=== PATIENT | male | born 1960 | race Caucasian/White ===

== ENCOUNTER 2018-03-04 17:37 | Emergency (ER) | payer OTHER, SELFPAY ==
[2018-03-04 17:38] VITALS: BP 128/79; PULSE 69; RESP 18; TEMP 36.6; O2SAT 98; BMI 34.7
--- NOTE | 2018-03-04 18:35 | RAD_ITS ---
STUDY: X-RAY - LEFT HAND REASON FOR EXAM: Male, 57 years old. Trauma TECHNIQUE: 3 view(s) of the hand. COMPARISON: None. FINDINGS: There is volar dislocation of the middle phalanx of the middle finger relative to the proximal phalanx. There is no fracture identified. The remainder of the visualized osseous structures are within normal limits. There are no significant degenerative changes. There are no radiodense foreign bodies. RAD/Hand Min 3 Views IMPRESSION: Volar dislocation of the middle phalanx of the middle finger relative to the proximal phalanx. No fracture identified. Electronically Signed: Storm Fernández, at 19:11 EDT Tel , Service support ,
--- NOTE | 2018-03-04 19:48 | ED.VISSUMM ---
- ER Visit Summary Date of Service: 03/04/18 Chief Complaint: Left long digit injury History of Present Illness: The patient is a 57 M presenting for evaluation secondary to an injury to his left long digit. Patient reports that he was holding onto a dog collar and there was a twisting injury of his left long digit. Patient reports that he does not have any other injuries and is right-hand dominant. Physical Examination: Examination of the patient's left hand shows dislocation of the patient's left long digit at the proximal interphalangeal joint with limited range of motion and maintain sensation of the finger. Normal capillary refill. Test Results: Radiographs of the long digits show evidence of no fracture but show dislocation at the proximal interphalangeal joint. Emergency Department Course and Treatment: Patient presented for evaluation secondary to finger injury. X-rays confirmed a dislocation. Patient was anesthetized using digital block. Then traction was used, and the patient was successfully reduced back to a normal anatomic position. He has normal flexion and extension and does not appear to have mallet finger boutonniere deformity. He was placed in a aluminum foam splint and will follow up with orthopedics. Disposition: Discharge Impression: 1. Left long digit PIP dislocation 2. Closed reduction This note was generated with [employer] dictation software. It may contain incorrect words, spelling, and punctuation that were not noted in review of the chart prior to signing ED Disposition - Plan for ED Patient: Disposition: Home or Assisted Living Chief Complaint: Upper Extremity Injury Diagnosis: Finger dislocation Instructions: ED Dislocation Finger Redu Referrals: Xiomara Garland DO [STAFF PHYSICIAN] - 1 Week
[2018-03-04 19:51] VITALS: RESP 16
== END 2018-03-04 19:53 | disposition home or self-care (01) ==
PROVIDERS: Emergency Provider Emergency Medicine; Family Provider Family Medicine; PCP Family Medicine
DX: S63.283A Dislocation of proximal interphalangeal joint of left middle finger, initial encounter (principal); X50.1XXA Overexertion from prolonged static or awkward postures, initial encounter; Y93.9 Activity, unspecified; Y92.9 Unspecified place or not applicable; Y99.9 Unspecified external cause status; I48.91 Unspecified atrial fibrillation; J44.9 Chronic obstructive pulmonary disease, unspecified; Z79.899 Other long term (current) drug therapy
CPT/HCPCS: 26770; 73130; 99282

== ENCOUNTER 2018-03-05 14:30 | Emergency (ER) | payer OTHER, SELFPAY ==
[2018-03-05 14:32] VITALS: BP 137/85; PULSE 62; RESP 18; TEMP 36.4; O2SAT 98; BMI 34.4
--- NOTE | 2018-03-05 14:35 | RAD_ITS ---
STUDY: X-RAY - LEFT HAND REASON FOR EXAM: Male, 57 years old. Dislocated finger. TECHNIQUE: 3 view(s) of the hand. COMPARISON: Comparison is made with prior examination dated March 04, 2018. FINDINGS: Normal radiocarpal articulation. Normal distal radioulnar joint. Normal visualized carpal bones. Normal carpal articulations Normal carpometacarpal articulation of the thumb. Normal second through fifth carpometacarpal joints. Normal metacarpi. Normal metacarpophalangeal joint of the thumb. Normal interphalangeal joint of the thumb. Normal proximal and distal phalanges of the thumb. Normal metacarpophalangeal joints of the second through fifth fingers. There is volar dislocation of the proximal interphalangeal joint of the third digit. Normal phalanges of the second through fifth fingers. Soft tissue swelling. RAD/Hand Min 3 Views IMPRESSION: Bohler dislocation of the proximal interphalangeal joint of the third digit with overlying soft tissue swelling. Electronically Signed: Bill Tavera MD at 15:14 EDT Tel [phone], Service support ,
--- NOTE | 2018-03-05 15:09 | ED.VISSUMM ---
- ER Visit Summary Date of Service: 03/05/18 Chief Complaint: Dislocated finger History of Present Illness: The patient is a 57 M presenting with dislocated left middle finger. Patient was seen in the ED yesterday for same complaint. He states he was twisting a dog collar and his left middle finger dislocated. He was seen in the ED and this was reduced at that time. Today he took the splint off to wash his hands. As he was washing his hands his left middle finger dislocated again. This occurred several hours ago. No other injuries. He is right-handed. Physical Examination: Vitals are stable. Patient is afebrile. Alert no acute distress. HEENT exam is unremarkable. Lungs are clear and equal bilaterally. Heart is regular rate and rhythm. Extremities are left middle finger flexed at PIP. Normal cap refill Skin is warm and dry. No focal neurologic deficit. Remainder of exam is unremarkable. Emergency Department Course and Treatment: Digital block was performed. Xray left hand shows volar dislocation of PIP of left 3rd digit. Closed reduction was performed. Postreduction x-ray was obtained and shows continued dislocation. Closed reduction was performed again ?2. On the third attempt it remained reduced and he was splinted. Post reduction x-ray shows reduction. Discussed with Dr. Sanford [facility] hand who advises AP splint. This was placed. He will follow-up with Dr. Sanford. He is given prescription for [place]. He is advised to return to ED for any worsening complaints. Disposition: Discharge home Impression: Left middle finger PIP dislocation, closed reduction This note was generated with [employer] dictation software. It may contain incorrect words, spelling, and punctuation that were not noted in review of the chart prior to signing ED Disposition - Plan for ED Patient: Disposition: Home or Assisted Living Chief Complaint: Upper Extremity Injury Instructions: ED Dislocation Finger Redu Prescriptions: Hydrocodone Bitart/Apap 5-325 [[place] 5MG-325MG] 1 tablet PO Q6H PRN PRN 3 Days #10 tablet PRN Reason: Pain Referrals: Piyush Sanford MD [NON-STAFF] - Carlos Enrique Ward DO [Primary Care Provider] -
--- NOTE | 2018-03-05 15:13 | ED.DCSUM_ITS ---
- ER Visit Summary Date of Service: 03/05/18 Chief Complaint: Dislocated finger History of Present Illness: The patient is a 57 M presenting with dislocated left middle finger. Patient was seen in the ED yesterday for same complaint. He states he was twisting a dog collar and his left middle finger dislocated. He was seen in the ED and this was reduced at that time. Today he took the splint off to wash his hands. As he was washing his hands his left middle finger dislocated again. This occurred several hours ago. No other injuries. He is right-handed. Physical Examination: Vitals are stable. Patient is afebrile. Alert no acute distress. HEENT exam is unremarkable. Lungs are clear and equal bilaterally. Heart is regular rate and rhythm. Extremities are left middle finger flexed at PIP. Normal cap refill Skin is warm and dry. No focal neurologic deficit. Remainder of exam is unremarkable. Emergency Department Course and Treatment: Digital block was performed. Xray left hand shows volar dislocation of PIP of left 3rd digit. Closed reduction was performed. Postreduction x-ray was obtained and shows continued dislocation. Closed reduction was performed again ?2. On the third attempt it remained reduced and he was splinted. Post reduction x-ray shows reduction. Discussed with Dr. Sanford [facility] hand who advises AP splint. This was placed. He will follow-up with Dr. Sanford. He is given prescription for [place]. He is advised to return to ED for any worsening complaints. Disposition: Discharge home Impression: Left middle finger PIP dislocation, closed reduction This note was generated with [employer] dictation software. It may contain incorrect words, spelling, and punctuation that were not noted in review of the chart prior to signing ED Disposition - Plan for ED Patient: Disposition: Home or Assisted Living Chief Complaint: Upper Extremity Injury Instructions: ED Dislocation Finger Redu Prescriptions: Hydrocodone Bitart/Apap 5-325 [[place] 5MG-325MG] 1 tablet PO Q6H PRN PRN 3 Days # 10 tablet PRN Reason: Pain Referrals: Piyush Sanford MD [NON-STAFF] - Carlos Enrique Ward DO [Primary Care Provider] -
--- NOTE | 2018-03-05 16:25 | RAD_ITS ---
STUDY: X-RAY - LEFT HAND REASON FOR EXAM: Male, 57 years old. Post reduction of third digit TECHNIQUE: 3 view(s) of the hand. COMPARISON: 03/05/2018 at 2:53 PM FINDINGS: Again noted is volar dislocation of the middle phalanx of the third digit relative to the proximal phalanx. When compared with the prior exam, there is minimally improved alignment and residual dislocation remains. There is no acute fracture. There are no radiodense foreign bodies. RAD/Hand Min 3 Views IMPRESSION: Redemonstration of volar dislocation of the middle phalanx of the third digit relative to the proximal phalanx. When compared with the prior exam, there is minimally improved alignment however residual dislocation remains. Electronically Signed: Storm Fernández, at 17:41 EDT Tel , Service support ,
--- NOTE | 2018-03-05 17:00 | RAD_ITS ---
STUDY: X-RAY - LEFT HAND REASON FOR EXAM: Male, 57 years old. 3rd digit post reduction. TECHNIQUE: 3 view(s) of the hand. COMPARISON: Imaging of the hand of 03/04/2018 and 03/05/2018.. FINDINGS: Persistent anterior dislocation of the 3rd digit middle phalanx relative to the proximal phalanx at the proximal interphalangeal joint. No visible fracture. RAD/Hand Min 3 Views IMPRESSION: The dislocation is not reduced. Electronically Signed: Brandon Arias, at 18:01 EDT Tel , Service support ,
--- NOTE | 2018-03-05 18:15 | RAD_ITS ---
STUDY: X-RAY - LEFT HAND REASON FOR EXAM: Male, 57 years old. Post reduction TECHNIQUE: 2 view(s) of the hand. COMPARISON: 03/05/2018 FINDINGS: The patient is status post reduction of the previously seen dislocation of the third proximal interphalangeal joint. Alignment is satisfactory. There is no fracture identified. There are no significant degenerative changes. There are no radiodense foreign bodies. RAD/Hand 2 Views IMPRESSION: Status post reduction of the previously seen dislocation of the third proximal interphalangeal joint with satisfactory alignment. Electronically Signed: Storm Fernández, at 19:05 EDT Tel , Service support ,
--- NOTE | 2018-03-05 19:14 | ED.DEP ---
ED Disposition - Plan for ED Patient: Chief Complaint: Upper Extremity Injury Instructions: ED Dislocation Finger Redu Prescriptions: Hydrocodone Bitart/Apap 5-325 [[place] 5MG-325MG] 1 tablet PO Q6H PRN PRN 3 Days #10 tablet PRN Reason: Pain Referrals: Carlos Enrique Ward DO [Primary Care Provider] - Piyush Sanford MD [NON-STAFF] -
--- NOTE | 2018-03-05 19:16 | DCINST.ED_ITS ---
ED Disposition - Plan for ED Patient: Chief Complaint: Upper Extremity Injury Instructions: ED Dislocation Finger Redu Prescriptions: Hydrocodone Bitart/Apap 5-325 [[place] 5MG-325MG] 1 tablet PO Q6H PRN PRN 3 Days # 10 tablet PRN Reason: Pain Referrals: Carlos Enrique Ward DO [Primary Care Provider] - Piyush Sanford MD [NON-STAFF] -
[2018-03-05 19:25] VITALS: PULSE 68; RESP 14; O2SAT 98
== END 2018-03-05 19:26 | disposition home or self-care (01) ==
LOC: ED 15:12
PROVIDERS: Emergency Provider Emergency Medicine; Family Provider Family Medicine; PCP Family Medicine
DX: S63.283A Dislocation of proximal interphalangeal joint of left middle finger, initial encounter (principal); X58.XXXA Exposure to other specified factors, initial encounter; Y93.E8 Activity, other personal hygiene; Y92.9 Unspecified place or not applicable; Y99.9 Unspecified external cause status; I10 Essential (primary) hypertension; Z79.899 Other long term (current) drug therapy; Z72.0 Tobacco use
CPT/HCPCS: 26770; 73120; 73130; 99282

== ENCOUNTER → 2019-07-01 07:49 | Outpatient (CLI) | payer OTHER, SELFPAY ==
[2019-01-27 08:22] VITALS: BMI 34.7
--- NOTE | 2019-07-02 10:13 | PFT ---
INTRODUCTION: The patient is a 58-year-old male that presents for pulmonary function studies secondary to a diagnosis of COPD. Respiratory therapy reports good patient effort. Bronchodilators were used during testing. INTERPRETATION: Forced expiration spirometry demonstrates the presence of a moderately severe large airways obstructive ventilatory defect. There was no significant response to aerosolized bronchodilators, based upon strict ATS criteria. Spirograms are of fair quality and do not plateau indicating slow emptying of the lungs. Body plethysmography was performed and reveals lung volumes to be within normal limits. Diffusing capacity by single breath CO is reduced at 63% of predicted. IMPRESSION: Irreversible moderately severe large airways obstructive ventilatory defect with preserved lung volumes and symmetric reduction in diffusing capacity.
== END ==
PROVIDERS: Family Provider Family Medicine; PCP Family Medicine; Referring Provider Internal Medicine Critical Care Medicine; Visit Provider Internal Medicine Critical Care Medicine
DX: J44.9 Chronic obstructive pulmonary disease, unspecified (principal)
CPT/HCPCS: 94060; 94726; 94729

== ENCOUNTER → 2019-07-14 08:47 | Outpatient (CLI) | payer OTHER, SELFPAY ==
[2019-01-27 08:22] VITALS: BMI 34.7
[2019-07-14 11:31] VITALS: PULSE 60; PULSE 65; PULSE 70; PULSE 74; PULSE 75; PULSE 78; PULSE 80; O2SAT 95; O2SAT 96; O2SAT 97; O2SAT 98
--- NOTE | 2019-07-15 14:27 | WT_ITS ---
PSN 6 Minute Walk Test - 6 Minute Walk Test 6 Minute Walk Test: 6 Minute Walk Test PSN:6-Minute Walk Test Start: 07/14/19 10:15 Freq: Status: Active Protocol: [id number] Document 07/14/19 11:31 [facility] (Rec: 07/14/19 11:51 [facility] [id number]) 6 Minute Walk Test Date Performed 07/14/19 Time Performed 09:00 Height 5 ft 10.5 in Weight: 240 lb Weight in Pounds 240.[address]: Mil Rivera Assistive device used: None Pre-test Oxygen Delivery Method Room Air Pulse Ox (%) 97 Pulse Rate (60-100 beats/min) 65 Dyspnea Casie Scale (0-10) 0 1st minute Oxygen Delivery Method Room Air Pulse Ox (%) 96 Pulse Rate (60-100 beats/min) 70 Dyspnea Casie Scale (0-10) 0 Number of Rests Taken 0 2nd minute Oxygen Delivery Method Room Air Pulse Ox (%) 96 Pulse Rate (60-100 beats/min) 80 Dyspnea Casie Scale (0-10) 0 Number of Rests Taken 0 3rd minute Oxygen Delivery Method Room Air Pulse Ox (%) 96 Pulse Rate (60-100 beats/min) 75 Dyspnea Casie Scale (0-10) 0 Number of Rests Taken 0 4th minute Oxygen Delivery Method Room Air Pulse Ox (%) 95 Pulse Rate (60-100 beats/min) 78 Dyspnea Casie Scale (0-10) 0 Number of Rests Taken 0 5th minute Oxygen Delivery Method Room Air Pulse Ox (%) 96 Pulse Rate (60-100 beats/min) 80 Dyspnea Casie Scale (0-10) 0 Number of Rests Taken 0 6th minute Oxygen Delivery Method Room Air Pulse Ox (%) 95 Pulse Rate (60-100 beats/min) 74 Dyspnea Casie Scale (0-10) 0 Number of Rests Taken 0 Post-test Oxygen Delivery Method Room Air Pulse Ox (%) 98 Pulse Rate (60-100 beats/min) 60 Dyspnea Casie Scale (0-10) 0 Full Laps Walked 22 Partial Lap, Number of Tiles Walked 42 Total Distance Walked (ft) 1340 - Interpretation Interpretation: The patient ambulated 1340 feet over the course of 6 minutes beginning on room air without assistive devices or breaks. Pretesting oxygen saturation was noted to be 97% on room air. With ambulation, the elisha oxygen saturation was 95%. There was no significant exertional oxygen desaturation. - Recommendations Recommendations: There is no indication for the use of supplemental oxygen at this time.
== END ==
PROVIDERS: Family Provider Family Medicine; PCP Family Medicine; Referring Provider Internal Medicine Critical Care Medicine; Visit Provider Internal Medicine Critical Care Medicine
DX: J44.9 Chronic obstructive pulmonary disease, unspecified (principal)
CPT/HCPCS: 94618

== ENCOUNTER → 2019-07-20 08:15 | Outpatient (CLI) | payer OTHER, SELFPAY ==
[2019-07-20 07:51] VITALS: BMI 34.7
[2019-07-20 08:42] LABS: Absolute Lymphocyte Count 2.52 X10^3/uL (0.83-4.51); Absolute Neutrophil Count 6.7 X10^3/uL (2.0-7.7); Basophil# 0.06 X10^3/uL; Basophil% 0.6 % (0-1); Eosinophil# 0.13 X10^3/uL; Eosinophils% 1.3 % (0-5); Hematocrit 45.4 % (40-54); Hemoglobin 14.7 g/dL (13.0-16.5); Lymphocyte # 2.52 X10^3/ul (4.0); Lymphocyte % 24.3 % (19-41); Mean Corp Hgb Conc 32.4 g/dL (32-36); Mean Corpuscular Hgb 32.2 pg (27.0-32.0); Mean Corpuscular Volume 99.3 fL (80-94); Mean Platelet Vol. 10.8 fl (6.2-12.0); Monocyte% 8.7 % (0-10); NRBC Flagged by Analyzer 0 % (0-5); Neutrophil # 6.69 X10^3/uL (2.7-7.7); Neutrophil % 64.4 % (47-70); Platelet Count 259 K/mm3 (150-450); RBC Distribution Width CV 13.3 % (11.6-14.6); RBC Distribution Width SD 48.4 fl (35.1-43.9); Red Blood Count 4.57 M/mm3 (4.6-6.2); White Blood Count 10.4 K/mm3 (4.4-11.0)
[2019-07-23 03:06] LABS: Alternaria alternata 1.38 kU/L (Class II); Bermuda Grass 0.16 kU/L (Class 0/I); Bluegrass, Kentucky 0.15 kU/L (Class 0/I); Cat Hair/Dander, Standard 0.77 kU/L (Class II); D pteronyssinus 3.43 kU/L (Class III); Dog Epithelia 3.72 kU/L (Class III); Elm, American White 0.11 kU/L (Class 0/I); Oak, White 0.12 kU/L (Class 0/I); Plantain, English 0.16 kU/L (Class 0/I)
[2019-07-23 16:02] LABS: Mouse Urine <0.10 kU/L (Class 0)
[2019-07-23 20:07] LABS: Aspirgillus flavus Negative (Neg:<1:1); Aspirgillus fumigatus Negative (Neg:<1:1); Aspirgillus niger Negative (Neg:<1:1)
[2019-07-23 20:52] LABS: Immunoglobulin E 255 IU/mL (6-495)
== END ==
PROVIDERS: PCP Family Medicine; Referring Provider Nurse Practitioner Acute Care; Visit Provider Nurse Practitioner Acute Care
DX: R06.00 Dyspnea, unspecified (principal)
CPT/HCPCS: 36415; 82785; 85025; 86003; 86606

== ENCOUNTER → 2020-12-01 20:31 | Outpatient (CLI) | payer OTHER, SELFPAY ==
[2020-11-02 06:43] VITALS: BMI 35.3
== END ==
PROVIDERS: PCP Family Medicine; Referring Provider Internal Medicine Critical Care Medicine; Visit Provider Internal Medicine Critical Care Medicine
DX: G47.33 Obstructive sleep apnea (adult) (pediatric) (principal)
CPT/HCPCS: 95811

== ENCOUNTER 2022-03-18 10:47 | Inpatient (IN) | payer OTHER, SELFPAY ==
[2022-03-18] VITALS (28 sets, daily range): BP systolic 97–150; BP diastolic 65–106; PULSE 68–158; RESP 16–26; TEMP 36.1–37.2; O2SAT 94–100; BMI 36.6; BMI 36.0
--- NOTE | 2022-03-18 11:00 | RAD_ITS ---
STUDY: X-RAY CHEST REASON FOR EXAM: Male, 61 years old. Chest pain TECHNIQUE: Single AP portable view of the chest. COMPARISON: October 04, 2014 FINDINGS: The lungs are clear and hyperexpanded. There is no demonstrated pleural abnormality. Normal size heart. Normal mediastinum and ariel. Normal visualized pulmonary arteries. Normal visualized aortic arch and descending thoracic aorta. Normal visualized thoracic spine. Normal visualized ribs, clavicles, and shoulders. There is no demonstrated abnormality of the visualized soft tissue structures of the upper abdomen. RAD/Chest 1 View (Portable) IMPRESSION: No acute cardiopulmonary disease. Electronically Signed: Dax Funes MD at 11:41 EDT ,
--- NOTE | 2022-03-18 11:05 | EDS_ITS ---
HPI History of Present Illness Chief Complaint: Palpitations Informant: spouse/S.O. Onset/Context/Timing Onset: Yesterday Activity at onset: sudden Timing: Intermittent Quality: Positive for Aching Location: Left Chest Current Severity: Mild Maximum Severity: Mild Worsened By: Nothing Relieved By: Nothing Associated Symptoms: Positive for Palpitations; Negative for Nausea, Vomiting, Diaphoresis, Dyspnea, Cough, Fever, Lightheadedness or Acid Reflux Narrative Narrative: 61-year-old male history of A. fib in which 10 years ago had a cardiac ablation done at [facility]. Also has a history of CHF, cardiomyopathy COPD. He is supposed be on metoprolol 50 mg twice a day. He recently cut that back to once a day. He ran out of his medications was unable to get it filled quickly because he had notified his [employer] locom[employer] office and started having celebrated heart rate again yesterday with intermittent left-sided chest pain. He believes he is back in A. fib. Prior Similar Symptoms: Yes Recent Illness/Hospitalization: No CVD Risk Factors: Positive for Smoking; Negative for Diabetes PE Risk Factors: Negative for Recent Travel/Surgery, Recent Immobilization, Prior DVT or PE, Cancer or OCP + Smoking + >/=35 TAD Risk Factors: Negative for Marfan's Syndrome [facility] Medical History (Updated 03/18/22 @ 11:[address] Sammy Cm MD) Alcoholism Asthma Atrial flutter Chronic systolic (congestive) heart failure Depression Hyperlipidemia Nicotine dependence Non-ischemic cardiomyopathy Obesity CEM (obstructive sleep apnea) Paroxysmal atrial fibrillation Stage 2 moderate COPD by GOLD classification Vitamin D deficiency Home Medications cholecalciferol (vitamin D3) 125 mcg (5,000 unit) capsule 5,000 unit PO QDAY 07/25/17 [History Last Taken 03/05/18] spacer #1 ea 08/06/19 [Rx Last Taken Unknown] metoprolol tartrate 50 mg tablet 50 mg PO BID #180 tabs 09/14/20 [Rx Last Taken Unknown] albuterol sulfate 90 mcg/actuation aerosol inhaler (Ventolin HFA) 2 puff inhalation Q4H PRN shortness of breath or wheezing #18 grams 05/03/21 [Rx Last Taken Unknown] tiotropium 2.5 mcg-olodaterol 2.5 mcg/actuation mist for inhalation 2 inh inhalation DAILY #1 device 11/30/21 [Rx Last Taken Unknown] cetirizine 10 mg capsule 10 mg PO HS #30 caps 01/22/22 [Rx Last Taken Unknown] ipratropium 20 mcg-albuterol 100 mcg/actuation mist for inhalation (Combivent Respimat) 1 puff inhalation Q6H PRN shortness of breath or wheezing #4 grams 01/22/22 [Rx Last Taken Unknown] Allergy/AdvReac Type Severity Reaction Status Date / Time No Known Allergies Allergy Verified 03/18/22 10:49 Family History Unknown No problems noted. Other Adopted Surgical History History of cardiac radiofrequency ablation (10/01/14) History of cardioversion History of tonsillectomy History of umbilical hernia repair Social History Smoking Status: Current every day smoker tobacco type: cigarettes ROS ROS ED ROS Narrative Accelerated heart beat. Palpitations. Chest pain. Review of Systems ROS Unobtainable: Denies due to encephalopathy Constitutional Constitutional ED: Denies chills or fever(s) Eyes Eyes: Reports none ENT ENT ED: Denies ear pain Cardiovascular Cardiovascular: Reports as per HPI, chest pain, palpitations and racing h eartbeat Respiratory/Chest Respiratory/Chest: Denies cough or dyspnea Gastrointestinal Gastrointestinal: Denies abdominal pain Genitourinary Genitourinary ED: Denies dysuria or hematuria Musculoskeletal Musculoskeletal: Denies arthralgias Integumentary Denies abscess Neurologic Neurologic: Denies headache(s) Psychiatric Psychiatric: Denies anxiety Endocrine Endocrinology: Denies cold intolerance Hematologic/Lymphatic Hematologic/Lymphatic: Denies easy bleeding Allergic/Immunologic Allergic/Immunologic ED: Denies mouth swelling or tongue swelling EXAM Physical Exam Narrative Exam Narrative: 5 H EENT exam unremarkable. Lungs are clear. Heart A. fib RVR rate about 160. Chest wall nontender. Abdomen soft nontender. Moving all 4 extremities. Calves are nontender without edema or cords. Neurologically is awake and alert. 11-year-old male vital signs show a blood pressure 150/83. Afebrile. Pulse ox 98% on room air no signs hypoxia. He is obviously in A. fib RVR on the monitor. at bedside. Const Vital Signs: 03/18/22 10:50 03/18/22 11:02 03/18/22 11:02 Temperature 96.9 F L Temperature Source Temporal Pulse Rate 158 H 139 H Respiratory Rate 18 18 Respiratory Effort Blood Pressure 150/83 H Blood Pressure Mean 105 Pulse Ox 98 99 Oxygen Delivery Method Room Air Room Air Room Air 03/18/22 11:02 Temperature Temperature Source Pulse Rate Respiratory Rate Respiratory Effort Normal Blood Pressure Blood Pressure Mean Pulse Ox Oxygen Delivery Method Positive well nourished, well developed and obese; Negative for cachectic, contractures or unkempt General Appearance ED: well developed; Negative for unkempt, cachectic, contractures, NAD or pallor Nutritional Appearance: obese; Negative for cachectic HEENT Reports moist mucous membranes normocephalic and atraumatic; Negative for trauma or tenderness Eyes PERRL and EOMs intact bilaterally General Eye ED: Negative for pale conjunctiva or scleral icterus Neck no lymphadenopathy, supple and no JVD General: Negative for tenderness Chest Wall inspection of chest normal and palpation of chest normal Chest: Negative for tenderness Resp normal respiratory effort and clear to auscultation bilaterally Effort and Inspection: Negative for respiratory distress Auscultation: Negative for rales, rhonchi or wheezes Cardio no murmurs; Negative for regular rate or regular rhythm Rate: tachycardic GI normal to inspection, nondistended, normoactive bowel sounds, soft to palpation, non-tender, non-distended and no masses Back/Spine no CVA tenderness and no thoracic nor lumbar tenderness General Back: Negative for CVA tenderness Cervical Spine: Negative for cervical spine tenderness Extremity normal to inspection General Extremety ED: Negative for edema General Extremity: Negative for edema Neuro oriented x3 and CN's II-XII intact bilaterally Sensorium / Orientation: awake, alert, oriented to person, oriented to place and oriented to time; Negative for confused, lethargic or stuporous Motor Exam: strength 5/5 throughout Psych mental status grossly normal Appearance: Negative for unkempt Attitude: No agitated Mood & Affect: Negative for depressed, anxious or tearful Skin no rashes or lesions noted and no wounds General Skin Exam: Negative for jaundice or pallor Rashes: No rashes noted Trauma: Negative for abrasion MDM MDM MDM Narrative Medical decision making narrative: 61-year-old gentleman history of A. fib 10 years ago. And recurrent A. fib RVR at this time. Will be treated with IV Cardizem. He may need to go on a drip. Will undergo cardiac work-up. Most likely will need to be admitted. Repeat exam at 11:45 AM patient doing well. He remains A. fib RVR he will be started on a Cardizem drip. He will be admitted to the hospital by the hospitalist and get cardiology consultation and an decide further therapeutic interventions. I discussed all this with patient and his they are comfortable with the plan. Lab Data Attestation: I reviewed the patient's lab results. Lab results narrative: CBC shows a white count of 10.2. H&H of 15 and 46. Chemistry is unremarkable to have 11. Normal BUN and creatinine. Troponin 8. TSH 1.81. Labs: Laboratory Results - last 24 hr 03/18/22 03/18/22 11:15 11:15 WBC 10.2 RBC 4.66 Hgb 15.9 Hct 46.4 MCV 99.6 H MCH 34.1 H MCHC 34.3 RDW Std Deviation 48.3 H RDW Coeff of Cierra 13.2 Plt Count 284 MPV 10.7 Immature Gran % (Auto) 0.400 Neut % (Auto) 66.3 Lymph % (Auto) 22.9 [place] % (Auto) 8.4 Eos % (Auto) 1.4 Baso % (Auto) 0.6 Absolute Neuts (auto) 6.8 Absolute Lymphs (auto) 2.33 Nucleated RBC % 0 Sodium 140 Potassium 4.0 Chloride 107 Carbon Dioxide 22.0 Anion Gap 11 BUN 7 Creatinine 0.96 Estim Creat Clear Calc 85.55 Est GFR (MDRD) Af Amer 103 Est GFR (MDRD) Non-Af 85 BUN/Creatinine Ratio 7.3 L Glucose 102 Calcium 9.5 Troponin I High Sens 8 TSH 1.81 Radiography Chest X-Ray - ED: 1 View, Read by ED Physician, Read by Radiologist, Heart, Lungs, Mediastinum, Bony Structures, No Acute Disease and Chronic Changes Diagnostic Testing: Clinical Impression(s) from Imaging Studies Chest X-Ray 03/18/22 11:00 IMPRESSION: No acute cardiopulmonary disease. Electronically Signed: Dax Funes MD at 11:41 EDT , Chest x-ray, portable, single view shows no acute abnormality. Normal cardiac silhouette. Mediastinum. Chronic changes. Interpreted both by myself and radiologist. Rhythm Strip Rhythm Strip: A-fib Rate: 161 EKG Initial EKG: Attestation: I personally reviewed and interpreted this EKG as follows: Interpretation: No Acute Injury Pattern and Atrial Fibrillation Comments: Atrial fibrillation rate of 161. No signs of IL or ischemia. Critical Care Time Critical Care Time: Yes Critical care time (excluding procedures): 30-74 minutes, Including time spent:, Discussing w/Patient &/or Family/Grated Cheese Maker, Discussing w/Consultants, Arranging Admission or Transfer, Performing Direct Patient Care at Bedside and - (32 min) Discharge Plan Dx/Rx/DC Orders Clinical Impression: Atrial fibrillation with rapid ventricular response, Stage 2 moderate COPD by GOLD classification, Non-ischemic cardiomyopathy, Chest pain Disposition Disposition: Acute Care Hospital [facility], [place]
[2022-03-18] MEDS: dilTIAZem 25 MG/5 ML Vial IV BOLUS (11:22)
[2022-03-18 11:27] LABS: Absolute Lymphocyte Count 2.33 X10^3/uL (0.83-4.51); Absolute Neutrophil Count 6.8 X10^3/uL (2.0-7.7); Basophil# 0.06 X10^3/uL; Basophil% 0.6 % (0-1); Eosinophil# 0.14 X10^3/uL; Eosinophils% 1.4 % (0-5); Hematocrit 46.4 % (40-54); Hemoglobin 15.9 g/dL (13.0-16.5); Lymphocyte # 2.33 X10^3/ul (0.83-4.51); Lymphocyte % 22.9 % (19-41); Mean Corp Hgb Conc 34.3 g/dL (32-36); Mean Corpuscular Hgb 34.1 pg (27.0-32.0); Mean Corpuscular Volume 99.6 fL (80-94); Mean Platelet Vol. 10.7 fl (6.2-12.0); Monocyte# 0.86 X10^3/uL; Monocyte% 8.4 % (0-10); NRBC Flagged by Analyzer 0 % (0-5); Neutrophil # 6.75 X10^3/uL (2.7-7.7); Neutrophil % 66.3 % (47-70); Platelet Count 284 K/mm3 (150-450); RBC Distribution Width CV 13.2 % (11.6-14.6); RBC Distribution Width SD 48.3 fl (35.1-43.9); Red Blood Count 4.66 M/mm3 (4.6-6.2); White Blood Count 10.2 K/mm3 (4.4-11.0)
[2022-03-18 11:44] LABS: Anion Gap 11 (5-15); BUN 7 mg/dL (7-18); BUN/Creat Ratio 7.3 RATIO (10-20); Calcium,Total 9.5 mg/dL (8.5-10.1); Chloride 107 mmol/L (98-107); Creatinine, Serum 0.96 mg/dL (0.70-1.30); EST Glomerular Filtration Rate 85 mL/min (>60); Est Glom Filt Rate - Afr Amer 103 mL/min (>60); Estimated Creatinine Clearance 85.55 ml/min; Glucose 102 mg/dL (74-106); Sodium Level 140 mmol/L (136-145); Thyroid Stim Hormone (TSH) 1.81 uIU/mL (0.358-3.74); Troponin-I HS (w/2H Reflex) 8 pg/mL (3.0-78.0)
--- NOTE | 2022-03-18 11:58 | NURSING ---
HOSPITALIST FOR DR DIAZ
--- NOTE | 2022-03-18 12:01 | HP.PCM.HOS_ITS ---
[facility] - General General Date of Admission: 03/18/22 Date of Service: 03/18/22 Chief Complaint: Palpitations, noted a day before admission HPI Narrative LIZZETTE TIDWELL, is a 61 M who presents with the above. Patient has history of paroxysmal atrial fibrillation status post ablation, not on anticoagulation because of low [id number] score, obstructive sleep apnea, on CPAP, hyperlipidemia, nonischemic cardiomyopathy, COPD, not on oxygen, who comes in with complaints of palpitations noted yesterday. Patient is on metoprolol 50 mg p.o. twice daily. He had been trying to wean himself off metoprolol gradually. He was currently on 25 mg p.o. twice daily. Patient however ran out of medications few days prior to admission. He had associated chest discomfort that has since resolved he denied any dizziness or orthopnea or PND In the ED, patient blood pressure was 150/83, heart rate was 158, respiratory rate was 18, temperature 96.9 F, oxygen sat was 98% on room air. His WBC count was 10.2, hemoglobin 15.9, platelet count 284, sodium 140, potassium 4.0, chloride 107, BUN 7, bicarb 22, creatinine 0.96, magnesium 2.3. Chest x-ray jamie wed no cardiopulmonary abnormality. Patient's EKG showed A. fib with RVR PFSH Medical History Alcoholism Asthma Atrial flutter Depression Nicotine dependence Non-ischemic cardiomyopathy Obesity CEM (obstructive sleep apnea) Paroxysmal atrial fibrillation Stage 2 moderate COPD by GOLD classification Vitamin D deficiency Home Medications cholecalciferol (vitamin D3) 125 mcg (5,000 unit) capsule 5,000 unit PO QDAY supplement 07/25/17 [History Last Taken 03/05/18] albuterol sulfate 90 mcg/actuation aerosol inhaler (Ventolin HFA) 2 puff in halation Q4H PRN shortness of breath or wheezing #18 grams 05/03/21 [Rx Last Taken Unknown] ipratropium 20 mcg-albuterol 100 mcg/actuation mist for inhalation (Combivent Respimat) 1 puff inhalation Q6H PRN shortness of breath or wheezing #4 grams 01/22/22 [Rx Last Taken Unknown] metoprolol tartrate 50 mg tablet 50 mg PO BID heart rate/bp 03/18/22 [History Last Taken Unknown] tiotropium 2.5 mcg-olodaterol 2.5 mcg/actuation mist for inhalation 2 inh inhalation DAILY shortness of breath 03/18/22 [History Last Taken Unknown] Allergy/AdvReac Type Severity Reaction Status Date / Time No Known Allergies Allergy Verified 03/18/22 10:49 Family History Unknown No problems noted. Other Adopted Surgical History History of cardiac radiofrequency ablation (10/01/14) History of cardioversion History of tonsillectomy History of umbilical hernia repair Social History Smoking Status: Heavy Smoker (>10/day) ROS ROS Narrative Constitutional:Denies: Anorexia, Chills, Fever, Night Sweats, Weight Change Eyes: Denies: Blurred vision, Cataracts, Conjunctivae Inflammation, Pain, Redness, Vision Change HEENT: Denies: Difficulty Hearing, Difficulty Swallowing, Head Aches, Hearing Changes, Sinus Congestion, Sinus Drainage Cardiovascular: See HPI Respiratory: Denies: Cough, Shortness of breath at rest, Sputum production Gastrointestinal: Denies: Abdominal Pain, Nausea, Vomiting Genitourinary: Denies: Dysuria Musculoskeletal: Denies: Joint Pain, Joint stiffness, Joint swelling, Joint Tenderness Skin: Denies: Rash, Wounds Neurological: Denies: Numbness, Tingling, Focal weakness Vital Signs Vital Signs Vital Signs: 03/18/22 10:50 03/18/22 11:02 03/18/22 11:02 Temperature 96.9 F L Temperature Source Temporal Pulse Rate 158 H 139 H Respiratory Rate 18 18 Respiratory Effort Blood Pressure 150/83 H Blood Pressure Mean 105 Pulse Ox 98 99 Oxygen Delivery Method Room Air Room Air Room Air 03/18/22 11:02 Temperature Temperature Source Pulse Rate Respiratory Rate Respiratory Effort Normal Blood Pressure Blood Pressure Mean Pulse Ox Oxygen Delivery Method Weight Weight: 115.938 kg Body Mass Index (BMI) 36.6 Physical Exam Narrative Physical exam: General: Alert, Oriented x3, Cooperative, obese HEENT: Atraumatic Oral: Moist Mucosa Neck: Supple Lungs: Clear to auscultation Cardiovascular: HS I+II, regular, no murmurs Abdomen: Bowel Sounds Present, Soft, Non Tender Extremities: No edema Skin: No rashes, No breakdown Neurological: Grossly intact Psych/Mental Status: Appropriate Results Lab / Micro Data Result Diagrams: 03/18/22 11:15 03/18/22 11:15 Labs: Laboratory Results - last 24 hr 03/18/22 11:15: WBC 10.2, RBC 4.66, Hgb 15.9, Hct 46.4, MCV 99.6 H, MCH 34.1 H, MCHC 34.3, RDW Std Deviation 48.3 H, RDW Coeff of Cierra 13.2, Plt Count 284, MPV 10.7, Immature Gran % (Auto) 0.400, Neut % (Auto) 66.3, Lymph % (Auto) 22.9, [place] % (Auto) 8.4, Eos % (Auto) 1.4, Baso % (Auto) 0.6, Absolute Neuts (auto) 6.8, Absolute Lymphs (auto) 2.33, Nucleated RBC % 0 03/18/22 11:15: Sodium 140, Potassium 4.0, Chloride 107, Carbon Dioxide 22.0, Anion Gap 11, BUN 7, Creatinine 0.96, Estim Creat Clear Calc 85.55, Est GFR (MDRD) Af Amer 103, Est GFR (MDRD) Non-Af 85, BUN/Creatinine Ratio 7.3 L, Glucose 102, Calcium 9.5, Troponin I High Sens 8, TSH 1.81 Rhythm Strip Rhythm Strip: A-fib Rate: 161 Radiology Impression Chest X-Ray 03/18/22 11:00 IMPRESSION: No acute cardiopulmonary disease. Electronically Signed: Dax Funes MD at 11:41 EDT , Assessment & Plan Assessment/Plan (1) Atrial fibrillation with rapid ventricular response: PLAN: Plan 1. A. fib with RVR in a patient with history of paroxysmal atrial fibrillation status post ablation 10 years ago Patient had run out of his medications. [id number] score of 0 Magnesium is 2.3, TSH is 1.21 Started on Cardizem drip, will continue same Will add metoprolol 50 mg twice daily, add aspirin 81 mg p.o. daily 2D echo, cardiology consult 2. COPD/asthma, not in acute exacerbation, continue ipratropium as needed 3. CEM on CPAP 4. DVT prophylaxis?Lovenox subcu Charges/Coding Visit Charges Inpatient E&M: 27654 Subs Hosp L2
[2022-03-18] MEDS: Metoprolol Tartrate 50 MG Tablet PO ×2 (13:12→21:04)
[2022-03-18 13:19] LABS: Reflex Troponin-HS? (from REC) Y
--- NOTE | 2022-03-18 13:34 | ECHOCS_ITS ---
Reason For Study: ATRIAL FIB/FLUTTER Procedure This was a 2D Doppler, Color Flow transthoracic echocardiogram. The study was technically difficult. Contrast injection was performed. Exam performed portable in patient room. Left Ventricle Normal LV size. Left ventricular systolic function is normal. The estimated ejection fraction is 65 %. No regional wall motion abnormalities noted. Right Ventricle Normal RV size. Normal systolic function. Atria Normal left atrium. Normal right atrium. Mitral Valve Mitral valve not well visualized. Tricuspid Valve The tricuspid valve is not well visualized. Aortic Valve The aortic valve is not well visualized. Pulmonic Valve The pulmonic valve is not well visualized. Great Vessels Normal aortic root. Pericardium/Pleural No pericardial effusion. Medication Diluted definity 4ml given slow IV push to enhance endocardial definition. MMode/2D Measurements & Calculations RVDd: 4.4 cm Doppler Measurements & Calculations MV E max anette: 75.7 cm/sec MV V2 max: 86.8 cm/sec Ao V2 max: 100.3 cm/sec MV max P.0 mmHg Ao max P.2 mmHg MV V2 mean: 41.5 cm/sec Ao V2 mean: 66.2 cm/sec MV mean P.92 mmHg Ao mean P.2 mmHg MV V2 VTI: 16.7 cm Ao V2 VTI: 16.4 cm LV V1 max: 73.7 cm/sec LV V1 max P.4 mmHg LV V1 mean P.1 mmHg LV V1 mean: 43.7 cm/sec LV V1 VTI: 10.8 cm ECHO/Echo Complete W/ Contrast Interpretation Summary Normal LV size. Left ventricular systolic function is normal. The estimated ejection fraction is 65 %. Contrast injection was performed. Ordering Physician: Angle Cabrera Referring Physician: Carlos Enrique Ward Performed By: Shelia Koroma RCS
[2022-03-18 14:07] LABS: Magnesium 2.3 mg/dL (1.6-2.6); Thyroid Stim Hormone (TSH) 1.21 uIU/mL (0.358-3.74); Troponin-I HS 9 pg/mL (3.0-78.0)
[2022-03-18] MEDS: Aspirin 81 MG TAB.CHEW PO (17:08)
[2022-03-18] MEDS: Enoxaparin 40 MG/0.4 ML Syringe SC (22:45)
[2022-03-19] VITALS (35 sets, daily range): BP systolic 106–133; BP diastolic 76–103; PULSE 71–122; RESP 16–29; TEMP 36.7–37.1; O2SAT 94–99
[2022-03-19 06:37] LABS: Absolute Lymphocyte Count 2.27 X10^3/uL (0.83-4.51); Absolute Neutrophil Count 6.4 X10^3/uL (2.0-7.7); Basophil# 0.05 X10^3/uL; Basophil% 0.5 % (0-1); Eosinophil# 0.15 X10^3/uL; Eosinophils% 1.5 % (0-5); Hematocrit 45.5 % (40-54); Hemoglobin 15.3 g/dL (13.0-16.5); Lymphocyte # 2.27 X10^3/ul (0.83-4.51); Lymphocyte % 23.3 % (19-41); Mean Corp Hgb Conc 33.6 g/dL (32-36); Mean Corpuscular Hgb 34.1 pg (27.0-32.0); Mean Corpuscular Volume 101.3 fL (80-94); Mean Platelet Vol. 10.8 fl (6.2-12.0); Monocyte% 8.2 % (0-10); NRBC Flagged by Analyzer 0 % (0-5); Neutrophil # 6.43 X10^3/uL (2.7-7.7); Neutrophil % 65.9 % (47-70); Platelet Count 266 K/mm3 (150-450); RBC Distribution Width CV 13.1 % (11.6-14.6); RBC Distribution Width SD 49.7 fl (35.1-43.9); Red Blood Count 4.49 M/mm3 (4.6-6.2); White Blood Count 9.8 K/mm3 (4.4-11.0)
[2022-03-19 07:13] LABS: ALB/GLOB Ratio 0.8 RATIO (0.9-2.4); AST(SGOT) 23 U/L (15-37); Alanine Aminotransfer ALT/SGPT 47 U/L (16-61); Albumin, Serum 3.2 g/dL (3.2-5.0); Alkaline Phosphatase 98 U/L (45-117); Anion Gap 8 (5-15); BUN 12 mg/dL (7-18); BUN/Creat Ratio 13.5 RATIO (10-20); Calcium,Total 9.3 mg/dL (8.5-10.1); Chloride 109 mmol/L (98-107); Creatinine, Serum 0.89 mg/dL (0.70-1.30); EST Glomerular Filtration Rate 93 mL/min (>60); Est Glom Filt Rate - Afr Amer 112 mL/min (>60); Estimated Creatinine Clearance 92.28 ml/min; Globulin 3.8 g/dL (2.2-4.2); Glucose 109 mg/dL (74-106); Potassium 4.3 mmol/L (3.5-5.1); Sodium Level 138 mmol/L (136-145)
[2022-03-19] MEDS: Aspirin 81 MG TAB.CHEW PO (09:17)
[2022-03-19] MEDS: Enoxaparin 40 MG/0.4 ML Syringe SC (09:18)
[2022-03-19] MEDS: Metoprolol Tartrate 50 MG Tablet PO (09:18)
--- NOTE | 2022-03-19 10:56 | CASEMGMT ---
GILA EVANS assessment: Face to Face with patient for initial transition planning/care coordination assessment. GILA EVANS introduced self and role at [facility], pt voices understanding and consents to assessment. Pt is sitting up in bed in no distress on room air. Pt is A/Ox4 and answers all questions appropriately.? Care providers, pharmacy,?and demographics verified. ? Presentation: Pt states ran out of metoprolol and missed saturday/saturday doses-had an ablation 10 years ago and states has felt he is in/out afib-pt then admits to this GILA EVANS that he quit taking meds twice daily because he didn't think he needed it Admitting dx: Afib RVR PCP: Sylvia Specialists: Nelda, cardio; ivana Rivera Preferred Pharmacy: [facility] Insurance: [facility] Prescription Benefit:?[facility] Living Will/HPOA: Pt states has LW/HPOA and is aware that they are not on file at [facility]. Pt states his , Sonia Harrison, is HPOA. LNOK: Sonia Harrison, /HPOA Living Arrangements: Pt lives with in 2 story home and states no concerns at home. Pt is independent with ADL's. Transportation: Pt drives self and states no transportation concerns. DME/HHC: Pt has a bipap thru [facility] and states no need for any further DME. Pt states no hx of HHC or SNF. Pt states no concerns with going home at time of discharge. 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 Pt states smokes 1/2 pack cigarettes daily and occasionally drinks ETOH. Pt states no further concerns/needs. CM to follow for any further discharge planning/needs. Advised pt to ask for CM if any further questions/concerns/needs arise, voices understanding. Pt Goal: Home Plan[place] GILA EVANS
--- NOTE | 2022-03-19 11:00 | EKG12_ITS ---
Test Reason : AM EKG Blood Pressure : / mmHG Vent. Rate : 093 BPM Atrial Rate : 000 BPM P-R Int : 000 ms QRS Dur : 080 ms QT Int : 354 ms P-R-T Axes : 000 045 050 degrees QTc Int : 440 ms Atrial fibrillation Abnormal ECG When compared with ECG of 18-MAR-2022 11:02, MANUAL COMPARISON REQUIRED, DATA IS UNCONFIRMED Confirmed by QUINTIN TALBERT, JUJU ([id number]), editor greeting card EDSON MELVIN ([id number]) on 03/20/2022 12:41:31 PM Referred By: Confirmed By:JUJU RIBEIRO MD
--- NOTE | 2022-03-19 13:30 | PN.HOSP_ITS ---
Subjective Subjective Patient seen and examined this morning. His significant other was by his bedside. He had no active complaints and review of systems otherwise negative. He remains on a Cardizem drip and remains in A. fib with heart rate being in the 110s to 120s. He has otherwise remained hemodynamically stable. Objective Data Objective Data Vital Signs: Vital Signs Temp Pulse Resp BP Pulse Ox O2 Del Method 98.1 F 93 26 H 113/92 H 96 Room Air 03/19/22 11:00 03/19/22 13:00 03/19/22 13:00 03/19/22 13:00 03/19/22 13:00 03/19/22 13:00 Oxygen Delivery Method Room Air Weight: 250 lb 7.122 oz Body Mass Index (BMI) 36.0 Intake & Output: Intake and Output for Last 24 Hours 03/17/22 03/18/22 03/19/22 23:59 23:59 23:59 Intake Total 920.00 / 940.00 545.0 / 545.0 Output Total 450 / 450 Balance 470.00 / 490.00 545.0 / 545.0 Lab / Micro Data Result Diagrams: 03/19/22 06:08 03/19/22 06:08 Labs: Laboratory Results - last 24 hr 03/18/22 13:35: Magnesium 2.3, Troponin I High Sens 9, TSH 1.21 03/19/22 06:08: WBC 9.8, RBC 4.49 L, Hgb 15.3, Hct 45.5, MCV 101.3 H, MCH 34.1 H , MCHC 33.6, RDW Std Deviation 49.7 H, RDW Coeff of Cierra 13.1, Plt Count 266, MPV 10.8, Immature Gran % (Auto) 0.600, Neut % (Auto) 65.9, Lymph % (Auto) 23.3, [place] % (Auto) 8.2, Eos % (Auto) 1.5, Baso % (Auto) 0.5, Absolute Neuts (auto) 6.4, Absolute Lymphs (auto) 2.27, Nucleated RBC % 0 03/19/22 06:08: Sodium 138, Potassium 4.3, Chloride 109 H, Carbon Dioxide 21.0, Anion Gap 8, BUN 12, Creatinine 0.89, Estim Creat Clear Calc 92.28, Est GFR (MDRD) Af Amer 112, Est GFR (MDRD) Non-Af 93, BUN/Creatinine Ratio 13.5, Glucose 109 H, Calcium 9.3, Total Bilirubin 0.50, AST 23, ALT 47, Alkaline Phosphatase 98, Total Protein 7.0, Albumin 3.2, Globulin 3.8, Albumin/Globulin Ratio 0.8 L Radiography Diagnostic Testing: Radiology Impression Echocardiogram 03/18/22 13:34 Interpretation Summary Normal LV size. Left ventricular systolic function is normal. The estimated ejection fraction is 65 %. Contrast injection was performed. Ordering Physician: Angle Cabrera Referring Physician: Carlos Enrique Ward Performed By: Shelia Koroma RCS Rhythm Strip Rhythm Strip: A-fib Rate: 161 Physical Exam Const alert, oriented x3 and no apparent distress HEENT head/scalp atraumatic, moist oral mucous membranes and oropharynx normal Head and Scalp: normocephalic Mouth: oral and palatal mucosa normal Eyes PERRL, EOMs intact bilaterally and conjunctivae normal Neck no lymphadenopathy, supple and no JVD Resp normal respiratory effort, no retractions, no use of accessory muscles and clear to auscultation bilaterally Cardio S1 normal heart sound, S2 normal heart sound and no murmurs Cardio Narrative: afib, tachycardic GI normal to inspection, nondistended, normoactive bowel sounds, soft to palpation, non-tender and non-distended Extremity normal to inspection, full ROM and no clubbing, cyanosis or edema Neuro oriented x3, CN's II-XII intact bilaterally, moves all extremities and no focal motor deficits Sensorium / Orientation: awake and alert Motor Exam: strength 5/5 throughout Psych affect normal Assessment & Plan Assessment/Plan (1) Atrial fibrillation with rapid ventricular response: PLAN: Plan #AFib with RVR * still not rate or rhythm controlled * on cardizem drip * cardiology consulted * not on anticoagulants; CHADVASC score is 0. * admits to not being complinat with his meds, and says he takes his metoprolol once daily instead of twice daily and had also run out. Obese. * 2D echo showed EF of 65%, with no regional wall motion abnormalities and normal LVSF. * #COPD and asthma: Not in exacerbation. On breathing treatments bronchodilators. #Nicotine dependence: Counseled to quit. DVT prophylaxis: Lovenox Charges/Coding Visit Charges Inpatient E&M: 51901 Subs Hosp L2
--- NOTE | 2022-03-19 17:49 | CON.PCM.CA_ITS ---
Assessment & Plan Assessment/Plan (1) Atrial fibrillation with rapid ventricular response: PLAN: He does have evidence of atrial fibrillation with rapid ventricular response rates and a [id number] score of 0. I would recommend at this time however that we put him back on his beta-rachel and increase it to to control his heart rate. I would also on the short-term put him on anticoagulation with a view to possible DC cardioversion as an outpatient after 3 to 4 weeks. After that we can consider discontinuing it. (2) Non-ischemic cardiomyopathy: PLAN: He did have evidence of nonischemic cardiomyopathy but this has normalized with his ejection fraction at 55%. I would not recommend us making any major changes at this time. Thank you for allowing me to participate in the care of your patient. Please don't hesitate to call if any issues arise. HPI Consult Data Date of Consult: 03/19/22 HPI Narrative HPI Narrative: LIZZETTE TIDWELL, is a 61 M who presents emergency room with palpitations. He is a gentleman with a history of known paroxysmal atrial fibrillation status post ablation at [facility] remotely. He had been on rate controlling medications but without anticoagulation due to a low [id number] score. He however did not think that he needed the evening dose of his beta-rachel and so weaned himself off of that and then eventually run out of medications. He started noticing his heart rate going up but denied any chest pain or paroxysmal nocturnal dyspnea or pedal edema he presented to the emergency room he was noted to be in atrial fibrillation with a rapid ventricular response rate and he was admitted started on a diltiazem drip as well as his beta-rachel. He appears to be doing somewhat better today. He denies any neck arm or jaw discomfort suggest angina. An echocardiogram performed today demonstrated overall preserved left ventricular systolic function. [facility] Medical History Alcoholism Asthma Atrial flutter Depression Nicotine dependence Non-ischemic cardiomyopathy Obesity CEM (obstructive sleep apnea) Paroxysmal atrial fibrillation Stage 2 moderate COPD by GOLD classification Vitamin D deficiency Home Medications cholecalciferol (vitamin D3) 125 mcg (5,000 unit) capsule 5,000 unit PO QDAY supplement 07/25/17 [History Last Taken 03/05/18] albuterol sulfate 90 mcg/actuation aerosol inhaler (Ventolin HFA) 2 puff inhalation Q4H PRN shortness of breath or wheezing #18 grams 05/03/21 [Rx Last Taken Unknown] ipratropium 20 mcg-albuterol 100 mcg/actuation mist for inhalation (Combivent Respimat) 1 puff inhalation Q6H PRN shortness of breath or wheezing #4 grams 01/22/22 [Rx Last Taken Unknown] tiotropium 2.5 mcg-olodaterol 2.5 mcg/actuation mist for inhalation 2 inh inhalation DAILY shortness of breath 03/18/22 [History Last Taken Unknown] metoprolol tartrate 50 mg tablet 50 mg PO BID heart rate/bp #60 tabs 03/19/22 [Rx Last Taken 03/15/22 09:00] Allergy/AdvReac Type Severity Reaction Status Date / Time No Known Allergies Allergy Verified 03/18/22 10:49 Family History Unknown No problems noted. Other Adopted Surgical History History of cardiac radiofrequency ablation (10/01/14) History of cardioversion History of tonsillectomy History of umbilical hernia repair Social History Smoking Status: Heavy Smoker (>10/day) ROS Constitutional Constitutional: Denies fever(s) or weight loss Eyes Eyes: Reports systems reviewed and no addt'l complaints, except as documented ENT HEENT: Reports systems reviewed and no addt'l complaints, except as documented Cardiovascular Cardiovascular: Reports palpitations; Denies chest pain at rest, chest pain with activity, dyspnea at rest, dyspnea on exertion, edema or paroxysmal nocturnal dyspnea Respiratory/Chest Respiratory/Chest: Denies dyspnea on exertion, productive cough, shortness of breath at rest or shortness of breath with exertion Gastrointestinal Gastrointestinal: Denies change in bowel habits, nausea, vomiting or weight changes Genitourinary Genitourinary: Denies difficulty urinating Musculoskeletal Musculoskeletal: Denies joint stiffness or muscle weakness Integumentary Integumentary: Denies lesions Neurologic Neurologic: Denies dizziness or syncope Psychiatric Psychiatric: Denies anxiety Endocrine Endocrinology: Denies excessive sweating or fatigue Hematologic/Lymphatic Hematologic/Lymphatic: Denies anemia Allergic/Immunologic Allergic/Immunologic: Denies seasonal rhinorrhea Physical Exam Const alert, oriented x3 and no apparent distress General Appearance: cooperative HEENT hearing grossly normal bilaterally Head and Scalp: atraumatic Eyes EOMs intact bilaterally Neck General: normal visual inspection Chest inspection of chest normal and palpation of chest normal Resp normal respiratory effort Auscultation: clear to auscultation bilaterally Cardio S1 normal heart sound and S2 normal heart sound Jugular Venous Distention: JVD Rhythm: abnormal rhythm GI normal to inspection, nondistended, normoactive bowel sounds Extremity normal capillary refill and no pedal edema Peripheral Pulses: Yes pulses 2+ throughout and femoral pulses present Skin no rashes or lesions noted Neuro oriented x3 and CN's II-XII intact bilaterally Psych Appearance: grossly normal and appropriate Risk Stratification Risk Stratification Applicable: No Objective Data Vital Signs: Vital Signs Temp Pulse Resp BP Pulse Ox O2 Del Method 98.1 F 98 26 H 125/86 H 97 Room Air 03/19/22 15:15 03/19/22 17:00 03/19/22 17:00 03/19/22 17:00 03/19/22 17:00 03/19/22 17:00 Oxygen Delivery Method Room Air Weight: 250 lb 7.122 oz Body Mass Index (BMI) 36.0 Intake & Output: Intake and Output for Last 24 Hours 03/17/22 03/18/22 03/19/22 23:59 23:59 23:59 Intake Total 920.00 / 940.00 927.92 / 927.92 Output Total 450 / 450 Balance 470.00 / 490.00 927.92 / 927.92 Lab / Micro Data Result Diagrams: 03/19/22 06:08 03/19/22 06:08 Labs: Laboratory Results - last 24 hr 03/19/22 06:08: WBC 9.8, RBC 4.49 L, Hgb 15.3, Hct 45.5, MCV 101.3 H, MCH 34.1 H , MCHC 33.6, RDW Std Deviation 49.7 H, RDW Coeff of Cierra 13.1, Plt Count 266, MPV 10.8, Immature Gran % (Auto) 0.600, Neut % (Auto) 65.9, Lymph % (Auto) 23.3, [place] % (Auto) 8.2, Eos % (Auto) 1.5, Baso % (Auto) 0.5, Absolute Neuts (auto) 6.4, Absolute Lymphs (auto) 2.27, Nucleated RBC % 0 03/19/22 06:08: Sodium 138, Potassium 4.3, Chloride 109 H, Carbon Dioxide 21.0, Anion Gap 8, BUN 12, Creatinine 0.89, Estim Creat Clear Calc 92.28, Est GFR (MDRD) Af Amer 112, Est GFR (MDRD) Non-Af 93, BUN/Creatinine Ratio 13.5, Glucose 109 H, Calcium 9.3, Total Bilirubin 0.50, AST 23, ALT 47, Alkaline Phosphatase 98, Total Protein 7.0, Albumin 3.2, Globulin 3.8, Albumin/Globulin Ratio 0.8 L Rhythm Strip Rhythm Strip: A-fib Rate: 161 Cardiology Labs/Tests 03/19/22 06:08: WBC 9.8, RBC 4.49 L, Hgb 15.3, Hct 45.5, MCV 101.3 H, MCH 34.1 H , MCHC 33.6, Plt Count 266, MPV 10.8, Immature Gran % (Auto) 0.600, Neut % (Au to) 65.9, Lymph % (Auto) 23.3, [place] % (Auto) 8.2, Eos % (Auto) 1.5, Baso % (Auto) 0.5, Absolute Neuts (auto) 6.4, Nucleated RBC % 0 03/19/22 06:08: Sodium 138, Potassium 4.3, Chloride 109 H, Carbon Dioxide 21.0, Anion Gap 8, BUN 12, Creatinine 0.89, Est GFR (MDRD) Af Amer 112, Est GFR (MDRD) Non-Af 93, BUN/Creatinine Ratio 13.5, Glucose 109 H, Calcium 9.3, Total Bilirubin 0.50 Rhythm: EKG: ECHO: Stress Test: Cardiac Cath: PCI: CT Surgery: Holter monitor: EPS: PPM: CXR: Chest CT Scan: Radiography Diagnostic Testing: Radiology Impression Echocardiogram 03/18/22 13:34 Interpretation Summary Normal LV size. Left ventricular systolic function is normal. The estimated ejection fraction is 65 %. Contrast injection was performed. Ordering Physician: Angle Cabrera Referring Physician: Carlos Enrique Ward Performed By: Shelia Koroma RCS
[2022-03-19] MEDS: Metoprolol Tartrate 100 MG Tablet PO (18:15)
[2022-03-19] MEDS: APIXABAN 5 MG TABLET PO (22:50)
[2022-03-20] VITALS (8 sets, daily range): BP systolic 105–127; BP diastolic 67–98; PULSE 85–148; RESP 16–18; TEMP 36.7–36.8; O2SAT 96–99
[2022-03-20 06:24] LABS: Absolute Lymphocyte Count 2.49 X10^3/uL (0.83-4.51); Absolute Neutrophil Count 7.8 X10^3/uL (2.0-7.7); Basophil# 0.07 X10^3/uL; Basophil% 0.6 % (0-1); Eosinophil# 0.18 X10^3/uL; Eosinophils% 1.5 % (0-5); Hemoglobin 15.7 g/dL (13.0-16.5); Lymphocyte # 2.49 X10^3/ul (0.83-4.51); Lymphocyte % 21.4 % (19-41); Mean Corp Hgb Conc 33.4 g/dL (32-36); Mean Corpuscular Volume 98.7 fL (80-94); Mean Platelet Vol. 10.9 fl (6.2-12.0); Monocyte# 1.02 X10^3/uL; Monocyte% 8.8 % (0-10); NRBC Flagged by Analyzer 0 % (0-5); Neutrophil % 67.2 % (47-70); Platelet Count 273 K/mm3 (150-450); RBC Distribution Width SD 47.5 fl (35.1-43.9); Red Blood Count 4.76 M/mm3 (4.6-6.2); White Blood Count 11.6 K/mm3 (4.4-11.0)
[2022-03-20 06:43] LABS: Anion Gap 7 (5-15); BUN 15 mg/dL (7-18); BUN/Creat Ratio 15.8 RATIO (10-20); Calcium,Total 8.9 mg/dL (8.5-10.1); Chloride 110 mmol/L (98-107); Creatinine, Serum 0.95 mg/dL (0.70-1.30); EST Glomerular Filtration Rate 86 mL/min (>60); Est Glom Filt Rate - Afr Amer 104 mL/min (>60); Estimated Creatinine Clearance 77.33 ml/min; Glucose 113 mg/dL (74-106); Potassium 4.3 mmol/L (3.5-5.1); Sodium Level 137 mmol/L (136-145)
[2022-03-20] MEDS: FLU VACC QS2022-23(6MOS UP)/PF 60 MCG/0.5 ML SYRINGE IM (08:33)
[2022-03-20] MEDS: dilTIAZem CD 120 MG Capsule PO (08:34)
[2022-03-20] MEDS: APIXABAN 5 MG TABLET PO (08:34)
[2022-03-20] MEDS: Metoprolol Tartrate 100 MG Tablet PO (08:34)
--- NOTE | 2022-03-20 08:38 | NURSING ---
AM medications given early due to heart rate of 150
--- NOTE | 2022-03-20 08:44 | PN.CARD_ITS ---
Subjective Subjective Patient seen and evaluated. Appears to be doing well asymptomatic. Ventricular response rate still not very well controlled. Objective Data Vital Signs: Vital Signs Temp Pulse Resp BP Pulse Ox O2 Del Method 98.3 F 148 H 16 111/75 96 Room Air 03/20/22 08:31 03/20/22 08:34 03/20/22 08:31 03/20/22 08:31 03/20/22 08:31 03/20/22 08:31 Oxygen Delivery Method Room Air Weight: 143 lb 15.39 oz Body Mass Index (BMI) 36.0 Intake & Output: Intake and Output for Last 24 Hours 03/18/22 03/19/22 03/20/22 23:59 23:59 23:59 Intake Total 920.00 / 940.00 927.92 / 927.92 Output Total 450 / 450 Balance 470.00 / 490.00 927.92 / 927.92 Lab / Micro Data Result Diagrams: 03/20/22 06:04 03/20/22 06:04 Labs: Laboratory Results - last 24 hr 03/20/22 06:04: WBC 11.6 H, RBC 4.76, Hgb 15.7, Hct 47.0, MCV 98.7 H, MCH 33.0 H , MCHC 33.4, RDW Std Deviation 47.5 H, RDW Coeff of Cierar 13.0, Plt Count 273, MPV 10.9, Immature Gran % (Auto) 0.500, Neut % (Auto) 67.2, Lymph % (Auto) 21.4, [place] % (Auto) 8.8, Eos % (Auto) 1.5, Baso % (Auto) 0.6, Absolute Neuts (auto) 7.8 H, Absolute Lymphs (auto) 2.49, Nucleated RBC % 0 03/20/22 06:04: Sodium 137, Potassium 4.3, Chloride 110 H, Carbon Dioxide 20.0 L , Anion Gap 7, BUN 15, Creatinine 0.95, Estim Creat Clear Calc 77.33, Est GFR (MDRD) Af Amer 104, Est GFR (MDRD) Non-Af 86, BUN/Creatinine Ratio 15.8, Glucose 113 H, Calcium 8.9 Rhythm Strip Rhythm Strip: A-fib Rate: 161 Cardiology Labs/Tests 03/20/22 06:04: WBC 11.6 H, RBC 4.76, Hgb 15.7, Hct 47.0, MCV 98.7 H, MCH 33.0 H , MCHC 33.4, Plt Count 273, MPV 10.9, Immature Gran % (Auto) 0.500, Neut % (Auto) 67.2, Lymph % (Auto) 21.4, [place] % (Auto) 8.8, Eos % (Auto) 1.5, Baso % (Auto) 0.6, Absolute Neuts (auto) 7.8 H, Nucleated RBC % 0 03/20/22 06:04: Sodium 137, Potassium 4.3, Chloride 110 H, Carbon Dioxide 20.0 L , Anion Gap 7, BUN 15, Creatinine 0.95, Est GFR (MDRD) Af Amer 104, Est GFR (MDRD) Non-Af 86, BUN/Creatinine Ratio 15.8, Glucose 113 H, Calcium 8.9 Rhythm: EKG: ECHO: Stress Test: Cardiac Cath: PCI: CT Surgery: Holter monitor: EPS: PPM: CXR: Chest CT Scan: Radiography Diagnostic Testing: Radiology Impression Echocardiogram 03/18/22 13:34 Interpretation Summary Normal LV size. Left ventricular systolic function is normal. The estimated ejection fraction is 65 %. Contrast injection was performed. Ordering Physician: Angle Cabrera Referring Physician: Carlos Enrique Ward Performed By: Shelia Koroma RCS Physical Exam Const alert, oriented x3 and no apparent distress General Appearance: cooperative HEENT hearing grossly normal bilaterally Head and Scalp: atraumatic Eyes EOMs intact bilaterally Neck General: normal visual inspection Chest inspection of chest normal and palpation of chest normal Resp normal respiratory effort Auscultation: clear to auscultation bilaterally Cardio S1 normal heart sound and S2 normal heart sound Jugular Venous Distention: JVD Rhythm: abnormal rhythm GI normal to inspection, nondistended, normoactive bowel sounds Extremity normal capillary refill and no pedal edema Peripheral Pulses: Yes pulses 2+ throughout and femoral pulses present Skin no rashes or lesions noted Neuro oriented x3 and CN's II-XII intact bilaterally Psych Appearance: grossly normal and appropriate Assessment & Plan Assessment/Plan (1) Atrial fibrillation with rapid ventricular response: PLAN: He does have evidence of atrial fibrillation with rapid ventricular response rates and a [id number] score of 0. I would recommend at this time however that we put him back on his beta-rachel and increase it to to control his heart rate. I would also add a calcium channel rachel short-term. I would also on the short-term put him on anticoagulation with a view to possible DC cardioversion as an outpatient after 3 to 4 weeks. After that we can consider discontinuing it. We can consider for him as an outpatient after he has gotten his doses of medic ation today and see what his heart rate is around noon today. (2) Non-ischemic cardiomyopathy: PLAN: He did have evidence of nonischemic cardiomyopathy but this has normalized with his ejection fraction at 55%. I would not recommend us making any major changes at this time. Thank you for allowing me to participate in the care of your patient. Please don't hesitate to call if any issues arise.
--- NOTE | 2022-03-20 14:23 | DS.PCM_ITS ---
Providers Date of Admission: 03/18/22 Date of Discharge: 03/20/22 Primary Care Physician: Dr. Carlos Enrique Ward, DO Consultations 03/18/22 13:33 Consult: Cardiology Routine Consulting Provider: Su Xiong Reason for Consult: A. fib with RVR EMERGENT Consult: No MD Notified: Yes Date Notified: 03/18/22 Time Notified: 13:36 Method of Notification: Text Reason For Visit: A. FIB WITH RVR Diagnosis Discharge Diagnosis (1) Atrial fibrillation with rapid ventricular response: Status: Acute Code(s): I48.91 - Unspecified atrial fibrillation (2) Non-ischemic cardiomyopathy: Status: Chronic Code(s): I42.8 - Other cardiomyopathies Plan #AFib with RVR * still not rate or rhythm controlled * on cardizem drip * cardiology consulted * not on anticoagulants; CHADVASC score is 0. * admits to not being complinat with his meds, and says he takes his metoprolol once daily instead of twice daily and had also run out. Obese. * 2D echo showed EF of 65%, with no regional wall motion abnormalities and normal LVSF. * #COPD and asthma: Not in exacerbation. On breathing treatments bronchodilators. #Nicotine dependence: Counseled to quit. DVT prophylaxis: Lovenox Medications at Discharge Home Medications cholecalciferol (vitamin D3) 125 mcg (5,000 unit) capsule 5,000 unit PO QDAY supplement 07/25/17 albuterol sulfate 90 mcg/actuation aerosol inhaler (Ventolin HFA) 2 puff inhalation Q4H PRN shortness of breath or wheezing #18 grams 05/03/21 ipratropium 20 mcg-albuterol 100 mcg/actuation mist for inhalation (Combivent Respimat) 1 puff inhalation Q6H PRN shortness of breath or wheezing #4 grams 01/22/22 tiotropium 2.5 mcg-olodaterol 2.5 mcg/actuation mist for inhalation 2 inh inhalation DAILY shortness of breath 03/18/22 apixaban 5 mg tablet (Eliquis) 5 mg PO BID #60 tabs 03/20/22 diltiazem HCl 120 mg capsule,extended release 24 hr 120 mg PO Q12 #60 caps 03/20/22 metoprolol tartrate 100 mg tablet 100 mg PO BID #60 tabs 03/20/22 Hospital Course Operations None Procedures 2-D Echocardiogram Summary of Care Provided Minutes Spent on Discharge: 45 Hospital Course: Patient is a 61-year-old male with a past medical history of paroxysmal A. fib s/p ablation and not on anticoagulation, obstructive sleep apnea on CPAP, hyperlipidemia and nonischemic cardiomyopathy as well as COPD was admitted through the ED with a complaint of palpitations which started the day before admission. Patient was supposed to be on metoprolol for his A. fib but said he had not been taking it as he showed he had been trying to wean himself off of it. 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 He had also run out of medications a few days prior to admission. He had had associated chest discomfort with the palpitations. On admission his heart rate was 158 but vitals were otherwise stable. Potassium was 4. Chest x-ray showed no acute cardiopulmonary pathology. EKG showed A. fib with RVR. He was admitted and managed for A. fib with RVR. He was started on Cardizem drip. Cardiology was consulted. He was transitioned from Cardizem drip to p.o. metoprolol. His heart rate improved but he was not rate or rhythm control so Cardizem was added on. Heart rate subsequently improved to the 110s. Cardiology started him on Eliquis as plan was for DC cardioversion in a few weeks time and Eliquis could be stopped after that on account of his ChHADVASC score being 0. He remained stable and was discharged home on 03/20/2022. He is to follow-up with his primary care doctor within 1 to 2 weeks as well as with cardiology within 1 to 2 weeks. Patient seen and examined prior to discharge. He had no active complaints and had an uneventful night. He felt much better and review of systems otherwise negative. Labs and vitals reviewed. Medication reviewed and reconciled. Physical Exam Const alert, oriented x3 and no apparent distress General Appearance: cooperative, comfortable and well kempt Orientation / Consciousness: awake HEENT normocephalic, head/scalp atraumatic, hearing grossly normal bilaterally, moist oral mucous membranes and oropharynx normal Mouth: oral and palatal mucosa normal Eyes PERRL, EOMs intact bilaterally and conjunctivae normal Neck no lymphadenopathy, supple and no JVD Resp normal respiratory effort, no retractions, no use of accessory muscles and clear to auscultation bilaterally Cardio S1 normal heart sound, S2 normal heart sound and no murmurs Cardio Narrative: afib, mildly tachycardic GI normal to inspection, nondistended, normoactive bowel sounds, soft to palpation, non-tender and non-distended Extremity normal to inspection, full ROM and no clubbing, cyanosis or edema Skin no rashes or lesions noted Neuro oriented x3, CN's II-XII intact bilaterally, moves all extremities and no focal motor deficits Sensorium / Orientation: awake and alert Motor Exam: strength 5/5 throughout Psych affect normal Weight / BMI Weight Weight: 143 lb 15.39 oz Body Mass Index (BMI) 36.0 ABG / Lab / Microbiology Data Result Diagrams: 03/20/22 06:04 03/20/22 06:04 Laboratory: Laboratory Results - last 24 hr 03/20/22 06:04: WBC 11.6 H, RBC 4.76, Hgb 15.7, Hct 47.0, MCV 98.7 H, MCH 33.0 H , MCHC 33.4, RDW Std Deviation 47.5 H, RDW Coeff of Cierra 13.0, Plt Count 273, MPV 10.9, Immature Gran % (Auto) 0.500, Neut % (Auto) 67.2, Lymph % (Auto) 21.4, [place] % (Auto) 8.8, Eos % (Auto) 1.5, Baso % (Auto) 0.6, Absolute Neuts (auto) 7.8 H, Absolute Lymphs (auto) 2.49, Nucleated RBC % 0 03/20/22 06:04: Sodium 137, Potassium 4.3, Chloride 110 H, Carbon Dioxide 20.0 L , Anion Gap 7, BUN 15, Creatinine 0.95, Estim Creat Clear Calc 77.33, Est GFR (MDRD) Af Amer 104, Est GFR (MDRD) Non-Af 86, BUN/Creatinine Ratio 15.8, Glucose 113 H, Calcium 8.9 D/C Instructions Discharge Diet: Low fat / Low cholesterol Weight Bearing Status: Weight bearing as tolerated Call your doctor if you observe: Fever of 101 or Higher, Shortness of breath, Dizziness, Swelling in the ankles, Chest pain and Increased palpitations (irregular heartbeat) Meaningful Use Info Meaningful Use Diagnoses (Choose all that apply): None applicable Discharge Plan Admission Admit Date/Time: 03/18/22 11:58 Primary Reason for Your Visit: afib with RVR Attending Provider: Desirae Salmon Primary Care Provider: Carlos Enrique Ward Consulting Providers: Su Xiong ; Angle Cabrera Instructions Patient Instructions: AFib Discharge Orders/Prescriptions Prescriptions: New metoprolol tartrate 100 mg Tablet 100 mg PO BID Qty: 60 1RF diltiazem HCl 120 mg Capsule,Extended Release 24hr 120 mg PO Q12 Qty: 60 1RF Eliquis 5 mg Tablet 5 mg PO BID Qty: 60 1RF Continued cholecalciferol (vitamin D3) 5,000 unit capsule 5,000 unit PO QDAY albuterol sulfate [Ventolin HFA] 90 mcg/actuation HFA aerosol inhaler 2 puff INHALATION Q4H PRN (Reason: shortness of breath or wheezing) Qty: 18 6RF Combivent Respimat 20-100 mcg/actuation mist 1 puff inhalation Q6H PRN (Reason: shortness of breath or wheezing) Qty: 4 3RF tiotropium-olodaterol 2.5-2.5 mcg/actuation mist 2 inh INHALATION DAILY Discontinued metoprolol tartrate 50 mg tablet 50 mg PO BID Qty: 60 0RF Label Comments: Pt ran out several days ago. Pt had been taking 50mg daily instead of BID as ordered. Referrals / Follow Up: Collin Lutz MD [Med Staff - Active Staff] - Within 2 Weeks Carlos Enrique Ward DO [Primary Care Provider] - Within 2 Weeks Disposition Disposition (needs filled in before D/C Order can be placed): Home, Self Care Charges/Coding Visit Charges Inpatient E&M: 34177 Disch Hosp
--- NOTE | 2022-03-20 14:47 | CASEMGMT ---
Pt to be sent home on Eliquis at discharge and med e-scribed to [facility] pharmacy. Call to [place] in [facility] pharmacy and she states pt's co-pay is $20. Eliquis 30 day free trial card to be applied. Pt updated and provided Eliquis $10 co-pay card as well. Pt voices no further questions/concerns/needs for discharge. Dutch URIOSTEGUI CM
== END 2022-03-20 15:38 | disposition home or self-care (01) | DRG 309 ==
LOC: ED 11:55 → PCU 12:21
PROVIDERS: Admitting Provider Internal Medicine; Emergency Provider Emergency Medicine; PCP Family Medicine; Visit Provider Student in an Organized Health Care Education/Training Program
DX: I48.0 Paroxysmal atrial fibrillation (principal); I50.22 Chronic systolic (congestive) heart failure; I42.8 Other cardiomyopathies; J44.9 Chronic obstructive pulmonary disease, unspecified; E78.5 Hyperlipidemia, unspecified; G47.33 Obstructive sleep apnea (adult) (pediatric); F17.210 Nicotine dependence, cigarettes, uncomplicated; E66.9 Obesity, unspecified; Z68.36 Body mass index [BMI] 36.0-36.9, adult; Z91.14 Patient's other noncompliance with medication regimen; Z91.199 Patient's noncompliance with other medical treatment and regimen due to unspecified reason; Z71.6 Tobacco abuse counseling; Z79.899 Other long term (current) drug therapy; Z23 Encounter for immunization
CPT/HCPCS: 36415; 71045; 80048; 80053; 83735; 84443; 84484; 85025; 93005; 93306; 97802; 99285; 99406; J7030; Q9957; 90686; A4216; C8929

== ENCOUNTER → 2022-04-18 | Outpatient (CLI) | payer OTHER, SELFPAY ==
[2022-04-18 16:22] LABS: Anion Gap 5 (5-15); BUN 12 mg/dL (7-18); Calcium,Total 9.6 mg/dL (8.5-10.1); Chloride 105 mmol/L (98-107); Creatinine, Serum 1.09 mg/dL (0.70-1.30); EST Glomerular Filtration Rate 74 mL/min (>60); Est Glom Filt Rate - Afr Amer 89 mL/min (>60); Glucose 108 mg/dL (74-106); Potassium 4.1 mmol/L (3.5-5.1); Sodium Level 135 mmol/L (136-145)
== END | disposition home or self-care (01) ==
PROVIDERS: PCP Family Medicine; Visit Provider Physician Assistant Medical
DX: I48.0 Paroxysmal atrial fibrillation (principal)
CPT/HCPCS: 36415; 80048

== ENCOUNTER 2022-04-27 10:02 | Day surgery (SDC) | payer OTHER, SELFPAY ==
[2022-04-26 14:18] VITALS: BMI 36.6
--- NOTE | 2022-04-27 12:23 | PCM.OP.BLANK ---
Problems Associated Problem List Diagnoses (1) Paroxysmal atrial fibrillation: Operative Report Date of Procedure: 04/27/22 DC cardioversion. 61-year-old man with a history of paroxysmal atrial fibrillation symptomatic. The patient has been on anticoagulation for the required period of a minimum of 3 weeks. The patient was brought to the cardiac catheterization lab in the postabsorptive nonsedated state. Informed consent was obtained. The patient was seen by Dr. Rivera of the critical care division. Anterior-posterior pads were applied. 100 mg of intravenous propofol was then administered and then 200 J of DC cardioversion energy were applied with prompt reversal to sinus rhythm. Conclusion: Successful DC cardioversion from atrial fibrillation to sinus rhythm. Discontinue diltiazem. Continue beta-rachel and anticoagulation.
--- NOTE | 2022-04-27 12:49 | PRO.PCM_ITS ---
Procedure Report Date of Procedure: 04/27/22 CONSCIOUS SEDATION REPORT BRIEF HISTORY OF PRESENT ILLNESS: The patient is a 61-year-old male who presented to [facility] for an elective outpatient cardioversion due to underlying atrial fibrillation. The patient reports no PO intake since midnight, but is currently therapeutic on anticoagulation. The patient does have a history of obstructive sleep apnea and is compliant with therapy. Patient also well-known to me from the outpatient office. The patient has a history of smoking and COPD. The patient denies any recent constitutional symptoms such as fevers, chills, nausea or vomiting. The patient denies previous applicable anesthetic complications. Patient's last ejection fraction was 65%. PHYSICAL EXAMINATION: VITAL SIGNS: Reviewed and were acceptable. GENERAL: The patient is a male, in no apparent distress, speaking in full sentences. HEENT: Normocephalic, atraumatic. Mucous membranes are moist and pink. Good mouth opening noted. Trachea is midline. Good neck mobility. MP II CHEST: S1, S2 irregularly irregular. No murmurs, rubs or gallops were noted. LUNGS: Clear to auscultation bilaterally without appreciable wheezes, rales or rhonchi. ABDOMEN: Soft, nontender, nondistended. Positive bowel sounds. EXTREMITIES: There is no clubbing, cyanosis or edema. ASA Class: II DESCRIPTION OF PROCEDURE: After confirmation of informed consent, the patient's anesthesia plan was reviewed in detail. Propofol was chosen. Risks and benefits were reviewed and the patient agreed to proceed. At 11:46 AM, the patient was given 40 mg of propofol. The patient required a total of 100 mg of propofol throughout the procedure to achieve appropriate sedation. The patient achieved an appropriate level of sedation and received 1 attempt synchronized cardioversion, at [address] Lutz at the bedside. This was successful in achieving normal sinus rhythm. The patient was monitored until 12 PM, at which time the patient reached their baseline mental status and function. The patient tolerated the procedure well. COMPLICATIONS: None ESTIMATED BLOOD LOSS: None RECOMMENDATIONS: Okay to recover in usual fashion. Procedures Pulmonary 9xxxx: [id number] Con Sedation
== END 2022-04-27 12:50 | disposition home or self-care (01) ==
LOC: CLSP 10:03
PROVIDERS: PCP Family Medicine; Visit Provider Internal Medicine Cardiovascular Disease
DX: I48.0 Paroxysmal atrial fibrillation (principal); J44.9 Chronic obstructive pulmonary disease, unspecified; G47.33 Obstructive sleep apnea (adult) (pediatric); Z79.01 Long term (current) use of anticoagulants; Z79.899 Other long term (current) drug therapy; Z87.891 Personal history of nicotine dependence
CPT/HCPCS: 92960; 93005; J7040

== ENCOUNTER → 2022-05-02 | Outpatient (CLI) | payer OTHER, SELFPAY ==
[2022-05-02 13:00] LABS: AST(SGOT) 30 U/L (15-37); Alanine Aminotransfer ALT/SGPT 46 U/L (16-61); Albumin, Serum 3.8 g/dL (3.2-5.0); Alkaline Phosphatase 104 U/L (45-117); Bilirubin, Direct 0.09 mg/dL (0.00-0.30); Cholesterol 189 mg/dL (200); Globulin 4.2 g/dL (2.2-4.2); High Density Lipoprotein 38 mg/dL; Triglycerides 139 mg/dL; Very Low Density Lipoprotein 28 mg/dL (5-40)
== END | disposition home or self-care (01) ==
LOC: BFHLAB 09:13
PROVIDERS: PCP Family Medicine; Visit Provider Family Medicine
DX: Z00.00 Encounter for general adult medical examination without abnormal findings (principal); Z12.5 Encounter for screening for malignant neoplasm of prostate
CPT/HCPCS: 36415; 80061; 80076; 84153; G0103

== ENCOUNTER → 2022-08-21 | Outpatient (CLI) | payer SELFPAY | END | disposition home or self-care (01) | LOC: SL 06:13 | PROVIDERS: PCP Family Medicine; Visit Provider Internal Medicine Critical Care Medicine | DX: Z00.00 Encounter for general adult medical examination without abnormal findings (principal) ==

== ENCOUNTER → 2023-02-06 | Outpatient (CLI) | payer OTHER, SELFPAY ==
--- NOTE | 2023-02-06 15:10 | RAD_ITS ---
STUDY: X-RAY CHEST REASON FOR EXAM: Male, 62 years old. Cardioversion. TECHNIQUE: Frontal and lateral views of the chest. COMPARISON: Chest dated March 2022. FINDINGS: Stable cardiomegaly, aortic tortuosity, hyperinflation with mild diffuse interstitial prominence and patchy linear opacities at both bases most compatible with scarring. No active or acute cardiopulmonary disease. No abnormality of the visualized soft tissue structures of the upper abdomen. RAD/Chest PA and Lateral IMPRESSION: Stable chest with no acute or active cardiopulmonary disease. Electronically Signed: Sly Calderon MD at 15:27 EDT ,
[2023-02-06 15:59] LABS: Absolute Lymphocyte Count 2.38 X10^3/uL (0.83-4.51); Absolute Neutrophil Count 9.7 X10^3/uL (2.0-7.7); Basophil# 0.08 X10^3/uL; Basophil% 0.6 % (0-1); Eosinophil# 0.19 X10^3/uL; Eosinophils% 1.4 % (0-5); Hematocrit 46.8 % (40-54); Hemoglobin 15.1 g/dL (13.0-16.5); Lymphocyte # 2.38 X10^3/ul (0.83-4.51); Lymphocyte % 17.7 % (19-41); Mean Corp Hgb Conc 32.3 g/dL (32-36); Mean Corpuscular Hgb 33.7 pg (27.0-32.0); Mean Corpuscular Volume 104.5 fL (80-94); Mean Platelet Vol. 10.6 fl (6.2-12.0); Monocyte# 1.03 X10^3/uL; Monocyte% 7.7 % (0-10); NRBC Flagged by Analyzer 0 % (0-5); Neutrophil # 9.68 X10^3/uL (2.7-7.7); Neutrophil % 72.1 % (47-70); Platelet Count 306 K/mm3 (150-450); RBC Distribution Width SD 54.2 fl (35.1-43.9); Red Blood Count 4.48 M/mm3 (4.6-6.2); White Blood Count 13.4 K/mm3 (4.4-11.0)
[2023-02-06 16:15] LABS: Anion Gap 5 (5-15); BUN 14 mg/dL (7-18); BUN/Creat Ratio 12.7 RATIO (10-20); Calcium,Total 9.3 mg/dL (8.5-10.1); Chloride 106 mmol/L (98-107); EST Glomerular Filtration Rate 73 mL/min (>60); Est Glom Filt Rate - Afr Amer 88 mL/min (>60); Glucose 102 mg/dL (74-106); Potassium 4.8 mmol/L (3.5-5.1); Sodium Level 138 mmol/L (136-145)
[2023-02-06 16:25] LABS: BNP,B-Type NATRIURETIC PEPTIDE 500.2 pg/mL (0-100)
== END | disposition home or self-care (01) ==
LOC: RAD 15:09
PROVIDERS: PCP Family Medicine; Referring Provider Nurse Practitioner Gerontology; Visit Provider Nurse Practitioner Gerontology
DX: R06.09 Other forms of dyspnea (principal); I48.0 Paroxysmal atrial fibrillation
CPT/HCPCS: 36415; 71046; 80048; 83880; 85025

== ENCOUNTER → 2023-02-13 | Outpatient (CLI) | payer OTHER, SELFPAY ==
[2023-02-13 08:23] LABS: Anion Gap 5 (5-15); BUN 16 mg/dL (7-18); BUN/Creat Ratio 15.2 RATIO (10-20); Calcium,Total 9.3 mg/dL (8.5-10.1); Chloride 103 mmol/L (98-107); Creatinine, Serum 1.05 mg/dL (0.70-1.30); EST Glomerular Filtration Rate 77 mL/min (>60); Est Glom Filt Rate - Afr Amer 93 mL/min (>60); Glucose 119 mg/dL (74-106); Potassium 4.4 mmol/L (3.5-5.1); Sodium Level 135 mmol/L (136-145)
[2023-02-13 08:49] LABS: BNP,B-Type NATRIURETIC PEPTIDE 216.6 pg/mL (0-100)
== END | disposition home or self-care (01) ==
LOC: LAB 07:29
PROVIDERS: PCP Family Medicine; Referring Provider Nurse Practitioner Gerontology; Visit Provider Nurse Practitioner Gerontology
DX: R06.09 Other forms of dyspnea (principal); I50.22 Chronic systolic (congestive) heart failure; I48.0 Paroxysmal atrial fibrillation
CPT/HCPCS: 36415; 80048; 83880

== ENCOUNTER 2023-08-16 10:28 | Day surgery (SDC) | payer OTHER, SELFPAY ==
--- NOTE | 2023-07-31 14:32 | RAD_ITS ---
STUDY: X-RAY CHEST REASON FOR EXAM: Male, 62 years old. Pre-procedure: DCCV TECHNIQUE: PA and lateral views of the chest. COMPARISON: Comparison is made with prior study dated February 06, 2023. FINDINGS: There is hyperinflation of the lungs consistent with chronic obstructive lung disease (COPD). There is no demonstrated pleural abnormality. Normal size heart. Normal mediastinum and ariel. Normal visualized pulmonary arteries. Normal visualized aortic arch and descending thoracic aorta. There is demineralization of the osseous structures. Increased kyphosis. Normal visualized ribs, clavicles, and shoulders. There is no demonstrated abnormality of the visualized soft tissue structures of the upper abdomen. RAD/Chest PA and Lateral IMPRESSION: Hyperinflation. The lungs are clear. Electronically Signed: Bill Tavera MD at 15:59 EST ,
[2023-07-31 15:11] LABS: Anion Gap 7 (5-15); BUN 15 mg/dL (7-18); BUN/Creat Ratio 11.2 RATIO (10-20); Chloride 105 mmol/L (98-107); Creatinine, Serum 1.34 mg/dL (0.70-1.30); EST Glomerular Filtration Rate 58 mL/min (>60); Est Glom Filt Rate - Afr Amer 70 mL/min (>60); Glucose 115 mg/dL (74-106); Potassium 4.2 mmol/L (3.5-5.1); Sodium Level 139 mmol/L (136-145)
--- NOTE | 2023-08-09 07:39 | HP.PCM_ITS ---
History and Physical Date of Admission: 08/16/23 Jass Teresa is a 62-year-old gentleman who presents here today for a DCCV.. Patient was admitted on March 18, 2022 for atrial fibrillation. He had not been taking his metoprolol and had weaned himself off of this. EKG demonstrated atrial fibrillation with RVR with a heart rate of 158. He was started on IV Cardizem. He was transitioned to p.o. metoprolol. However his heart rate was not improved so he was started on p.o. Cardizem. Echocardiogram did demonstrate an ejection fraction of 65% with no regional wall motion abnormalities. He has a past medical history of ablation in September [address] De Jesus at [facility]. He has undergone cardioversion in June, July, and September 2014 as well as April 2022. He does have CEM. He denies chest, arm, jaw, or neck discomfort. He acknowledges palpitations that he describes as a flutter sensation and it really occurs. This is with extreme activity and when fatigued. This improves with rest. His palpitations are associated with shortness of breath. He denies bilateral lower extremity edema. He denies claudication. He denies shortness of breath with activity, shortness of breath at rest, orthopnea, or PND. He denies chronic cough. He denies significant, sudden weight gain. He denies lightheadedness, dizziness, near-syncope, or syncope. He denies blood in urine, blood in stool, or epistaxis. He denies fever with chills. He denies myalgia. He denies fatigue. His exercise level has remained stable. Allergies No Known Allergies Allergy (Verified 03/28/23 08:45) Medications:see EMR Ejection fraction %: 65 to 70 [facility] Medical History Alcoholism Asthma Atrial fibrillation with rapid ventricular response Atrial flutter Depression Nicotine dependence Non-ischemic cardiomyopathy Obesity CEM (obstructive sleep apnea) Paroxysmal atrial fibrillation Stage 2 moderate COPD by GOLD classification Vitamin D deficiency Surgical History History of cardiac radiofrequency ablation (10/01/14) History of cardioversion (04/27/22) History of tonsillectomy History of umbilical hernia repair Family History Unknown No problems noted. Other Adopted Social History Smoking Status: Light Smoker (<10/day) alcohol intake: current alcohol intake frequency: 0-2 drinks per day substance use type: does not use caffeine: Yes Type: coffee Number of servings: 1 ROS Const Const: Negative for fatigue, weakness, headache(s), frequent falls, difficulty sleeping or excessive sweating Eyes Eyes: Negative for loss of peripheral vision, transient loss of vision, blurry vision, double vision or tunnel vision ENT ENT: Negative for headache(s), dizziness, Nosebleed/epistaxis or balance problems Cardio Chest Pain: No Palpitations: Yes (Rarely feels it) feels like its: other (fluttering) Edema: None Muscle aches with walking: None Resp Respiratory: Positive for SOB with activity; Negative for SOB at rest, SOB orthopnea\SOB lying down, Cough or paroxysmal nocturnal dyspnea GI GI: Negative nausea, vomiting, heartburn or black,tarry stools : Negative for hematuria Musc Musc: Negative for muscle aches/ myalgia, muscle weakness, joint pain or balance problems Skin Skin: Negative non-healing lesions, rash or unusual bruising Neuro Neuro: Negative for dizziness, lightheadedness, near syncope, syncope, frequent falls, headache(s), weakness, blurry vision, double vision or lack of coordination David Hematologic/Lymphatic: Negative for easy bleeding or easy bruising Endo Endo: Negative for fatigue, excessive sweating or increased thirst/drinking Psych Psych: Negative for anxiety or depression Allergy Allergy/Immunology: Negative for hives and Negative for rash Cardiology Exam Const Appearance: cooperative, healthy appearing, comfortable and no acute distress Nutritional Appearance: well nourished and obese Orientation: alert, awake and oriented x3 Head Head: normal to inspection Ears: hearing grossly normal bilaterally Nose: external nose normal Face and Sinus: face symmetric Mouth: moist mucous membranes Eyes General: appearance normal, both eyes and all related structures Eyelids: eyelids normal EOM: EOM intact bilaterally Neck Neck: normal visual inspection and no JVD Carotids: normal carotid upstroke Chest Chest inspection: normal inspection of the chest, symmetric chest movement and normal respiratory effort; Negative cough Auscultation: Bilateral: Clear to Auscultation Cardio Rate: regular rate Rhythm: irregular rhythm Heart sounds: S1 normal and S2 normal; Negative rub, gallop or murmur GI GI: normal to inspection and obese Neuro General: patient alert, patient awake, patient oriented x3 and CN's II-XI intact bilaterally Skin Skin: no rashes or lesions noted Extremities Pulses: Normal: Right Posterior Tibial Pulse, Left Posterior Tibial Pulse, Right Radial Pulse and Left Radial Pulse Lower Extremity Edema: None: Bilateral Psych Psychological: normal affect Supplemental Info Supplemental Information Echocardiogram 03/2022 Normal LV size. Left ventricular systolic function is normal. The estimated ejection fraction is 65 %. Contrast injection was performed. Assessment and Plan (1) Paroxysmal atrial fibrillation: Status: Chronic Comment: RFA PVI-10/01/2014; DCCV on 06/2014, 07/2014, 09/2014, 04/27/22; Plan: He has a history of an ablation and multiple cardioversions. His most recent cardioversion was April 2022. His most recent echocardiogram from 03/18/2022 demonstrated ejection fraction of 65%, and normal atrial size. Twelve-lead ECG from 03/28/2023 shows continual atrial fibrillation. His last stress test from May 2014 was negative for ischemia and showed previous infarct could not be excluded. This will need to be taken to account regarding possibility of antiarrhythmic therapy. He has an appointment in June with EP. His case will be reviewed further in regards to awaiting EP evaluation or consideration for antiarrhythmic therapy +/- cardioversion.
[2023-08-15 08:20] VITALS: BMI 38.0
--- NOTE | 2023-08-16 12:23 | PCM.OP.PRO ---
Procedure Report Date of Procedure: 08/16/23 DC cardioversion. 62-year-old man with a history of atrial fibrillation flutter who has been on anticoagulation uninterrupted for at least 3 weeks. The patient was brought to cardiac catheterization lab in the postabsorptive nonsedated state. Informed consent was obtained. The patient was seen by Dr. Rivera of the critical care division. Anterior-posterior pads were applied. The patient was administered 100 mg of intravenous propofol. 200 J of synchronized biphasic energy were applied which did not result in uatsdin of sinus rhythm and the patient was then administered 300 J of synchronized biphasic DC cardioversion energy with prompt reversal to sinus rhythm. Patient tolerated the procedure well. Conclusion: Successful DC cardioversion from atrial flutter to sinus rhythm. Continue as per office protocol. Continue current medications. Follow-up as per EP physician.
--- NOTE | 2023-08-16 12:53 | ECHOCS_ITS ---
Reason For Study: Afib Procedure This was a 2D Doppler, Color Flow transthoracic echocardiogram. Contrast injection was performed. Exam performed portable in patient room. Left Ventricle Normal LV size. Left ventricular systolic function is lower limits of normal. There is mild global hypokinesis of the left ventricle. Right Ventricle Normal RV size. Normal systolic function. Atria Normal left atrium. Normal right atrium. Mitral Valve There is mild mitral annular calcification. Mild (1+) eccentric mitral valve insufficiency. Tricuspid Valve Normal tricuspid valve. Pulmonic Valve The pulmonic valve is not well visualized. Great Vessels Normal aortic root. The pulmonary artery is normal size. Pericardium/Pleural No pericardial effusion. Medication Diluted definity 4ml given slow IV push to enhance endocardial definition. MMode/2D Measurements & Calculations LVIDd: 4.4 cm IVSd: 1.1 cm Ao root diam: 3.3 cm LVIDs: 3.0 cm LVPWd: 1.2 cm RVDd: 3.5 cm FS: 32.6 % LAV(MOD-bp): 45.7 ml LVAd ap4: 34.0 cm2 SV(MOD-sp4): 53.5 ml LAV(MOD-bp) Indexed: 19.4 ml/m2 LVLd ap4: 8.7 cm LAV(MOD-sp2): 35.3 ml EDV(MOD-sp4): 108.2 ml LAV(MOD-sp4): 48.0 ml EDV(sp4-el): 112.4 ml LVAs ap4: 22.0 cm2 LVLs ap4: 7.4 cm ESV(MOD-sp4): 54.7 ml ESV(sp4-el): 55.6 ml EF(MOD-sp4): 49.4 % EF(sp4-el): 50.6 % SV(sp4-el): 56.9 ml LA A4 area: 18.1 cm2 LA dimension(2D): 4.4 cm RA A4 area: 14.1 cm2 TAPSE: 1.8 cm Time Measurements MV dec time: 0.25 sec Doppler Measurements & Calculations MV E max glynn: 78.3 cm/sec Lat Peak E' Glynn: 8.9 cm/sec Med Peak E' Glynn: 8.2 cm/sec MV A max glynn: 31.8 cm/sec E/E' lat: 8.8 E/E' med: 9.5 MV E/A: 2.5 Ao V2 max: 94.6 cm/sec LV V1 max: 81.7 cm/sec MV dec slope: 307.5 cm/sec2 Ao max P.6 mmHg LV V1 max P.7 mmHg Ao V2 mean: 63.5 cm/sec Ao mean P.9 mmHg Ao V2 VTI: 21.2 cm PA V2 max: 80.6 cm/sec ECHO/Echo Complete W/ Contrast Interpretation Summary Normal LV size. Left ventricular systolic function is lower limits of normal. There is mild global hypokinesis of the left ventricle. Mild (1+) eccentric mitral valve insufficiency. Contrast injection was performed. Ordering Physician: Collin Lutz Referring Physician: Carlos Enrique Ward Performed By: Yanni Christian, RDCS, RVT
--- NOTE | 2023-08-16 13:20 | PCM.OP.PRO ---
Procedure Report Date of Procedure: 08/16/23 CONSCIOUS SEDATION REPORT BRIEF HISTORY OF PRESENT ILLNESS: The patient is a 62-year-old male, well-known to me from the outpatient office, who presented to [facility] for an elective outpatient cardioversion due to underlying atrial fibrillation. The patient reports no PO intake since midnight, but is currently therapeutic on anticoagulation. The patient does have a history of obstructive sleep apnea and is compliant with therapy. The patient reports a history of COPD. The patient denies any recent constitutional symptoms such as fevers, chills, nausea or vomiting. The patient denies previous applicable anesthetic complications. Patient's last known ejection fraction was 65%. Patient does have a history of an ablation in the past. PHYSICAL EXAMINATION: VITAL SIGNS: Reviewed and were acceptable. GENERAL: The patient is a male, in no apparent distress, speaking in full sentences. HEENT: Normocephalic, atraumatic. Mucous membranes are moist and pink. Good mouth opening noted. Trachea is midline. Good neck mobility. MP II CHEST: S1, S2 irregularly irregular. No murmurs, rubs or gallops were noted. LUNGS: Clear to auscultation bilaterally without appreciable wheezes, rales or rhonchi. ABDOMEN: Soft, nontender, nondistended. Positive bowel sounds. EXTREMITIES: There is no clubbing, cyanosis or edema. ASA Class: II DESCRIPTION OF PROCEDURE: After confirmation of informed consent, the patient's anesthesia plan was reviewed in detail. Propofol was chosen. Risks and benefits were reviewed and the patient agreed to proceed. At 12:05 PM, the patient was given 40 mg of propofol. The patient required a total of 100 mg of propofol throughout the procedure to achieve appropriate sedation. The patient achieved an appropriate level of sedation and received 2 attempt s synchronized cardioversion, at 200 J and [address] Lutz at the bedside. This was successful in achieving normal sinus rhythm. The patient was monitored until 12:20 PM, at which time the patient reached their baseline mental status and function. The patient tolerated the procedure well. COMPLICATIONS: None ESTIMATED BLOOD LOSS: None RECOMMENDATIONS: Okay to recover in usual fashion. Procedures Pulmonary 9xxxx: [id number] Con Sedation
== END 2023-08-16 14:00 | disposition home or self-care (01) ==
PROVIDERS: Nurse Practitioner Family; PCP Family Medicine; Referring Provider Internal Medicine Cardiovascular Disease; Visit Provider Internal Medicine Cardiovascular Disease
DX: I48.0 Paroxysmal atrial fibrillation (principal); J44.9 Chronic obstructive pulmonary disease, unspecified; F17.200 Nicotine dependence, unspecified, uncomplicated; Z79.01 Long term (current) use of anticoagulants
CPT/HCPCS: 36415; 71046; 80048; 92960; 93005; 93306; J7040; Q9957; A4216; C8929

== ENCOUNTER → 2024-01-07 | Outpatient (CLI) | payer OTHER, SELFPAY ==
--- NOTE | 2024-01-07 16:19 | STRESSREP ---
Stress Test Report Pharmacologic myocardial perfusion stress test. 63-year-old with a history of atrial fibrillation Resting EKG demonstrates sinus bradycardia with a rate of 47 bpm. Resting blood pressure is 118/75 mmHg. 0.4 mg of regadenoson was infused per usual protocol followed by rapid intravenous saline flush injection. Continuous EKG monitoring was performed. The maximum heart rate was 67 bpm which was 42% of max impacted heart rate the maximum workload was 1 metabolic equivalent. At rest there were no ST or T wave changes noted to suggest ischemia and at peak infusion nonspecific ST changes were noted which did not meet the criteria for ischemia. No clinical angina is noted. The final blood pressure was 124/73 mmHg. Myocardial perfusion protocol. 14.8 mCi of technetium 99m sestamibi was injected at rest. 0.4 mg of regadenoson was infused per usual protocol. At peak infusion 45 mCi of technetium 99m sestamibi was injected stress images were obtained stress and rest images were reconstructed and compared in the short axis vertical long and horizontal long axis. Gated images were also obtained. Perfusion SPECT analysis: Review of the stress images demonstrate normal uptake of tracer noted in all areas of the myocardium. There is a portion of the inferior wall towards the apex which has reduced perfusion the resting images similar demonstrated normal uptake of tracer noted in all areas of the myocardium. The above is suggestive of a small amount of inferior apical ischemia Gated SPECT analysis: The gated ejection fraction is 61%. Conclusion: Abnormal pharmacologic myocardial perfusion stress test. Preserved ejection fraction. Inferior apical ischemia present
== END | disposition home or self-care (01) ==
LOC: CVS 06:25
PROVIDERS: PCP Family Medicine; Referring Provider Physician Assistant Medical; Visit Provider Physician Assistant Medical
DX: R06.09 Other forms of dyspnea (principal); I48.0 Paroxysmal atrial fibrillation
CPT/HCPCS: 78452; 93017; A9500; A4216; J2785

== ENCOUNTER 2024-01-17 06:52 | Day surgery (SDC) | payer OTHER, SELFPAY ==
--- NOTE | 2024-01-07 17:58 | PCM.HP.BLA ---
History and Physical Date of Admission: 01/17/24 Jass Teresa is a 63-year-old gentleman who presents here today for diagnostic heart cath for an abnormal stress test. Patient was admitted on March 18, 2022 for atrial fibrillation. He had not been taking his metoprolol and had weaned himself off of this. EKG demonstrated atrial fibrillation with RVR with a heart rate of 158. He was started on IV Cardizem. He was transitioned to p.o. metoprolol. However his heart rate was not improved so he was started on p.o. Cardizem. Echocardiogram did demonstrate an ejection fraction of 65% with no regional wall motion abnormalities. He has a past medical history of ablation in September [address] De Jesus at [facility]. He has undergone cardioversion in June, July, and September 2014 as well as April 2022. He does have CEM. He has been cardioverted and is due to see the professor of german for an ablation in October 2023. He proceeded with atrial flutter ablation with cardioversion on 11/12/[address] [facility] [address] Carroll. He did undergo a stress test on 01/07/2024. This demonstrated abnormal pharmacologic myocardial stress test, preserved ejection fraction, inferior apical ischemia present. He denies chest, arm, jaw, or neck discomfort. He denies palpitations. He denies bilateral lower extremity edema. He denies claudication. He states shortness of breath with activity that he attributes to COPD. He denies shortness of breath at rest, orthopnea, or PND. He denies chronic cough. He denies significant, sudden weight gain. He denies lightheadedness, dizziness, near-syncope, or syncope. He denies blood in urine, blood in stool, or epistaxis. He denies fever with chills. He denies myalgia. He denies fatigue. His exercise level has remained stable. Allergies No Known Allergies Allergy (Verified 11/28/23 13:41) [facility] Medical History (Updated 11/28/23 @ 14:52 by Piyush Christian MARKETING PERFORMANCE ANALYST, MARKETING PERFORMANCE ANALYST-C) Non-ischemic cardiomyopathy Atrial fibrillation with rapid ventricular response Asthma CEM (obstructive sleep apnea) Stage 2 moderate COPD by GOLD classification Obesity Depression Vitamin D deficiency Alcoholism Nicotine dependence Paroxysmal atrial fibrillation Atrial flutter Surgical History (Updated 11/28/23 @ 14:15 by Piyush Christian MARKETING PERFORMANCE ANALYST, MARKETING PERFORMANCE ANALYST-C) History of cardioversion (04/27/22) History of umbilical hernia repair History of tonsillectomy History of cardiac radiofrequency ablation (11/12/23) Family History Unknown No problems noted. Other Adopted Social History Smoking Status: Former smoker quit date: 06/17/18 pack-years: 30 alcohol intake: current alcohol intake frequency: 0-2 drinks per day substance use type: does not use caffeine: Yes Type: coffee Number of servings: 1 ROS Const Const: Negative for fatigue, weakness, headache(s), frequent falls, difficulty sleeping or excessive sweating Eyes Eyes: Negative for loss of peripheral vision, transient loss of vision, blurry vision, double vision or tunnel vision ENT ENT: Negative for headache(s), dizziness, Nosebleed/epistaxis or balance problems Cardio Chest Pain: No Palpitations: No Edema: None Muscle aches with walking: None Resp Respiratory: Positive for SOB with activity (Only related to COPD); Negative for SOB at rest, SOB orthopnea\SOB lying down, Cough or paroxysmal nocturnal dyspnea GI GI: Negative nausea, vomiting, heartburn or black,tarry stools : Negative for hematuria Musc Musc: Negative for muscle aches/ myalgia, muscle weakness, joint pain or balance problems Skin Skin: Negative non-healing lesions, rash or unusual bruising Neuro Neuro: Negative for dizziness, lightheadedness, near syncope, syncope, frequent falls, headache(s), weakness, blurry vision, double vision or lack of coordination David Hematologic/Lymphatic: Negative for easy bleeding or easy bruising Endo Endo: Negative for fatigue, excessive sweating or increased thirst/drinking Psych Psych: Negative for anxiety or depression Allergy Allergy/Immunology: Negative for hives and Negative for rash Cardiology Exam Const Appearance: cooperative, healthy appearing, comfortable and no acute distress Nutritional Appearance: well nourished and obese Orientation: alert, awake and oriented x3 Head Head: normal to inspection Ears: hearing grossly normal bilaterally Nose: external nose normal Face and Sinus: face symmetric Mouth: moist mucous membranes Eyes General: appearance normal, both eyes and all related structures Eyelids: eyelids normal EOM: EOM intact bilaterally Neck Neck: normal visual inspection and no JVD Carotids: normal carotid upstroke Chest Chest inspection: normal inspection of the chest, symmetric chest movement and normal respiratory effort; Negative cough Auscultation: Bilateral: Clear to Auscultation Cardio Rate: regular rate Rhythm: irregular rhythm Heart sounds: S1 normal and S2 normal; Negative rub, gallop or murmur GI GI: normal to inspection and obese Neuro General: patient alert, patient awake, patient oriented x3 and CN's II-XI intact bilaterally Skin Skin: no rashes or lesions noted Extremities Pulses: Normal: Right Posterior Tibial Pulse, Left Posterior Tibial Pulse, Right Radial Pulse and Left Radial Pulse Lower Extremity Edema: None: Bilateral Psych Psychological: normal affect Supplemental Information Echocardiogram 08/16/2023: Interpretation Summary Normal LV size. Left ventricular systolic function is lower limits of normal. There is mild global hypokinesis of the left ventricle. Mild (1+) eccentric mitral valve insufficiency. Contrast injection was performed. Echocardiogram 03/2022 Normal LV size. Left ventricular systolic function is normal. The estimated ejection fraction is 65 %. Contrast injection was performed. Assessment & Plan Assessment/Plan (1) Abnormal stress test: (2) CASTRO (dyspnea on exertion): (3) Paroxysmal atrial fibrillation: PLAN: Plan With patient's abnormal stress test we will pursue a diagnostic heart catheterization. Follow-up will be based upon findings.
[2024-01-09 08:06] LABS: Absolute Lymphocyte Count 1.93 X10^3/uL (0.83-4.51); Absolute Neutrophil Count 5.5 X10^3/uL (2.0-7.7); Basophil# 0.11 X10^3/uL; Basophil% 1.3 % (0-1); Eosinophil# 0.19 X10^3/uL; Eosinophils% 2.2 % (0-5); Hemoglobin 14.8 g/dL (13.0-16.5); Lymphocyte # 1.93 X10^3/ul (0.83-4.51); Lymphocyte % 22.4 % (19-41); Mean Corp Hgb Conc 32.9 g/dL (32-36); Mean Corpuscular Hgb 33.3 pg (27.0-32.0); Mean Corpuscular Volume 101.4 fL (80-94); Mean Platelet Vol. 10.4 fl (6.2-12.0); Monocyte# 0.79 X10^3/uL; Monocyte% 9.2 % (0-10); NRBC Flagged by Analyzer 0 % (0-5); Neutrophil # 5.49 X10^3/uL (2.7-7.7); Neutrophil % 63.9 % (47-70); Platelet Count 282 K/mm3 (150-450); RBC Distribution Width CV 13.3 % (11.6-14.6); RBC Distribution Width SD 49.8 fl (35.1-43.9); Red Blood Count 4.44 M/mm3 (4.6-6.2); White Blood Count 8.6 K/mm3 (4.4-11.0)
[2024-01-09 08:15] LABS: International Normalized Ratio 1.2; Prothrombin Time (Protime)PT. 14.8 SECONDS (11.7-14.9)
[2024-01-09 08:16] LABS: Partial Thromboplast Time 26.9 Seconds (24.1-36.2)
[2024-01-09 08:40] LABS: Anion Gap 3 (5-15); BUN 12 mg/dL (7-18); BUN/Creat Ratio 11.3 RATIO (10-20); Calcium,Total 9.2 mg/dL (8.5-10.1); Chloride 106 mmol/L (98-107); Creatinine, Serum 1.06 mg/dL (0.70-1.30); EST Glomerular Filtration Rate 76 mL/min (>60); Est Glom Filt Rate - Afr Amer 91 mL/min (>60); Glucose 113 mg/dL (74-106); Potassium 4.2 mmol/L (3.5-5.1); Sodium Level 135 mmol/L (136-145)
[2024-01-16 08:04] VITALS: BMI 38.0
[2024-01-17] VITALS (9 sets, daily range): BP systolic 128–161; BP diastolic 80–91; PULSE 44–59; RESP 18; TEMP 36.4; O2SAT 96–100; BMI 38.0
--- NOTE | 2024-01-17 08:46 | CL.D_ITS ---
Patient Name: LIZZETTE TIDWELL Study Date: 01/17/2024 Performing: Collin Lutz MD Ht: 70 inches 177.8 cm : 1960 Wt: 265 lbs 120.2 kg Age: 63 Gender: male BSA: 2.35 PROCEDURE(S) PERFORMED [id number])LHC/COR/LV CLINICAL PROFILE AND INDICATIONS Indications: Suspected CAD Heart Failure: None Stress/Imaging Date: 01/07/24 CAD Presentations: Other: sob CONCLUSIONS Coronary disease with moderately severe disease noted in the main left circumflex artery. Left anterior descending artery with mild diffuse disease, right coronary artery with mild diffuse disease, preserved ejection fraction. RECOMMENDATIONS Referred for immediate PCI DESCRIPTION OF PROCEDURE The patient arrived to the procedure lab. The risks and benefits of the procedure as well as a full description of our services here and current unavailability of surgical backup were fully explained to the patient and/or their significant other prior to the catheterization. The Timeout was completed, verifying the correct patient and procedure. The patient's procedural site was prepped and draped in the usual fashion. Local anesthetic was given subcutaneously to right radial region with Lidocaine 2%. Using a modified Seldinger technique, arterial access was obtained via the right radial artery, a 6Fr sheath was inserted. Left Coronary Artery selective angiography was performed in multiple views using a 5 Fr. 4.0 Eden catheter. Right Coronary Artery selective angiography was then performed in multiple views using a 5 Fr. JR 5 catheter. CORONARY ANGIOGRAPHY DOMINANCE: Right Dominant LEFT HEART ASSESSMENT Left Ventricular Ejection Fraction: by LV Gram 55 % Inferior Lateral Hypokinesis - Moderate Normal Left Ventricular systolic function LEFT MAIN: Angiographically normal LEFT ANTERIOR DESCENDING ARTERY: Mild luminal irregularities less than 30% DIAGONAL 1: Mid - Moderate luminal irregularities up to 50% CIRCUMFLEX ARTERY: MID CIRC: 80 % Stenosis OM 1: Proximal - Mild luminal irregularities RIGHT CORONARY ARTERY: Mild luminal irregularities less than 30% COMPLICATIONS PROCEDURE MEDICATIONS Versed 1 mg IV Fentanyl 50 mcg IV Versed 1 mg IV Aspirin (325mg) 1 Tabs PO 01/17/2024 07:24:42 Brilinta 180 mg PO @ 01/17/2024 08:38:58 Heparin given IA 01/17/2024 08:14:06 SUMMARY OF HEMODYNAMIC DATA Time AIR REST ECG 07:26:35 AO 130/75 (97) SA 08:23:53 LV 125/2, 18 08:34:29 LV 129/6, 12 08:34:45 LV 0/9, 0 08:35:19 LV 115/6, 13 08:35:28 LVp 118/4, 16 08:35:37 AOp 100/0 (31) 08:35:44 Signed By Collin Lutz MD On 01/17/2024 08:48:58 Signed By Collin Lutz MD On 01/17/2024 08:45:55 Collin Lutz MD
[2024-01-17 10:05] LABS: ACT Activated Clotting Time 293 sec (74-137)
--- NOTE | 2024-01-17 10:48 | PCIREPORT_ITS ---
PCI Cardiac Cath Report PCI Report: PCI report 1. Successful PCI of mid to distal left circumflex artery diffuse disease more than 80% stenosis With predilatation using 2 x 15 mm balloon, followed by placement of drug- eluting stent 2.5 x 22 mm With postdilatation using 3 x 50 mm NC balloon, distal part of the left circumfl ex 2.5 x 15 mm dilated Achievement of excellent result with TIFFANIE-3 flow in the left circumflex and reduction of stenosis to 0% 2. TR band applied to right radial artery arteriotomy site. Consent; Risk and benefit of the procedure explained detail to the patient elected to proceed informed consent obtained. Preprocedure diagnosis 63-year-old patient has symptoms of dyspnea on exertion Is multiple medical comorbidities with hypertension, hyperlipidemia, obstructive sleep apnea has been on CPAP. Underwent cardiac catheterization by his primary credit advisor Dr. Lutz The angiographic films reviewed LV systolic function preserved Ejection fraction 55%, inferolateral hypokinesia which is moderate RCA dominant Left main normal angiographically Had minimal luminal irregularities involving the left anterior descending artery had a diffuse disease involving the pheresed diagonal branch The culprit lesion was the circumflex artery. RCA had mild luminal irregularities, 30% stenosis. Large dominant RCA. Interventional equipment used; 1. JL 4 guide catheter 2. 0.14, 180 cm run-through extra floppy guidewire. 3. 2 x 15 mm balloon 4. 2.5 x 22 mm drug-eluting stent Tho frontier. Overlapped with 2.25 x 15 mm Tho frontier drug-eluting stent 5. Postdilatation using 3 x 15 mm NC balloon. Medication used in the Liquor Bridge Operator Helper 1. Heparin with ACT level acceptable 291 2. Patient was given Brilinta 180 mg in the Liquor Bridge Operator Helper. 3. Intracoronary nitroglycerin x 2 Procedure in detail; Will proceed with the guide catheter under fluoroscopic guidance using right radial artery approach cannulated the left main without difficulty. Followed by guidewire run-through across the lesion it was very tight lesion in the mid to distal left circumflex Then we used a guide liner. And were able to cross the lesion and predilated the lesion followed by placement of drug-eluting stent Patient remained stable in the [employer] Helper with no complication. Noted patient's heart rate is a slow he has been on metoprolol as well he had obstructive sleep apnea his heart rate range in the [employer] Helper was around 45 bpm Recommended to hold on his beta-rachel. Conclusion recommendation 1. Successful PCI of the culprit lesion. Patient will be monitored over the night in the progressive care unit 3. To continue on dual antiplatelet therapy including Brilinta and low-dose aspirin for 1 year 4. Patient has a paroxysmal atrial fibrillation to resume his anticoagulation/DOAC Eliquis 5. Patient to be scheduled for cardiac rehab program stage I. Here at [facility]. Patient to follow-up with his primary credit advisor Dr. Lutz for continuation of cardiac care. No complication in the [employer]. Radha Bauer MD,FAC,[facility]
--- NOTE | 2024-01-17 10:56 | CRPHASE1_ITS ---
Patient Communication Patient Information PHII Cardiac Rehab Discussed with Patient:: Yes Guide to Cardiac Rehab Given to Patient:: Yes Cardiac Rehab Facility Choice List Given to Patient:: Yes Communication to Cardiac Rehab Choice Program [facility] CR PHII:: Communication Given to CR Pulp Bleacher:: Radha Bauer Phase II Cardiac Rehab:: Yes Sessions:: 36 sessions - 3 days/wk, 12 weeks Cardiac Rehabilitation Info Program Information Cardiac Rehabilitation Program Information: Cardiac Rehab The cardiac rehab team at [facility] consists of highly skilled exercise physiologists, nurses, respiratory therapists and physicians working together with you. Our purpose is to help you have a full recovery and achieve the goals you set for yourself. Over the years many of our patients have returned to activities they assumed they would never do again! We can help restore your confidence and motivation to make lifestyle changes that can have a significant impact on your health and quality of life! We can help answer questions and concerns you may have about exercise, lifestyle, medications, diet, stress and anxiety which are common following a hospitalization. WE monitor ECG and vital signs during exercise and discuss your progress with you and report to your physician(s). Cardiac Rehab is proven to help reduce readmissions, improve functional capacity and lower recurrence of problems with your heart. Our Cardiac Rehab program is Certified by the [place] [employer] Pulmonary [employer] (AACVPR) and Accredited by the [employer] through our [facility]. You can contact us at . We invite you to call us with your questions or to get started in our program. If you have other questions or concerns be sure to ask your physician/provider during your follow-up visit. WE look forward to seeing you!
--- NOTE | 2024-01-17 10:57 | CRPH1.INSTRU ---
General Education Discussed with Patient CAD and cardiac anatomy and function:: Patient communicates acknowledgment Explanation of diagnoses and procedures:: Patient communicates acknowledgment Sign/Symptoms of IA:: Patient communicates acknowledgment Antiplatelet therapy: Patient communicates acknowledgment Proper use of NTG-SL: Patient communicates acknowledgment Emergency procedures and activation of EMS: Patient communicates acknowledgment Compliance of all prescribed medications: Patient communicates acknowledgment Smoking Risk Factors Patient Nicotine/Smoking Risk Factors Are:: Non-smoker Recommendations Recommendations Include:: Previous smoker; encourage continued cessation Response Code Nicotine/Smoking Response Code:: Patient communicates acknowledgment Dyslipidemia Risk Factors Patient Dyslipidemia Risk Factors Are:: Total Cholesterol, Triglycerides, HDL and LDL Recommendations Recommendations Include:: Lipid profile not available, Reviewed NCEP/ATP guidelines and Therapeutic Lifestyle Change dietary guidelines Response Code Dyslipidemia Response Code:: Patient communicates acknowledgment Overweight/Obesity Risk Factors Patient Overweight/Obesity Risk Factors Are:: Obesity - > or = 30 Recommendations Recommendations Include:: Weight loss of 5-10%, Reduced calorie diet and Exercise 5-7 times/week Response Code Overweight/Obesity:: Patient communicates acknowledgment Hypertension Risk Factors Patient Hypertension Risk Factors Are:: No documented hx of HTN Diabetes Risk Factors Patient Diabetes Risk Factors Are:: No documented hx of diabetes Metabolic Syndrome Risk Factors Patient Metabolic Syndrome Risk Factors Are [3 of 5]:: Fasting blood sugar > 100 mg/dL, Waist circumference > 35 [female] or 40 [male], High triglyceride >150, Hypertension and Low HDL <40 [male] or < 50 [female] Recommendations Recommendations Include:: Reinforce compliance to risk factor modifications and Encouraged follow-up with Primary Care Physician Response Code Metabolic Syndrome Response Code:: Patient communicates acknowledgment Sedentary Risk Factors Patient Sedentary Risk Factors Are:: Lack of regular exercise Recommendations Recommendations Include:: Aerobic exercise 5-7 times/week for 20-30 minutes continuously, Benefits of regular exercise, Discussed home walking program and Monitored Outpatient Cardiac Rehab Response Code Sedentary Response Code:: Patient communicates acknowledgment Stress Recommendations Recommendations Include:: Identification of stressors, and assessment of coping skills and Stress management techniques Response Code Stress Response Code:: Patient communicates acknowledgment
--- NOTE | 2024-01-17 11:00 | EKG12_ITS ---
Test Reason : PCI Blood Pressure : / mmHG Vent. Rate : 045 BPM Atrial Rate : 045 BPM P-R Int : 170 ms QRS Dur : 074 ms QT Int : 462 ms P-R-T Axes : 079 037 041 degrees QTc Int : 399 ms Sinus bradycardia Otherwise normal ECG When compared with ECG of 16-AUG-2023 11:55, Premature atrial complexes are no longer Present Confirmed by COLLIN LUTZ MD ([id number]), image editor LACHELLE JAQUEZ ([id number]) on 01/20/2024 9:40:57 AM Referred By: Collin Lutz Confirmed By:COLLIN LUTZ MD
[2024-01-17] MEDS: 0.9% Normal Saline (1000mL) 1,000 ML 75 ML IV (11:24)
[2024-01-17] MEDS: TICAGRELOR 90 MG TABLET PO (21:39)
[2024-01-18 04:00] VITALS: PULSE 62
[2024-01-18 06:52] LABS: Hematocrit 40.1 % (40-54); Hemoglobin 13.3 g/dL (13.0-16.5); Mean Corp Hgb Conc 33.2 g/dL (32-36); Mean Corpuscular Hgb 33.6 pg (27.0-32.0); Mean Corpuscular Volume 101.3 fL (80-94); Mean Platelet Vol. 10.8 fl (6.2-12.0); Platelet Count 233 K/mm3 (150-450); RBC Distribution Width CV 13.1 % (11.6-14.6); Red Blood Count 3.96 M/mm3 (4.6-6.2)
[2024-01-18 07:11] LABS: ALB/GLOB Ratio 0.9 RATIO (0.9-2.4); AST(SGOT) 32 U/L (15-37); Alanine Aminotransfer ALT/SGPT 46 U/L (16-61); Alkaline Phosphatase 92 U/L (45-117); Anion Gap 5 (5-15); BUN 12 mg/dL (7-18); BUN/Creat Ratio 13.2 RATIO (10-20); Calcium,Total 8.7 mg/dL (8.5-10.1); Chloride 110 mmol/L (98-107); Creatinine, Serum 0.91 mg/dL (0.70-1.30); EST Glomerular Filtration Rate 90 mL/min (>60); Est Glom Filt Rate - Afr Amer 109 mL/min (>60); Estimated Creatinine Clearance 110.78 ml/min; Globulin 3.4 g/dL (2.2-4.2); Glucose 119 mg/dL (74-106); Potassium 4.3 mmol/L (3.5-5.1); Protein, Total 6.4 g/dL (6.4-8.2); Sodium Level 139 mmol/L (136-145)
[2024-01-18 07:46] VITALS: BP 133/80; PULSE 54; RESP 15; TEMP 36.6; O2SAT 97
[2024-01-18] MEDS: TICAGRELOR 90 MG TABLET PO (07:48)
[2024-01-18] MEDS: Aspirin E.C. 81 MG Tablet PO (07:48)
--- NOTE | 2024-01-18 10:00 | EKG12_ITS ---
Test Reason : AM EKG Blood Pressure : / mmHG Vent. Rate : 056 BPM Atrial Rate : 056 BPM P-R Int : 142 ms QRS Dur : 074 ms QT Int : 448 ms P-R-T Axes : 084 053 000 degrees QTc Int : 432 ms Sinus bradycardia Otherwise normal ECG Confirmed by Gab Marcelo ([id number]), editor house organ LACHELLE JAQUEZ ([id number]) on 01/22/2024 9:15:48 AM Referred By: Collin Lutz Confirmed By:Gab Marcelo
--- NOTE | 2024-01-18 13:22 | CON.PCM.HO_ITS ---
Assessment & Plan Assessment/Plan (1) Abnormal stress test: PLAN: Plan Patient is a 63-year-old gentleman who was admitted following an abnormal stress test 1. Coronary artery disease ? Patient had an abnormal stress test underwent diagnostic left heart cath which did show an 80% mid circumflex lesion patient underwent PCI with stents. Subsequently discharged on guideline directed medical therapy except for metoprolol given his low heart rate 2. Paroxysmal A-fib ? Patient rate is controlled on systemic anticoagulation with apixaban 3. Tobacco dependence - Counseled on cessation, offered nicotine patch for tobacco cravings 4. Class II obesity with BMI of 38 ? Complicating care; weight loss advised Time spent in the patient's overall evaluation,decision-making process, review of diagnostic data, adjustment of management, discussion with other providers, nursing nursing and ancillary staff involved in patient's care documentation, 55 minutes HPI Consult Data Date of Consult: 01/18/24 HPI Narrative Reason for Consultation: Postprocedure medical therapy HPI Narrative: LIZZETTE TIDWELL, is a 63 M who who was admitted by cardiology with abnormal stress test following dyspnea on exertion symptoms. Patient was admitted for diagnostic heart cath. Patient procedure was performed on 01/17/2024 found to have a mid circumflex 80% lesion for which patient underwent PCI with stent. The hospitalist service subsequently consulted to assist with patient medical comorbidities including discharge process [facility] Medical History (Updated 01/17/24 @ 14:22 by Cristina Machado) Atherosclerotic heart disease of [place] coronary artery without angina pectoris Non-ischemic cardiomyopathy Atrial fibrillation with rapid ventricular response Asthma CEM (obstructive sleep apnea) Stage 2 moderate COPD by GOLD classification Obesity Depression Vitamin D deficiency Alcoholism Nicotine dependence Paroxysmal atrial fibrillation Atrial flutter Home Medications ?Medication ?Instructions ?Recorded ?Last Taken ?Type cholecalciferol (vitamin D3) 125 5,000 unit PO QDAY supplement 07/25/17 08/16/23 History mcg (5,000 unit) capsule apixaban 5 mg tablet (Eliquis) 5 mg PO BID #180 tabs 03/05/23 01/14/24 Rx furosemide 40 mg tablet (Lasix) 40 mg PO DAILY #30 tabs 03/13/23 Unknown Rx fluticasone fur. 100 mcg-umeclid 1 inh inhalation QDAY #3 device 07/25/23 08/16/23 Rx 62.5 mcg-vilant 25 mcg inhalat.powder (Trelegy Ellipta) albuterol sulfate 90 mcg/actuation 2 puff inhalation Q4H PRN 12/24/23 Unknown Rx aerosol inhaler (Ventolin HFA) shortness of breath or wheezing #18 grams aspirin 81 mg tablet,delayed 81 mg PO DAILY@0800 #60 tabs 01/18/24 Unknown Rx release atorvastatin 80 mg tablet (Lipitor) 80 mg PO QHS #60 tabs 01/18/24 Unknown Rx ticagrelor 90 mg tablet (Brilinta) 90 mg PO BID 60 days #120 tabs 01/18/24 Unknown Rx Allergy/AdvReac Type Severity Reaction Status Date / Time No Known Allergies Allergy Verified 12/24/23 07:42 Family History Unknown No problems noted. Other Adopted Surgical History (Updated 01/17/24 @ 14:22 by Cristina Machado) Stented coronary artery (01/17/24) History of cardioversion (04/27/22) History of umbilical hernia repair History of tonsillectomy History of cardiac radiofrequency ablation (11/12/23) Social History Smoking Status: Former smoker quit date: 06/17/18 pack-years: 30 alcohol intake: current alcohol intake frequency: 0-2 drinks per day substance use type: does not use caffeine: Yes Type: coffee Number of servings: 1 ROS ROS Narrative GENERAL: denies fever, chills, night sweats, HEENT: denies headache, sinus congestion, RESPIRATORY: denies cough, sputum production, CARDIAC: denies chest pain, palpitations, orthopnea, PND GASTROINTESTINAL: denies abdominal pain, nausea, vomiting, melena, GENITOURINARY: denies dysuria, urgency, frequency, heamaturia EXTREMITY: denies swelling MUSCULOSKELETAL: denies current joint pain or tenderness NEUROLOGIC: denies focal numbness, weakness, tingling HEMATOLOGIC: denies easy bruising and/or hemorrhage INTEGUMENT: denies rashes PSYCHIATRIC: denies suicidal or homicidal ideation Physical Exam Narrative GENERAL: cooperative HEENT: Atraumatic; normocephalic EYES; Anicteric, Normal Conjunctiva NECK; supple, normal thyroid, RESPIRATORY: Diminished to auscultation CARDIOVASCULAR: Regular S1 S2, GI: soft, normoactive bowel sounds, : No Renal angle tenderness; EXTREMITIES: No edema, no clubbing, MUSCULOSKELETAL: no muscle wasting NEURO: Awake; no lateralizing signs. SKIN: No Rash PSYCH; Flat affect Lab / Micro Data 01/18/24 06:10 01/18/24 06:10 Labs: Laboratory Results - last 24 hr 01/18/24 06:10: WBC 10.0, RBC 3.96 L, Hgb 13.3, Hct 40.1, MCV 101.3 H, MCH 33.6 H, MCHC 33.2, RDW Std Deviation 49.0 H, RDW Coeff of Cierra 13.1, Plt Count 233, MPV 10.8, Sodium 139, Potassium 4.3, Chloride 110 H, Carbon Dioxide 24.0, Anion Gap 5, BUN 12, Creatinine 0.91, Estim Creat Clear Calc 110.78, Est GFR (MDRD) Af Amer 109, Est GFR (MDRD) Non-Af 90, BUN/Creatinine Ratio 13.2, Glucose 119 H, Calcium 8.7, Total Bilirubin 0.50, AST 32, ALT 46, Alkaline Phosphatase 92, Total Protein 6.4, Albumin 3.0 L, Globulin 3.4, Albumin/Globulin Ratio 0.9 Charges/Coding Visit Charges Office Visits / Consults: [id number] IP Consult L4
[2024-01-18 13:37] VITALS: BP 136/80; PULSE 54; RESP 14; TEMP 36.6; O2SAT 97
--- NOTE | 2024-01-18 14:00 | PCM.PN.CARD ---
Subjective Subjective No events noted from last night Sitting out in a chair comfortable no symptoms of chest pain. Objective Data Vital Signs: Vital Signs Temp Pulse Resp BP Pulse Ox O2 Del Method 98 F 54 L 14 136/80 H 97 Room Air 01/18/24 13:37 01/18/24 13:37 01/18/24 13:37 01/18/24 13:37 01/18/24 13:37 01/18/24 13:37 Oxygen Delivery Method Room Air Weight: 264 lb 15.93 oz Body Mass Index (BMI) 38.0 Intake & Output: Intake and Output for Last 24 Hours 01/16/24 01/17/24 01/18/24 23:59 23:59 23:59 Intake Total 700 / 700 1000 / 1000 Balance 700 / 700 1000 / 1000 Lab / Micro Data 01/18/24 06:10 01/18/24 06:10 Labs: Laboratory Results - last 24 hr 01/18/24 06:10: WBC 10.0, RBC 3.96 L, Hgb 13.3, Hct 40.1, MCV 101.3 H, MCH 33.6 H, MCHC 33.2, RDW Std Deviation 49.0 H, RDW Coeff of Cierra 13.1, Plt Count 233, MPV 10.8, Sodium 139, Potassium 4.3, Chloride 110 H, Carbon Dioxide 24.0, Anion Gap 5, BUN 12, Creatinine 0.91, Estim Creat Clear Calc 110.78, Est GFR (MDRD) Af Amer 109, Est GFR (MDRD) Non-Af 90, BUN/Creatinine Ratio 13.2, Glucose 119 H, Calcium 8.7, Total Bilirubin 0.50, AST 32, ALT 46, Alkaline Phosphatase 92, Total Protein 6.4, Albumin 3.0 L, Globulin 3.4, Albumin/Globulin Ratio 0.9 Rhythm Strip Rhythm Strip: Sinus Rhythm Cardiology Labs/Tests 01/18/24 06:10: WBC 10.0, RBC 3.96 L, Hgb 13.3, Hct 40.1, MCV 101.3 H, MCH 33.6 H, MCHC 33.2, Plt Count 233, MPV 10.8, Sodium 139, Potassium 4.3, Chloride 110 H, Carbon Dioxide 24.0, Anion Gap 5, BUN 12, Creatinine 0.91, Est GFR (MDRD) Af Amer 109, Est GFR (MDRD) Non-Af 90, BUN/Creatinine Ratio 13.2, Glucose 119 H, Calcium 8.7, Total Bilirubin 0.50 Rhythm: EKG: ECHO: Stress Test: Cardiac Cath: PCI: CT Surgery: Holter monitor: EPS: PPM: CXR: Chest CT Scan: Physical Exam Cardio Cardio Narrative: monitor car operator reviewed Revealed normal sinus with sinus bradycardia heart rate in the range of around 44 bpm Stable hemodynamically Cardiovascular exam S1-S2 regular Chest exam clear to auscultation bilateral. Assessment & Plan Assessment/Plan (1) Smoking greater than 20 pack years: (2) Stage 2 moderate COPD by GOLD classification: (3) Paroxysmal atrial fibrillation: (4) Chronic systolic (congestive) heart failure: (5) Hyperlipidemia: QUALIFIERS: Hyperlipidemia type: unspecified Qualified Code(s): E78.5 - Hyperlipidemia, unspecified (6) Asthma: QUALIFIERS: Asthma severity: severe Asthma persistence: persistent Asthma complication type: unspecified Qualified Code(s): J45.50 - Severe persistent asthma, uncomplicated (7) CEM (obstructive sleep apnea): PLAN: Plan 63-year-old patient with CAD Has abnormal nuclear stress test with inferolateral reversible ischemia Underwent cardiac catheterization by his primary director consumer Dr. Finley Which showed significant atherosclerosis involving the mid to distal left circumflex artery Underwent successful PCI using drug-eluting stent Today he was stable he does not have any symptoms of chest pain and right radial pulses palpable. Patient has other medical problem with paroxysmal atrial fibrillation Cardiac care plan recommendations; I reviewed and discussed his current medication with the nursing staff as well with the medical team 1. To continue on dual antiplatelet therapy with Brilinta 90 mg twice daily Addition to low-dose aspirin To resume the anticoagulation with Eliquis 5 mg twice daily 3. To discontinue beta-rachel metoprolol due to underlying sinus bradycardia with heart rate around 44. Patient to follow-up [facility] cardiology group with his primary director consumer Dr. Lutz As well patient is scheduled for phase 1 cardiac rehab program. Radha Bauer MD,[facility]
== END 2024-01-18 15:41 | disposition home or self-care (01) ==
LOC: CLSP 06:54 → PCU 10:41
PROVIDERS: Internal Medicine Interventional Cardiology; Physician Assistant Medical; PCP Family Medicine; Referring Provider Internal Medicine Cardiovascular Disease; Visit Provider Internal Medicine Cardiovascular Disease
DX: I25.10 Atherosclerotic heart disease of native coronary artery without angina pectoris (principal); I11.0 Hypertensive heart disease with heart failure; I50.22 Chronic systolic (congestive) heart failure; J44.9 Chronic obstructive pulmonary disease, unspecified; I48.0 Paroxysmal atrial fibrillation; I42.8 Other cardiomyopathies; E66.9 Obesity, unspecified; R94.39 Abnormal result of other cardiovascular function study; E78.5 Hyperlipidemia, unspecified; G47.33 Obstructive sleep apnea (adult) (pediatric); Z68.38 Body mass index [BMI] 38.0-38.9, adult; Z79.01 Long term (current) use of anticoagulants; Z79.51 Long term (current) use of inhaled steroids; Z79.82 Long term (current) use of aspirin; Z79.899 Other long term (current) drug therapy; Z87.891 Personal history of nicotine dependence
CPT/HCPCS: 36415; 80048; 80053; 85025; 85027; 85347; 85610; 85730; 92928; 93005; 93458; 99152; 99153; J7030; J7040; Q9967; C1725; C1769; C1874; C1887; C1894; C9600

== ENCOUNTER → 2024-10-02 | Outpatient (CLI) | payer OTHER, SELFPAY ==
[2024-10-02 10:09] LABS: Absolute Lymphocyte Count 2.29 X10^3/uL (0.83-4.51); Absolute Neutrophil Count 6.7 X10^3/uL (2.0-7.7); Basophil# 0.09 X10^3/uL; Basophil% 0.9 % (0-1); Eosinophil# 0.15 X10^3/uL; Eosinophils% 1.5 % (0-5); Hematocrit 46.5 % (40-54); Hemoglobin 15.7 g/dL (13.0-16.5); Lymphocyte # 2.29 X10^3/ul (0.83-4.51); Lymphocyte % 22.7 % (19-41); Mean Corp Hgb Conc 33.8 g/dL (32-36); Mean Corpuscular Volume 100.6 fL (80-94); Mean Platelet Vol. 10.4 fl (6.2-12.0); Monocyte# 0.74 X10^3/uL; Monocyte% 7.3 % (0-10); NRBC Flagged by Analyzer 0 % (0-5); Neutrophil # 6.73 X10^3/uL (2.7-7.7); Neutrophil % 66.7 % (47-70); Platelet Count 308 K/mm3 (150-450); RBC Distribution Width CV 13.9 % (11.6-14.6); RBC Distribution Width SD 51.7 fl (35.1-43.9); Red Blood Count 4.62 M/mm3 (4.6-6.2); White Blood Count 10.1 K/mm3 (4.4-11.0)
[2024-10-02 10:53] LABS: ALB/GLOB Ratio 1.3 RATIO (0.9-2.4); AST(SGOT) 50 U/L (<=37); Alanine Aminotransfer ALT/SGPT 54 U/L (<=46); Albumin, Serum 4.2 g/dL (3.4-4.8); Alkaline Phosphatase 114 U/L (40-129); Anion Gap 11 (5-15); BUN 9 mg/dL (4-19); BUN/Creat Ratio 9.4 RATIO (10-20); Bilirubin, Direct 0.15 mg/dL (0.00-0.30); Calcium,Total 9.4 mg/dL (7.6-11.0); Carbon Dioxide 22.4 mmol/L (21.0-32.0); Chloride 104 mmol/L (98-108); Cholesterol 199 mg/dL (<=200); EST Glomerular Filtration Rate 86 (>60); Globulin 3.3 g/dL (2.2-4.2); Glucose 98 mg/dL (70-99); High Density Lipoprotein 38 mg/dL; Low Density Lipoprotein Calc. 139 mg/dL; Potassium 4.3 mmol/L (3.3-5.1); Protein, Total 7.5 g/dL (5.9-8.4); Sodium Level 137 mmol/L (133-145); Total Bilirubin 0.35 mg/dL (0.00-1.30); Triglycerides 110 mg/dL; Very Low Density Lipoprotein 22 mg/dL (5-40); cholesterol:hdl ratio screen 5.18
== END | disposition home or self-care (01) ==
LOC: LAB 08:36
PROVIDERS: PCP Family Medicine; Referring Provider Nurse Practitioner Gerontology; Visit Provider Nurse Practitioner Gerontology
DX: E78.5 Hyperlipidemia, unspecified (principal); R53.83 Other fatigue
CPT/HCPCS: 80053; 80061; 82248; 84443; 85025

== ENCOUNTER → 2024-10-26 | Outpatient (CLI) | payer OTHER, SELFPAY ==
--- NOTE | 2024-10-26 07:41 | CT_ITS ---
PROCEDURE: LOW DOSE CT LUNG SCREENING 10/26/2024 REASON FOR EXAM: SMOKING HISTORY Current smoker. COPD. TECHNIQUE: Low Dose CT Lung screening without contrast. Coronal and Sagittal reconstruction series were provided. One or more dose reduction techniques were used (e.g., Automated exposure control, adjustment of the mA and/or kV according to patient size, use of iterative reconstruction technique). REFERENCE LINK: GOOD Lung-RADS RADIATION DOSE SUMMARY: CTDlvol: 4.02 mGy DLP: 153.51 mGycm COMPARISON: Comparison is dated July 31, 2023. FINDINGS: PULMONARY NODULES: (Only nodules >3mm are reported) Nodules described below are on series 1 unless otherwise specified. Pulmonary Nodules: No suspicious nodule seen. Hardware:None Lymph Nodes:Small benign-appearing mediastinal lymph nodes. Heart and Vasculature:Coronary artery calcifications are noted. Coronary Artery Calcifications: Present Lungs and Airways: Mild emphysematous changes are present. Pleura:Unremarkable Upper Abdomen:Unremarkable Bones:Degenerative changes of the thoracic spine. CT/Low Dose CT Lung Screening IMPRESSION: No suspicious pulmonary nodule seen. Coronary artery calcification (CAC) is is present Lung-RADS Category: 2 BENIGN (BASED ON IMAGING FEATURES OR INDOLENT BEHAVIOR). RECOMMEND 12-MONTH SCREENING LDCT. Other Significant Findings: None. Reading Location: [place]
== END | disposition home or self-care (01) ==
LOC: CT 07:40
PROVIDERS: PCP Family Medicine; Referring Provider Nurse Practitioner Acute Care; Visit Provider Nurse Practitioner Acute Care
DX: Z12.2 Encounter for screening for malignant neoplasm of respiratory organs (principal); F17.210 Nicotine dependence, cigarettes, uncomplicated
CPT/HCPCS: 71271

== ENCOUNTER → 2025-02-16 | Outpatient (CLI) | payer OTHER, SELFPAY ==
--- OUTSIDE RECORDS SUMMARY | 2025-02-16 06:42 | XMS RPT_ITS | CCD ---
Author Organization [facility] CliniSysd Care Team Providers Care Livestock Handler Name Role Phone Dinesh Serene Mccormick Unavailable Sandra Fernandez Unavailable Unavailable Sunita RN, Cristina Valencia Unavailable Unavailable Serene Montiel Unavailable Dr. Thien Singh Primary Care Provider [phone] Dr. Thien Singh Referring Provider Dr. Mil Ji Attending Provider Dr. Sammy Cm Emergency Provider Dr. Angle Cabrera Admit Provider Rick, Dr. Barbour Attending Provider Dr. Angle wright Other Provider Dr. Su Xiong Other Provider Dr. Collin Lutz Attending Provider Dr. Desirae Salmon Attending Provider Dr. Desirae Salmon Other Provider Dr. Thien Singh Primary Care Provider [phone] Thien Singh Referring Provider Dr. Mil Ji Attending Provider Dr. Sammy Cm Emergency Provider Dr. Angle Cabrerait Provider Dr. Angle Cabrera Attending Provider Dr. Angle Cabrera Other Provider Dr. Su Xiong Other Provider Dr. Collin Lutz Attending Provider Dr. Desirae Salmon Attending Provider Dr. Desirae Salmon Other Provider Andra SINGH, PA Nilda Mcgrath Attending Provider Dr. Collin Lutz Other Provider Dr. Collin Lutz Referring Provider [phone] Priscilla Hunt Attending Provider Unavailable Dr. Thien Singh Primary Care Provider Dr. Thien Singh Referring Provider Priscilla Hunt Attending Provider Unavailable Shad VENETIAN BLIND TAPE CUTTER, 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 Macy Attending Provider Dr. Mil Ji Attending Provider Dr. Thien Singh Primary Care Provider [phone] Dr. Thien Singh Referring Provider Dr. Mil Ji Attending Provider Jeremiah VENETIAN BLIND TAPE CUTTER, 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 Tanya Attending Provider Dr. Thien Singh Primary Care Provider Dr. Thien Singh Referring Provider [phone] Mil Ji Attending Provider Dr. Collin Lutz Referring Provider [phone] Collin Lutz Other Provider Anahi VENETIAN BLIND TAPE CUTTER, 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 Elizabeth Pisano Other Provider Andra SINGH, FRANCISCO Mcgrath Attending Provider Dr. Collin Lutz Attending Provider [phone] Thien Singh DO Primary Care Provider Collin Lutz MD Unavailable Mil Ji MD Unavailable THIEN SINGH Primary Care Unavailable THIEN SINGH Referring Unavailable ELIZABETH CARROLL Attending Unavailable ELIZABETH CARROLL Attending Unavailable GLEN, ELIZABETH D Referring Unavailable GLEN, ELIZABETH D Admitting Unavailable SAMANTHA, THIEN A Primary Care Unavailable SAMANTHA, THIEN A Primary Care Unavailable GLEN, ELIZABETH D Attending Unavailable TANYA HOFFMANN Referring Unavailable SAMANTHA, THIEN A Primary Care Unavailable GLEN, ELIZABETH D Attending Unavailable TANYA HOFFMANN Referring Unavailable SAMANTHA, THIEN A Primary Care Unavailable GLEN, ELIZABETH D Referring Unavailable SAMANTHA, THIEN A Primary Care Unavailable GLEN, ELIZABETH D Attending Unavailable Dr. Thien Singh DO Primary Care Provider Dr. Thien Singh DO Referring Provider [phone] Jeremiah 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, Tanya Attending Provider [phone] Jeremiah 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, Tanya Referring Provider [phone] Shad 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, Macy Attending Provider Shad 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, Macy Referring Provider Nelda TALBERT, Dr. Polanco Attending Provider [phone] Collin Lutz Attending Unavailable Samantha, Thien Referring Unavailable Samantha, Thien Primary Care Unavailable Samantha, Thien Primary Care Unavailable Jeremiah VENETIAN BLIND TAPE CUTTER, Tanya Attending Unavailable Samantha, Thien Referring Unavailable Samantha, Thien Primary Care Unavailable Jereimah VENETIAN BLIND TAPE CUTTER, Tanya Referring Unavailable Jeremiah VENETIAN BLIND TAPE CUTTER, Tanya Attending Unavailable Samantha, Thien Primary Care Unavailable Shad VENETIAN BLIND TAPE CUTTER, Macy Attending Unavailable Shad VENETIAN BLIND TAPE CUTTER, Macy Referring Unavailable Collin Lutz Attending Unavailable Collin Lutz Referring Unavailable Samantha, Thien Primary Care Unavailable Samantha, Thien Primary Care Unavailable Samantha, Thien Referring Unavailable Jeremiah VENETIAN BLIND TAPE CUTTER, Tanya Attending Unavailable Samantha, Thien Referring Unavailable Samantha, Thien Primary Care Unavailable Shad VENETIAN BLIND TAPE CUTTER, Macy Attending Unavailable Allergies Allergy Classification Reported Allergen(s) Allergy Type Date of Onset Reaction(s) Facility (3 sources) NKDA drug allergy 07-14-2015 [employer] Work Phone: (8 sources) NKD drug allergy 07-08-2014 [employer] Work Phone: Medications Current Medications Medication Drug Class(es) Dates Sig (Normalized) Sig (Original) apixaban 5 mg oral tablet (20 sources) Factor Xa Inhibitor Start: 11-12-2023 End: 05-28-2024 5 mg, Oral, EVERY 12 HOURS, First dose on Sat11/12/23 at 1900, Until Discontinued, Due to the rapid onset of action of apixaban, no overlap is needed with other anticoagulants (e.g. enoxaparin, heparin)., Indications: Atrial Fibrillation, Post-op/Post-Proc Start: 03-20-2022 End: 04-20-2024 take 1 tablet by mouth twice daily Apixaban (Eliquis) 5 mg tablet Discontinued 5 mg PO TWICE A DAY March 05, 2023 10:42am April 20, 2024 11:49am take 1 tablet by karina th every twelve hours Eliquis 5 MG tablet Take 1 tablet by mouth every 12 hours. Active cholecalciferol 0.125 mg oral capsule (20 sources) Vitamin D Start: 07-25-2017 take 1 capsule by mouth once daily Cholecalciferol (Vitamin D3) 5,000 unit capsule Active 5000 U PO daily July 25, 2017 1:00am supplement Start: 04-19-2015 take 1 tablet by karina th once daily VITAMIN D3 5000 UNIT CAPS One tablet by mouth daily for vitamin d deficiency CHOLECALCIFEROL [id number] Thien Singh Start: 05-24-2014 End: 01-13-2015 VITAMIN D3 40955 UNIT CAPS O ne tablet weekly for vitamin d deficiency CHOLECALCIFEROL [id number] Collin Lutz MD take 1 tablet by karina th once daily cholecalciferol 25 MCG (1000 UNIT) tablet Take 1 tablet by mouth daily. Active Ybcphvprwow-Ringuemin-Mrgzub er (14 sources) Anticholinergic, Corticosteroid, beta2-Adrenergic Agonist Start: 07-28-2024 Mjxammikitm-Vjzdbrxdf-Xtybel er (Trelegy Ellipta) 100-62.5-25 mcg blister with device Active 1 NMA INHALATION daily 3 July 28, 2024 9:59am Chronic obstructive pulmonary disease, unspecified administer at approximately the same time(s) each day Start: 07-28-2024 Fluticasone-Um eclidin-Vilanter (Trelegy Ellipta) 100-62.5-25 mcg blister with device Active 1 NMA INHALATION daily July 28, 2024 9:59am administer at approximately the same time(s) each day Start: 07-28-2024 End: 07-28-2024 Daphtfkzvcj-Upgifzpol-Chtrvj er (Trelegy Ellipta) 100-62.5-25 mcg blister with device Discontinued 1 NMA INHALATION daily 3 July 28, 2024 9:51am July 28, 2024 9:59am Chronic obstructive pulmonary disease, unspecified administer at approximately the same time(s) each day Start: 07-28-2024 End: 07-28-2024 Nkhjaupbpuv-Oinwmwcmg-Kvwmyn er (Trelegy Ellipta) 100-62.5-25 mcg blister with device Discontinued 1 NMA INHALATION daily July 28, 2024 9:51am July 28, 2024 9:59am administer at approximately the same time(s) each day Start: 07-25-2023 End: 07-28-2024 Qbgocobjxfl-Ugcyavamu-Owhiot er (Trelegy Ellipta) 100-62.5-25 mcg blister with device Discontinued 1 NMA INHALATION daily 3 July 25, 2023 7:59am July 28, 2024 9:51am Chronic obstructive pulmonary disease, unspecified administer at approximately the same time(s) each day Start: 07-25-2023 End: 07-28-2024 Ducvwygyqwd-Yegfrdque-Feojvd er (Trelegy Ellipta) 100-62.5-25 mcg blister with device Discontinued 1 NMA INHALATION daily July 25, 2023 7:59am July 28, 2024 9:51am administer at approximately the same time(s) each day Start: 07-25-2023 Fluticasone-Um eclidin-Vilanter (Trelegy Ellipta) 100-62.5-25 mcg blister with device Active 1 INH INHALATION daily July 25, 2023 6:59am administer at approximately the same time(s) each day Start: 02-19-2023 End: 07-25-2023 Azotrktvamd-Dmzmhlvce-Kvktfq er (Trelegy Ellipta) 100-62.5-25 mcg blister with device Discontinued 1 NMA INHALATION daily 3 February 19, 2023 12:00am July 25, 2023 8:00am Chronic obstructive pulmonary disease, unspecified administer at approximately the same time(s) each day Start: 02-19-2023 End: 07-25-2023 Nwjtfmmjyid-Rocdelsjc-Ltastu er (Trelegy Ellipta) 100-62.5-25 mcg blister with device Discontinued 1 NMA INHALATION daily February 19, 2023 12:00am July 25, 2023 8:00am administer at approximately the same time(s) each day Start: 02-19-2023 End: 07-25-2023 Hkcbnwogzjf-Mcdhcsycl-Jidlky er (Trelegy Ellipta) 100-62.5-25 mcg blister with device Discontinued 1 INH INHALATION daily February 18, 2023 11:00pm July 25, 2023 7:00am administer at approximately the same time(s) each day Vqvvhbvndfi-Fknyymlkh-Svofim (TRELEGY ELLIPTA IN) (2 sources) Fluticasone-Umec lidin-Vilant (TRELEGY ELLIPTA IN) Inhale 1 Inhalation daily. Active metoprolol tartrate 25 mg or al tablet (20 sources) beta-Adren ergic Rachel Sta rt: take 1 tablet by mouth twice daily Metoprolol Tartrate 25 mg tablet Active 25 mg PO TWICE A DAY January 12, 2025 8:00am Start: 10-02-2024 End: 01-12-2025 Metoprolol Tartrate 25 mg ta blet Discontinued 12.5 mg PO TWICE A DAY 180 October 02, 2024 9:51am January 12, 2025 8:00am Start: 01-20-2024 End: 10-02-2024 take 1 tablet by mouth twice daily Metoprolol Tartrate 25 mg tablet Discontinued 25 mg PO TWICE A DAY 180 October 02, 2024 8:23am October 02, 2024 9:51am Start: 09-16-2023 End: 01-18-2024 Metoprolol Tartrate 100 mg t ablet Discontinued 50 mg PO TWICE A DAY 90 September 16, 2023 4:27pm January 18, 2024 1:19pm Start: 02-06-2023 End: 09-16-2023 take 1 tablet by mouth twice daily Metoprolol Tartrate 100 mg tablet Discontinued 100 mg PO TWICE A DAY 90 September 02, 2023 9:27am September 16, 2023 4:27pm Start: 05-25-2022 End: 02-06-2023 Metoprolol Tartrate 100 mg t ablet Discontinued 50 mg PO TWICE A DAY 90 September 18, 2022 8:57am February 06, 2023 2:30pm Start: 05-25-2022 End: 02-06-2023 take 50 mg by mouth twice daily Metoprolol Tartrate Di scontinued 50 MG PO TWICE A DAY 90 September 18, 2022 7:57am February 06, 2023 1:30pm Start: 05-26-2014 End: 05-25-2022 take 1 tablet by mouth twice daily Metoprolol Tartrate 100 mg Tablet Discontinued 100 mg PO TWICE A DAY 60 March 20, 2022 12:00am April 18, 2022 2:50pm Start: 05-26-2014 End: 03-20-2022 take 1 tablet by mouth twice daily Metoprolol Tartrate 50 mg tablet Discontinued 50 mg PO TWICE A DAY 60 March 19, 2022 9:24am March 20, 2022 2:40pm heart rate/bp Start: 05-26-2014 take 1 tablet by karina th three times daily METOPROLOL TARTRATE 100 MG TABS One tablet by mouth three times daily METOPROLOL TARTRATE [id number] Collin Lutz MD take 0.5 tablet by m outh twice daily metoprolol 100 MG tab regular release Take 0.5 tablets by mouth 2 times daily. Active ticagrelor 90 mg oral tablet (6 sources) Start: 01-18-2024 End: 03-17-2024 take 1 tablet by mouth twice daily Ticagrelor (Brilinta) 90 mg tablet Active 90 mg PO TWICE A DAY 60 March 17, 2024 3:59pm Completed/Discontinued Medications Medication Drug Class(es) Dates Sig (Normalized) Sig (Original) acetaminophen 325 mg oral tablet (1 source) Start: 11-12-2023 End: 11-12-2023 take 1 tablet by mouth every six hours as needed 650 mg, Oral, EVERY 6 HOURS NEEDED, Starting on Sat11/12/23 at 1035, Until Sat11/12/23 at 1728, Mild Pain, Maximum dose of acetaminophen is 4000 mg from all sources in 24 hours., Post-op/Post-Proc acetaminophen 325 mg / HYDROcodone bitartrate 5 mg oral tablet (10 sources) Opioid Agonist Start: 03-05-2018 End: 09-24-2018 Hydrocodone-Acetami nophen 1 TABLET tablet Discontinued 1 {tbl} PO EVERY 6 HOURS NEEDED as needed for Pain 10 March 05, 2018 12:00am September 24, 2018 11:12am Dislocation of finger Unspecified dislocation of unspecified finger, initial encounter Start: 03-05-2018 End: 09-24-2018 take 1 tablet by mouth every six hours as needed Hydrocodone-Acetaminophen Discontinued 1 TABLET PO EVERY 6 HOURS NEEDED 10 March 04, 2018 11:00pm September 24, 2018 10:12am acetaminophen 325 mg / oxyCODONE hydrochloride 5 mg oral tablet (10 sources) Opioid Agonist Start: 04-14-2016 End: 07-26-2017 Oxycodone-Acetaminophen 1 TABLET tablet Discontinued 1 - 2 {tbl} PO EVERY 4 HOURS NEEDED as needed for Pain April 14, 2016 12:00am July 26, 2017 2:43pm Start: 04-14-2016 End: 07-26-2017 take 1 tablet by mouth every four hours as needed Oxycodone-Acetaminophen Discontinued 1 - 2 TABLET PO EVERY 4 HOURS NEEDED April 13, 2016 11:00pm July 26, 2017 1:43pm [id number] 200 actuat albuterol 0.09 mg/actuat metered dose inhaler (20 sources) beta2-Adrenergic Agonist Start: 07-20-2019 End: 12-24-2023 Albuterol Sulfate (Ventolin Hfa) 90 mcg/actuation HFA aerosol inhaler Discontinued 2 NMA INHALATION Q4H as needed for shortness of breath or wheezing 02 12July 25, 2023 7:59am December 24, 2023 8:00am Start: 07-20-2019 End: 07-25-2023 take 1 puff(s) by inhalation every four hours Albuterol Sulfate (Ventolin Hfa) 90 mcg/actuation HFA aerosol inhaler Active 2 PUFF INHALATION Q4H July 25, 2023 6:59am 120 actuat albuterol 0.1 mg/actuat / ipratropium bromide 0.02 mg/actuat inhalation spray (20 sources) Anticholinergic, beta2-Adrenergic Agonist Start: 06-01-2022 End: 02-06-2023 take 20-100 ug by inhalation every four hours Ipratropium-Albuterol (Combivent Respimat) 20-100 mcg/actuation mist Discontinued 1 NMA INHALATION Q4H 4 December 21, 2022 9:01am February 06, 2023 2:47pm Start: 06-01-2022 End: 02-06-2023 take 20-100 ug by inhalation every four hours Ipratropium-Albuterol (Combivent Respimat) 20-100 mcg/actuation mist Discontinued 1 PUFF INHALATION Q4H December 21, 2022 8:01am February 06, 2023 1:47pm Start: 01-22-2022 End: 07-25-2022 take 20-100 ug by inhalation every six hours as needed Ipratropium-Albuterol (Combivent Respimat) 20-100 mcg/actuation mist Discontinued 1 NMA INHALATION EVERY 6 HOURS as needed for shortness of breath or wheezing 4 January 22, 2022 12:00am July 25, 2022 7:45am Start: 01-22-2022 End: 07-25-2022 take 20-100 ug by inhalation every six hours Ipratropium-Albuterol (Combivent Respimat) 20-100 mcg/actuation mist Discontinued 1 PUFF INHALATION EVERY 6 HOURS January 21, 2022 11:00pm July 25, 2022 6:45am aluminum hydroxide 40 mg/ml / magnesium hydroxide 40 mg/ml / simethicone 4 mg/ml oral suspension (1 source) Start: 11-12-2023 End: 11-12-2023 take 30 mL by mouth every six hours as needed 30 mL, Oral, EVERY 6 HOURS NEEDED, Starting on Sat11/12/23 at 1035, Until Sat11/12/23 at 1728, Indigestion, Per 5 mL is equivalent to: (Alum-Mag Hydroxide 200-225 mg and Simethicone 20 mg) and (Alum-Mag Hydroxide 200-200 mg and Simethicone 20 mg), Post-op/Post-Proc amiodarone hydrochloride 200 mg oral tablet (20 sources) Antiarrhythmic Start: 08-16-2023 End: 11-28-2023 take 1 tablet by mouth once daily Amiodarone 200 mg tablet Discontinued 200 mg PO DAILY 90 September 05, 2023 12:25pm November 28, 2023 1:42pm Start: 07-12-2023 End: 07-12-2023 take 1 tablet by mouth once daily Amiodarone 200 mg tablet Discontinued 200 mg PO DAILY 90 July 12, 2023 1:00am July 12, 2023 1:57pm Start: 07-11-2023 End: 11-12-2023 take 1 tablet by mouth twice daily, then take 1 tablet by mouth once daily Amiodarone 200 mg tablet Discontinued 200 mg PO TWICE A DAY 180 July 12, 2023 1:56pm August 16, 2023 11:45am 200 mg p.o. twice daily x 1 month followed by 200 mg p.o. daily, Start: 10-14-2014 End: 01-19-2015 take 1 tablet by mouth once daily AMIODARONE HCL 200 MG TABS One tablet by mouth daily AMIODARONE HCL [id number] Silvana Guillory LPN Start: 10-14-2014 AMIODARONE HCL 200 MG TABS One tablet by mouth twice daily X 1 week then once a day starting next Saturday10/22/14 AMIODARONE HCL [id number] Casey Lamas MD Start: 07-12-2014 End: 10-05-2014 take 1 tablet by mouth once daily Amiodarone 200 MG tablet Discontinued 200 mg PO DAILY 30 0 October 05, 2014 10:31am October 05, 2014 11:21am aspirin 81 mg delayed release oral tablet (14 sources) Nonsteroidal Anti-inflammatory Drug Start: 03-31-2024 End: 10-02-2024 take 1 tablet by mouth every other day Aspirin 81 mg tablet,delayed release (DR/EC) Discontinued 81 mg PO .QOD 60 0 March 31, 2024 2:31pm October 02, 2024 7:45am Start: 01-18-2024 End: 03-31-2024 take 1 tablet by mouth once daily Aspirin 81 mg Tablet,Delayed Release (Dr/Ec) Discontinued 81 mg PO DAILY@0800 60 0 January 18, 2024 12:00am March 31, 2024 2:32pm Start: 10-14-2014 End: 01-20-2015 take 1 tablet by mouth once daily ASPIRIN 81 MG TABS One tablet by mouth daily ASPIRIN [id number] Collin Lutz MD Start: 10-14-2014 End: 01-20-2015 take 1 tablet by mouth once daily ASPIRIN 81 MG TABS One tablet by mouth daily ASPIRIN [id number] Cristina Dorsey RN atorvastatin 80 mg oral tablet (3 sources) HMG-CoA Reductase Inhibitor Start: 01-18-2024 End: 11-24-2024 take 1 tablet by mouth at bedtime Atorvastatin (Lipitor) 80 mg tablet Discontinued 80 mg PO AT BEDTIME 60 0 January 18, 2024 12:00am November 24, 2024 7:46am azithromycin 250 mg oral tablet (3 sources) Macrolide Antimicrobial Start: 12-24-2023 End: 01-18-2024 take 2-5 tablets by mouth once daily Azithromycin 250 mg tablet Discontinued 0 PO .COMPLEX 6 0 December 24, 2023 12:00am January 18, 2024 1:19pm Smoking greater than 20 pack years Nicotine dependence, cigarettes, uncomplicated take 500 mg today (day 1), then 250 mg for 4 days (days 2-5) PO cetirizine hydrochloride 10 mg oral capsule (10 sources) Histamine-1 Receptor Antagonist Start: 08-06-2019 End: 01-22-2022 take 1 capsule by mouth at bedtime Cetirizine 10 mg capsule Discontinued 10 mg PO BEDTIME 30 3 August 06, 2019 1:00am January 22, 2022 9:18am cimetidine (6 sources) Histamine-2 Receptor Antagonist Start: 07-19-2015 End: 01-17-2016 EQ NICOTINE 7 MG/24HR PT24 Apply one patch daily NICOTINE [id number] Araceli Little LPN Start: 07-19-2015 EQ NICOTINE 7 MG/24HR PT24 Apply one patch daily NICOTINE [id number] Mil Ji ciprofloxacin 500 mg oral tablet (10 sources) Quinolone Antimicrobial Start: 04-14-2016 End: 07-26-2017 take 1 tablet by mouth twice daily Ciprofloxacin Hcl 500 MG tablet Discontinued 500 mg PO TWICE A DAY April 14, 2016 12:00am July 26, 2017 2:44pm 24 hr dilTIAZem hydrochloride 120 mg extended release oral capsule (20 sources) Calcium Channel Rachel Start: 07-11-2023 End: 11-12-2023 take 1 capsule by mouth once daily Diltiazem 120 MG Cap SR 24HR capsule XL Take 1 capsule by mouth daily. 90 capsule 1 07/11/2023 11/12/2023 Discontinued (Stop Taking at Discharge) Start: 02-06-2023 End: 11-28-2023 take 1 capsule by mouth twice daily Diltiazem Hcl 120 mg capsule,extended release 12 hr Discontinued 120 mg PO TWICE A DAY 180 March 05, 2023 10:42am November 28, 2023 1:42pm Start: 03-20-2022 End: 05-07-2022 take 1 capsule by mouth every twelve hours Diltiazem Hcl 120 mg capsule,extended release 24hr Discontinued 120 mg PO EVERY 12 HOURS 60 April 18, 2022 2:50pm May 07, 2022 11:54am Start: 05-24-2014 End: 05-26-2014 CARDIZEM 60 MG TABS One tabl et every 6 hours for atrial fibrillation DILTIAZEM HCL [id number] Collin Lutz MD Start: 05-21-2014 End: 05-24-2014 CARDIZEM 30 MG TABS 1 tablet every 6 hours for atrial fibrillation DILTIAZEM HCL [id number] Thien Singh DO docusate sodium 100 mg oral capsule (10 sources) Start: 04-14-2016 End: 07-26-2017 take 1 capsule by mouth once daily Docusate Sodium 100 MG capsule Discontinued 100 mg PO DAILY April 14, 2016 12:00am July 26, 2017 2:44pm ergocalciferol 99436 unt oral tablet (8 sources) Provitamin D2 Compound Start: 10-14-2014 End: 04-19-2015 take 1 tablet by mouth once daily VITAMIN D (ERGOCALCIFEROL) 72682 UNIT CAPS One tablet by mouth daily ERGOCALCIFEROL [id number] Collin Lutz MD Start: 10-14-2014 End: 04-19-2015 take 1 tablet by mouth once daily VITAMIN D (ERGOCALCIFEROL) 36920 UNIT CAPS One tablet by mouth daily ERGOCALCIFEROL [id number] Collin Lutz MD 120 actuat fluticasone propionate 0.22 mg/actuat metered dose inhaler (10 sources) Corticosteroid Start: 08-06-2019 End: 11-04-2019 Fluticasone Propionate (Flovent Hfa) 220 mcg/actuation HFA aerosol inhaler Discontinued 2 NMA INHALATION TWICE A DAY 05 18August 06, 2019 1:00am November 04, 2019 6:42am Start: 08-06-2019 End: 11-04-2019 take 1 puff(s) by inhalation twice daily Fluticasone Propionate (Flovent Hfa) 220 mcg/actuation HFA aerosol inhaler Discontinued 2 PUFF INHALATION TWICE A DAY August 06, 2019 12:00am November 04, 2019 5:42am furosemide 40 mg oral tablet (16 sources) Loop Diuretic Start: 02-07-2023 End: 10-02-2024 take 1 tablet by mouth once daily Furosemide (Lasix) 40 mg tablet Discontinued 40 mg PO DAILY 16 05March 13, 2023 2:59pm October 02, 2024 7:46am 1 ml HYDROmorphone hydrochloride 1 mg/ml cartridge (2 sources) Opioid Agonist Start: 11-12-2023 End: 11-12-2023 take 0.2 mg intravenously every two hours as needed 0.2 mg, Intravenous, EVERY 2 HOURS NEEDED, Starting on Sat11/12/23 at 1035, Until Sat11/12/23 at 1728, Severe Pain, If unable to tolerate PO, Post-op/Post-Proc Start: 11-12-2023 End: 11-12-2023 0.2 mg, Intravenous, EVERY 1 0 MINUTES NEEDED, 10 doses, Starting on Sat11/12/23 at 0735, Until Sat11/12/23 at 1728, Moderate Pain, Severe Pain, May give a total of 2mg in PACU., Recovery iohexol (OMNIPAQUE) 350 MG/ML injection 1-171 mL (1 source) Start: 11-08-2023 End: 11-08-2023 1-171 mL, Intravenous, ONCE, 1 dose, On Sat11/08/23 at 1115, Extravasation Risk, CT Procedure levoFLOXacin 500 mg oral tablet (16 sources) Quinolone Antimicrobial Start: 01-14-2015 End: 07-14-2015 take 1 tablet by mouth once daily LEVAQUIN 500 MG TABS One tablet by mouth daily x 7 days LEVOFLOXACIN [id number] Sushma Maharaj magnesium oxide 400 mg oral tablet (1 source) Start: 11-12-2023 End: 11-12-2023 800 mg, Oral, ADMINISTER DIRECTED, Starting on Sat11/12/23 at 1035, Until Sat11/12/23 at 1728, See admin instructions, For Magnesium 1.6 - 2.0, give 800 mg of Magnesium oxide, Post-op/Post-Proc 50 ml magnesium sulfate 80 mg/ml injection (1 source) Start: 11-12-2023 End: 11-12-2023 4 g, Intravenous, Administer over 4 Hours, ADMINISTER DIRECTED, Starting on Sat11/12/23 at 1035, Until Sat11/12/23 at 1728, Other, Magnesium Replacement Therapy, If Magnesium less than 1.6, give 4 g Magnesium Sulfate IVPB over 4 hours (may give over 1 hour if arrhythmias present)., Post-op/Post-Proc melatonin 3 mg oral tablet (1 source) Start: 11-12-2023 End: 11-12-2023 take 3 mg by mouth once daily at bedtime as needed 3 mg, Oral, DAILY AT BEDTIME NEEDED, Starting on Sat11/12/23 at 1035, Until Sat11/12/23 at 1728, Insomnia, Post-op/Post-Proc metroNIDAZOLE 500 mg oral tablet (10 sources) Nitroimidazole Antimicrobial Start: 04-14-2016 End: 07-26-2017 take 1 tablet by mouth every six hours Metronidazole 500 MG tablet Discontinued 500 mg PO EVERY 6 HOURS 40 April 14, 2016 12:00am July 26, 2017 2:43pm montelukast 10 mg oral tablet (10 sources) Leukotriene Receptor Antagonist Start: 08-06-2019 End: 05-05-2020 take 1 tablet by mouth once daily in the evening Montelukast 10 mg tablet Discontinued 10 mg PO EVERY EVENING 30 3 August 06, 2019 1:00am May 05, 2020 8:04am Nicotine (2 sources) Cholinergic Nicotinic Agonist Start: 07-19-2015 apply 1 dose transdermal route once daily EQ NICOTINE 7 MG/24HR PT24 Apply one patch daily NICOTINE [id number] Mil Ji Start: 07-19-2015 End: 01-17-2016 apply 1 dose transdermal route once daily EQ NICOTINE 7 MG/24HR PT24 Apply one patch daily NICOTINE [id number] Araceli Little LPN Tiotropium-Olodaterol (20 sources) Anticholinergic, beta2-Adrenergic Agonist Start: 07-25-2022 End: 02-06-2023 Tiotropium-Olodaterol 2.5-2.5 mcg/actuation mist Discontinued 2 NMA INHALATION DAILY 4 July 25, 2022 8:10am February 06, 2023 2:48pm shortness of breath Start: 07-25-2022 End: 02-06-2023 Tiotropium-Olodaterol 2.5-2. 5 mcg/actuation mist Discontinued 2 NMA INHALATION DAILY July 25, 2022 8:10am February 06, 2023 2:48pm Start: 07-25-2022 End: 02-06-2023 Tiotropium-Olodaterol Discon tinued 2 INH INHALATION DAILY July 25, 2022 7:10am February 06, 2023 1:48pm Start: 07-25-2022 End: 02-06-2023 Tiotropium-Olodaterol Discon tinued 2 INH INHALATION DAILY July 25, 2022 8:10am February 06, 2023 2:48pm Start: 07-25-2022 Tiotropium-Olo daterol Active 2 INH INHALATION DAILY July 25, 2022 8:10am Start: 04-18-2022 End: 07-25-2022 Tiotropium-Olodaterol 2.5-2. 5 mcg/actuation mist Discontinued 2 NMA INHALATION DAILY 4 April 18, 2022 2:34pm July 25, 2022 8:10am shortness of breath Start: 04-18-2022 End: 07-25-2022 Tiotropium-Olodaterol 2.5-2. 5 mcg/actuation mist Discontinued 2 NMA INHALATION DAILY April 18, 2022 2:34pm July 25, 2022 8:10am Start: 04-18-2022 End: 07-25-2022 Tiotropium-Olodaterol Discon tinued 2 INH INHALATION DAILY April 18, 2022 1:34pm July 25, 2022 7:10am Start: 04-18-2022 End: 07-25-2022 Tiotropium-Olodaterol Discon tinued 2 INH INHALATION DAILY April 18, 2022 2:34pm July 25, 2022 8:10am Start: 04-18-2022 Tiotropium-Olo daterol Active 2 INH INHALATION DAILY April 18, 2022 1:34pm Start: 03-18-2022 End: 04-18-2022 Tiotropium-Olodaterol 2.5-2. 5 mcg/actuation mist Discontinued 2 NMA INHALATION DAILY March 18, 2022 12:49pm April 18, 2022 2:35pm shortness of breath Start: 03-18-2022 End: 04-18-2022 Tiotropium-Olodaterol 2.5-2. 5 mcg/actuation mist Discontinued 2 NMA INHALATION DAILY March 18, 2022 12:49pm April 18, 2022 2:35pm Start: 03-18-2022 End: 04-18-2022 Tiotropium-Olodaterol Discon tinued 2 INH INHALATION DAILY March 18, 2022 12:49pm April 18, 2022 2:35pm Start: 03-18-2022 End: 04-18-2022 Tiotropium-Olodaterol Discon tinued 2 INH INHALATION DAILY March 18, 2022 11:49am April 18, 2022 1:35pm Start: 03-18-2022 Tiotropium-Olo daterol Active 2 INH INHALATION DAILY March 18, 2022 12:49pm Start: 05-16-2021 End: 03-18-2022 Tiotropium-Olodaterol 2.5-2. 5 mcg/actuation mist Discontinued 2 NMA INHALATION DAILY 06 27May 16, 2021 8:25am March 18, 2022 12:49pm Chronic obstructive pulmonary disease, unspecified Start: 05-16-2021 End: 03-18-2022 Tiotropium-Olodaterol 2.5-2. 5 mcg/actuation mist Discontinued 2 NMA INHALATION DAILY May 16, 2021 8:25am March 18, 2022 12:49pm Start: 05-16-2021 End: 03-18-2022 Tiotropium-Olodaterol Discon tinued 2 INH INHALATION DAILY May 16, 2021 7:25am March 18, 2022 11:49am Start: 05-16-2021 End: 03-18-2022 Tiotropium-Olodaterol Discon tinued 2 INH INHALATION DAILY May 16, 2021 8:25am March 18, 2022 12:49pm Start: 05-05-2020 End: 05-16-2021 Tiotropium-Olodaterol 2.5-2. 5 mcg/actuation mist Discontinued 2 NMA INHALATION DAILY 1 May 05, 2020 8:03am May 16, 2021 8:25am Chronic obstructive pulmonary disease, unspecified Start: 05-05-2020 End: 05-16-2021 Tiotropium-Olodaterol 2.5-2. 5 mcg/actuation mist Discontinued 2 NMA INHALATION DAILY May 05, 2020 8:03am May 16, 2021 8:25am Start: 05-05-2020 End: 05-16-2021 Tiotropium-Olodaterol Discon tinued 2 INH INHALATION DAILY May 05, 2020 7:03am May 16, 2021 7:25am Start: 05-05-2020 End: 05-16-2021 Tiotropium-Olodaterol Discon tinued 2 INH INHALATION DAILY May 05, 2020 8:03am May 16, 2021 8:25am Start: 01-27-2019 End: 05-05-2020 Tiotropium-Olodaterol 2.5-2. 5 mcg/actuation mist Discontinued 2 NMA INHALATION DAILY 1 January 27, 2019 8:16am May 05, 2020 8:04am Chronic obstructive pulmonary disease, unspecified Start: 01-27-2019 End: 05-05-2020 Tiotropium-Olodaterol 2.5-2. 5 mcg/actuation mist Discontinued 2 NMA INHALATION DAILY January 27, 2019 8:16am May 05, 2020 8:04am Start: 10-09-2018 End: 01-27-2019 Tiotropium-Olodaterol 2.5-2. 5 mcg/actuation mist Discontinued 2 NMA INHALATION DAILY 1 0 October 09, 2018 1:14pm January 27, 2019 8:17am Start: 10-09-2018 End: 01-27-2019 Tiotropium-Olodaterol 2.5-2. 5 mcg/actuation mist Discontinued 2 NMA INHALATION DAILY 1 October 09, 2018 1:14pm January 27, 2019 8:17am Start: 10-09-2018 End: 10-09-2018 Tiotropium-Olodaterol 2.5-2. 5 mcg/actuation mist Discontinued 2 NMA INHALATION DAILY 1 0 October 09, 2018 8:09am October 09, 2018 1:14pm Start: 10-09-2018 End: 10-09-2018 Tiotropium-Olodaterol 2.5-2. 5 mcg/actuation mist Discontinued 2 NMA INHALATION DAILY 1 October 09, 2018 8:09am October 09, 2018 1:14pm Start: 02-13-2018 End: 10-09-2018 Tiotropium-Olodaterol 2.5-2. 5 mcg/actuation mist Discontinued 2 NMA INHALATION DAILY 4 February 13, 2018 1:36pm October 09, 2018 8:10am Start: 02-13-2018 End: 10-09-2018 Tiotropium-Olodaterol 2.5-2. 5 mcg/actuation mist Discontinued 2 NMA INHALATION DAILY 4 February 13, 2018 1:36pm October 09, 2018 8:10am Start: 02-13-2018 End: 05-05-2020 Tiotropium-Olodaterol Discon tinued 2 INH INHALATION DAILY October 09, 2018 12:14pm January 27, 2019 7:17am Start: 04-14-2016 End: 02-13-2018 Tiotropium-Olodaterol 4 GM m ist Discontinued 4 g IH DAILY April 14, 2016 12:00am February 13, 2018 1:37pm Start: 04-14-2016 End: 02-13-2018 take 4 g by inhalation once daily Tiotropium-Olodaterol Discontinued 4 GM IH DAILY April 13, 2016 11:00pm February 13, 2018 12:37pm Start: 04-14-2016 End: 02-13-2018 take 4 g by inhalation once daily Tiotropium-Olodaterol Discontinued 4 GM IH DAILY April 14, 2016 12:00am February 13, 2018 1:37pm Start: 07-19-2015 STIOLTO RESPIM AT 2.5-2.5 MCG/ACT AERS 2 puffs INH daily TIOTROPIUM BROMIDE-OLODATEROL [id number] Macy Kulkarni HYDRAULIC RIVETER Start: 07-19-2015 take 2 puff(s) by in halation once daily STIOLTO RESPIMAT 2.5-2.5 MCG/ACT AERS 2 puffs INH daily TIOTROPIUM BROMIDE-OLODATEROL [id number] Macy Kulkarni HYDRAULIC RIVETER 2 ml ondansetron 2 mg/ml injection (2 sources) Serotonin-3 Receptor Antagonist Start: 11-12-2023 End: 11-12-2023 4 mg, Intravenous, EVERY 4 HOURS NEEDED, Starting on Sat11/12/23 at 1035, Until Sat11/12/23 at 1728, Nausea / Vomiting, Post-op/Post-Proc Start: 11-12-2023 End: 11-12-2023 4 mg, Intravenous, ONCE N EEDED, 1 dose, Starting on Sat11/12/23 at 0735, Until Sat11/12/23 at 1728, Nausea / Vomiting, FIRST line antiemetic, Do not administer within 6 hours of intra-operative dose., Recovery oxyCODONE (1 source) Opioid Agonist Start: 11-12-2023 End: 11-12-2023 take 1 tablet by mouth every four hours as needed oxyCODONE (ROXICODONE) tablet 5 mg pantoprazole 40 mg injection (8 sources) Proton Pump Inhibitor Start: 10-14-2014 End: 01-13-2015 take 1 tablet by mouth once daily PROTONIX 40 MG SOLR One tablet by mouth daily PANTOPRAZOLE SODIUM [id number] Collin Lutz MD polyethylene glycol 3350 26362 mg powder for oral solution (1 source) Osmotic Laxative Start: 11-12-2023 End: 11-12-2023 17 g, Oral, DAILY NEEDED, Starting on Sat11/12/23 at 1035, Until Sat11/12/23 at 1728, Constipation 1st Line, Post-op/Post-Proc microencapsulated potassium chloride 20 meq extended release oral tablet (2 sources) Start: 11-12-2023 End: 11-12-2023 take 60 mEq by mouth every eight hours 40-60 mEq, Oral, ADMINISTER DIRECTED, Starting on Sat11/12/23 at 1035, Until Sat11/12/23 at 1728, See admin instructions, If Cr less than 2.0 mg/dL 1. For Potassium 3.6 - 4.0, give 40 mEq of Potassium Chloride orally, recheck in the AM. 2. For Potassium less than 3.6, give 60 mEq Potassium Chloride orally, recheck in 8 hours. 3. If potassium is low please administer magnesium first if indicated., Post-op/Post-Proc Start: 11-12-2023 End: 11-12-2023 20 mEq, Oral, ADMINISTER DIRECTED, Starting on Sat11/12/23 at 1035, Until Sat11/12/23 at 1728, See admin instructions, If Cr 2.0 - 2.5 mg/dL For Potassium less than 3.6, give 20 mEq Potassium Chloride orally, recheck in AM. If Cr greater than 2.5 mg/dL contact physician/LIP for Potassium less than 3.6 for replacement orders. If potassium is low please administer magnesium first if indicated, Post-op/Post-Proc predniSONE 10 mg oral tablet (4 sources) Corticosteroid Start: 01-14-2015 End: 01-26-2015 PREDNISONE 10 MG TABS Take 4 tabs by mouth for 3 days, then 3 tabs by mouth for 3 days, then 2 tabs by mourth for 3 days, then 1 tab by mouth for 3 days. PREDNISONE [id number] Mil Ji rivaroxaban 20 mg oral tablet (20 sources) Factor Xa Inhibitor Start: 05-26-2014 End: 07-26-2017 take 1 tablet by mouth once daily Rivaroxaban 20 MG tablet Discontinued 20 mg PO DAILY 30 0 October 05, 2014 10:31am July 26, 2017 2:44pm Sodium Chloride (4 sources) Start: 11-12-2023 End: 11-12-2023 Intravenous, at 1 mL/hr, CONTINUOUS NEEDED, Starting on Sat11/12/23 at 1035, Until Sat11/12/23 at 1728, See administration instructions, Per pressure bag for all transduced lines., Post-op/Post-Proc Start: 11-12-2023 End: 11-12-2023 1 dose, Starting on 11/11 at 0549, Until Sat11/12/23 at 0618, Created by cabinet override Start: 11-12-2023 End: 11-12-2023 Intravenous, at 20 mL/hr, CO NTINUOUS, Starting on Sat11/12/23 at 0545, Until Sat11/12/23 at 1728, KVO fluids, start the morning of procedure., Pre-op/Pre-Proc Start: 11-08-2023 End: 11-08-2023 1-100 mL, Intravenous, ONCE NEEDED, 1 dose, Starting on Sat11/08/23 at 1100, Until Sat11/08/23 at 1103, Flush, CT Procedure TIOTROPIUM BROMIDE MONOHYDRATE (8 sources) Anticholinergic Start: 01-14-2015 End: 01-17-2016 take 1 capsule by inhalation once daily SPIRIVA HANDIHALER 18 MCG CAPS One cap INH daily TIOTROPIUM BROMIDE MONOHYDRATE [id number] Mil Ji Start: 01-14-2015 End: 01-17-2016 take 1 capsule by inhalation once daily SPIRIVA HANDIHALER 18 MCG CAPS One cap INH daily TIOTROPIUM BROMIDE MONOHYDRATE [id number] Araceli Little LPN Start: 01-14-2015 take 1 capsule by in halation once daily SPIRIVA HANDIHALER 18 MCG CAPS One cap INH daily TIOTROPIUM BROMIDE MONOHYDRATE [id number] Mil Ji Problems Active Problems Problem Classification Problem Date Documented Da te Episodic/Chronic Alcohol-related disorders (4 sources) Alcoholism; Translations: [Alcohol dependence, uncomplicated] Onset: 05-21-2014 05-21-2014 Chronic Asthma (11 sources) Asthma; Translations: [Unspecified asthma, uncomplicated] 09-23-2019 Chronic Cardiac dysrhythmias (20 sources) Atrial fibrillation; Translations: [Atrial flutter] Onset: 05-21-2014 05-21-2014 Chronic Comment on above: RFA PVI-10/01/2014; D CCV on 06/2014, 07/2014, 09/2014, 04/27/22; Chronic obstructive pulmonary disease and bronchiectasis (20 sources) Moderate chronic obstructive pulmonary disease; Translations: [Chronic obstructive lung disease] Onset: 05-21-2014 Resolved: 04-12-2016 04-12-2016 Chronic Congestive heart failure; nonhypertensive (17 sources) Chronic systolic heart failure; Translations: [Chronic systolic (congestive) heart failure] Chronic Coronary atherosclerosis and other heart disease (3 sources) Coronary atherosclerosis; Translations: [Atherosclerotic heart disease of [place] coronary artery without angina pectoris] 01-17-2024 Chronic Coronary atherosclerosis and other heart disease (7 sources) Stented coronary artery; Translations: [Presence of coronary angioplasty implant and graft] Onset: 01-17-2024 01-17-2024 Episodic Comment on above: 2.5X22 overlapping w ith 2.25 X15 mm [employer] MILE, Mid to Distal CX Diabetes mellitus without complication (6 sources) Impaired glucose tolerance; Translations: [Prediabetes] Onset: 05-24-2014 05-24-2014 Episodic Disorders of lipid metabolism (15 sources) Dyslipidemia; Translations: [Hyperlipidemia] Onset: 05-24-2014 05-24-2014 Chronic Joint disorders and dislocations; trauma-related (10 sources) Dislocation of digit of hand; Translations: [Unspecified dislocation of unspecified finger, initial encounter] 03-05-2018 Episodic Mood disorders (4 sources) Depressive disorder; Translations: [Major depressive disorder, single episode, unspecified] 05-21-2014 Chronic Nonspecific chest pain (14 sources) Chest pain; Translations: [Chest pain, unspecified] Episodic Nutritional deficiencies (4 sources) Vitamin D deficiency; Translations: [Vitamin D deficiency, unspecified] Onset: 05-24-2014 05-24-2014 Chronic Other hematologic conditions (10 sources) Raised cardiac enzyme or marker; Translations: [Other specified abnormalities of plasma proteins] 09-22-2018 Episodic Other lower respiratory disease (20 sources) Cough; Translations: [Dyspnea on exertion] Onset: 07-21-2014 Resolved: 10-20-2014 03-15-2016 Episodic Other lower respiratory disease (7 sources) Dyspnea on exertion; Translations: [Other forms of dyspnea] Onset: 07-21-2014 Resolved: 10-20-2014 07-21-2014 Episodic Other lower respiratory disease (10 sources) Dyspnea; Translations: [Dyspnea, unspecified] 09-22-2018 Episodic Other lower respiratory disease (1 source) Other forms of dyspnea; Translations: [Other respiratory abnormalities] 02-06-2023 Episodic Other nutritional; endocrine; and metabolic disorders (13 sources) Body mass index (BMI) 37.0-37.9, adult; Translations: [Body mass index (BMI) 36.0-36.9, adult] Onset: 05-24-2014 01-17-2016 Chronic Other nutritional; endocrine; and metabolic disorders (1 source) Body mass index (BMI) 36.0-36.9, adult; Translations: [Body mass index (BMI) 36.0-36.9, adult] Onset: 05-26-2014 07-14-2015 Chronic Other nutritional; endocrine; and metabolic disorders (1 source) Body mass index (BMI) 34.0-34.9, adult; Translations: [Body mass index (BMI) 34.0-34.9, adult] Onset: 05-26-2014 05-26-2014 Chronic Other screening for suspected conditions (not mental disorders or infectious disease) (4 sources) Cardiovascular stress test abnormal; Translations: [Abnormal result of other cardiovascular function study] Onset: 10-30-2024 01-26-2024 Episodic [place]-; endo-; and myocarditis; cardiomyopathy (20 sources) Cardiomyopathy; Translations: [Cardiomyopathy in diseases classified elsewhere] Onset: 06-03-2014 Resolved: 02-07-2015 06-03-2014 Chronic Pneumonia (except that caused by tuberculosis or sexually transmitted disease) (10 sources) Pneumonia; Translations: [Pneumonia, unspecified organism] 09-22-2018 Episodic Residual codes; unclassified (11 sources) Obstructive sleep apnea syndrome; Translations: [Obstructive sleep apnea (adult) (pediatric)] 07-25-2022 Chronic Comment on above: Bipap 14/8 with resi dual AHI 0 Residual codes; unclassified (8 sources) Obstructive sleep apnea (adult) (pediatric); Translations: [Obstructive sleep apnea (adult)(pediatric)] Chronic Screening or history of mental health and substance abuse (4 sources) Tobacco user; Translations: [Tobacco use] Onset: 05-21-2014 05-21-2014 Chronic Substance-related disorders (11 sources) Substance abuse; Translations: [Cigarette smoker ] Onset: 05-21-2014 05-21-2014 Chronic Unclassified (6 sources) Sleep apnea; Translations: [Sleep apnea, unspecified] Onset: 05-26-2014 05-26-2014 Chronic Unclassified (2 sources) Longstanding persistent atrial fibrillation; Translations: [Longstanding persistent atrial fibrillation] Onset: 10-02-2014 Past or Other Problems Problem Classification Problem Date Documented Da te Episodic/Chronic Abdominal pain (4 sources) Abdominal pain; Translations: [Abdominal pain] Onset: 05-21-2014 05-21-2014 Episodic Malaise and fatigue (15 sources) Fatigue; Translations: [Other fatigue] Onset: 05-21-2014 Resolved: 10-19-2014 05-21-2014 Episodic Other hematologic conditions (4 sources) Macrocytosis; Translations: [Other specified diseases of blood and blood-forming organs] Onset: 05-24-2014 05-24-2014 Episodic Other nutritional; endocrine; and metabolic disorders (8 sources) Abnormal weight gain; Translations: [Abnormal weight gain] Onset: 05-21-2014 Resolved: 10-19-2014 10-19-2014 Episodic Results Test Name Value Interpretation Reference Range Facility Cardiology Visit Reporton Cardiology Visit Report [facility] [address] [place] [address]. [address] [place] [address] OFFICE VISIT Date of Service: 01/12/25 MR#: [id number] Acct: [id number] Name: LIZZETTE TIDWELL Rep #: [id number] : 1960 Provider: Dr. Collin Lutz MD Age/Sex: 64/M Location: [facility] Status: Signed HPI HPI History of Present Illness Details: Lizzette Tidwell is a 64-year-old gentleman who presents here today for a cardiovascular follow-up. Patient was admitted on March 18, 2022 for atrial fibrillation. He had not been taking his metoprolol and had weaned himself off of this. EKG demonstrated atrial fibrillation with RVR with a heart rate of 158. He was started on IV Cardizem. He was transitioned to p.o. metoprolol. However his heart rate was not improved so he was started on p.o. Cardizem. Echocardiogram did demonstrate an ejection fraction of 65% with no regional wall motion abnormalities. He has a past medical history of ablation in September [address] De Jesus at [facility]. He has undergone cardioversion in June, July, and September 2014 as well as April 2022. He does have CEM. He has been cardioverted and is due to see the process control board operator for an ablation in October 2023. He proceeded with atrial flutter ablation with cardioversion on 11/12/[address] [facility] [address] Carroll. Patient underwent a stress test on 01/07/2024 which was abnormal. He underwent a cardiac catheterization on 01/17/2024 which demonstrated moderately severe disease noted in the main left circumflex artery, left anterior descending artery with mild diffuse disease, right coronary artery with mild diffuse disease. He underwent PCI to his mid to distal circumflex artery. He has done well since then. He is visiting today with his . He denies any chest pain or palpitations he does have shortness of breath with exertion and he has gained about 7 pounds since his last visit. They want to know whether he has any evidence of chronotropic incompetence. He has not had any dizziness or lightheadedness or near syncope or syncope. Intake Vital Signs 11/28/23 13:37 11/24/24 07:43 01/12/25 07:58 Height 5 ft 10 in 5 ft 10 in 5 ft 10 in Weight: 262 lb BMI 37.5 BP 133/89 H Blood Pressure Location Lt brachial Position Sitting Respiration 16 Pulse 54 L Pulse Source Monitor Intake Visit Reasons: 1 Y FU Chart Reader Required: No Accompanied by: Significant Other Is patient in pain?: No Allergies No Known Allergies Allergy (Verified 01/12/25 07:59) Medications ???Medication ???Instructions ???Recorded ???Confirmed ???Type cholecalciferol (vitamin D3) 125 5,000 unit PO QDAY supplement 02/0101/12/25 History mcg (5,000 unit) capsule albuterol sulfate 90 mcg/actuation 2 puff inhalation Q4H PRN 01/12/25 Rx aerosol inhaler (Ventolin HFA) shortness of breath or wheezing #18 grams ticagrelor 90 mg tablet (Brilinta) 90 mg PO BID #60 tabs 03/17/24 0 01/12/25 Rx apixaban 5 mg tablet (Eliquis) 5 mg PO BID #180 tabs 04/20/24 Rx fluticasone fur. 100 mcg-umeclid 1 inh inhalation QDAY #3 device 01/12/25 Rx 62.5 mcg-vilant 25 mcg inhalat.powder (Trelegy Ellipta) metoprolol tartrate 25 mg tablet 25 mg PO BID 01/12/25 History Have you fallen in the past year?: No [facility] Medical History Atherosclerotic heart disease of [place] coronary artery without angina pectoris Non-ischemic cardiomyopathy Atrial fibrillation with rapid ventricular response Asthma CEM (obstructive sleep apnea) Stage 2 moderate COPD by GOLD classification Obesity Depression Vitamin D deficiency Alcoholism Nicotine dependence Paroxysmal atrial fibrillation Atrial flutter Surgical History Stented coronary artery (01/17/24) History of cardioversion (04/27/22) History of umbilical hernia repair History of tonsillectomy History of cardiac radiofrequency ablation (11/12/23) Family History Unknown No problems noted. Other Adopted Social History Smoking Status: Former smoker quit date: 06/17/18 pack-years: 30 alcohol intake: current alcohol intake frequency: 0-2 drinks per day substance use type: does not use caffeine: Yes Type: coffee Number of servings: 1 ROS Const Const: Positive for fatigue; Negative for weakness, headache(s), daytime sleepiness or difficulty sleeping ENT ENT: Negative for headache(s), dizziness or Nosebleed/epistaxis Cardio Chest Pain: No Palpitations: No Edema: None Resp Respiratory: Positive for SOB with activity; Negative for SOB at rest, SOB orthopnea SOB lying down or Cough GI GI: Negative nausea, vomitin (more content not included)... Normal [facility] Pulmonary Visit Reporton Pulmonary Visit Report [facility] [place] [address] [place] [address] OFFICE VISIT Date of Service: 11/24/24 MR#: [id number] Acct: [id number] Name: LIZZETTE TIDWELL Rep #: [id number] : 1960 Provider: REYNALDO Kulkarni Age/Sex: 64/M Location: [email or web address] Status: Signed Assessment and Plan Assessment and Plan (1) Stage 2 moderate COPD by GOLD classification: Status: Chronic Plan: Stable, he does not appear to be in an exacerbation of Ashtma/COPD overlap syndrome today. Continue current maintenance medication, patient is on triple therapy with use of Trelegy. No additional testing at this time. Follow-up in the office in 1 year. Contact the office with any new or worsening symptoms in the meantime. (2) CEM (obstructive sleep apnea): Status: Chronic Comment: Bipap 14/8 with residual AHI 0 Plan: He is using and benefiting from Pap therapy. No indication for titration study at this time. Contact the office for any new or worsening symptoms in the meantime. Follow-up in 1 year. (3) Asthma: Status: Chronic Qualifiers: Asthma severity: severe Asthma persistence: persistent Asthma complication type: unspecified Qualified Code(s): J45.50 - Severe persistent asthma, uncomplicated Plan: Stable, no med changes. (4) Smoking greater than 20 pack years: Status: Chronic Plan: Encourage complete smoking cessation. The patient is appropriate for repeat LDCT which is due in October 2025, ordered accordingly. Follow-up in November 2025 to discuss test results. Orders: Orders Low Dose CT Lung Screening 10/15/25 F17.200 - Nicotine dependence, unspecified, uncomplicated, F17.210 - Nicotine dependence, cigarettes, uncomplicated Plan Details Additional Comments: This note was generated with [employer] dictation software. It may contain incorrect words, spelling, and punctuation that were not noted in checking the note before signing. Follow Up: 1 Year HPI 11 m fu Chief Complaint: routine follow up HPI Comments Details: This patient presents to the office today for follow-up of his asthma/COPD and obstructive sleep apnea. He is ambulatory and currently on room air. He has not recently been seen in the ED or urgent care for any respiratory illness. He has not required any antibiotics or prednisone for any breathing problems. He continues to smoke cigarettes. He is compliant with use Trelegy 1 puff daily. He does report rinsing his mouth out after each use. He denies medication side effect such as sore throat or thrush. 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 He does find it to be helpful. He does have shortness of breath on exertion. He has a cough that is productive of clear-colored sputum. He denies any wheezing, chest tightness, chest pain or palpitations. He has not had any fever, chills or body aches. He reports feeling rested refreshed with the use of his PAP device. He is not having difficulty with morning headaches. He does report an occasional dry mouth. He is not having excessive nocturia. Test results personally reviewed with the patient: LDCT completed on 01/26/2025. No suspicious nodules seen. Recommendation is to continue LDCT in 12 months. Compliance report for the past 30 days shows 100% compliance with an average use of 7 hours and 38 minutes per night. Current setting is BiPAP 14/8 cmH2O with residual AHI of 0.0 Leaks do not appear to be an issue. Intake Vital Signs 12/24/23 07:41 10/02/24 07:29 11/24/24 07:43 Height 5 ft 10 in 5 ft 10 in 5 ft 10 in Weight: 265 lb BMI 38.0 BP 134/82 H Blood Pressure Location Lt brachial Position Sitting Respiration 18 Pulse 59 L Pulse Source NIBP Temp 97.4 F L Temperature Source Temporal Artery Pulse Oximetry (%) 98 Oxygen Delivery Method room air Intake Visit Reasons: 11 m fu Chief Complaint: F/U CEM, Asthma, COPD Chart Reader Required: No MALLORY Vendor: Terry Accompanied by: Self Is patient in pain?: No Allergies No Known Allergies Allergy (Verified 11/24/24 07:45) Medications ???Medication ???Instructions ???Recorded ???Confirmed ???Type cholecalciferol (vitamin D3) 125 5,000 unit PO QDAY supplement 02/0111/24/24 History mcg (5,000 unit) capsule albuterol sulfate 90 mcg/actuation 2 puff inhalation Q4H PRN 11/24/24 Rx aerosol inhaler (Ventolin HFA) shortness of breath or wheezing #18 grams ticagrelor 90 mg tablet (Brilinta) 90 mg PO BID #60 tabs 03/17/24 0 11/24/24 Rx apixaban 5 mg tablet (Eliquis) 5 mg PO BID #180 tabs 04/20/2404/10 Rx fluticasone fur. 100 mcg-umeclid 1 inh inhalation QDAY #3 device 11/24/24 Rx 62.5 mcg-vilant 25 mcg inhalat.powder (Trelegy Ellipta) metoprolol tartrate 25 mg tablet 12.5 mg (1/ (more content not included)... Normal [facility] Low Dose CT Lung Screeningon 10-26-[address] Lung Screening [facility] Imaging Services [address] [place] [id number] Lung Screening MR#: [id number] Acct: [id number] Name: LIZZETTE TIDWELL Rep #: [id number] : 1960 M 63 From: Bill bowens MD PCP: Dr. Thien Singh, DO Status: [facility] CL Study: Low Dose CT Lung Screening Date of Exam: 10/26 Exam# [id number] Ordering Dr: Macy Kulkarni 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 PROCEDURE: LOW DOSE CT LUNG SCREENING 10/26/2024 REASON FOR EXAM: SMOKING HISTORY Current smoker. COPD. TECHNIQUE: Low Dose CT Lung screening without contrast. Coronal and Sagittal reconstruction series were provided. One or more dose reduction techniques were used (e.g., Automated exposure control, adjustment of the mA and/or kV according to patient size, use of iterative reconstruction technique). REFERENCE LINK: Need Lung-RADS RADIATION DOSE SUMMARY: CTDlvol: 4.02 mGy DLP: 153.51 mGycm COMPARISON: Comparison is dated July 31, 2023. FINDINGS: PULMONARY NODULES: (Only nodules >3mm are reported) Nodules described below are on series 1 unless otherwise specified. Pulmonary Nodules: No suspicious nodule seen. Hardware:None Lymph Nodes:Small benign-appearing mediastinal lymph nodes. Heart and Vasculature:Coronary artery calcifications are noted. Coronary Artery Calcifications: Present Lungs and Airways: Mild emphysematous changes are present. Pleura:Unremarkable Upper Abdomen:Unremarkable Bones:Degenerative changes of the thoracic spine. CT/Low Dose CT Lung Screening IMPRESSION: No suspicious pulmonary nodule seen. Coronary artery calcification (CAC) is is present Lung-RADS Category: 2 BENIGN (BASED ON IMAGING FEATURES OR INDOLENT BEHAVIOR). RECOMMEND 12-MONTH SCREENING LDCT. Other Significant Findings: None. Reading Location: [id number] CC: REYNALDO Kulkarni; Dr. Thien Singh DO Groundskeeping Maintenance: Signed Normal [facility] Absolute lymphocyte countOrd ered By: Tanya Hoffmann on 10-02-2024 Lymphocytes Auto (Unsp spec) [#/Vol] 2.29 10*3/uL 0.83-4.51 [facility] Absolute neutrophil countOrd ered By: Tanya Hoffmann on 10-02-2024 Neutrophils (Bld) [#/Vol] 6.7 10*3/uL 2.0-7.7 [facility] Anion gap in Serum or Plasma Ordered By: Tanya Hoffmann on 10-02-2024 Anion gap [Moles/Vol] 11 mmol/L 5-15 [facility] Automated lymphocyte count a s percentage of total leukocytesOrdered By: Tanya Hoffmann on 10-02-2024 Lymphocytes/100 WBC Auto (Unsp spec) 22.7 % 19-41 [facility] BUN/creatinine ratioOrdered By: Tanya Hoffmann on 10-02-2024 Urea nitrogen/Creatinine [Mass ratio] 9.4 mg/mg Low 10-20 [facility] Basophil percentageOrdered B y: Tanya Hoffmann on 10-02-2024 Basophils/100 WBC (Bld) 0.9 % 0-1 [facility] Bilirubin directOrdered By: Tanya Hoffmann on 10-02-2024 Bilirubin.direct [Mass/Vol] 0.15 mg/dL 0.00-0.30 [facility] Bilirubin, Directon 10-03-19 25 Bilirubin.direct [Mass/Vol] 0.15 mg/dL Normal 0.00-0.30 [facility] Comment on above: Performed By: #### L 500.4050, L501.4700, L501.9520, L100.0100, L500.4100 #### [facility] [address] [place], [address] Bilirubin, totalOrdered By: Tanya Hoffmann on 10-02-2024 Bilirubin [Mass/Vol] 0.35 mg/dL 0.00-1.30 [facility] CBC W/Diff, Automatedon 09-15 Absolute Lymph 2.29 X10 3/uL Normal 0.83-4.51 [facility] Comment on above: Performed By: #### L 500.4050, L501.4700, L501.9520, L100.0100, L500.4100 #### [facility] [address] [place], [address] Absolute Neut 6.7 X10 3/uL Normal 2.0-7.7 [facility] Comment on above: Performed By: #### L 500.4050, L501.4700, L501.9520, L100.0100, L500.4100 #### [facility] [address] [place], [address] Basophils/100 WBC (Bld) 0.9 % Normal 0-1 [facility] Comment on above: Performed By: #### L 500.4050, L501.4700, L501.9520, L100.0100, L500.4100 #### [facility] [address] [place], [address] Eosinophils/100 WBC (Bld) 1.5 % Normal 0-5 [facility] Comment on above: Performed By: #### L 500.4050, L501.4700, L501.9520, L100.0100, L500.4100 #### [facility] [address] [place], [address] Erythrocyte distribution width (RBC) [Ratio] 13.9 % Normal 11.6-14.6 [facility] Comment on above: Performed By: #### L 500.4050, L501.4700, L501.9520, L100.0100, L500.4100 #### [facility] [address] [place], [address] Hematocrit (Bld) [Volume fraction] 46.5 % Normal 40-54 [facility] Comment on above: Performed By: #### L 500.4050, L501.4700, L501.9520, L100.0100, L500.4100 #### [facility] [address] [place], [address] Hemoglobin (Bld) [Mass/Vol] 15.7 g/dL Normal 13.0-16.5 [facility] Comment on above: Performed By: #### L 500.4050, L501.4700, L501.9520, L100.0100, L500.4100 #### [facility] [address] [place], [address] IG% 0.900 Normal 0.0-0.9 [facility] Comment on above: Result Comment: IG% - Immature Granulocytes (promyelocytes, myelocytes and metamyelocytes) > 1% indicates that a LEFT SHIFT is Present. Performed By: #### L 500.4050, L501.4700, L501.9520, L100.0100, L500.4100 #### [facility] [address] [place], [address] Lymphocytes/100 WBC (Bld) 22.7 % Normal 19-41 [facility] Comment on above: Performed By: #### L 500.4050, L501.4700, L501.9520, L100.0100, L500.4100 #### [facility] [address] [place], [address] MCH (RBC) [Entitic mass] 34.0 pg High 27.0-32.0 [facility] Comment on above: Performed By: #### L 500.4050, L501.4700, L501.9520, L100.0100, L500.4100 #### [facility] [address] [place], [address] MCHC (RBC) [Mass/Vol] 33.8 g/dL Normal 32-36 [facility] Comment on above: Performed By: #### L 500.4050, L501.4700, L501.9520, L100.0100, L500.4100 #### [facility] [address] [place], [address] MCV (RBC) [Entitic vol] 100.6 fL High 80-94 [facility] Comment on above: Performed By: #### L 500.4050, L501.4700, L501.9520, L100.0100, L500.4100 #### [facility] [address] [place], [address] Monocytes/100 WBC (Bld) 7.3 % Normal 0-10 [facility] Comment on above: Performed By: #### L 500.4050, L501.4700, L501.9520, L100.0100, L500.4100 #### [facility] [address] [place], [address] Neutrophils/100 WBC (Bld) 66.7 % Normal 47-70 [facility] Comment on above: Performed By: #### L 500.4050, L501.4700, L501.9520, L100.0100, L500.4100 #### [facility] [address] [place], [address] Nucleated RBC (Bld) [#/Vol] 0 10*3/uL Normal 0-5 [facility] Comment on above: Performed By: #### L 500.4050, L501.4700, L501.9520, L100.0100, L500.4100 #### [facility] [address] [place], [address] Platelet mean volume (Bld) [Entitic vol] 10.4 fL Normal 6.2-12.0 [facility] Comment on above: Performed By: #### L 500.4050, L501.4700, L501.9520, L100.0100, L500.4100 #### [facility] [address] [place], [address] Platelets (Bld) [#/Vol] 308 10*3/uL Normal 150-450 [facility] Comment on above: Performed By: #### L 500.4050, L501.4700, L501.9520, L100.0100, L500.4100 #### [facility] [address] [place], [address] RBC (Bld) [#/Vol] 4.62 10*6/uL Normal 4.6-6.[address] [facility] Comment on above: Performed By: #### L 500.4050, L501.4700, L501.9520, L100.0100, L500.4100 #### [facility] [address] [place], [address] RDW SD 51.7 fl High 35.1-43.9 [facility] Comment on above: Performed By: #### L 500.4050, L501.4700, L501.9520, L100.0100, L500.4100 #### [facility] [address] [place], [address] WBC (Bld) [#/Vol] 10.1 10*3/uL Normal 4.4-11.[address] [facility] Comment on above: Performed By: #### L 500.4050, L501.4700, L501.9520, L100.0100, L500.4100 #### [facility] [address] [place], [address] Calculated very low density lipoprotein (VLDL) cholesterol measurementOrdered By: Tanya Hoffmann on 10-02-2024 Calculated very low density lipoprotein (VLDL) cholesterol measurement 22 mg/dL 5-40 [facility] Carbon dioxide, total [Moles /volume] in Central venous bloodOrdered By: Tanya Hoffmann on 10-02-2024 CO2 [Moles/Vol] 22.4 mmol/L 21.0-32.0 [facility] Cardiology Visit Reporton Cardiology Visit Report [facility] [address] [place] [address] OFFICE VISIT Date of Service: 10/02/24 MR#: [id number] Acct: [id number] Name: LIZZETTE TIDWELL Rep #: [id number] : 1960 Provider: REYNALDO fong Age/Sex: 63/M Location: [facility] Status: Signed HPI HPI History of Present Illness Details: Lizzette Tidwell is a 63-year-old gentleman who presents here today for a cardiovascular follow-up. Patient was admitted on March 18, 2022 for atrial fibrillation. He had not been taking his metoprolol and had weaned himself off of this. EKG demonstrated atrial fibrillation with RVR with a heart rate of 158. He was started on IV Cardizem. He was transitioned to p.o. metoprolol. However his heart rate was not improved so he was started on p.o. Cardizem. Echocardiogram did demonstrate an ejection fraction of 65% with no regional wall motion abnormalities. He has a past medical history of ablation in September [address] De Jesus at [facility]. He has undergone cardioversion in June, July, and September 2014 as well as April 2022. He does have CEM. He has been cardioverted and is due to see the process control board operator for an ablation in October 2023. He proceeded with atrial flutter ablation with cardioversion on 11/12/[address] [facility] [address] Carroll. Patient underwent a stress test on 01/07/2024 which was abnormal. He underwent a cardiac catheterization on 01/17/2024 which demonstrated moderately severe disease noted in the main left circumflex artery, left anterior descending artery with mild diffuse disease, right coronary artery with mild diffuse disease. He underwent PCI to his mid to distal circumflex artery. From a cardiac standpoint, the patient is doing well. He denies any palpitations, chest pain, pressure or heaviness. He does have SOB with exertion-this is nothing new or worsening. He denies Orthopnea, and PND. He does wear a Bipap. He does not have bleeding issues; no blood in urine, stool, or nosebleeds. He does acknowledge fatigue-he did not obtain labs at his last office visit. He denies myalgias, or claudication. He does not have edema, or sudden weight gain. He denies lightheadedness, dizziness, syncopal or near syncopal episodes, and headaches. Intake Vital Signs 03/31/24 13:56 10/02/24 07:29 Height 5 ft 10 in 5 ft 10 in Weight: 255 lb BMI 36.6 BP 122/85 H Blood Pressure Location Lt brachial Position Sitting Respiration 18 Pulse 52 L Pulse Source Monitor Pulse Oximetry (%) 98 Intake Visit Reasons: 6 M Chart Reader Required: No Is patient in pain?: No Allergies No Known Allergies Allergy (Verified 10/02/24 08:18) Medications ???Medication ???Instructions ???Recorded ???Confirmed ???Type cholecalciferol (vitamin D3) 125 5,000 unit PO QDAY supplement 02/0110/02/24 History mcg (5,000 unit) capsule albuterol sulfate 90 mcg/actuation 2 puff inhalation Q4H PRN 10/02/24 Rx aerosol inhaler (Ventolin HFA) shortness of breath or wheezing #18 grams atorvastatin 80 mg tablet (Lipitor) 80 mg PO QHS #60 tabs 01/18/24 10/02/24 Rx ticagrelor 90 mg tablet (Brilinta) 90 mg PO BID #60 tabs 03/17/24 0 10/02/24 Rx apixaban 5 mg tablet (Eliquis) 5 mg PO BID #180 tabs 04/20/24 Rx fluticasone fur. 100 mcg-umeclid 1 inh inhalation QDAY #3 device 10/02/24 Rx 62.5 mcg-vilant 25 mcg inhalat.powder (Trelegy Ellipta) metoprolol tartrate 25 mg tablet 12.5 mg (1/2 x 25 mg) PO BID #180 10/02/24 10/02/24 Rx tabs Ejection fraction %: 65 Have you fallen in the past year?: No PFSH Medical History (Reviewed 10/02/24 @ 09:08 by Tanya Hoffmann [employer], 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) Atherosclerotic heart disease of [place] coronary artery without angina pectoris Non-ischemic cardiomyopathy Atrial fibrillation with rapid ventricular response Asthma CEM (obstructive sleep apnea) Stage 2 moderate COPD by GOLD classification Obesity Depression Vitamin D deficiency Alcoholism Nicotine dependence Paroxysmal atrial fibrillation Atrial flutter Surgical History Stented coronary artery (01/17/24) History of cardioversion (04/27/22) History of umbilical hernia repair History of tonsillectomy History of cardiac radiofrequency ablation (11/12/23) Family History Unknown No problems noted. Other Adopted Social History Smoking Status: Former smoker quit date: 06/17/18 pack-years: 30 alcohol intake: current alcohol intake frequency: 0-2 drinks per day substance use type: does not use caffeine: Yes Type: coffee Number of servings: 1 ROS Const Const: Positive for fatigue; Negative for weakness, headache(s) or freq (more content not included)... Normal [facility] Chloride assayOrdered By: Chiki Hoffmann on 10-02-2024 Chloride [Moles/Vol] 104 mmol/L 98-108 [facility] Comprehensive Metabolic Prof ilon 10-02-2024 Albumin [Mass/Vol] 4.2 g/dL Normal 3.4-4.8 [facility] Comment on above: Performed By: #### L 500.4050, L501.4700, L501.9520, L100.0100, L500.4100 #### [facility] [address] [place], [address] Albumin/Globulin [Mass ratio] 1.3 {ratio} Normal 0.9-2.4 [facility] Comment on above: Performed By: #### L 500.4050, L501.4700, L501.9520, L100.0100, L500.4100 #### [facility] [address] [place], [address] ALK PHOS 114 U/L Normal 40-129 [facility] Comment on above: Performed By: #### L 500.4050, L501.4700, L501.9520, L100.0100, L500.4100 #### [facility] [address] [place], [address] ALT [Catalytic activity/Vol] 54 U/L High <=46 [facility] Comment on above: Performed By: #### L 500.4050, L501.4700, L501.9520, L100.0100, L500.4100 #### [facility] [address] [place], [address] AST [Catalytic activity/Vol] 50 U/L High <=37 [facility] Comment on above: Performed By: #### L 500.4050, L501.4700, L501.9520, L100.0100, L500.4100 #### [facility] [address] [place], [address] Bilirubin [Mass/Vol] 0.35 mg/dL Normal 0.00-1.30 [facility] Comment on above: Performed By: #### L 500.4050, L501.4700, L501.9520, L100.0100, L500.4100 #### [facility] [address] [place], [address] BUN/CRE 9.4 RATIO Low 10-20 [facility] Comment on above: Performed By: #### L 500.4050, L501.4700, L501.9520, L100.0100, L500.4100 #### [facility] [address] [place], [address] Calcium [Mass/Vol] 9.4 mg/dL Normal 7.6-11.0 [facility] Comment on above: Performed By: #### L 500.4050, L501.4700, L501.9520, L100.0100, L500.4100 #### [facility] [address] [place], [address] Chloride [Moles/Vol] 104 mmol/L Normal 98-108 [facility] Comment on above: Performed By: #### L 500.4050, L501.4700, L501.9520, L100.0100, L500.4100 #### [facility] [address] [place], [address] CO2 [Moles/Vol] 22.4 mmol/L Normal 21.0-32.0 [facility] Comment on above: Performed By: #### L 500.4050, L501.4700, L501.9520, L100.0100, L500.4100 #### [facility] [address] [place], [address] Creatinine [Mass/Vol] 1.00 mg/dL Normal 0.70-1.20 [facility] Comment on above: Performed By: #### L 500.4050, L501.4700, L501.9520, L100.0100, L500.4100 #### [facility] [address] [place], [address] GAP 11 Normal 5-15 [facility] Comment on above: Performed By: #### L 500.4050, L501.4700, L501.9520, L100.0100, L500.4100 #### [facility] [address] [place], [address] GFR/1.73 sq M.predicted among non-blacks MDRD (S/P/Bld) [Vol rate/Area] 86 mL/min/{1.73_m2} Normal >60 [facility] Comment on above: Result Comment: mL/m in/1.73m2 CKD-EPI Creatinine Equation (2020) Performed By: #### L 500.4050, L501.4700, L501.9520, L100.0100, L500.4100 #### [facility] [address] [place], [address] Globulin (S) [Mass/Vol] 3.3 g/dL Normal 2.2-4.2 [facility] Comment on above: Performed By: #### L 500.4050, L501.4700, L501.9520, L100.0100, L500.4100 #### [facility] [address] [place], [address] Glucose [Mass/Vol] 98 mg/dL Normal 70-99 [facility] Comment on above: Performed By: #### L 500.4050, L501.4700, L501.9520, L100.0100, L500.4100 #### [facility] [address] [place], [address] Potassium [Moles/Vol] 4.3 mmol/L Normal 3.3-5.1 [facility] Comment on above: Performed By: #### L 500.4050, L501.4700, L501.9520, L100.0100, L500.4100 #### [facility] [address] [place], [address] Sodium [Moles/Vol] 137 mmol/L Normal 133-145 [facility] Comment on above: Performed By: #### L 500.4050, L501.4700, L501.9520, L100.0100, L500.4100 #### [facility] [address] [place], [address] T PROT 7.5 g/dL Normal 5.9-8.4 [facility] Comment on above: Performed By: #### L 500.4050, L501.4700, L501.9520, L100.0100, L500.4100 #### [facility] [address] [place], [address] Urea nitrogen [Mass/Vol] 9 mg/dL Normal 4-19 [facility] Comment on above: Performed By: #### L 500.4050, L501.4700, L501.9520, L100.0100, L500.4100 #### [facility] [address] [place], [address] Eosinophil percentageOrdered By: Tanya Hoffmann on 10-02-2024 Eosinophils/100 WBC (Bld) 1.5 % 0-5 [facility] Erythrocyte distribution wid th ratioOrdered By: Tanya Hofmfann on 10-02-2024 Erythrocyte distribution width (RBC) [Ratio] 13.9 % 11.6-14.6 [facility] Erythrocyte distribution wid th standard deviationOrdered By: Tanya Hoffmann on 10-02-2024 Erythrocyte distribution width (RBC) [Ratio] 51.7 fl High 35.1-43.9 [facility] Glomerular filtration rate ( GFR) estimation/1.73 sq m using serum, plasma, or whole bOrdered By: Tanya Hoffmann on 10-02-2024 GFR/1.73 sq M.predicted among non-blacks MDRD (S/P/Bld) [Vol rate/Area] 86 mL/min/{1.73_m2} >60 [facility] Comment on above: mL/min/1.73m2 CKD-EP I Creatinine Equation (2020) Hematocrit Auto (Bld) [Volum e fraction]Ordered By: Tanya Hoffmann on 10-02-2024 Hematocrit (Bld) [Volume fraction] 46.5 % 40-54 [facility] Hemoglobin measurementOrdere d By: Tanya Hoffmann on 10-02-2024 Hemoglobin (Bld) [Mass/Vol] 15.7 g/dL 13.0-16.5 [facility] Immature granulocytes/100 WB C Auto (Bld)Ordered By: Tanya Hoffmann on 10-02-2024 Immature granulocytes/100 WBC (Bld) 0.900 % 0.0-0.9 [facility] Comment on above: IG% - Immature Granu locytes (promyelocytes, myelocytes and metamyelocytes) > 1% indicates that a LEFT SHIFT is Present. LDL calc ser/plasOrdered By: Tanya Hoffmann on 10-02-2024 Cholesterol in LDL [Mass/Vol] 139 mg/dL [facility] Comment on above: Mcxqxkdlhy=306-481 m g/dL & Higher Ukmj=686 mg/dL or greater Laboratory - Chemistry and C hemistry - challengeOrdered By: Tanya Hoffmann on 10-02-2024 AST [Catalytic activity/Vol] 50 U/L High <38 [facility] Lipid Profileon 10-02-2024 CHOL:HDL 5.18 Normal [facility] Comment on above: Performed By: #### L 500.4050, L501.4700, L501.9520, L100.0100, L500.4100 #### [facility] [address] [place], [address] Cholesterol [Mass/Vol] 199 mg/dL Normal <=200 [facility] Comment on above: Result Comment: Chol esterol level, Desirable <200 mg/dL Borderline high cholesterol 200-239 mg/dL High cholesterol >=240 mg/dL Recommendations of the NCEP Adult Treatment Panel for the following risk-cutoff thresholds for the [place] population. Performed By: #### L 500.4050, L501.4700, L501.9520, L100.0100, L500.4100 #### [facility] [address] [place], [address] Cholesterol in HDL [Mass/Vol] 38 mg/dL Low [facility] Comment on above: Result Comment: [place] onal Cholesterol Education Program (NCEP) guidelines: <40 mg/dL: Low HDL-cholesterol (major risk factor for CHD) >= 60 mg/dL: High HDL-cholesterol (negative risk factor for CHD) HDL-cholesterol is affected by a number of factors, e.g. smoking, exercise, hormones, sex and age. Performed By: #### L 500.4050, L501.4700, L501.9520, L100.0100, L500.4100 #### [facility] [address] [place], [address] Cholesterol in LDL [Mass/Vol] 139 mg/dL Normal [facility] Comment on above: Result Comment: Bord rwwlqj=426-949 mg/dL Higher Burt=184 mg/dL or greater Performed By: #### L 500.4050, L501.4700, L501.9520, L100.0100, L500.4100 #### [facility] [address] [place], [address] Cholesterol in VLDL [Mass/Vol] 22 mg/dL Normal 5-40 [facility] Comment on above: Performed By: #### L 500.4050, L501.4700, L501.9520, L100.0100, L500.4100 #### [facility] [address] [place], [address] Triglyceride [Mass/Vol] 110 mg/dL Normal [facility] Comment on above: Result Comment: The drugs N-Acetylcysteine and Metamizole may falsely depress this assay. Normal range: <150 mg/dL Borderline High: 150-199 mg/dL High: 200-499 mg/dL Very High: >500 mg/dL Performed By: #### L 500.4050, L501.4700, L501.9520, L100.0100, L500.4100 #### [facility] [address] [place], [address] MCV (mean corpuscular volume ) determinationOrdered By: Tanya Hoffmann on 10-02-2024 MCV (RBC) [Entitic vol] 100.6 fL High 80-94 [facility] Mean corpuscular hemoglobin (MCH) determinationOrdered By: Tanya Hoffmann on 10-02-2024 MCH (RBC) [Entitic mass] 34.0 pg High 27.0-32.0 [facility] Mean corpuscular hemoglobin concentration (MCHC) determinationOrdered By: Tanya Hoffmann on 10-02-2024 MCHC (RBC) [Mass/Vol] 33.8 g/dL 32-36 [facility] Mean platelet volume determi nationOrdered By: Tanya Hoffmann on 10-02-2024 Platelet mean volume (Bld) [Entitic vol] 10.4 fL 6.2-12.0 [facility] Monocyte percentageOrdered B y: Tanya Hoffmann on 10-02-2024 Monocytes/100 WBC (Bld) 7.3 % 0-10 [facility] Neutrophil percentageOrdered By: Tanya Hoffmann on 10-02-2024 Neutrophils/100 WBC (Bld) 66.7 % 47-70 [facility] Nucleated red blood cell per centageOrdered By: Tanya Hoffmann on 10-02-2024 Nucleated RBC/100 WBC (Bld) [Ratio] 0 % 0-5 [facility] Platelet countOrdered By: Chiki Hoffmann on 10-02-2024 Platelets (Bld) [#/Vol] 308 10*3/uL 150-450 [facility] Potassium measurement (mass/ volume)Ordered By: Tanya Hoffmann on 10-02-2024 Potassium (Unsp spec) [Mass/Vol] 4.3 mmol/L 3.3-5.1 [facility] RBC Auto (Bld) [#/Vol]Ordere d By: Tanya Hoffmann on 10-02-2024 RBC (Bld) [#/Vol] 4.62 10*6/uL 4.6-6.[address] [facility] Screening total cholesterol/ high density lipoprotein (HDL) cholesterol ratioOrdered By: Tanya Hoffmann on 10-02-2024 Cholesterol.total/Maya sterol in HDL [Mass ratio] 5.18 {ratio} [facility] Serum creatinine measurement (mass/volume)Ordered By: Tanya Hoffmann on 10-02-2024 Creatinine [Mass/Vol] 1.00 mg/dL 0.70-1.20 [facility] Serum globulin measurementOr dered By: Tanya Hoffmann on 10-02-2024 Globulin (S) [Mass/Vol] 3.3 g/dL 2.2-4.2 [facility] Serum glucose measurement (m ass/volume)Ordered By: Tanya Hoffmann on 10-02-2024 Glucose [Mass/Vol] 98 mg/dL 70-99 [facility] Serum or plasma alanine villanueva otransferase (ALT) measurementOrdered By: Tanya Hoffmann on 10-02-2024 ALT [Catalytic activity/Vol] 54 U/L High <47 [facility] Serum or plasma albumin haylie urement (mass/volume)Ordered By: Tanya Hoffmann on 10-02-2024 Albumin [Mass/Vol] 4.2 g/dL 3.4-4.8 [facility] Serum or plasma albumin/glob ulin mass ratioOrdered By: Tanya Hoffmann on 10-02-2024 Albumin/Globulin [Mass ratio] 1.3 {ratio} 0.9-2.4 [facility] Serum or plasma alkaline ruby sphatase measurementOrdered By: Tanya Hoffmann on 10-02-2024 ALP [Catalytic activity/Vol] 114 U/L 40-129 [facility] Serum or plasma calcium haylie urement (mass/volume)Ordered By: Tanya Hoffmann on 10-02-2024 Calcium [Mass/Vol] 9.4 mg/dL 7.6-11.0 [facility] Serum or plasma cholesterol in HDL measurement (mass/volume)Ordered By: Tanya Hoffmann on 10-02-2024 Cholesterol in HDL [Mass/Vol] 38 mg/dL Low >40 [facility] Comment on above: National Cholesterol Education Program (NCEP) guidelines:<40 mg/dL: Low HDL-cholesterol (major risk factor for CHD)>= 60 mg/dL: High HDL-cholesterol (negative risk factor for CHD)HDL-cholesterol is affected by a number of factors, e.g. smoking, exercise, hormones, sex and age. Serum or plasma cholesterol measurement (mass/volume)Ordered By: Tanya Hoffmann on 10-02-2024 Cholesterol [Mass/Vol] 199 mg/dL <201 [facility] Comment on above: Cholesterol level, D esirable <200 mg/dLBorderline high cholesterol 200-239 mg/dLHigh cholesterol >=240 mg/dLRecommendations of the NCEP Adult Treatment Panel for the following risk-cutoff thresholds for the [place] population. Serum or plasma urea nitroge n measurement (mass/volume)Ordered By: Tanya Hoffmann on 10-02-2024 Urea nitrogen [Mass/Vol] 9 mg/dL 4-19 [facility] Sodium levelOrdered By: Lotus Hoffmann on 10-02-2024 Sodium [Moles/Vol] 137 mmol/L 133-145 [facility] TSH DL <= 0.005 mIU/L QnOrde red By: Tanya Hoffmann on 10-02-2024 TSH Qn 1.500 uIU/mL 0.300-4.200 [facility] Thyroid Stim Hormone (TSH)on 10-02-2024 TSH 1.500 uIU/mL Normal 0.300-4.200 [facility] Comment on above: Performed By: #### L 500.4050, L501.4700, L501.9520, L100.0100, L500.4100 #### [facility] [address] [place], [place], [id number] Total proteinOrdered By: Montez Hoffmann on 10-02-2024 Protein [Mass/Vol] 7.5 g/dL 5.9-8.4 [facility] Triglycerides measurementOrd ered By: Tanya Hoffmann on 10-02-2024 Triglyceride [Mass/Vol] 110 mg/dL <199 [facility] Comment on above: The drugs N-Acetylcy steine and Metamizole may falsely depress this assay. Normal range: <150 mg/dLBorderline High: 150-199 mg/dLHigh: 200-499 mg/dLVery High: >500 mg/dL White blood cell (WBC) count Ordered By: Tanya Hoffmann on 10-02-2024 WBC (Bld) [#/Vol] 10.1 10*3/uL 4.4-11.[address] [facility] Cardiology Visit Reporton Cardiology Visit Report [facility] [address] [place], [place] [address] OFFICE VISIT Date of Service: 03/31/24 MR#: [id number] Acct: [id number] Name: LIZZETTE TIDWELL Rep #: [id number] : 1960 Provider: REYNALDO fong Age/Sex: 63/M Location: [facility] Status: Signed HPI [facility] History of Present Illness Details: Lizzette Tidwell is a 63-year-old gentleman who presents here today for a cardiovascular follow-up. Patient was admitted on March 18, 2022 for atrial fibrillation. He had not been taking his metoprolol and had weaned himself off of this. EKG demonstrated atrial fibrillation with RVR with a heart rate of 158. He was started on IV Cardizem. He was transitioned to p.o. metoprolol. However his heart rate was not improved so he was started on p.o. Cardizem. Echocardiogram did demonstrate an ejection fraction of 65% with no regional wall motion abnormalities. He has a past medical history of ablation in September [address] De Jesus at [facility]. He has undergone cardioversion in June, July, and September 2014 as well as April 2022. He does have CEM. He has been cardioverted and is due to see the process control board operator for an ablation in October 2023. He proceeded with atrial flutter ablation with cardioversion on 11/12/[address] [facility] [address] Carroll. Patient underwent a stress test on 01/07/2024 which was abnormal. He underwent a cardiac catheterization on 01/17/2024 which demonstrated moderately severe disease noted in the main left circumflex artery, left anterior descending artery with mild diffuse disease, right coronary artery with mild diffuse disease. He underwent PCI to his mid to distal circumflex artery. From a cardiac standpoint, the patient is doing well. He denies any palpitations, chest pain, pressure or heaviness. He does have SOB with exertion-this is nothing new or worsening. He denies Orthopnea, and PND. He does wear a CPAP at night. He does acknowledge frequent bruising with his job. He denies blood in urine, stool or nosebleeds. He does acknowledge a decrease in energy level- mostly in the afternoon. He denies myalgias, or claudication. He does not have edema, or sudden weight gain. He denies dizziness, lightheadedness, syncopal or near syncopal episodes, and headaches. Intake Vital Signs 01/17/24 10:45 03/31/24 13:52 03/31/24 13:56 Height 5 ft 10 in 5 ft 10 in 5 ft 10 in Weight: 268 lb BMI 38.4 BP 135/80 H Blood Pressure Location Lt brachial Position Sitting Respiration 20 H Pulse 71 Pulse Source Monitor Pulse Oximetry (%) 97 Intake Visit Reasons: S/P [facility] 01/17 Chart Reader Required: No Is patient in pain?: No Allergies No Known Allergies Allergy (Verified 03/31/24 14:20) Medications ???Medication ???Instructions ???Recorded ???Confirmed ???Type cholecalciferol (vitamin D3) 125 5,000 unit PO QDAY supplement 07/25/17 03/31/24 History mcg (5,000 unit) capsule apixaban 5 mg tablet (Eliquis) 5 mg PO BID #180 tabs 03/05/23 03/31/24 Rx furosemide 40 mg tablet (Lasix) 40 mg PO DAILY #30 tabs 03/13/23 03/31/24 Rx fluticasone fur. 100 mcg-umeclid 1 inh inhalation QDAY #3 device 07/25/23 03/31/24 Rx 62.5 mcg-vilant 25 mcg inhalat.powder (Trelegy Ellipta) albuterol sulfate 90 mcg/actuation 2 puff inhalation Q4H PRN 12/24/23 03/31/24 Rx aerosol inhaler (Ventolin HFA) shortness of breath or wheezing #18 grams atorvastatin 80 mg tablet (Lipitor) 80 mg PO QHS #60 tabs 01/18/24 03/31/24 Rx metoprolol tartrate 25 mg tablet 25 mg PO BID #60 tabs 01/20/24 03/31/24 Rx ticagrelor 90 mg tablet (Brilinta) 90 mg PO BID #60 tabs 03/17/24 03/31/24 Rx aspirin 81 mg tablet,delayed 81 mg PO .QOD #60 tabs 03/31/24 03/31/24 Rx release PFSH Medical History (Reviewed 03/31/24 @ 14:22 by Tanya Hoffmann [employer]EN[employer]IAN [employer] 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, 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) Atherosclerotic heart disease of [place] coronary artery without angina pectoris Non-ischemic cardiomyopathy Atrial fibrillation with rapid ventricular response Asthma CEM (obstructive sleep apnea) Stage 2 moderate COPD by GOLD classification Obesity Depression Vitamin D deficiency Alcoholism Nicotine dependence Paroxysmal atrial fibrillation Atrial flutter Surgical History Stented coronary artery (01/17/24) History of cardioversion (04/27/22) History of umbilical hernia repair History of tonsillectomy History of cardiac radiofrequency ablation (11/12/23) Family History Unknown No problems noted. Other Adopted Social History Smoking Status: Former smoker quit date: 06/17/18 pack-years: 30 alcohol intake: current alcohol intake frequency: 0-2 drinks per day substance use type: does not use caffeine: Yes Typ (more content not included)... Normal [facility] ACT* LOW RANGE, POCon 2023 ACT LOW RANGE, POC 361.0 High [facility] Interpretation and review of laboratory results Abnormal [facility] Test performed [facility] the [facility] encounter. [facility] ACT LOW RANGE, POC 339.0 High U [facility] Interpretation and review of laboratory results Abnormal [facility] Test performed at address of the patient encounter. [facility] ACT LOW RANGE, POC [facility] Comment on above: Out of Range High. The test result is outside clinical range and should not be used for patient-management decisions. Test performed at address of the patient encounter. [facility] EP PROCEDURE - EPS/ABLATION/ DEVICEon 11-12-2023 EP PROCEDURE - EPS/ABLATION/DEVICE Lizzette Tidwell is a 62 y.o. male who has a past medical history of persistent afib with prior PVI/WACA in 2015 who presented for redo afib ablation for recurrence. He has been on amiodarone. CTPV ruled out LA/JOJO clot Baseline rhythm afib Right femoral vein access x 3 using 8F x 2 and long 9F sheaths under ultrasound guidance. Heparin IV used for maintain ACT 300-380 seconds. Successful transseptal puncture x 1 utilizing intracardiac ultrasound. 3D map of left atrium and pulmonary veins. Reconnection noted on LIPV and some areas near RSPV. Targeted PFA of R and L pulmonary veins performed with successful pulmonary vein isolation of all 4 veins with confirmation with the mapping catheter. PFA of the posterior wall with with successful posterior wall isolation. DCCV was performed. CTI PFA was performed to manage typical atrial flutter but bidirectional block not achieved. We then used an STSF RFA catheter to complete CTI line ablation and bidirectional block was then achieved. Nitroglycerine 1 mg IV push 30 seconds prior to PFA by anesthesia team, ECG was monitored closely for ST elevation. EPS performed. No pericardial effusion was noted on ICE at end of the procedure. Protamine given for heparin reversal. Perclose x1 and Vascade x2 for hemostasis. EP study: Abnormal sinus and AV node function Normal HV interval - 47 ms No evidence of dual AV node physiology VAD No inducible SVT PLAN Protamine was given at end of the case. Restart anticoagulation tonight as usually scheduled. Stop amiodarone and cardizem and follow bp Event monitor per protocol. NPEP follow-up in 3 months. Treadmill test to assess heart rate response in [address] Lutz to determine whether may need PPM for rate response Lung nodule follow up with pulmonary medicine and family MD given history of cig use Discharge home today if meets criteria. Table formatting from the original result was not included. Images from the original result were not included. Lizzette Tidwell EP Procedure - EPS/Ablation/Device Ordering Physician: ELIZABETH CARROLL Order #: [id number] Study Date: 11/12/2023 Patient Information Name MRN Description Lizzette Tidwell [id number] 62 y.o. male Physicians Panel Physicians Referring Physician Case Authorizing Physician Elizabeth Carroll MD (Primary) DONALD Dubois MD Alissa N Kauffman, MD (Fellow) Procedures AFIB Ablation Atrial Flutter Ablation Pre Procedure Diagnosis Cardiomyopathy, unspecified type [I42.9]Atrial fibrillation, unspecified type [I48.91] Post Procedure Diagnosis Cardiomyopathy, unspecified type [I42.9]Atrial fibrillation, unspecified type [I48.91] Indications Cardiomyopathy, unspecified type [I42.9 (ICD-10-CM)] Atrial fibrillation, unspecified type [I48.91 (ICD-10-CM)] Conclusion Lizzette Tidwell is a 62 y.o. male who has a past medical history of persistent afib with prior PVI/WACA in 2015 who presented for redo afib ablation for recurrence. He has been on amiodarone. CTPV ruled out LA/JOJO clot Baseline rhythm afib Right femoral vein access x 3 using 8F x 2 and long 9F sheaths under ultrasound guidance. Heparin IV used for maintain ACT 300-380 seconds. Successful transseptal puncture x 1 utilizing intracardiac ultrasound. 3D map of left atrium and pulmonary veins. Reconnection noted on LIPV and some areas near RSPV. Targeted PFA of R and L pulmonary veins performed with successful pulmonary vein isolation of all 4 veins with confirmation with the mapping catheter. PFA of the posterior wall with with successful posterior wall isolation. DCCV was performed. CTI PFA was performed to manage typical atrial flutter but bidirectional block not achieved. We then used an STSF RFA catheter to complete CTI line ablation and bidirectional block was then achieved. Nitroglycerine 1 mg IV push 30 seconds prior to PFA by anesthesia team, ECG was monitored closely for ST elevation. EPS performed. No pericardial effusion was noted on ICE at end of the procedure. Protamine given for heparin reversal. Perclose x1 and Vascade x2 for hemostasis. EP study: Abnormal sinus and AV node function Normal HV interval - 47 ms No evidence of dual AV node physiology VAD No inducible SVT PLAN Protamine was given at end of the case. Restart anticoagulation tonight as usually scheduled. Stop amiodarone and cardizem and follow bp Event monitor per protocol. NPEP follow-up in 3 months. Treadmill test to assess heart rate response in [address] Lutz to determine whether may need PPM for rate response Lung nodule follow up with pulmonary medicine and family MD given history of cig use Discharge home today if meets criteria. Consent The procedure was explained including the potential risks of infection, heart perforation, re-operation, and other risks pertinent to procedure. Informed consent and permission to proceed was given. (more content not included)... Normal [facility] EXTRA LAVENDER [facility]on 024 [facility] EXTRA MINT GREEN TOPon 11-11 [facility] Electrophysiology studyon Body surface area Derived from formula 2.35 m2 [facility] Lizzette Tidwell is a [age] y.o. male who has a past medical history of persistent afib with prior PVI/WACA in 2015 who presented for redo afib ablation for recurrence. He has been on amiodarone. CTPV ruled out LA/JOJO clot Baseline rhythm afib Right femoral vein access x 3 using 8F x 2 and long 9F sheaths under ultrasound guidance. Heparin IV used for maintain ACT 300-380 seconds. Successful transseptal puncture x 1 utilizing intracardiac ultrasound. 3D map of left atrium and pulmonary veins. Reconnection noted on LIPV and some areas near RSPV. Targeted PFA of R and L pulmonary veins performed with successful pulmonary vein isolation of all 4 veins with confirmation with the mapping catheter. PFA of the posterior wall with with successful posterior wall isolation. DCCV was performed. CTI PFA was performed to manage typical atrial flutter but bidirectional block not achieved. We then used an STSF RFA catheter to complete CTI line ablation and bidirectional block was then achieved. Nitroglycerine 1 mg IV push 30 seconds prior to PFA by anesthesia team, ECG was monitored closely for ST elevation. EPS performed. No pericardial effusion was noted on ICE at end of the procedure. Protamine given for heparin reversal. Perclose x1 and Vascade x2 for hemostasis. EP study: Abnormal sinus and AV node function Normal HV interval - 47 ms No evidence of dual AV node physiology VAD No inducible SVT PLAN Protamine was given at end of the case. Restart anticoagulation tonight as usually scheduled. Stop amiodarone and cardizem and follow bp Event monitor per protocol. NPEP follow-up in 3 months. Treadmill test to assess heart rate response in [address] Lutz to determine whether may need PPM for rate response Lung nodule follow up with pulmonary medicine and family MD given history of cig use Discharge home today if meets criteria. [facility] Radiology Study observation (narrative) [facility] PT,INR,PTTon 11-12-2023 aPTT Coag (Bld) [Time] 27.5 s Normal 24.0-34.3 [facility] Comment on above: Performed By: #### P TPTT #### [facility] (DEFAULT) [address] [place] [address] INR Coag (PPP) [Relative time] 1.2 {INR} High 0.9-1.1 [facility] Comment on above: Performed By: #### P TPTT #### [facility] (DEFAULT) [address] [place] [address] PT Coag (PPP) [Time] 15.3 s High 11.9-14.2 [facility] Comment on above: Performed By: #### P TPTT #### [facility] (DEFAULT) [address] [place] [address] aPTT Coag (PPP) [Time] 27.5 s [facility] INR Coag (Bld) [Relative time] 1.2 {INR} High 0.9 - 1.1 [facility] Interpretation and review of laboratory results Abnormal [facility] PT Coag (PPP) [Time] 15.3 s High [facility] T4 FREEon 11-12-2023 Free T4 [Mass/Vol] 1.40 ng/dL 0.89 - 1. 76 ng/dL [facility] Interpretation and review of laboratory results Normal [facility] Free T4 [Mass/Vol] 1.40 ng/dL Normal 0.89-1.76 [facility] Comment on above: Performed By: #### T SH, FT4 #### [facility] (DEFAULT) [address] [place] [address] TSHon 11-12-2023 Interpretation and review of laboratory results Normal [facility] TSH Qn 3.753 m[IU]/L [facility] TSH 3.753 uIU/mL Normal 0.550-4.780 [facility] Comment on above: Performed By: #### T SH, FT4 #### [facility] (DEFAULT) [address] [place] [address] CBC,PLATELETSon 11-08-2023 Hematocrit (Bld) [Volume fraction] 44.8 % Normal 39.6-48.8 [facility] Comment on above: Performed By: #### H EMOGC #### U [facility] (DEFAULT) [address] [place] [address] Hemoglobin (Bld) [Mass/Vol] 15.0 g/dL Normal 13.4-16.8 [facility] Comment on above: Performed By: #### H EMOGC #### [facility] (DEFAULT) [address] [place] [address] MCV (RBC) [Entitic vol] 101.8 fL High 79.0-94.5 [facility] Comment on above: Performed By: #### H EMOGC #### [facility] (DEFAULT) [address] [address] Mean Cell Hgb 34.1 pg High 26.1-33.3 [facility] Comment on above: Performed By: #### H EMOGC #### [facility] (DEFAULT) [address] [address] Mean Cell Hgb Conc 33.5 g/dL Normal 31.9-36.5 [facility] Comment on above: Performed By: #### H EMOGC #### [facility] (DEFAULT) [address] [place] [address] Platelet mean volume (Bld) [Entitic vol] 10.6 fL Normal 8.7-12.3 [facility] Comment on above: Performed By: #### H EMOGC #### [facility] (DEFAULT) [address] [address] Platelets (Bld) [#/Vol] 293 10*3/uL Normal 146-337 [facility] Comment on above: Performed By: #### H EMOGC #### [facility] (DEFAULT) [address] [address] RBC (Bld) [#/Vol] 4.40 10*6/uL Normal 4.38-5.83 [facility] Comment on above: Performed By: #### H EMOGC #### [facility] (DEFAULT) [address] [place] [address] RBC Distribution 13.5 % Normal 10.9-14.3 [facility] Comment on above: Performed By: #### H EMOGC #### U [facility] (DEFAULT) [address] [place] [address] WBC (Bld) [#/Vol] 10.72 10*3/uL High 3.73-10.10 [facility] Comment on above: Performed By: #### H EMO #### [facility] (DEFAULT) [address] [place] [address] CHEM 7 (LYTES,BUN,CREA,GLUC) on 11-08-2023 Anion gap [Moles/Vol] 12 mmol/L Normal 7-17 [facility] Comment on above: Performed By: #### C HM7 #### [facility] (DEFAULT) [address] [place] [address]693 Chloride [Moles/Vol] 103 mmol/L Normal 98-108 [facility] Comment on above: Performed By: #### C HM7 #### [facility] (DEFAULT) [address] [place] [address]67 CO2 [Moles/Vol] 26 mmol/L Normal 21-31 [facility] Comment on above: Performed By: #### C HM7 #### [facility] (DEFAULT) [address] [place] [address] Creatinine [Mass/Vol] 1.02 mg/dL Normal 0.70-1.30 [facility] Comment on above: Performed By: #### C HM7 #### [facility] (DEFAULT) [address] [place] [address] GFR/1.73 sq M.predicted among non-blacks MDRD (S/P/Bld) [Vol rate/Area] 84 mL/min/{1.73_m2} Normal >=60 [facility] Comment on above: Result Comment: Repo rted eGFR is based on the CKD-EPI 2020 equation using creatinine, age, and sex. Performed By: #### C HM7 #### [facility] (DEFAULT) [address] [place] [address] Glucose [Mass/Vol] 99 mg/dL Normal 70-99 [facility] Comment on above: Performed By: #### C HM7 #### [facility] (DEFAULT) [address] [place] [address] Osmolality [Osmolality] 288 mosm/kg Normal 278-305 [facility] Comment on above: Performed By: #### C HM7 #### [facility] (DEFAULT) [address] [place] [address] Potassium [Moles/Vol] 4.4 mmol/L Normal 3.5-5.0 [facility] Comment on above: Performed By: #### C HM7 #### [facility] (DEFAULT) [address] [place] [address]98 Sodium [Moles/Vol] 137 mmol/L Normal 135-145 [facility] Comment on above: Performed By: #### C HM7 #### [facility] (DEFAULT) [address] [place] [address]76 Urea nitrogen [Mass/Vol] 13 mg/dL Normal 7-25 [facility] Comment on above: Performed By: #### C HM7 #### [facility] (DEFAULT) [address] [place] [address] Urea nitrogen/Creatinine [Mass ratio] 13 mg/mg Normal [facility] Comment on above: Performed By: #### C HM7 #### [facility] (DEFAULT) [address] [place] [address]94 CREAT/GFRon 11-08-2023 Creatinine [Mass/Vol] 1.04 mg/dL 0.70 - 1.30 mg/dL [facility] GFR/1.73 sq M.predicted CKD-EPI (S/P/Bld) [Vol rate/Area] 82 - PINF [facility] Comment on above: Reported eGFR is bas ed on the CKD-EPI 2020 equation using creatinine, age, and sex. Interpretation and review of laboratory results Normal [facility] Test performed at address of the patient encounter. [facility] CT CARDIAC PULMONARY VENOGRA Sat11-08-2023 CT CARDIAC PULMONARY VENOGRAM [facility] CT Report Name: LIZZETTE TIDWELL [place] : 1960 Scan Date: 2023-11-08 11:22:51 Electronically signed by Kermit Saini 19:26:55 VITALS HEIGHT: 70 in (177.80 cm) WEIGHT: 265.00 lbs (120.20 kgs) BSA: 2.35 m^2 BMI: 38 kg/m^2 BP: 126 / 67 mmHg BASELINE HR: 46 BPM FINAL 1. Pulmonary venous anatomy is normal, without evidence of stenosis. 2. No thrombus seen within left atrial appendage or cardiac chambers, including evaluation with delayed imaging. 3. Trivial inferior pericardial effusion. 4. Coronary artery calcification. 5. Incidental finding of 4 mm nodule in left lung lower lobe. Consider CT chest in 12 months if high clinical risk. CARDIAC CT PULMONARY VENOGRAM / LEFT ATRIAL ASSESSMENT INDICATION: 62 year old man with persistent atrial fibrillation and cardiomyopathy anticipating redo ablation, also with CEM. FINDINGS 1.\X09\There are 4 pulmonary veins (PV) draining to the left atrium (LA). The measurements of the PV at their LA insertion sites are measured in mm as follows: RUPV: 22 x 13 RLPV: 16 x 12 with early branching. Focal calcification close to ostium, likely related to past ablation LUPV: 20 x 12, focal calcification at the ostium, likely related to past ablation LLPV: 19 x 13 2.\X09\Left atrial wall contains scattered calcification likely representing fibrocalcific changes following previous LA ablation. There is no LA, RA or JOJO thrombus by first pass and delayed images. Interatrial septum has prominent lipomatous content. 3.\X09\ Moderate to severe burden of coronary artery calcification is seen. However, the study is not optimized for coronary calcification detection or for luminal stenosis evaluation. 4.\X09\There is mild aortic valve calcification. There is mild descending aorta calcification. There is no mitral annular calcification. The ascending aorta is normal in size measuring 35 mm at the PA bifurcation. The main pulmonary artery measure 30 mm in diameter which is upper limit of normal in size. 5.\X09\Extra cardiac findings: limited field of view. Chest Wall: no major deformity. Mediastinum: Normal, without adenopathy. Shweta: Bilateral tomeka bronchial thickening. Pleural Spaces: Normal, without thickening/effusion or pneumothorax. Lung Parenchyma: Presence of 4 mm nodule in left lower lobe. STUDY QUALITY: Study quality is good. SCAN INFO TEST TYPE: Venogram SCANNER HAND TUBE WINDER: eduClipper SCANNER MODEL: NAEOTOM Alpha DOSE REDUCTION ALGORITHM: Prospective/Step-and-s hoot SCAN COVERAGE ZONE: Pulmonary Veins/JOJO EKG GATED: Yes GENERAL CONTRAST AGENT -- CONTRAST AGENT USED?: Yes TYPE: Omnipaque 350 DOSE: 50 ml RATE: 4 ml/s ROUTE: IV BOLUS TECHNIQUE: Biphasic SCAN DELAY TIME METHOD: Bolus Track SERUM CREATININE: 1.04 mg/dL GFR: 77.43 ml/min/1.73m^2 CREATININE DATE: CT CONTRAST REACTION: None RADIATION DOSE -- DLP: 527 SETUP -- DATE OF EVENT: SCAN TYPE: Clinical PATIENT TYPE: Outpatient REASON(S) FOR SCAN: EP procedure planning REFERRING PHYSICIAN: 1) Elizabeth Carroll MD FELLOW: MINDA EVANS NURSE: Cristina Gutierrez ATTENDING PHYSICIAN: STAN SAINI MD TECHNOLOGIST: Lamont Correa Patient Account [id number] CPT Codes 48403 ICD10 Codes I42.9, I48.91 Report generated by [employer], a product of [employer] Normal [facility] Chest>Heart.atrium.left+Pulm onary veins CT angiogram and 3D reconstruction W contrast Miranda 11-08-2023 [facility] CT Report Name: LIZZETTE TIDWELL : 1960 Scan Date: 2023-11-08 11:22:51 Electronically signed by Kermit Saini 19:26:55 VITALS HEIGHT: 70 in (177.80 cm) WEIGHT: 265.00 lbs (120.20 kgs) BSA: 2.35 m^2 BMI: 38 kg/m^2 BP: 126 / 67 mmHg BASELINE HR: 46 BPM FINAL IMPRESSION 1. Pulmonary venous anatomy is normal, without evidence of stenosis. 2. No thrombus seen within left atrial appendage or cardiac chambers, including evaluation with delayed imaging. 3. Trivial inferior pericardial effusion. 4. Coronary artery calcification. 5. Incidental finding of 4 mm nodule in left lung lower lobe. Consider CT chest in 12 months if high clinical risk. CARDIAC CT PULMONARY VENOGRAM / LEFT ATRIAL ASSESSMENT INDICATION: 62 year old man with persistent atrial fibrillation and cardiomyopathy anticipating redo ablation, also with CEM. FINDINGS 1. There are 4 pulmonary veins (PV) draining to the left atrium (LA). The measurements of the PV at their LA insertion sites are measured in mm as follows: RUPV: 22 x 13 RLPV: 16 x 12 with early branching. Focal calcification close to ostium, likely related to past ablation LUPV: 20 x 12, focal calcification at the ostium, likely related to past ablation LLPV: 19 x 13 2. Left atrial wall contains scattered calcification likely representing fibrocalcific changes following previous LA ablation. There is no LA, RA or JOJO thrombus by first pass and delayed images. Interatrial septum has prominent lipomatous content. 3. Moderate to severe burden of coronary artery calcification is seen. However, the study is not optimized for coronary calcification detection or for luminal stenosis evaluation. 4. There is mild aortic valve calcification. There is mild descending aorta calcification. There is no mitral annular calcification. The ascending aorta is normal in size measuring 35 mm at the PA bifurcation. The main pulmonary artery measure 30 mm in diameter which is upper limit of normal in size. 5. Extra cardiac findings: limited field of view. Chest Wall: no major deformity. Mediastinum: Normal, without adenopathy. Shweta: Bilateral tomeka bronchial thickening. Pleural Spaces: Normal, without thickening/effusion or pneumothorax. Lung Parenchyma: Presence of 4 mm nodule in left lower lobe. STUDY QUALITY: Study quality is good. SCAN INFO TEST TYPE: Venogram SCANNER HAND TUBE WINDER: eduClipper SCANNER MODEL: NAEOTOM Alpha DOSE REDUCTION ALGORITHM: Prospective/Step-and-s hoot SCAN COVERAGE ZONE: Pulmonary Veins/JOJO EKG GATED: Yes GENERAL CONTRAST AGENT -- CONTRAST AGENT USED?: Yes TYPE: Omnipaque 350 DOSE: 50 ml RATE: 4 ml/s ROUTE: IV BOLUS TECHNIQUE: Biphasic SCAN DELAY TIME METHOD: Bolus Track SERUM CREATININE: 1.04 mg/dL GFR: 77.43 ml/min/1.73m^2 CREATININE DATE: CT CONTRAST REACTION: None RADIATION DOSE -- DLP: 527 SETUP -- DATE OF EVENT: SCAN TYPE: Clinical PATIENT TYPE: Outpatient REASON(S) FOR SCAN: EP procedure planning REFERRING PHYSICIAN: 1) Elizabeth Carroll MD FELLOW: MINDA EVANS NURSE: Cristina Gutierrez ATTENDING PHYSICIAN: STAN SAINI MD TECHNOLOGIST: Lamont Correa Patient Account [id number] CPT Codes 30639 ICD10 Codes I42.9, I48.91 Report generated by [employer], a product of [employer] CARDIOLOGY Stan Saini MD 11/08/2023 [facility] CT Report Name: LIZZETTE TIDWELL : 1960 Scan Date: 2023-11-08 11:22:51 Electronically signed by Kermit Saini 19:26:55 VITALS ========= ========= HEIGHT: 70 in (177.80 cm) WEIGHT: 265.00 lbs (120.20 kgs) BSA: 2.35 m^2 BMI: 38 kg/m^2 BP: 126 / 67 mmHg BASELINE HR: 46 BPM FINAL IMPRESSION ========= ========= 1. Pulmonary venous anatomy is normal, without evidence of stenosis. 2. No thrombus seen within left atrial appendage or cardiac chambers, including evaluation with delayed imaging. 3. Trivial inferior pericardial effusion. 4. Coronary artery calcification. 5. Incidental finding of 4 mm nodule in left lung lower lobe. Consider CT chest in 12 months if high clinical risk. ========= CARDIAC CT PULMONARY VENOGRAM / LEFT ATRIAL ASSESSMENT INDICATION: 62 year old man with persistent atrial fibrillation and cardiomyopathy anticipating redo ablation, also with CEM. FINDINGS 1.There are 4 pulmonary veins (PV) draining to the left atrium (LA). The measurements of the PV at their LA insertion sites are measured in mm as follows: RUPV: 22 x 13 RLPV: 16 x 12 with early branching. Focal calcification close to ostium, likely related to past ablation LUPV: 20 x 12, focal calcification at the ostium, likely related to past ablation LLPV: 19 x 13 2.Left atrial wall contains scattered calcification likely representing fibrocalcific changes following previous LA ablation. There is no LA, RA or JOJO thrombus by first pass and delayed images. Interatrial septum has prominent lipomatous content. 3. Moderate to severe burden of coronary artery calcification is seen. However, the study is not optimized for coronary calcification detection or for luminal stenosis evaluation. 4.There is mild aortic valve calcification. There is mild descending aorta calcification. There is no mitral annular calcification. The ascending aorta is normal in size measuring 35 mm at the PA bifurcation. The main pulmonary artery measure 30 mm in diameter which is upper limit of normal in size. 5.Extra cardiac findings: limited field of view. Chest Wall: no major deformity. Mediastinum: Normal, without adenopathy. Shweta: Bilateral tomeka bronchial thickening. Pleural Spaces: Normal, without thickening/effusion or pneumothorax. Lung Parenchyma: Presence of 4 mm nodule in left lower lobe. STUDY QUALITY: Study quality is good. SCAN INFO ========= ========= TEST TYPE: Venogram SCANNER HAND TUBE WINDER: eduClipper SCANNER MODEL: NAEOTOM [employer] DOSE REDUCTION ALGORITHM: Prospective/Step-and-s hoot SCAN COVERAGE ZONE: Pulmonary Veins/JOJO EKG GATED: Yes GENERAL --------- CONTRAST AGENT -- CONTRAST AGENT USED?: Yes TYPE: Omnipaque 350 DOSE: 50 ml RATE: 4 ml/s ROUTE: IV BOLUS TECHNIQUE: Biphasic SCAN DELAY TIME METHOD: Bolus Track SERUM CREATININE: 1.04 mg/dL GFR: 77.43 ml/min/1.73m^2 CREATININE DATE: CT CONTRAST REACTION: None RADIATION DOSE -- DLP: 527 SETUP -- DATE OF EVENT: SCAN TYPE: Clinical PATIENT TYPE: Outpatient REASON(S) FOR SCAN: EP procedure planning REFERRING PHYSICIAN: 1) Elizabeth Carroll MD FELLOW: MINDA EVANS NURSE: Cristina Gutierrez ATTENDING PHYSICIAN: STAN SAINI MD TECHNOLOGIST: Lamont Correa BILLING ========= ========= Patient Account [id number] CPT Codes 69515 ICD10 Codes I42.9, I48.91 Report generated by [employer], a product of [employer] [facility] Radiology Study observation (narrative) [facility] Chest>Heart.atrium.left+Pulm onary veins CT angiogram and 3D reconstruction W contrast IVOrdered By: Stan Saini on 11-08-2023 [facility] Work Phone: Basophil percentageOrdered B y: Elizabeth Christian on 07-31-2023 Chloride [Moles/Vol] 105 mmol/L 98-107 [facility] Glucose [Mass/Vol] 115 mg/dL 74-106 [facility] Comment on above: Fasting Glucose resu lt from 100 to 125 mg/dL suggests IMPAIRED HOMEOSTASIS per A.D.A. criteria. Potassium [Moles/Vol] 4.2 mmol/L 3.5-5.1 [facility] Sodium [Moles/Vol] 139 mmol/L 136-145 [facility] Laboratory - Chemistry and C hemistry - challengeOrdered By: Elizabeth Christian on 07-31-2023 CO2 [Moles/Vol] 27.0 mmol/L 21.0-32.0 [facility] Urea nitrogen/Creatinine [Mass ratio] 11.2 mg/mg 10-20 [facility] No Panel InformationOrdered By: Elizabeth Christian on 07-31-2023 Estimated GFR (MDRD) Amer 70 mL/min >60 [facility] Comment on above: GFR Calc Estimated GFR (MDRD) Non-Af Amer 58 mL/min >60 [facility] Comment on above: Non- GFR Calc Serum or plasma calcium haylie urement (mass/volume)Ordered By: Elizabeth Christian on 07-31-2023 Calcium [Mass/Vol] 10.0 mg/dL 8.5-10.1 [facility] Serum or plasma creatinine m easurement (mass/volume)Ordered By: Elizabeth Christian on 07-31-2023 Creatinine [Mass/Vol] 1.34 mg/dL 0.70-1.30 [facility] Comment on above: The validity of the calculated GFR & GFRAA in patients over 70 years has not been determined. Clinical correlation is essential. Serum or plasma urea nitroge n measurement (mass/volume)Ordered By: Elizabeth Christian on 07-31-2023 Urea nitrogen [Mass/Vol] 15 mg/dL 7-18 [facility] Thin prep Papanicolaou smear with manual screeningOrdered By: Elizabeth Christian on 07-31-2023 Thin prep Papanicolaou smear with manual screening 7 5-15 [facility] CHEM 6 (LYTES, BUN CREA)on 0 07-11-2023 Anion gap [Moles/Vol] 16 mmol/L Normal 7-17 [facility] Comment on above: Performed By: #### C HM6 #### [facility] (DEFAULT) [address] [address] Chloride [Moles/Vol] 103 mmol/L Normal 98-108 [facility] Comment on above: Performed By: #### C HM6 #### [facility] (DEFAULT) [address] [address] CO2 [Moles/Vol] 23 mmol/L Normal 21-31 [facility] Comment on above: Performed By: #### C HM6 #### [facility] (DEFAULT) [address] [address] Creatinine [Mass/Vol] 0.85 mg/dL Normal 0.70-1.30 [facility] Comment on above: Performed By: #### C HM6 #### [facility] (DEFAULT) [address] [address] eGFR, CKD-EPI, Male > Normal >=60 [facility] Comment on above: Result Comment: Repo rted eGFR is based on the CKD-EPI 2020 equation using creatinine, age, and sex. Performed By: #### C HM6 #### [facility] (DEFAULT) [address] [place] [address] Potassium [Moles/Vol] 4.5 mmol/L Normal 3.5-5.0 [facility] Comment on above: Performed By: #### C HM6 #### [facility] (DEFAULT) [address] [place] [address] Sodium [Moles/Vol] 137 mmol/L Normal 135-145 [facility] Comment on above: Performed By: #### C HM6 #### [facility] (DEFAULT) [address] [place] [address] Urea nitrogen [Mass/Vol] 13 mg/dL Normal 7-25 [facility] Comment on above: Performed By: #### C HM6 #### [facility] (DEFAULT) [address] [place] [address] Urea nitrogen/Creatinine [Mass ratio] 15 mg/mg Normal [facility] Comment on above: Performed By: #### C HM6 #### [facility] (DEFAULT) [address] [place] [address] TSHon 07-11-2023 TSH 1.670 uIU/mL Normal 0.550-4.780 [facility] Comment on above: Performed By: #### T SH #### [facility] (DEFAULT) [address] [place] [address] Absolute lymphocyte countOrd ered By: Tanya Hoffmann on 02-06-2023 Lymphocytes Auto (Unsp spec) [#/Vol] 2.38 10*3/uL 0.83-4.51 [facility] Basophil percentageOrdered B y: Tanya Hoffmann on 02-06-2023 Basophils/100 WBC (Bld) 0.6 % 0-1 [facility] Chloride [Moles/Vol] 106 mmol/L 98-107 [facility] Eosinophils/100 WBC (Bld) 1.4 % 0-5 [facility] Glucose [Mass/Vol] 102 mg/dL 74-106 [facility] Comment on above: Fasting Glucose resu lt from 100 to 125 mg/dL suggests IMPAIRED HOMEOSTASIS per A.D.A. criteria. Neutrophils (Bld) [#/Vol] 9.7 10*3/uL 2.0-7.7 [facility] Neutrophils/100 WBC (Bld) 72.1 % 47-70 [facility] Potassium [Moles/Vol] 4.8 mmol/L 3.5-5.1 [facility] Sodium [Moles/Vol] 138 mmol/L 136-145 [facility] WBC (Bld) [#/Vol] 13.4 10*3/uL 4.4-11.[address] [facility] Blood erythrocytes count (nu mber/volume)Ordered By: Tanya Hoffmann on 02-06-2023 RBC (Bld) [#/Vol] 4.48 10*6/uL 4.6-6.[address] [facility] Blood hemoglobin measurement (mass/volume)Ordered By: Tanya Hoffmann on 02-06-2023 Hemoglobin (Bld) [Mass/Vol] 15.1 g/dL 13.0-16.5 [facility] Blood lymphocytes/100 leukoc ytesOrdered By: Tanya Hoffmann on 02-06-2023 Lymphocytes/100 WBC (Bld) 17.7 % 19-41 [facility] Blood monocytes/100 leukocyt esOrdered By: Tanya Hoffmann on 02-06-2023 Monocytes/100 WBC (Bld) 7.7 % 0-10 [facility] Blood platelet mean volumeOr dered By: Tanya Hoffmann on 02-06-2023 Platelet mean volume (Bld) [Entitic vol] 10.6 fL 6.2-12.0 [facility] Determination of erythrocyte mean corpuscular volume (MCV)Ordered By: Tanya Hoffmann on 02-06-2023 MCV (RBC) [Entitic vol] 104.5 fL 80-94 [facility] Hematocrit Auto (Bld) [Volum e fraction]Ordered By: Tanya Hoffmann on 02-06-2023 Hematocrit (Bld) [Volume fraction] 46.8 % 40-54 [facility] Laboratory - Chemistry and C hemistry - challengeOrdered By: Tanya Hoffmann on 02-06-2023 CO2 [Moles/Vol] 27.0 mmol/L 21.0-32.0 [facility] Natriuretic peptide B (Bld) [Mass/Vol] 500.2 pg/mL 0-100 [facility] Urea nitrogen/Creatinine [Mass ratio] 12.7 mg/mg 10-20 [facility] Laboratory - Hematology and Cell countsOrdered By: Tanya Hoffmann on 02-06-2023 Erythrocyte distribution width (RBC) [Entitic vol] 54.2 fL 35.1-43.9 [facility] Erythrocyte distribution width (RBC) [Ratio] 14.0 % 11.6-14.6 [facility] Immature granulocytes/100 WBC (Bld) 0.500 % 0.0-0.9 [facility] Comment on above: IG% - Immature Granu locytes (promyelocytes, myelocytes and metamyelocytes) > 1% indicates that a LEFT SHIFT is Present. MCH (RBC) [Entitic mass] 33.7 pg 27.0-32.0 [facility] Nucleated RBC/100 WBC (Bld) [Ratio] 0 % 0-5 [facility] MCHC Auto (RBC) [Mass/Vol]Or dered By: Tanya Hoffmann on 02-06-2023 MCHC (RBC) [Mass/Vol] 32.3 g/dL 32-36 [facility] No Panel InformationOrdered By: Tanya Hoffmann on 02-06-2023 Estimated GFR (MDRD) Amer 88 mL/min >60 [facility] Comment on above: GFR Calc Estimated GFR (MDRD) Non-Af Amer 73 mL/min >60 [facility] Comment on above: Non- GFR Calc Platelets bldOrdered By: Montez Hoffmann on 02-06-2023 Platelets (Bld) [#/Vol] 306 10*3/uL 150-450 [facility] Serum or plasma calcium haylie urement (mass/volume)Ordered By: Tanya Hoffmann on 02-06-2023 Calcium [Mass/Vol] 9.3 mg/dL 8.5-10.1 [facility] Serum or plasma creatinine m easurement (mass/volume)Ordered By: Tanya Hoffmann on 02-06-2023 Creatinine [Mass/Vol] 1.10 mg/dL 0.70-1.30 [facility] Comment on above: The validity of the calculated GFR & GFRAA in patients over 70 years has not been determined. Clinical correlation is essential. Serum or plasma urea nitroge n measurement (mass/volume)Ordered By: Tanya Hoffmann on 02-06-2023 Urea nitrogen [Mass/Vol] 14 mg/dL 7-18 [facility] Thin prep Papanicolaou smear with manual screeningOrdered By: Tanya Hoffmann on 02-06-2023 Thin prep Papanicolaou smear with manual screening 5 5-15 [facility] Basophil percentageOrdered B y: Dr. Singh on 05-02-2022 Bilirubin [Mass/Vol] 0.30 mg/dL 0.20-1.00 [facility] Comment on above: For patients on eltr ombopag therapy, use of Dimension [place] TBIL is not recommended. Cholesterol [Mass/Vol] 189 mg/dL <200 [facility] Comment on above: <200 mg/dL Desirable 200-240 mg/dL Borderline >240 mg/dL High Risk Protein [Mass/Vol] 8.0 g/dL 6.4-8.2 [facility] Triglyceride [Mass/Vol] 139 mg/dL <199 [facility] Comment on above: The drugs N-Acetylcy steine and Metamizole may falsely depress this assay.Serum Triglycerides Reference Interval Normal <150 mg/dL Borderline high 150 - 199 mg/dL High 200 - 499 mg/dL Very High > or = 500 mg/dL Direct bilirubinOrdered By: Dr. Singh on 05-02-2022 Bilirubin.direct [Mass/Vol] 0.09 mg/dL 0.00-0.30 [facility] Laboratory - Chemistry and C hemistry - challengeOrdered By: Dr. Singh on 05-02-2022 ALP [Catalytic activity/Vol] 104 U/L 45-117 [facility] ALT [Catalytic activity/Vol] 46 U/L 16-61 [facility] Globulin (S) [Mass/Vol] 4.2 g/dL 2.2-4.2 [facility] No Panel InformationOrdered By: Dr. Singh on 05-02-2022 Prostate Specific Antigen Screen 3.20 ng/mL 0.00-4.00 [facility] Comment on above: This test was perfor med using the TPSA assay method for the[facility] chemistry system. Values obtained with differentassay methods cannot be used interchangably.When changing PSA assays in the course of monitoring apatient, additional sequential testing should be carriedout to confirm baseline values. Serum or plasma albumin haylie urement (mass/volume)Ordered By: Dr. Singh on 05-02-2022 Albumin [Mass/Vol] 3.8 g/dL 3.2-5.0 [facility] Serum or plasma cholesterol in HDL measurement (mass/volume)Ordered By: Dr. Singh on 05-02-2022 Cholesterol in HDL [Mass/Vol] 38 mg/dL >40 [facility] Comment on above: The drugs N-Acetylcy steine and Metamizole may falsely depress this assay. Reference Range HDL <40 mg/dL Low HDL Cholesterol HDL >or= 60 mg/dL High HDL Cholesterol Serum or plasma cholesterol in VLDL measurement (mass/volume)Ordered By: Dr. Singh on 05-02-2022 Cholesterol in VLDL [Mass/Vol] 28 mg/dL 5-40 [facility] Serum or plasma low density lipoprotein (LDL) cholesterol measurement (mass/volume)Ordered By: Dr. Singh on 05-02-2022 Cholesterol in LDL [Mass/Vol] 123 mg/dL 0-130 [facility] Thin prep Papanicolaou smear with manual screeningOrdered By: Dr. Singh on 05-02-2022 Thin prep Papanicolaou smear with manual screening 30 U/L 15-37 [facility] Basophil percentageon 2021 Chloride [Moles/Vol] 105 mmol/L 98-107 [facility] Work Phone: Glucose [Mass/Vol] 108 mg/dL 74-106 [facility] Work Phone: Comment on above: Fasting Glucose resu lt from 100 to 125 mg/dL suggests IMPAIRED HOMEOSTASIS per A.D.A. criteria. Potassium [Moles/Vol] 4.1 mmol/L 3.5-5.1 [facility] Work Phone: Sodium [Moles/Vol] 135 mmol/L 136-145 [facility] Work Phone: Laboratory - Chemistry and C hemistry - challengeon 04-18-2022 CO2 [Moles/Vol] 25.0 mmol/L 21.0-32.0 [facility] Work Phone: Urea nitrogen/Creatinine [Mass ratio] 11.0 mg/mg 10-20 [facility] Work Phone: No Panel Informationon 04-18 Estimated GFR (MDRD) Amer 89 mL/min >60 [facility] Work Phone: Comment on above: GFR Calc Estimated GFR (MDRD) Non-Af Amer 74 mL/min >60 [facility] Work Phone: Comment on above: Non- GFR Calc Serum or plasma calcium haylie urement (mass/volume)on 04-18-2022 Calcium [Mass/Vol] 9.6 mg/dL 8.5-10.1 [facility] Work Phone: Serum or plasma creatinine m easurement (mass/volume)on 04-18-2022 Creatinine [Mass/Vol] 1.09 mg/dL 0.70-1.30 [facility] Work Phone: Comment on above: The validity of the calculated GFR & GFRAA in patients over 70 years has not been determined. Clinical correlation is essential. Serum or plasma urea nitroge n measurement (mass/volume)on 04-18-2022 Urea nitrogen [Mass/Vol] 12 mg/dL 7-18 [facility] Work Phone: Thin prep Papanicolaou smear with manual screeningon 04-18-2022 Thin prep Papanicolaou smear with manual screening 5 5-15 [facility] Work Phone: Absolute lymphocyte counton 03-20-2022 Lymphocytes Auto (Unsp spec) [#/Vol] 2.49 10*3/uL 0.83-4.51 [facility] Work Phone: Basophil percentageon 2021 Basophils/100 WBC (Bld) 0.6 % 0-1 [facility] Work Phone: Chloride [Moles/Vol] 110 mmol/L 98-107 [facility] Work Phone: Eosinophils/100 WBC (Bld) 1.5 % 0-5 [facility] Work Phone: Glucose [Mass/Vol] 113 mg/dL 74-106 [facility] Work Phone: Comment on above: Fasting Glucose resu lt from 100 to 125 mg/dL suggests IMPAIRED HOMEOSTASIS per A.D.A. criteria. Neutrophils (Bld) [#/Vol] 7.8 10*3/uL 2.0-7.7 [facility] Work Phone: Neutrophils/100 WBC (Bld) 67.2 % 47-70 [facility] Work Phone: Potassium [Moles/Vol] 4.3 mmol/L 3.5-5.1 [facility] Work Phone: Sodium [Moles/Vol] 137 mmol/L 136-145 [facility] Work Phone: WBC (Bld) [#/Vol] 11.6 10*3/uL 4.4-11.[address] [facility] Work Phone: Blood erythrocytes count (nu mber/volume)on 03-20-2022 RBC (Bld) [#/Vol] 4.76 10*6/uL 4.6-6.[address] [facility] Work Phone: Blood hemoglobin measurement (mass/volume)on 03-20-2022 Hemoglobin (Bld) [Mass/Vol] 15.7 g/dL 13.0-16.5 [facility] Work Phone: Blood lymphocytes/100 leukoc yteson 03-20-2022 Lymphocytes/100 WBC (Bld) 21.4 % 19-41 [facility] Work Phone: Blood monocytes/100 leukocyt eson 03-20-2022 Monocytes/100 WBC (Bld) 8.8 % 0-10 [facility] Work Phone: [phone] Blood platelet mean volumeon 03-20-2022 Platelet mean volume (Bld) [Entitic vol] 10.9 fL 6.2-12.0 [facility] Work Phone: [phone] Determination of erythrocyte mean corpuscular volume (MCV)on 03-20-2022 MCV (RBC) [Entitic vol] 98.7 fL 80-94 [facility] Work Phone: [phone] Hematocrit Auto (Bld) [Volum e fraction]on 03-20-2022 Hematocrit (Bld) [Volume fraction] 47.0 % 40-54 [facility] Work Phone: [phone] Laboratory - Chemistry and C hemistry - challengeon 03-20-2022 CO2 [Moles/Vol] 20.0 mmol/L 21.0-32.0 [facility] Work Phone: [phone] Urea nitrogen/Creatinine [Mass ratio] 15.8 mg/mg 10- [facility] Work Phone: [phone] Laboratory - Hematology and Cell countson 03-20-2022 Erythrocyte distribution width (RBC) [Entitic vol] 47.5 fL 35.1-43.9 [facility] Work Phone: [phone] Erythrocyte distribution width (RBC) [Ratio] 13.0 % 11.6-14.6 [facility] Work Phone: [phone] Immature granulocytes/100 WBC (Bld) 0.500 % 0.0-0.9 [facility] Work Phone: [phone] Comment on above: IG% - Immature Granu locytes (promyelocytes, myelocytes and metamyelocytes) > 1% indicates that a LEFT SHIFT is Present. MCH (RBC) [Entitic mass] 33.0 pg 27.0-32.0 [facility] Work Phone: [phone] Nucleated RBC/100 WBC (Bld) [Ratio] 0 % 0-5 [facility] Work Phone: [phone] MCHC Auto (RBC) [Mass/Vol]on 03-20-2022 MCHC (RBC) [Mass/Vol] 33.4 g/dL 32-36 [facility] Work Phone: No Panel Informationon 03-20 Estimated Creatinine Clearance Calc 77.33 ml/min [facility] Work Phone: [phone] Estimated GFR (MDRD) Amer 104 mL/min >60 [facility] Work Phone: [phone] Comment on above: GFR Calc Estimated GFR (MDRD) Non-Af Amer 86 mL/min >60 [facility] Work Phone: Comment on above: Non- GFR Calc Platelets bldon 03-20-2022 Platelets (Bld) [#/Vol] 273 10*3/uL 150-450 [facility] Work Phone: Serum or plasma calcium haylie urement (mass/volume)on 03-20-2022 Calcium [Mass/Vol] 8.9 mg/dL 8.5-10.1 [facility] Work Phone: [phone] Serum or plasma creatinine m easurement (mass/volume)on 03-20-2022 Creatinine [Mass/Vol] 0.95 mg/dL 0.70-1.30 [facility] Work Phone: Comment on above: The validity of the calculated GFR & GFRAA in patients over 70 years has not been determined. Clinical correlation is essential. Serum or plasma urea nitroge n measurement (mass/volume)on 03-20-2022 Urea nitrogen [Mass/Vol] 15 mg/dL 7-18 [facility] Work Phone: [phone] Thin prep Papanicolaou smear with manual screeningon 03-20-2022 Thin prep Papanicolaou smear with manual screening 7 5-15 [facility] Work Phone: [phone] Basophil percentageon 2021 Bilirubin [Mass/Vol] 0.50 mg/dL 0.20-1.00 [facility] Work Phone: [phone] Comment on above: For patients on eltr ombopag therapy, use of Dimension [place] TBIL is not recommended. Protein [Mass/Vol] 7.0 g/dL 6.4-8.2 [facility] Work Phone: Laboratory - Chemistry and C hemistry - challengeon 03-19-2022 ALP [Catalytic activity/Vol] 98 U/L 45-117 [facility] Work Phone: ALT [Catalytic activity/Vol] 47 U/L 16-61 [facility] Work Phone: [phone] Globulin (S) [Mass/Vol] 3.8 g/dL 2.2-4.2 [facility] Work Phone: Serum or plasma albumin haylie urement (mass/volume)on 03-19-2022 Albumin [Mass/Vol] 3.2 g/dL 3.2-5.0 [facility] Work Phone: Serum or plasma albumin/glob ulin mass ratioon 03-19-2022 Albumin/Globulin [Mass ratio] 0.8 {ratio} 0.9-2.4 [facility] Work Phone: Thin prep Papanicolaou smear with manual screeningon 03-19-2022 Thin prep Papanicolaou smear with manual screening 23 U/L 15-37 [facility] Work Phone: Laboratory - Chemistry and C hemistry - challengeon 03-18-2022 Magnesium [Mass/Vol] 2.3 mg/dL 1.6-2.6 [facility] Work Phone: No Panel Informationon 03-18 Thyroid Stimulating Hormone (TSH) 1.21 uIU/mL 0.358-3.74 [facility] Work Phone: Troponin I High Sensitivity 9 pg/mL 3.0-78.0 [facility] Work Phone: Comment on above: Please Note: New Cait t Units and Gender Specific Reference Ranges. For more information see Policy Stat Procedure [place] High Sensitivity Troponin (TNIH) and attachments. Office Visiton 01-25-2017 Dietary management education, guidance, and counseling (procedure) yes Invalid Interpretation Code [facility] Work Phone: Documentation of current medications (procedure) Done Invalid Interpretation Code [employer] Work Phone: [phone] Protein mass conc yes [employer] Work Phone: [phone] Protein mass conc Done [employer] Work Phone: [phone] Smoking cessation education (procedure) yes Invalid Interpretation Code [employer] Work Phone: [phone] Tobacco smoking status NHIS Current every day smoker [employer] Work Phone: [phone] Tobacco use 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 Current every day smoker Invalid Interpretation Code [employer] Work Phone: [phone] Chart Maintenanceon 05-04-20 16 Cholesterol 190 mg/dL Invalid Interpretation Code [facility] Phone: [phone] HDL Cholesterol 63 mg/dL Invalid Interpretation Code [employer] Work Phone: [phone] LDL Cholesterol 107 mg/dL Invalid Interpretation Code [facility] Phone: [phone] Triglyceride 101 mg/dL Invalid Interpretation Code [employer] Work Phone: [phone] Office Visit: Acute- [place]ough[place] 03-15-2016 Dietary management education, guidance, and counseling (procedure) yes Invalid Interpretation Code [employer] Work Phone: [phone] Tobacco smoking status NHIS Never Invalid Interpretation Code [employer] Work Phone: [phone] Office Visiton 07-14-2015 General cardiovascular disease 10Y risk [#] Joelle 18 % Invalid Interpretation Code [employer] Work Phone: [phone] Replaced Document: [facility] E CG Observationson 10-14-2014 EKG QRS axis 35 deg [employer] Work Phone: [phone] electrocardiogram interpretation Sinus Bradycardia Low voltage in limb leads. ABNORMAL Invalid Interpretation Code [employer] Work Phone: [phone] GE use only - for [employer] import when terms are not otherwise specified 406 ms Invalid Interpretation Code [employer] Work Phone: [phone] Interpretation Sinus Bradycardia Lo w voltage in limb leads. ABNORMAL [employer] Work Phone: [phone] P [place] 43 deg [employer] Work Phone: [phone] P wave axis, electrocardiogram 43 deg Invalid Interpretation Code [employer] Work Phone: [phone] PA Interval 150 ms [employer] Work Phone: [phone] PA interval, electrocardiogram 150 ms Invalid Interpretation Code [employer] Work Phone: [phone] Pulse (Heart Rate) 54 /min Invalid Interpretation Code [facility] Phone: [phone] QRS axis, electrocardiogram 35 deg Invalid Interpretation Code [employer] Work Phone: [phone] QRS Duration 82 ms [employer] Work Phone: [phone] QRS duration, electrocardiogram 82 ms Invalid Interpretation Code [facility] Phone: [phone] QT Interval new path ms [employer] Work Phone: [phone] QT interval, electrocardiogram new path ms Invalid Interpretation Code [facility] Phone: [phone] QTc [place] 406 ms [employer] Work Phone: [phone] T [place] 22 deg [employer] Work Phone: [phone] T wave axis, electrocardiogram 22 deg Invalid Interpretation Code [employer] Work Phone: [phone] Microbiology: Culture, Blood (WB)on 10-08-2014 Bacteria culture BCNo growth in 5 days. Invalid Interpretation Code [facility] Phone: [phone] Microbiology: Culture, Sputu mon 10-07-2014 Bacteria sputum culture or Staphylococcu s aureus isolated. Invalid Interpretation Code [facility] Phone: [phone] Lab Report: Basic Metabolic Profile (BMP)on 10-05-2014 Anion gap 7 mmol/L Invalid Interpretation Code 5-15 [facility] Work Phone: [phone] Anion gap molar conc 7 mmol/L 5-[address] [facility] Work Phone: [phone] BUN/Creatinine Ratio 15.0 RATIO Invalid Interpretation Code 10-20 [facility] Work Phone: [phone] Calcium 8.3 mg/dL Low 8.5-10.1 [facility] Work Phone: [phone] Chloride 103 mmol/L Invalid Interpretation Code 98-107 [facility] Work Phone: [phone] CO2 26.0 mmol/L Invalid Interpretation Code 21.0-32.0 [employer] Work Phone: [phone] CO2 ppres (BldV) 26.0 mmol/L 21.0-32.0 [facility] Work Phone: [phone] Creatinine 1.0 mg/dL Invalid Interpretation Code 0.8-1.3 [facility] Work Phone: [phone] eGFR (non-black) 84 mL/min/{1.73_m2} Invalid Interpretation Code >60 [facility] Work Phone: [phone] eGFR (non-black) 102 mL/min/{1.73_m2} Invalid Interpretation Code >60 [employer] Work Phone: [phone] EST GFR - AA 102 mL/min >60 [employer] Work Phone: [phone] Glucose 111 mg/dL High 70-110 [employer] Work Phone: [phone] Glucose mass conc 111 mg/dL High 70-110 [facility] Work Phone: [phone] Potassium 3.9 mmol/L Invalid Interpretation Code 3.5-5.1 [employer] Work Phone: [phone] Sodium 136 mmol/L Invalid Interpretation Code 136-145 [employer] Work Phone: [phone] Urea nitrogen 15 mg/dL Invalid Interpretation Code 7-18 [facility] Work Phone: [phone] Lab Report: CBC W/Diff, Auto matedon 10-05-2014 Absolute Neut 8.8 X10 3/UL High 2.0-7.7 [facility] Work Phone: [phone] Absolute Neutrophil count 8.8 X10 3/UL High 2.0-7.7 [facility] Work Phone: [phone] Basophils/100 leukocytes 0.2 % Invalid Interpretation Code 0-1 [facility] Work Phone: [phone] Basophils/100 WBC (Bld) 0.2 % 0-1 [facility] Work Phone: [phone] Eosinophils/100 leukocytes 1.8 % Invalid Interpretation Code 0-5 [facility] Work Phone: [phone] Eosinophils/100 WBC (Bld) 1.8 % 0-5 [facility] Work Phone: [phone] Erythrocytes (RBC) 3.70 10*6/uL Low 4.6-6.[address] [facility] Work Phone: [phone] Hematocrit (HCT) 35.9 % Low 40-54 [facility] Work [phone] Hematocrit Volume Fraction (Bld) 35.9 % Low 40-54 [facility] Work [phone] Hemoglobin (HGB) 12.2 g/dL Low 13.0-16.5 [facility] Work Phone: [phone] Lymphocytes 2.18 X10 3/UL Invalid Interpretation Code 0.83-4.51 [facility] Work Phone: [phone] Lymphocytes #/vol (Bld) 2.18 X10 3/UL 0.83-4.51 [facility] Work Phone: [phone] Lymphocytes/100 leukocytes 17.6 % Low 19-41 [facility] Work Phone: [phone] Lymphocytes/100 WBC (Bld) 17.6 % Low 19-41 [facility] Work Phone: [phone] MCH 33.0 pg High 27.0-32.0 [facility] Work Phone: [phone] MCH Entitic mass (RBC) 33.0 pg High 27.0-32.0 [facility] Work Phone: [phone] MCHC 34.0 G/GL Invalid Interpretation Code 32-36 [facility] Work Phone: [phone] MCHC mass conc (RBC) 34.0 G/GL 32-[address] [facility] Work Phone: [phone] MCV 97.0 fL High 80-94 [facility] Work Phone: [phone] MCV Entitic volume (RBC) 97.0 fL High 80-94 [facility] Work Phone: [phone] Monocytes/100 leukocytes 9.2 % Invalid Interpretation Code 0-10 [facility] Work Phone: [phone] Monocytes/100 WBC (Bld) 9.2 % 0-10 [facility] Work Phone: [phone] Neutrophils/100 leukocytes 70.8 % High 47-70 [facility] Work Phone: [phone] Neutrophils/100 WBC (Bld) 70.8 % High 47-70 [facility] Work Phone: [phone] Platelet mean volume Entitic volume (Bld) 11.0 fL 6.2-12.0 [facility] Work Phone: [phone] Platelets 230 10*3/mm3 Invalid Interpretation Code 150-450 [facility] Work Phone: [phone] Platelets #/vol (Bld) 230 10*3/mm3 150-450 [facility] Work Phone: [phone] PMV by Jolene 11.0 fL Invalid Interpretation Code 6.2-12.0 [facility] Work Phone: [phone] RBC #/vol (Bld) 3.70 10*6/uL Low 4.6-6.2 [facility] Work Phone: [phone] WBC #/vol (Bld) 12.4 10*3/uL High 4.4-11.0 [facility] Work Phone: [phone] WBC (Leukocytes) 12.4 10*3/uL High 4.4-11.0 [facility] Work Phone: [phone] Lab Report: Magnesiumon 04-2 Magnesium 1.9 mg/dL Invalid Interpretation Code 1.8-2.4 [facility] Work Phone: [phone] Lab Report: Urinalysis, Comp leteon 10-04-2014 specific gravity, urine 1.015 Invalid Interpretation Code 1.002-1.030 [employer] [facility] Work Phone: [phone] Lab Report: BNP,B-Type NATRI URETIC PEPTIDEon 10-03-2014 BNP 132.8 pg/mL High 0-100 [employer] Work Phone: [phone] Lab Report: Troponin-Ion Troponin I 1.11 ng/mL Critically high <0.06 [employer] Work Phone: [phone] Lab Report: Vitamin D,25 Hyd roxyon 07-30-2014 vitamin D 25-hydroxy, serum 20.7 ng/mL Invalid Interpretation Code [employer] Work Phone: [phone] Vitamin D 25-OH 20.7 ng/mL [employer] Work Phone: [phone] Office Visiton 05-26-2014 cardiac risk group B Invalid Interpretation Code [employer] Work Phone: [phone] Lab Report: Folates, (Folic Acid)on 05-21-2014 Folate 15.70 ng/mL Invalid Interpretation Code 3.1-17.5 [employer] Work Phone: [phone] Lab Report: Hemoglobin A1con 05-21-2014 HbA1c 5.8 % Invalid Interpretation Code 4.2-6.3 [employer] Work Phone: [phone] Lab Report: Lipid Profileon 05-21-2014 very low density lipoproteins 33 mg/dL Invalid Interpretation Code 5-40 [employer] Work Phone: [phone] Lab Report: Prothrombin Time w/INRon 05-21-2014 Coagulation tissue factor induced in platelet poor plasma 12.5 s Invalid Interpretation Code 11.7-14.9 [facility] Work Phone: [phone] INR Coag RelTime (PPP) 0.9 {INR} [facility] Work Phone: [phone] INR in blood by coagulation 0.9 {INR} Invalid Interpretation Code [facility] Work Phone: [phone] Lab Report: Thyroid Stim Hor axel (TSH)on 05-21-2014 Thyroid stimulating hormone (TSH) 1.27 u[iU]/mL Invalid Interpretation Code 0.358-3.74 [facility] Work Phone: [phone] Lab Report: Vitamin B12on Cobalamin (Vitamin B12) mass conc 926 pg/mL Critically high 211-911 [facility] Work Phone: [phone] vitamin b12, serum 926 pg/mL Critically high 211-911 [facility] Work Phone: [phone] Vital Signs Date Time Vital Sign Value Performing Clinician Facility 01-12-2025 07:58-0400 Body height 177.[address] Thien Singh DO Work Phone: [facility] 01-12-2025 07:58-0400 Body mass index (BMI) [Ratio] 37.5 kg/m2 Dr. Thien Singh DO Work Phone: [facility] 01-12-2025 07:58-0400 Body weight 118.[address] Thien Singh DO Work Phone: [facility] 01-12-2025 07:58-0400 Diastolic blood pressure 89 mm[Hg] Dr. Thien Singh DO Work Phone: [facility] 01-12-2025 07:58-0400 Heart rate 54 /min Dr. Thien Singh DO Work Phone: [facility] 01-12-2025 07:58-0400 Respiratory rate 16 /min Dr. Thien Singh DO Work Phone: [facility] 01-12-2025 07:58-0400 Systolic blood pressure 133 mm[Hg] Dr. Thien Singh DO Work Phone: [facility] 11-24-2024 07:43-0400 Body height 177.[address] Thien Singh DO Work Phone: [facility] 11-24-2024 07:43-0400 Body mass index (BMI) [Ratio] 38 kg/m2 Dr. Thien Singh DO Work Phone: [facility] 11-24-2024 07:43-0400 Body temperature 97.4 [degF] Dr. Thien Singh DO Work Phone: [facility] 11-24-2024 07:43-0400 Body weight 120.[address] Thien Singh DO Work Phone: [facility] 11-24-2024 07:43-0400 Diastolic blood pressure 82 mm[Hg] Dr. Thien Singh DO Work Phone: [facility] 11-24-2024 07:43-0400 Heart rate 59 /min Dr. Thien Singh DO Work Phone: [facility] 11-24-2024 07:43-0400 Respiratory rate 18 /min Dr. Thien Singh DO Work Phone: [facility] 11-24-2024 07:43-0400 SaO2% (BldA) [Mass fraction] 98 % Dr. Thien Singh DO Work Phone: [facility] 11-24-2024 07:43-0400 Systolic blood pressure 134 mm[Hg] Dr. Thien Singh DO Work Phone: [facility] 10-02-2024 07:29-0400 Body mass index (BMI) [Ratio] 36.6 kg/m2 Dr. Thien Singh DO Work Phone: [facility] 10-02-2024 07:29-0400 Body weight 115.[address] Thien Singh DO Work Phone: [facility] 10-02-2024 07:29-0400 Diastolic blood pressure 85 mm[Hg] Dr. Thien Singh DO Work Phone: [facility] 10-02-2024 07:29-0400 Heart rate 52 /min Dr. Thien Singh DO Work Phone: [facility] 10-02-2024 07:29-0400 Respiratory rate 18 /min Dr. Thien Singh DO Work Phone: [facility] 10-02-2024 07:29-0400 SaO2% (BldA) [Mass fraction] 98 % Dr. Thien Singh DO Work Phone: [facility] 10-02-2024 07:29-0400 Systolic blood pressure 122 mm[Hg] Dr. Thien Singh DO Work Phone: [facility] 11-12-2023 14:26-0400 Diastolic blood pressure 76 mm[Hg] Elizabeth Carroll MD Work Phone: [facility] 11-12-2023 14:26-0400 Heart rate 68 /min Elizabeth Carroll MD Work Phone: [facility] 11-12-2023 14:26-0400 Respiratory rate 22 /min Elizabeth Carroll MD Work Phone: [facility] 11-12-2023 14:26-0400 SaO2% (BldA) [Mass fraction] 96 % Elizabeth Carroll MD Work Phone: [facility] 11-12-2023 14:26-0400 Systolic blood pressure 125 mm[Hg] Elizabeth Carroll MD Work Phone: [facility] 11-12-2023 10:45-0400 Body temperature 98.01 [degF] Elizabeth Carroll MD Work Phone: [facility] 11-12-2023 06:07-0400 Body height 177.8 cm Elizabeth Carroll MD Work Phone: [facility] 11-12-2023 06:07-0400 Body mass index (BMI) [Ratio] 38.02 kg/m2 Elizabeth Carroll MD Work Phone: [facility] 11-12-2023 06:07-0400 Body weight 120.2 kg Elizabeth Carroll MD Work Phone: [facility] 11-08-2023 10:59-0400 Body height 177.8 cm Elizabeth Carroll MD Work Phone: [facility] 11-08-2023 10:59-0400 Body mass index (BMI) [Ratio] 38.02 kg/m2 Elizabeth Carroll MD Work Phone: [facility] 11-08-2023 10:59-0400 Body weight 120.2 kg Elizabeth Carroll MD Work Phone: [facility] 11-08-2023 10:59-0400 Diastolic blood pressure 67 mm[Hg] Elizabeth Carroll MD Work Phone: [facility] 11-08-2023 10:59-0400 Heart rate 47 /min Elizabeth Carroll MD Work Phone: [facility] 11-08-2023 10:59-0400 Systolic blood pressure 126 mm[Hg] Elizabeth Carroll MD Work Phone: [facility] 08-16-2023 10:50-0500 Body height 177.[address] Thien Singh Work Phone: [facility] 08-16-2023 10:50-0500 Body weight 120.[address] Thien Singh Work Phone: [facility] 08-15-2023 08:20-0500 Body mass index (BMI) [Ratio] 38 kg/m2 Dr. Thien Singh Work Phone: [facility] 07-25-2023 06:41-0500 Body mass index (BMI) [Ratio] 38.1 kg/m2 Dr. Thien Singh Work Phone: [facility] 07-25-2023 06:41-0500 Body temperature 96.5 [degF] Dr. Thien Singh Work Phone: [facility] 07-25-2023 06:41-0500 Body weight 120.[address] Thien Singh Work Phone: [facility] 07-25-2023 06:41-0500 Diastolic blood pressure 68 mm[Hg] Dr. Thien Singh Work Phone: [facility] 07-25-2023 06:41-0500 Heart rate 100 /min Dr. Thien Singh Work Phone: [facility] 07-25-2023 06:41-0500 Respiratory rate 20 /min Dr. Thien Singh Work Phone: [facility] 07-25-2023 06:41-0500 SaO2% (BldA) [Mass fraction] 97 % Dr. Thien Singh Work Phone: [facility] 07-25-2023 06:41-0500 Systolic blood pressure 114 mm[Hg] Dr. Thien Singh Work Phone: [facility] 02-06-2023 14:35-0400 Body height 177.[address] Thien Singh Work Phone: [facility] 02-06-2023 14:27-0400 Body mass index (BMI) [Ratio] 37.8 kg/m2 Dr. Thien Singh Work Phone: [facility] 02-06-2023 14:27-0400 Body weight 119.[address] Thien Singh Work Phone: [facility] 02-06-2023 14:27-0400 Diastolic blood pressure 91 mm[Hg] Dr. Thien Singh Work Phone: [facility] 02-06-2023 14:27-0400 Heart rate 92 /min Dr. Thien Singh Work Phone: [facility] 02-06-2023 14:27-0400 Respiratory rate 18 /min Dr. Thien Singh Work Phone: [facility] 02-06-2023 14:27-0400 SaO2% (BldA) [Mass fraction] 97 % Dr. Thien Singh Work Phone: [facility] 02-06-2023 14:27-0400 Systolic blood pressure 121 mm[Hg] Dr. Thien Singh Work Phone: [facility] 01-23-2023 05:33-0400 Body mass index (BMI) [Ratio] 37.3 kg/m2 Dr. Thien Singh Work Phone: [facility] 01-23-2023 05:33-0400 Body temperature 97.6 [degF] Dr. Thien Singh Work Phone: [facility] 01-23-2023 05:33-0400 Body weight 117.[address] Thien Singh Work Phone: [facility] 01-23-2023 05:33-0400 Diastolic blood pressure 93 mm[Hg] Dr. Thien iSngh Work Phone: [facility] 01-23-2023 05:33-0400 Heart rate 130 /min Dr. Thien Singh Work Phone: [facility] 01-23-2023 05:33-0400 Respiratory rate 18 /min Dr. Thien Singh Work Phone: [facility] 01-23-2023 05:33-0400 SaO2% (BldA) [Mass fraction] 97 % Dr. Thien Singh Work Phone: [facility] 01-23-2023 05:33-0400 Systolic blood pressure 130 mm[Hg] Dr. Thien Singh Work Phone: [facility] 07-25-2022 06:44-0500 Body height 179.[address] Thien Singh Work Phone: [facility] 07-25-2022 06:44-0500 Body mass index (BMI) [Ratio] 36.8 kg/m2 Dr. Thien Singh Work Phone: [facility] 07-25-2022 06:44-0500 Body temperature 97.2 [degF] Dr. Thien Singh Work Phone: [facility] 07-25-2022 06:44-0500 Body weight 117.[address] Thien Singh Work Phone: [facility] 07-25-2022 06:44-0500 Diastolic blood pressure 74 mm[Hg] Dr. Thien Singh Work Phone: [facility] 07-25-2022 06:44-0500 Heart rate 58 /min Dr. Thien Singh Work Phone: [facility] 07-25-2022 06:44-0500 Respiratory rate 18 /min Dr. Thien Singh Work Phone: [facility] 07-25-2022 06:44-0500 SaO2% (BldA) [Mass fraction] 97 % Dr. Thien Singh Work Phone: [facility] 07-25-2022 06:44-0500 Systolic blood pressure 117 mm[Hg] Dr. Thien Singh Work Phone: [facility] 06-01-2022 13:59-0500 Body mass index (BMI) [Ratio] 37.1 kg/m2 Dr. Thien Singh Work Phone: [facility] 06-01-2022 13:59-0500 Body temperature 98 [degF] Dr. Thien Singh Work Phone: [facility] 06-01-2022 13:59-0500 Body weight 117.[address] Thien Singh Work Phone: [facility] 06-01-2022 13:59-0500 Diastolic blood pressure 74 mm[Hg] Dr. Thien Singh Work Phone: [facility] 06-01-2022 13:59-0500 Heart rate 58 /min Dr. Thien Singh Work Phone: [facility] 06-01-2022 13:59-0500 Respiratory rate 18 /min Dr. Thien Singh Work Phone: [facility] 06-01-2022 13:59-0500 SaO2% (BldA) [Mass fraction] 96 % Dr. Thien Singh Work Phone: [facility] 06-01-2022 13:59-0500 Systolic blood pressure 116 mm[Hg] Dr. Thien Singh Work Phone: [facility] 04-27-2022 10:17-0500 Body height 177.[address] Thien Singh Work Phone: [facility] Work Phone: 04-27-2022 10:17-0500 Body weight 115.[address] Thien Singh Work Phone: [facility] Work Phone: 04-26-2022 14:18-0500 Body mass index (BMI) [Ratio] 36.6 kg/m2 Dr. Thien Singh Work Phone: [facility] Work Phone: 04-18-2022 08:08-0400 Body height 177.[address] Thien Singh Work Phone: [facility] Work Phone: 04-18-2022 08:08-0400 Body mass index (BMI) [Ratio] 36.6 kg/m2 Dr. Thien Singh Work Phone: [facility] Work Phone: 04-18-2022 08:08-0400 Body weight 115.[address] Thien Singh Work Phone: [facility] Work Phone: 04-18-2022 08:08-0400 Diastolic blood pressure 74 mm[Hg] Dr. Thien Singh Work Phone: [facility] Work Phone: 04-18-2022 08:08-0400 Heart rate 80 /min Dr. Thien Singh Work Phone: [facility] Work Phone: 04-18-2022 08:08-0400 Respiratory rate 18 /min Dr. Thien Singh Work Phone: [facility] Work Phone: 04-18-2022 08:08-0400 SaO2% (BldA) [Mass fraction] 96 % Dr. Thien Singh Work Phone: [facility] Work Phone: 04-18-2022 08:08-0400 Systolic blood pressure 126 mm[Hg] Dr. Thien Singh Work Phone: [facility] Work Phone: 03-20-2022 15:30-0400 Body temperature 98.2 [degF] Dr. Thien Singh Work Phone: [facility] Work Phone: 03-20-2022 15:30-0400 Diastolic blood pressure 98 mm[Hg] Dr. Thien Singh Work Phone: [facility] Work Phone: 03-20-2022 15:30-0400 Heart rate 105 /min Dr. Thien Singh Work Phone: [facility] Work Phone: 03-20-2022 15:30-0400 Respiratory rate 16 /min Dr. Thien Singh Work Phone: [facility] Work Phone: 03-20-2022 15:30-0400 SaO2% (BldA) [Mass fraction] 98 % Dr. Thien Singh Work Phone: [facility] Work Phone: 03-20-2022 15:30-0400 Systolic blood pressure 127 mm[Hg] Dr. Thien Singh Work Phone: [facility] Work Phone: 03-20-2022 10:30-0400 Body temperature 98 [degF] Dr. Thien Singh Work Phone: [facility] Work Phone: 03-20-2022 10:30-0400 Diastolic blood pressure 67 mm[Hg] Dr. Thien Singh Work Phone: [facility] Work Phone: 03-20-2022 10:30-0400 Heart rate 112 /min Dr. Thien iSngh Work Phone: [facility] Work Phone: 03-20-2022 10:30-0400 Respiratory rate 16 /min Dr. Thien Singh Work Phone: [facility] Work Phone: 03-20-2022 10:30-0400 SaO2% (BldA) [Mass fraction] 99 % Dr. Thien Singh Work Phone: [facility] Work Phone: 03-20-2022 10:30-0400 Systolic blood pressure 113 mm[Hg] Dr. Thien Singh Work Phone: [facility] Work Phone: 03-20-2022 06:00-0400 Body weight 65.[address] Thien Singh Work Phone: [facility] Work Phone: 03-19-2022 13:03-0400 Body height 177.[address] Thien Singh Work Phone: [facility] Work Phone: 03-18-2022 12:22-0400 Body mass index (BMI) [Ratio] 36 kg/m2 Dr. Thien Singh Work Phone: [facility] Work Phone: 01-22-2022 09:01-0400 Body mass index (BMI) [Ratio] 36.1 kg/m2 Dr. Thien Singh Work Phone: [facility] Work Phone: 01-22-2022 09:01-0400 Body temperature 97.3 [degF] Dr. Thien Singh Work Phone: [facility] Work Phone: 01-22-2022 09:01-0400 Body weight 115.[address] Thien Singh Work Phone: [facility] Work Phone: 01-22-2022 09:01-0400 Diastolic blood pressure 92 mm[Hg] Dr. Thien Singh Work Phone: [facility] Work Phone: 01-22-2022 09:01-0400 Heart rate 54 /min Dr. Thien Singh Work Phone: [facility] Work Phone: 01-22-2022 09:01-0400 Respiratory rate 16 /min Dr. Thien Singh Work Phone: [facility] Work Phone: 01-22-2022 09:01-0400 SaO2% (BldA) [Mass fraction] 97 % Dr. Thien Singh Work Phone: [facility] Work Phone: 01-22-2022 09:01-0400 Systolic blood pressure 132 mm[Hg] Dr. Thien Singh Work Phone: [facility] Work Phone: 01-25-2017 07:57-0400 BMI (Body Mass Index) 35.87 kg/m2 Serene Jerez [facility] Work Phone: 01-25-2017 07:57-0400 BP Diastolic 62 mm[Hg] Serene Montiel [facility] Work Phone: 01-25-2017 07:57-0400 BP Systolic 122 mm[Hg] Serene Montiel [facility] Work Phone: 01-25-2017 07:57-0400 Height 177.8 cm Serene Montiel [facility] Work Phone: 01-25-2017 07:57-0400 Pulse (Heart Rate) 64 /min Serene Montiel [facility] Work Phone: 01-25-2017 07:57-0400 Respiratory Rate 18 /min Serene Montiel [facility] Work Phone: 01-25-2017 07:57-0400 Weight 113.4 kg Serene Montiel [facility] Work Phone: 07-19-2016 15:04-0500 BMI (Body Mass Index) 36.01 kg/m2 [facility] Work Phone: 07-19-2016 15:04-0500 BP Diastolic 70 mm[Hg] Cristina Dorsey RN [facility] Work Phone: 07-19-2016 15:04-0500 BP Systolic 110 mm[Hg] Cristina Dorsey RN [facility] Work Phone: 07-19-2016 15:04-0500 BSA (Body Surface Area) 2.3 m2 Cristina Dorsey RN [facility] Work Phone: 07-19-2016 15:04-0500 Pulse (Heart Rate) 60 /min Cristina Dorsey RN [facility] Work Phone: 07-19-2016 15:04-0500 Respiratory Rate 20 /min Cristina Dorsey RN [facility] Work Phone: 07-19-2016 15:04-0500 Weight 113.85 kg Cristina Dorsey RN [facility] Work Phone: 03-15-2016 13:14-0400 Body Temperature 97.52 [degF] Cristina Dorsey RN [facility] Work Phone: 03-15-2016 [id number] Body Temperature 97.5 [degF] Cristina Dorsey RN [facility] Work Phone: 03-15-2016 13:14040 Height 177.8 cm Cristina Dorsey RN [facility] Work Phone: 03-15-2016 13:14040 Weight 117.73 kg Sandra Fernandez [facility] Work Phone: 10-14-2014 15:42-0400 Heart rate 54 /min Serene Montiel [facility] Work Phone: Encounters Encounter Date Encounter Type Care Provider Facility Start: 02-16-2025 ambulatory Collin Lutz Facility:[facility] Start: 01-12-2025 End: 01-12-[address] Collin Lutz MD -[facility] Work Phone: Start: 01-12-2025 End: 01-12-[address] Thien Singh DO Work Phone: -[facility] Start: 11-24-2024 End: 11-24-2024 Patient encounter procedure Macy JACOBS -[facility] Work Phone: Start: 11-24-2024 End: 11-24-[address] Thien Singh DO Work Phone: [facility] Work Phone: Start: 10-26-2024 End: 10-26-[address] Thien Singh DO Work Phone: [facility] Work Phone: Start: 10-26-2024 End: 10-26-2024 Patient encounter procedure Macy JACOBS -[facility] Work Phone: Start: 10-26-2024 End: 10-26-2024 ambulatory Thien Singh Facility:[facility] Start: 10-02-2024 End: 10-02-2024 Patient encounter procedure Tanya JACOBS -[facility] Work Phone: Start: 10-02-2024 End: 10-02-2024 ambulatory [facility] Facility:[facility] Start: 10-02-2024 End: 10-02-2024 ambulatory Thien [facility] Facility:[facility] Start: 03-31-2024 End: 03-31-2024 ambulatory Thien [facility] Facility:[facility] Start: 11-12-2023 End: 11-12-2023 ambulatory COUNT [facility]CLUDES [facility] Facility:[facility] Start: 11-12-2023 End: 11-12-2023 Subsequent hospital visit by physician Elizabeth Carroll MD Work Phone: Cardiology Invasive Prep [facility] Recovery Comment on above: Cardiomyopathy, unsp ecified type Start: 11-08-2023 ambulatory COUNT INCLUDES [facility] Facility: [facility] Start: 11-08-2023 End: 11-08-2023 Subsequent hospital visit by physician Elizabeth Carroll MD Work Phone: Cardiovascular Imaging Lab [facility] Comment on above: Arrived Start: 08-16-2023 Non-patient / Non-visit Dr. Thien Singh Work Phone: [facility] Start: 08-16-2023 End: 08-16-2023 Admission to same day surgery center Dr. 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 Thien Singh Work Phone: [facility] Work Phone: Start: 08-09-2023 Non-patient / Non-visit Dr. Thien Singh Work Phone: [facility] Start: 07-25-2023 End: 07-25-[address] Thien Singh Work Phone: [facility]-Pulmonary Medicine [facility] Work Phone: Start: 07-11-2023 ambulatory COUNT INCLUDES [facility] Facility: [facility] Start: 07-11-2023 ambulatory COUNT INCLUDES THE [facility] Facility: [facility] Start: 02-22-2023 ambulatory THIEN SINGH Facilit y:[facility] Start: 02-06-2023 End: 02-06-[address] Thien Singh Work Phone: [facility] Work Phone: Start: 02-06-2023 End: 02-06-[address] Thien Singh Work Phone: [facility] Work Phone: Start: 01-23-2023 End: 01-23-[address] [facility] Work Phone: Start: 08-21-2022 End: 08-21-[address] Thien Singh Work Phone: [facility] Work Phone: Start: 08-21-2022 End: 08-21-[address] Thien Singh Work Phone: [facility]-Sleep Lab Start: 07-25-2022 End: 07-25-[address] [facility] Start: 06-01-2022 End: 06-01-[address] [facility] Start: 05-07-2022 End: 05-07-[address] Thien Singh Work Phone: [facility] Start: 05-02-2022 End: 05-02-[address] Thien Singh Work Phone: [facility] Work Phone: Start: 05-02-2022 End: 05-02-[address] Thien Singh Work Phone: [facility]-Laboratory, [facility] Start: 04-27-2022 Non-patient / Non-visit Dr. Thien Singh Work Phone: [facility] Start: 04-27-2022 End: 04-27-2022 Admission to same day surgery center Dr. Thien Singh Work Phone: [facility]-Security Systems Sales Representative/Special Procedures Start: 04-27-2022 End: 04-27-[address] Thien Singh Work Phone: [facility] Work Phone: Start: 04-18-2022 End: 04-18-[address] Thien Singh Work Phone: [facility] Work Phone: Start: 04-18-2022 End: 04-18-[address] Thien Singh Work Phone: [facility] Start: 03-20-2022 Non-patient / Non-visit Dr. Thien Singh Work Phone: [facility] Physicians Start: 03-20-2022 Non-patient / Non-visit Dr. Thien Singh Work Phone: [facility] Start: 03-19-2022 Non-patient / Non-visit Dr. Thien Singh Work Phone: [facility] Start: 03-19-2022 Non-patient / Non-visit Dr. Thien Singh Work Phone: [facility] Start: 03-18-2022 Non-patient / Non-visit Dr. Thien Singh Work Phone: [facility] Start: 03-18-2022 End: 03-20-2022 Evaluation and management of inpatient Dr. Thien Singh Work Phone: [facility]-Progressive Care Unit Start: 01-22-2022 End: 01-22-[address] Thien Singh Work Phone: [facility]-Pulmonary Medicine [facility] Procedures Date Procedure Procedure Detail Performing Clinician Start: 10-26-[address] Thien lyons DO Work Phone: Start: 11-12-2023 Ephys evl trnsptl tx atrial fib isolat pulm vein Elizabeth Carroll MD Work Phone: Start: 11-12-2023 End: 11-12-2023 ACT* LOW RANGE, POC Elizabeth Carroll MD Work Phone: Start: 11-12-2023 Assay of free thyroxine Krystal Perez PIGMENT MIXER-HYDRAULIC RIVETER Work Phone: Start: 11-12-2023 EXTRA LAVENDER TOP Elizabeth Carroll MD Work Phone: Start: 11-12-2023 EXTRA MINT GREEN TOP Vane jayna Carroll MD Work Phone: Start: 11-12-2023 EXTRA TUBES Elizabeth newton MD Work Phone: Start: 11-08-2023 Ct heart contrast ev al cardiac structure&morph Elizabeth Carroll MD Work Phone: Start: 11-08-2023 Creatinine blood Elizabeth Carroll MD Work Phone: Start: 07-31-2023 Plain chest X-ray Dr. Alcides Singh Work Phone: Start: 02-06-2023 Plain chest X-ray Dr. Alcides Singh Work Phone: Start: 03-18-2022 Plain chest X-ray Dr. Alcides Singh Work Phone: Start: 01-25-2017 End: 01-25-2017 Dietary management education, guidance, and counseling Serene Montiel Start: 07-19-2016 End: 07-19-2016 JAYLAN Lutz MD Start: 07-19-2016 End: 07-19-2016 Follow Up Appt 6 months Alcides Castle Start: 01-17-2016 End: 03-15-2016 COY Duval NP Work Phone: Start: 01-17-2016 End: 01-17-2016 JAYLAN Lutz MD Start: 01-17-2016 End: 03-15-2016 Follow Up Appt 3 months Macy julio HYDRAULIC RIVETER Work Phone: Start: 01-17-2016 End: 01-17-2016 Follow Up Appt 6 months Alcides Castle Start: 01-17-2016 End: 03-15-2016 Retitration with follow up (patient on CPAP currently) Macy Kulkarni HYDRAULIC RIVETER Work Phone: Start: 07-19-2015 End: 07-22-2015 Evaluate pt use of inhaler Mil araiza Work Phone: Start: 07-14-2015 End: 07-14-2015 JAYLAN Lutz MD Start: 07-14-2015 End: 07-14-2015 Follow Up Appt 6 months Alcides Castle Start: 01-19-2015 End: 01-19-2015 Documentation of current medications Mil Ji Work Phone: Start: 01-13-2015 End: 01-13-2015 JAYLAN Lutz MD Start: 01-13-2015 End: 01-13-2015 Documentation of current medications Collin Lutz MD Start: 01-13-2015 End: 01-13-2015 Follow Up Appt 6 months Alcides Castle Start: 01-13-2015 End: 01-13-2015 Smoking cessation education Collin Smith i, MD Start: 10-14-2014 End: 01-13-2015 ANIMAL NURSERY WORKER Collin Lutz MD Start: 10-14-2014 End: 10-15-2014 Documentation of current medications Collin Lutz MD Start: 10-14-2014 End: 01-13-2015 Follow Up Appt 3 months Alcides Castle Start: 10-14-2014 End: 10-15-2014 Smoking cessation education Collin Smith i, MD Start: 08-11-2014 End: 08-16-2014 Cardiac Referral Collin Lutz MD Start: 07-29-2014 End: 08-12-2014 *DAVEY Lutz MD Start: 07-26-2014 End: 08-01-2014 25-Hydroxyvitamin D2+25-Hydroxyvitamin D3 [Mass/volume] in Serum or Plasma Thien Singh DO Work Phone: Start: 07-08-2014 End: 07-08-2014 *DAVEY Lutz MD Start: 07-08-2014 End: 07-12-2014 Cardioversion Collin Lutz MD Start: 07-08-2014 End: 07-09-2014 Documentation of current medications Collin Lutz MD Start: 07-08-2014 End: 07-08-2014 Electrocardiogram, complete Collin Smith i, MD Start: 07-08-2014 End: 07-08-2014 Follow Up Appt 6 weeks Collin Lutz MD Start: 07-08-2014 End: 07-09-2014 Smoking cessation education Collin Smith i, MD Start: 07-08-2014 End: 07-12-2014 Transesophageal echocardiogram (SHIMON) Collin Lutz MD Start: 05-26-2014 End: 07-08-2014 Complete sleep workup (PSG,CPAP as indicated) & Follow up Collin Lutz MD Start: 05-26-2014 End: 06-07-2014 Echocardiography Collin Lutz MD Start: 05-26-2014 End: 06-07-2014 Electrocardiogram, complete Collin Smith i, MD Start: 05-26-2014 End: 05-26-2014 Follow Up Appt 6 weeks Collin Lutz MD Start: 05-26-2014 End: 06-07-2014 Nuclear stress test -Lexiscan Collin Yang MD Start: 05-21-2014 End: 05-24-2014 *B12FO Vitamin B12 and Folates Thien Singh DO Work Phone: Start: 05-21-2014 End: 05-24-2014 *CBC with Differential Thien Oakes O Work Phone: Start: 05-21-2014 End: 05-24-2014 *CMP Complete Metabolic Panel Thien willingham DO Work Phone: Start: 05-21-2014 End: 05-24-2014 25-Hydroxyvitamin D2+25-Hydroxyvitamin D3 [Mass/volume] in Serum or Plasma Thien Singh DO Work Phone: Start: 05-21-2014 End: 05-24-2014 Coagulation factor induced.INR assay in platelet poor plasma Thien Singh DO Work Phone: Start: 05-21-2014 End: 05-24-2014 Electrocardiogram, complete Thien patiño DO Work Phone: Start: 05-21-2014 End: 05-24-2014 HbA1c Thien Singh DO Work Phone: Start: 05-21-2014 End: 05-24-2014 Lipid panel [AGGREGATE] Thien Singh DO Work Phone: Start: 05-21-2014 End: 05-24-2014 Magnesium Thien Singh DO Work Phone: Start: 05-21-2014 End: 05-24-2014 Thyroid stimulating hormone (TSH) Thien Singh DO Work Phone: Start: 05-21-2014 End: 05-24-2014 Thyroxine (T4) free [Mass/volume] in Serum or Plasma Thien Singh DO Work Phone: Plan of Treatment Date Care Activity Detail Author Start: 11-07-2024 Potassium [Moles/volume] in Serum or Plasma POTASSIUM [facility] Start: 02-16-2024 Influenza vaccination INFLUENZA VACCINE (Season Ended) [facility] Start: 12-24-2023 End: 11-11-2024 Cardiac telemetry MOBILE CARDIAC TELEMETRY ECG Routine Atrial fibrillation, unspecified type Expected: 12/24/2023, Expires: 11/11/2024 [facility] Work Phone: Comment on above: Expected: 12/24/2023, Expires: Start: 11-12-2023 End: 11-12-2023 Admission to same day surgery center 11/12/2023 7:15 AM EDT - 11/12/2023 10:20 AM EDT Surgery Cardiovascular Imaging Lab [facility] [address] [place] [id number] Elizabeth Carroll MD [address] [place] [id number] ABLATION SCHED INTERCARDIAC A-FIB TRANSEPTAL BY VERONA JOHN) Cardiovascular Imaging Lab [facility] Comment on above: ABLATION SCHED INTERCARDIAC A-FIB TRANSE PTAL BY VERONA JOHN) Start: 11-12-2023 Subsequent hospital visit by physician 11/12/2023 7:15 AM EDT Hospital Encounter Cardiology Invasive Prep and Recovery [address] [place] [phone] Elizabeth Carroll MD [address] [place] [phone] Cardiomyopathy, unspecified type [facility] Comment on above: Cardiomyopathy, unspecified type Start: 08-16-2023 Patient discharge [facility] Start: 05-02-2023 PNEUMOCOCCAL VACCINE SERIES (2 of 2 - PCV) PNEUMOCOCCAL VACCINE SERIES (2 of 2 - PCV) [facility] Start: 02-15-2023 COVID-19 VACCINE ( season) COVID-19 VACCINE () [facility] Start: 02-06-2023 Patient referral [facility] Work Phone: Start: 03-27-2022 Blood chemistry [facility] Work Phone: Start: 03-26-2022 Blood chemistry [facility] Work Phone: Start: 03-25-2022 Blood chemistry [facility] Work Phone: Start: 03-24-2022 Blood chemistry [facility] Work Phone: Start: 03-23-2022 Blood chemistry [facility] Work Phone: Start: 03-22-2022 Blood chemistry [facility] Work Phone: Start: 03-21-2022 Blood chemistry [facility] Work Phone: Start: 03-20-2022 Patient discharge [facility] Work Phone: Start: 03-19-2022 Care planning and problem solving actions [facility] Work Phone: Start: 03-18-2022 End: 03-19-2022 [facility] Work Phone: Start: 03-18-2022 Referral to woodwind reeds cutter [facility] Work Phone: Start: 03-18-2022 Application of intermittent pneumatic compression device [facility] Work Phone: Start: 03-18-2022 Care planning and problem solving actions [facility] Work Phone: Start: 03-18-2022 End: 03-18-2022 Following clinical pathway protocol [facility] Work Phone: Start: 03-18-2022 Assessment of risk of venous thromboembolism [facility] Work Phone: Start: 03-18-2022 Catheterization of vein [facility] Work Phone: Start: 03-18-2022 Inhalation therapy procedure [facility] Work Phone: Start: 03-18-2022 Insertion of catheter into peripheral vein [facility] Work Phone: Start: 03-18-2022 Measuring intake and output [facility] Work Phone: Start: 03-18-2022 Providing care according to standard [facility] Work Phone: Start: 03-18-2022 Provision of activity privileges [facility] Work Phone: Start: 03-18-2022 Admission procedure [facility] Work Phone: Start: 03-18-2022 Patient referral to dietitian [facility] Work Phone: Start: 03-18-2022 [facility] Work Phone: Start: 07-30-2017 End: 07-30-2017 Appointment [facility] Work Phone: Start: 01-25-2017 End: 01-25-2017 Appointment Appointment [facility] Work Phone: Start: 01-25-2017 End: 01-25-2017 ANIMAL NURSERY WORKER ANIMAL NURSERY WORKER [facility] Work Phone: Start: 01-25-2017 End: 01-25-2017 Follow Up Appt 6 months Follow Up Appt 6 months [facility] Work Phone: Start: 01-17-2017 End: 01-17-2017 Appointment Appointment [facility] Work Phone: Start: 07-19-2016 End: 07-19-2016 ANIMAL NURSERY WORKER ANIMAL NURSERY WORKER [facility] Work Phone: Start: 07-19-2016 End: 07-19-2016 Follow Up Appt 6 months Follow Up Appt 6 months [facility] Work Phone: Start: 01-17-2016 End: 03-15-2016 BWA MEGANA [facility] Work Phone: Start: 01-17-2016 End: 01-17-2016 ANIMAL NURSERY WORKER ANIMAL NURSERY WORKER [facility] Work Phone: Start: 01-17-2016 End: 03-15-2016 Follow Up Appt 3 months Follow Up Appt 3 months [facility] Work Phone: Start: 01-17-2016 End: 01-17-2016 Follow Up Appt 6 months Follow Up Appt 6 months [facility] Work Phone: Start: 01-17-2016 End: 03-15-2016 Retitration with follow up (patient on CPAP currently) Retitration with follow up (patient on CPAP currently) [facility] Work Phone: Start: 12-16-2015 End: 07-19-2015 Pulmonary Function Test - complete Pulmonary Function Test - complete [facility] Work Phone: Start: 12-16-2015 End: 07-19-2015 Pulmonary stress test/simple Pulmonary stress testing; simple (eg, 6-minute walk) [facility] Work Phone: Start: 07-19-2015 End: 07-19-2015 Follow Up Appt 6 months Follow Up Appt 6 months [facility] Work Phone: Start: 07-14-2015 End: 07-14-2015 [facility] Work Phone: Start: 07-14-2015 End: 07-14-2015 Follow Up Appt 6 months Follow Up Appt 6 months [facility] Work Phone: Start: 04-18-2015 End: 10-19-2014 *CMP Complete Metabolic Panel *CMP Complete Metabolic Panel [facility] Work Phone: Start: 04-18-2015 End: 10-19-2014 HbA1c *HgA1C [facility] Work Phone: Start: 04-18-2015 End: 10-19-2014 Lipid panel [AGGREGATE] *Lipid Profile [facility] Work Phone: Start: 01-19-2015 End: 01-19-2015 Follow Up Appt 6 months Follow Up Appt 6 months [facility] Work Phone: Start: 01-15-2015 End: 10-20-2014 Pulmonary Function Test - complete Pulmonary Function Test - complete [facility] Work Phone: Start: 01-15-2015 End: 10-20-2014 Pulmonary stress test/simple Pulmonary stress testing; simple (eg, 6-minute walk) [facility] Work Phone: Start: 01-13-2015 End: 01-13-2015 [facility] ANIMAL NURSERY WORKER [facility] Work Phone: Start: 01-13-2015 End: 01-13-2015 Follow Up Appt 6 months Follow Up Appt 6 months [facility] Work Phone: Start: 10-25-2014 End: 08-01-2014 25-Hydroxyvitamin D2+25-Hydroxyvitamin D3 [Mass/volume] in Serum or Plasma *Vitamin D (Calciferol) [facility] Work Phone: Start: 10-20-2014 End: 10-20-2014 Follow Up Appt 3 months Follow Up Appt 3 months [facility] Work Phone: Start: 10-19-2014 End: 10-19-2014 25-Hydroxyvitamin D2+25-Hydroxyvitamin D3 [Mass/volume] in Serum or Plasma *Vitamin D (Calciferol) [facility] Work Phone: Start: 10-14-2014 End: 01-13-2015 ANIMAL NURSERY WORKER ANIMAL NURSERY WORKER [facility] Work Phone: Start: 10-14-2014 End: 01-13-2015 Follow Up Appt 3 months Follow Up Appt 3 months [facility] Work Phone: Start: 08-11-2014 End: 08-16-2014 Cardiac Referral Cardiac Referral Fareed De Jesus, [facility] [place], [address] [place] [address], [address] [facility] Work Phone: Start: 07-29-2014 End: 08-12-2014 *BMP *BMP [facility] Work Phone: Start: 07-26-2014 End: 08-01-2014 25-Hydroxyvitamin D2+25-Hydroxyvitamin D3 [Mass/volume] in Serum or Plasma *Vitamin D (Calciferol) [facility] Work Phone: Start: 07-21-2014 End: 07-21-2014 Follow Up Appt 3 months Follow Up Appt 3 months [facility] Work Phone: Start: 07-21-2014 End: 07-21-2014 Pulmonary Fuction Test - complete Pulmonary Fuction Test - complete [facility] Work Phone: Start: 07-21-2014 End: 08-03-2014 Pulmonary stress test/simple Pulmonary stress testing; simple (eg, 6-minute walk) [facility] Work Phone: Start: 07-08-2014 End: 07-08-2014 *BMP *BMP [facility] Work Phone: Start: 07-08-2014 End: 07-08-2014 Cardioversion Cardioversion [facility] Work Phone: Start: 07-08-2014 End: 07-08-2014 ANIMAL NURSERY WORKER ANIMAL NURSERY WORKER [facility] Work Phone: Start: 07-08-2014 End: 07-08-2014 Electrocardiogram, complete EKG (In office) [facility] Work Phone: Start: 07-08-2014 End: 07-08-2014 Follow Up Appt 6 weeks Follow Up Appt 6 weeks [employer] [facility] Work Phone: Start: 07-08-2014 End: 07-08-2014 Pulmonary Referral Pulmonary Referral Mil Ji, [facility] [place], [address], [place], [address] [facility] Work Phone: Start: 07-08-2014 End: 07-08-2014 Transesophageal echocardiogram (SHIMON) Transesophageal echocardiogram (SHIMON) [facility] Work Phone: Start: 05-26-2014 End: 05-26-2014 Complete sleep workup (PSG,CPAP as indicated) & Follow up Complete sleep workup (PSG,CPAP as indicated) & Follow up [employer] Work Phone: Start: 05-26-2014 End: 05-26-2014 ANIMAL NURSERY WORKER ANIMAL NURSERY WORKER [employer] Work Phone: Start: 05-26-2014 End: 05-26-2014 Echocardiography Echocardiogram (complete) [facility] Work Phone: Start: 05-26-2014 End: 05-26-2014 Electrocardiogram, complete EKG (In office) [facility] Work Phone: Start: 05-26-2014 End: 05-26-2014 Follow Up Appt 6 weeks Follow Up Appt 6 weeks [employer] [facility] Work Phone: Start: 05-26-2014 End: 05-26-2014 Nuclear stress test -Lexiscan Nuclear stress test -Lexiscan [facility] Work Phone: Start: 05-24-2014 End: 10-15-2014 Cardiac Referral Cardiac Referral Collin Lutz MD, [facility], [address], [place], [address] [employer] Work Phone: Start: 05-21-2014 End: 05-24-2014 *B12FO Vitamin B12 and Folates *B12FO Vitamin B12 and Folates [facility] Work Phone: Start: 05-21-2014 End: 05-24-2014 *CBC with Differential *CBC with Differential [facility] Work Phone: Start: 05-21-2014 End: 05-24-2014 *CMP Complete Metabolic Panel *CMP Complete Metabolic Panel [facility] Work Phone: Start: 05-21-2014 End: 05-24-2014 25-Hydroxyvitamin D2+25-Hydroxyvitamin D3 [Mass/volume] in Serum or Plasma *Vitamin D (Calciferol) [facility] Work Phone: Start: 05-21-2014 End: 05-24-2014 Coagulation factor induced.INR assay in platelet poor plasma *PT/INR [facility] Work Phone: Start: 05-21-2014 End: 05-24-2014 Electrocardiogram, complete EKG (In office) [facility] Work Phone: Start: 05-21-2014 End: 05-24-2014 HbA1c *HgA1C [facility] Work Phone: Start: 05-21-2014 End: 05-24-2014 Lipid panel [AGGREGATE] *Lipid Profile [place] [facility] Work Phone: Start: 05-21-2014 End: 05-24-2014 Magnesium *Magnesium [facility] Work Phone: Start: 05-21-2014 End: 05-24-2014 Thyroid stimulating hormone (TSH) *TSH [facility] Work Phone: Start: 05-21-2014 End: 05-24-2014 Thyroxine (T4) free *T4 free [facility] Work Phone: Start: 2012 Prostate specific antigen measurement PROSTATE CANCER SCREENING DISCUSSION [facility] Start: 2012 Zoster vaccine hzv live for subcutaneous use ZOSTER (SHINGLES) VACCINE (1 of 2) [facility] Start: 11-19-2007 Screening for malignant neoplasm of colon COLORECTAL CANCER SCREENING DISCUSSION [facility] Start: 2002 Lipid panel LIPID SCREENING [facility] Start: 1981 Third diphtheria, tetanus and acellular pertussis (DTaP) vaccination TDAP (ADULT) [facility] Start: 1977 HIV screening HIV SCREENING DISCUSSION [facility] Start: 1962 Hepatitis C screening HEPATITIS C VIRUS SCREENING [facility] Start: 1962 Tetanus vaccination TETANUS [facility] Anion gap measurement [facility] Work Phone: BUN/Creatinine ratio [facility] Work Phone: Calcium [Mass/volume ] in Serum or Plasma [facility] Work Phone: Carbon dioxide, tota l [Moles/volume] in Serum or Plasma [facility] Work Phone: Cardioversion [facility] Work Phone: Chloride [Moles/volu me] in Serum or Plasma [facility] Work Phone: Creatinine [Moles/volume] in Serum or Plasma [facility] Work Phone: CT Chest [facility] Glucose [Mass/volume ] in Serum or Plasma [facility] Work Phone: Hematocrit [Volume Fraction] of Blood [facility] Work Phone: Hemoglobin [Mass/vol ume] in Blood [facility] Work Phone: Leukocytes [#/volume ] in Blood [facility] Work Phone: Mean corpuscular hemoglobin concentration determination [facility] Work Phone: Mean corpuscular hemoglobin determination [facility] Work Phone: Measurement of renal function [facility] Work Phone: Neutrophil count [facility] Work Phone: Neutrophil percent differential count [facility] Work Phone: Patient Education AFib [facility] Work Phone: Patient referral [facility] Work Phone: Platelets [#/volume] in Blood [facility] Work Phone: Potassium [Moles/vol ume] in Serum or Plasma [facility] Work Phone: Red blood cell count [facility] Work Phone: Red cell distributio n width determination [facility] Work Phone: Sodium [Moles/volume ] in Serum or Plasma [facility] Work Phone: Urea nitrogen [Mass/volume] in Serum or Plasma [facility] Work Phone: Immunizations Immunization Date Immunization Notes Care Provider [facility] 03-20-2022 influenza, injectabl e, quadrivalent, preservative free Dr. Thien Singh Work Phone: [facility] 03-20-2022 influenza, seasonal, injectable Dr. Thien Singh Work Phone: [facility] 03-20-2022 influenza virus vaccine, unspecified formulation Elizabeth Carroll MD Work Phone: [facility] 03-25-2021 Covid (Moderna) Dr. Thien willingham Work Phone: [facility] 02-25-2021 Covid (Moderna) Dr. Thien willingham Work Phone: [facility] Payers Date Payer Category Payer Self-pay [id number] 2023 Private Health Insurance SOLO STEVENSON [id number] 2023-Present [address] [place] [address] [id number] 2023 Unknown [id number] 2003 Unknown [id number] 1960 Unknown [id number] 94 1962 Unknown [id number] 94 1962 Unknown [id number] 94 1962 Unknown [id number] 94 1962 Unknown [id number] 94 1962 Unknown [id number] 94 Unknown [id number] 62 Unknown [id number] 62 Unknown [id number] 62 Unknown [id number] 62 Unknown [id number] 62 Unknown [id number] 62 Unknown [id number] 62 Social History Date Type Detail Facility Start: 03-18-2022 End: 08-16-2023 Tobacco smoking status OKIS Unknown if ever smoked [facility] Start: 1960 Sex Assigned At Male W [facility] Start: 10-03-2014 Occasional [facility] Start: 10-03-2014 None [facility] Start: 10-03-2014 Spouse/ Signif icant Other [facility] Start: 01-18-2015 End: 11-12-2023 Tobacco smoking status NHIS Occasional tobacco smoker [facility] History of tobacco use Cigarette Smoker O [facility] Start: 11-08-2023 End: 11-12-2023 Alcoholic beverage intake Current drinker of alcohol (finding) [facility] Start: 11-08-2023 End: 11-12-2023 Alcoholic beverage intake [facility] Start: 11-08-2023 End: 11-12-2023 Tobacco use panel [facility] Start: 08-05-2014 Alcohol Comment Occasional beer [facility] Start: 1960 Sex assigned at Not on file [facility] Start: 11-12-2023 Tobacco use and exposure Smokeless tobacco non-user [facility] Start: 01-17-2024 Tobacco smoking stat us NHIS Ex-smoker (finding) [facility] Medical Equipment Procedure Code Equipment Code Equipment Original Text Equipment Identifier Dates Device Vascade M vp clinical research 6-12fr - [id number] Start: 11-12-2023 Device Closure P erclose Proglide 6fr - [id number] Start: 11-12-2023 Device Vascade M vp clinical research 6-12fr - [id number] Start: 11-12-2023 [id number] FDA Start: 01-17-2024 Drug-eluting cor onary artery stent, [id number]-pvayuh r-coated [id number] FDA Start: 01-17-2024 [id number] FDA Start: 01-17-2024 [id number] FDA Start: 01-17-2024 Goals Date Patient Goal Desired Activity /State Functional Status Date Assessment Result Facility 03-20-2022 Functional status Ambulates [facility] Work Phone: Mental Status Date Assessment Result Facility 03-20-2022 Cognitive function Voice/Name [facility] Work Phone: Clinical Notes 08-09-2023 to 10-26-2024 Note Date & Type Note Facility 10-26-2024 Radiology Diagnostic study note [facility] Imaging Services [address] [place] [address] Lung Screening MR#: [id number] Acct: [id number] Name: LIZZETTE TIDWELL Rep #: [id number] : 1960 M 63 From: Arnulfo Tavera MD PCP: Dr. Thien Singh, DO Status: REG CLI Study:Low Dose CT Lung Screening Date of Exam : 10/26/24 Exam# [id number] Ordering Dr: Mukund Kulkarni NP 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 PROCEDURE: LOW DOSE CT LUNG SCREENING 10/26/2024 REASON FOR EXAM: SMOKING HISTORY Current smoker. COPD. TECHNIQUE: Low Dose CT Lung screening without contrast. Coronal and Sagittal reconstructionseries were provided. One or more dose reduction techniques were used (e.g., Automated exposure control, adjustment of the mA and/or kV according to patient size, use of iterative reconstruction technique). REFERENCE LINK: Need Lung-RADS RADIATION DOSE SUMMARY: CTDlvol: 4.02 mGy DLP: 153.51 mGycm COMPARISON: Comparison is dated July 31, 2023. FINDINGS: PULMONARY NODULES: (Only nodules >3mm are reported) Nodules described below are on series 1 unless otherwise specified. Pulmonary Nodules: No suspicious nodule seen. Hardware:None Lymph Nodes:Small benign-appearing mediastinal lymph nodes. Heart and Vasculature:Coronary artery calcifications are noted. Coronary Artery Calcifications: Present Lungs and Airways: Mild emphysematous changes are present. Pleura:Unremarkable Upper Abdomen:Unremarkable Bones:Degenerative changes of the thoracic spine. CT/Low Dose CT Lung Screening IMPRESSION: No suspicious pulmonary nodule seen. Coronary artery calcification (CAC) is is present Lung-RADS Category: 2 BENIGN (BASED ON IMAGING FEATURES OR INDOLENT BEHAVIOR). RECOMMEND 12-MONTH SCREENING LDCT. Other Significant Findings: None. Reading Location: [id number] CC: REYNALDO Kulkarni; Dr. Thien Singh, DO ~ Groundskeeping Maintenance: Signed [facility] 10-02-2024 Evaluation note Diagnosis Onset Date Resolution Fatigue acute October 02, 2024 8:30am Hyperlipidemia chronic September 8:30am Non-ischemic cardiomyopathy chronic October 02, 2024 8:30am Paroxysmal atrial fibrillation chronic October 02, 2024 8:30am Smoking greater than 20 pack years chronic October 02, 2024 8:30am Stented coronary artery January 17, 2024 chronic October 02, 2024 8:30am [facility] Work Phone: 1(631) 488-951504-18-2025 Evaluation note* Diagnosis Onset Date Resolution Status Admit Date Fatigue acute October 02 8:30am Hyperlipidemia chronic September 8:30am Non-ischemic cardiomyopathy chronic October 02, 2024 8:30am Paroxysmal atrial fibrillation chronic October 02, 2024 8:30am Smoking greater than 20 pack years chronic October 02, 2024 8:30am Stented coronary artery January 17, 2024 chroni c October 02, 2024 8:30am Asthma chronic November 24 7:33am CEM (obstructive sleep apnea) chroni c November 24, 2024 7:33am Smoking greater than 20 pack years chronic November 24, 2024 7:33am Stage 2 moderate COPD by GOL D classification chronic November 24, 2024 7:[address] [facility] Work Phone: 1(369) 268-396405-28-2024 Nurse Note* Nursing Notes - Raulito Rios RN - 11/12/2023 3:27 PM EDT Discharge instructions and printed AVS reviewed with patient by GILA Pappas all questions answered. Pt verbalizes understanding. IV dc'd with no difficulty and catheter tip intact. Telemetry dc'd. VS stable at time of discharge. Patient being discharged to home by car with spouse. No patient belongings left at bedside. Post procedure recovery without events. R groin site without bleeding or hematoma, palpable +2 pulses. Ambulates prior to DC without difficulty. [facility]05-28-2024 Miscellaneous Notes* Nursing Notes - Raulito Rios RN - 11/12/2023 3:27 PM EDT Discharge instructions and printed AVS reviewed with patient by GILA Pappas all questions answered. Pt verbalizes understanding. IV dc'd with no difficulty and catheter tip intact. Telemetry dc'd. VS stable at time of discharge. Patient being discharged to home by car with spouse. No patient belongings left at bedside. Post procedure recovery without events. R groin site without bleeding or hematoma, palpable +2 pulses. Ambulates prior to DC without difficulty. * Referral Letter - Elizabeth Carroll MD - 11/12/2023 12:00 PM EDT November 12, 2023 Collin Lutz MD [address] [place] [address] RE: DIANNLIZZETTE DATE OF SERVICE: 11/12/2023 Dear Collin, It was a pleasure to perform a repeat AFib ablation on Estevan Tidwell. We found recurrent conduction in the left inferior pulmonary vein in the lambert, outside the right superior pulmonary vein, and on the posterior wall, all of which was eliminated and reverted them to sinus rhythm. We were able to induce right-sided atrial flutter, which was also eliminated. He did have significant sinus node dysfunction and in light of this, I am going to leave him off the amiodarone and I am going to stop his diltiazem. I have asked him to check his blood pressure frequently at home and we have ordered thyroid function tests to see if that may explain his fatigue as well. I thought he should undergo a treadmill test with you in around 4 weeks to make sure that he is chronotropically competent. We would anticipate that he would be able to achieve at least 112 beats per minute on a treadmill and if not, then it is likely he has sinus node dysfunction that he would require pacing. Although I have stopped the diltiazem, I would be reluctant to stop the beta rachel as he can develop fairly rapid AFib when he goes out rhythm. If you have any questions at all regarding these findings or recommendations, please do not hesitate to contact me. Best regards, Elizabeth Carroll MD cc: THIEN SINGH DO [address] [facility] [place] [address] Collin Lutz MD [address] [facility] [place] [address] * Nursing Notes - Alley Chavez RN - 11/12/2023 6:22 AM EDT Pt arrives to room 42 in IPR for Afib ablation. ECG completed. IV started in left arm. Labs drawn and sent. 0.9 NS IVF initiated @ 20mL/ hr per pump. Pt prep completed. Valuables given to no one. Clothes secured in room. Questions about procedure answered. Family brought to bedside. Bed in low position, side rail up x2 and call light given to pt. Tele monitor shows SB. [facility] Discharge instructions* Discharge Instructions* MALIA [place] - 11/12/2023 2:35 PM EDT Treadmill test to assess heart rate response in [address] Lutz to determine whether may needPPM for rate response. * Discharge Instr - Activity* MALIA [place] - 11/12/2023 7:31 AM EDT Post Ablation Activity Your activity is restricted only as indicated by your physician. Please refer to education for ablation and other care recommendations. - No driving for 24 hours - Keep incision dry - Limit bending at the waist for 48 hours - May resume regular activity in 1-2 weeks unless otherwise notified - Return to work in 1 week - No tub baths or hot tub for 2 weeks or until groin site is healed - No lifting greater than 10-15 pounds for 1 week. Rest for 24 hours after you are home. You should have someone with you to help you the first night you are home. DO NOT drive for 24 hours. DO NOT make any important decisions for 24 hours. DO NOT work around the stove, machinery or power equipment for 24 hours. * Discharge Instr - Diet* MALIA [place] - 11/12/2023 7:31 AM EDT Diet: Your doctor has recommended that you follow these diet instructions at home. Refer to the patient education materials you received during your hospital stay. If you would like more nutrition counseling, ask your doctor about making an appointment with an outpatient dietitian. Heart Healthy Diet to promote heart health. Choose healthy fats and oils such as canola or olive oil. Limit high cholesterol foods. Avoid added salt and caffeine in your foods. Controlled Carbohydrate Diet This diet controls carbohydrate intake to help manage and maintain consistent blood glucose levels.Simple sugars are limited and carbohydrate intake is balanced throughout the day. Avoid adding saltto your food and use heart healthy fats such as canola or olive oil. * Discharge Instr - Notify* MALIA [place] - 11/12/2023 7:31 AM EDT Images from the original note were not included. NOTIFY PHYSICIAN BLEEDING/BRUISING -If severe bleeding, apply pressure -Increased bleeding from site -Increased bruising or hematoma Chest pain or shortness of breath Respiratory Changes Call your doctor or nurse if you have shortness of breath that gets worse -Cough that gets worse -Coughing up blood Stroke Symptoms Call 911 if you suddenly have any of these signs of a stroke: -Numbness or muscle weakness -Trouble swallowing -Problems talking -Dizziness or feeling unsteady -Severe headache -Confusion SYMPTOMS OF DVT DVT = Deep Vein Thrombus, or Blood Clot -any tender, swollen, or reddened areas from your groin to your heels. -numbness or tingling in groin or calf -the skin on your leg looks pale or blue or it feels cold to touch -any shortness of breath -chest pain -fever or chills NAUSEA: When you are nauseated, you may feel weak and sweaty and notice a lot of saliva in your mouth. Nausea often leads to vomiting. Most of the time you do not need to worry about nausea and vomiting, butthey can be signs of other illnesses. The doctor has checked you carefully, but problems can develop later. If you notice any problems ornew symptoms, get medical treatment right away. Follow-up care is a aburto part of your treatment and safety. Be sure to make and go to all appointments, and call your doctor if you are having problems. It's also a good idea to know your test resultsand keep a list of the medicines you take. How can you care for yourself at home? To prevent dehydration, drink plenty of fluids, enough so that your urine is light yellow or clear like water. Choose water and other caffeine-free clear liquids until you feel better. If you have kidney, heart, or liver disease and have to limit fluids, talk with your doctor before you increase the amount of fluids you drink. Rest in bed until you feel better. When you are able to eat, try clear soups, mild foods, and liquids until all symptoms are gone for 12 to 48 hours. Other good choices include dry toast, crackers, cooked cereal, and gelatin dessert, such as Jell-O. When should you call for help? Call 911 anytime you think you may need emergency care. For example, call if: You passed out (lost consciousness) Call your doctor now or seek immediate medical care if: You have symptoms of dehydration, such as: Dry eyes and a dry mouth Passing only a little dark urine Feeling thirstier than usual You have new or worsening belly pain You have a new or higher fever You vomit blood or what looks like coffee grounds Watch closely for changes in your health, and be sure to contact your doctor if: You have on going nausea and vomiting Your vomiting gets worse Your vomiting last longer than 2 days You are not getting better as expected Where can you learn more? Go to https://www.healthwise.net/osumychart. * Discharge Instr - Wound Care* MALIA [place] - 11/12/2023 7:32 AM EDT Catheter site care You can remove your bandages the day after the procedure. You may shower 24 to 48 hours after the procedure, if your doctor okays it. Pat the incision dry. Do not soak the catheter site until it is healed. Don't take a bath for 1 week, or until your doctor tells you it is okay. Watch for bleeding from the site. A small amount of blood (up to the size of a quarter) on the bandage can be normal. If you are bleeding, lie down and press on the area for 15 minutes to try to make it stop. If the bleeding does not stop, call your doctor or seek immediate medical care. [facility] Note* Referral Letter - Elizabeth Carroll MD - 11/12/2023 12:00 PM EDT November 12, 2023 Collin Lutz MD [address] [place] [address] RE: DIANN LIZZETTE Mauro DATE OF SERVICE: 11/12/2023 Dear Collin, It was a pleasure to perform a repeat AFib ablation on Estevan Tidwell. We found recurrent conduction in the left inferior pulmonary vein in the lambert, outside the right superior pulmonary vein, and on the posterior wall, all of which was eliminated and reverted them to sinus rhythm. We were able to induce right-sided atrial flutter, which was also eliminated. He did have significant sinus node dysfunction and in light of this, I am going to leave him off the amiodarone and I am going to stop his diltiazem. I have asked him to check his blood pressure frequently at home and we have ordered thyroid function tests to see if that may explain his fatigue as well. I thought he should undergo a treadmill test with you in around 4 weeks to make sure that he is chronotropically competent. We would anticipate that he would be able to achieve at least 112 beats per minute on a treadmill and if not, then it is likely he has sinus node dysfunction that he would require pacing. Although I have stopped the diltiazem, I would be reluctant to stop the beta rachel as he can develop fairly rapid AFib when he goes out rhythm. If you have any questions at all regarding these findings or recommendations, please do not hesitate to contact me. Best regards, Elizabeth Carroll MD cc: THIEN SINGH DO [address] [place] [address] Collin Lutz MD [address] [place] [address] [facility]05-28-2024 Nurse Note* Nursing Notes - Alley Chavez RN - 11/12/2023 6:22 AM EDT Pt arrives to room 42 in [facility] for Afib ablation. ECG completed. IV started in left arm. Labs drawn and sent. 0.9 NS IVF initiated @ 20mL/ hr per pump. Pt prep completed. Valuables given to no one. Clothes secured in room. Questions about procedure answered. Family brought to bedside. Bed in low position, side rail up x2 and call light given to pt. Tele monitor shows SB. [facility]03-01-2024 Procedure [facility] 08-16-2023 Procedure [facility]02-23-2024 History and physical note Author Nilda Silverman [facility] August 09, 2023 7:56am Note Date/Time August 09, 2023 7:41am [facility] Medical Records Department [address] [place] [address] History & Physical Exam 08/09/23 0739 MR#: [id number] Acct: [id number] Name: LIZZETTE TIDWELL Rep #:[id number] : 1960 62 From: Nilda SINGH PCP: Dr. Thien Singh, DO Status:PRE [facility] Location: [facility] History and Physical Date of Admission: 08/16/23 Lizzette Tidwell is a 62-year-old gentleman who presents here today for a DCCV.. Patient was admitted on March 18, 2022 for atrial fibrillation. He had not been taking his metoprolol and had weaned himself off of this. EKG demonstratedatrial fibrillation with RVR with a heart rate of 158. He was started on IV Cardizem. He was transitioned to p.o. metoprolol. However his heart rate was not improved so he was started on p.o. Cardizem. Echocardiogram did demonstratean ejection fraction of 65% with no regional wall motion abnormalities. He has apast medical history of ablation in September [address] De Jesus at [facility]. He has undergone cardioversion in June, July, and September 2014 as well as April2022. He does have CEM. Echocardiogram from 03/18/2022 demonstrated ejection fraction of 65%, and normal atrial size. He was referred to Dr Glen OLMEDO at [facility]. It was recommended that he start amiodarone, after a month then proceed with a DCCV. After 3 months repeat an ablation. He denies chest, arm, jaw, or neck discomfort. He acknowledges palpitations that he describes as a flutter sensation and it really occurs. This is with extreme activity and when fatigued. This improves with rest. His palpitations are associated with shortness of breath. He denies bilateral lower extremity edema. He denies claudication. He denies shortness of breath with activity, shortness of breath at rest, orthopnea, or PND. He denies chronic cough. He denies significant, sudden weight gain. He denies lightheadedness, dizziness, near-syncope, or syncope. He denies blood in urine, blood in stool, or epistaxis. He denies fever with chills. He denies myalgia. He denies fatigue. His exercise level has remained stable. Allergies No Known Allergies Allergy (Verified 03/28/23 08:45) Medications:see EMR Ejection fraction %: 65 to 70 [facility] Medical History (Reviewed 03/28/23 @ 08:56 by Elizabeth Christian VENETIAN BLIND TAPE CUTTER, 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) Alcoholism Asthma Atrial fibrillation with rapid ventricular response Atrial flutter Depression Nicotine dependence Non-ischemic cardiomyopathy Obesity CEM (obstructive sleep apnea) Paroxysmal atrial fibrillation Stage 2 moderate COPD by GOLD classification Vitamin D deficiency Surgical History (Reviewed 03/28/23 @ 08:56 by Elizabeth Christian VENETIAN BLIND TAPE CUTTER, 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) History of cardiac radiofrequency ablation (10/01/14) History of cardioversion (04/27/22) History of tonsillectomy History of umbilical hernia repair Family History (Reviewed 03/28/23 @ 08:56 by Elizabeth Christian VENETIAN BLIND TAPE CUTTER, 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) Unknown No problems noted. Other Adopted Social History Smoking Status: Light Smoker (<10/day) alcohol intake: current alcohol intake frequency: 0-2 drinks per day substance use type: does not use caffeine: Yes Type: coffee Number of servings: 1 ROS Const Const: Negative for fatigue, weakness, headache(s), frequent falls, difficulty sleeping or excessive sweating Eyes Eyes: Negative for loss of peripheral vision, transient loss of vision, blurry vision, double vision or tunnel vision ENT ENT: Negative for headache(s), dizziness, Nosebleed/epistaxis or balance problems Cardio Chest Pain: No Palpitations: Yes (Rarely feels it) feels like its: other (fluttering) Edema: None Muscle aches with walking: None Resp Respiratory: Positive for SOB with activity; Negative for SOB at rest, SOB orthopnea\SOB lying down, Cough or paroxysmal nocturnal dyspnea GI GI: Negative nausea, vomiting, heartburn or black,tarry stools : Negative for hematuria Musc Musc: Negative for muscle aches/ myalgia, muscle weakness, joint pain or balanceproblems Skin Skin: Negative non-healing lesions, rash or unusual bruising Neuro Neuro: Negative for dizziness, lightheadedness, near syncope, syncope, frequent falls, headache(s), weakness, blurry vision, double vision or lack of coordination David Hematologic/Lymphatic: Negative for easy bleeding or easy bruising Endo Endo: Negative for fatigue, excessive sweating or increased thirst/drinking Psych Psych: Negative for anxiety or depression Allergy Allergy/Immunology: Negative for hives and Negative for rash Cardiology Exam Const Appearance: cooperative, healthy appearing, comfortable and no acute distress Nutritional Appearance: well nourished and obese Orientation: alert, awake and oriented x3 Head Head: normal to inspection Ears: hearing grossly normal bilaterally Nose: external nose normal Face and Sinus: face symmetric Mouth: moist mucous membranes Eyes General: appearance normal, both eyes and all related structures Eyelids: eyelids normal EOM: EOM intact bilaterally Neck Neck: normal visual inspection and no JVD Carotids: normal carotid upstroke Chest Chest inspection: normal inspection of the chest, symmetric chest movement and normal respiratory effort; Negative cough Auscultation: Bilateral: Clear to Auscultation Cardio Rate: regular rate Rhythm: irregular rhythm Heart sounds: S1 normal and S2 normal; Negative rub, gallop or murmur GI GI: normal to inspection and obese Neuro General: patient alert, patient awake, patient oriented x3 and CN's II-XI intactbilaterally Skin Skin: no rashes or lesions noted Extremities Pulses: Normal: Right Posterior Tibial Pulse, Left Posterior Tibial Pulse, RightRadial Pulse and Left Radial Pulse Lower Extremity Edema: None: Bilateral Psych Psychological: normal affect Supplemental Info Supplemental Information Echocardiogram 03/2022 Normal LV size. Left ventricular systolic function is normal. The estimated ejection fraction is 65 %. Contrast injection was performed. Assessment and Plan (1) Paroxysmal atrial fibrillation: Status: Chronic Comment: RFA PVI-10/01/2014; DCCV on 06/2014, 07/2014, 09/2014, 04/27/22; Plan: He has a history of an ablation and multiple cardioversions. He will repeat his DCCV today with plans of ablation at [facility] in 3 months. 08/09/23 0756 <Electronically signed by Nilda SINGH> Cosigner Signature (if applicable): CC: Dr. Thien Singh, DO; FRANCISCO Whitley~ Signed [facility] Work Phone: Evaluation note* Diagnosis Onset Date Resolution Status Chronic systolic (congestive) heart failure chronic CEM (obstructive sleep apnea) chronic Stage 2 moderate COPD by GOLD classification chronic Atrial fibrillation with rapid ventricular response acute Chest pain acute Non-ischemic cardiomyopathy chronic Stage 2 moderate COPD by GOLD classification chronic [facility] Work Phone: Evaluation note* Diagnosis Onset Date Resolution Status Chronic systolic (congestive) heart failure chronic CEM (obstructive sleep apnea) chronic Chest pain resolved Paroxysmal atrial fibrillation [facility] Work Phone: Evaluation note* Diagnosis Onset Date Resolution Status Chronic systolic (congestive) heart failure chronic CEM (obstructive sleep apnea) chronic Chest pain resolved Paroxysmal atrial fibrillation chronic Paroxysmal atrial fibrillation [facility] Work Phone: Evaluation note* Diagnosis Onset Date Resolution Status CEM (obstructive sleep apnea) chronic Stage 2 moderate COPD by GOLD classification acute Chronic systolic (congestive) heart failure chronic CEM (obstructive sleep apnea) [facility] Work Phone: Evaluation note* Diagnosis Onset Date Resolution Status Stage 2 moderate COPD by GOLD classification acute Chronic systolic (congestive) heart failure chronic CEM (obstructive sleep apnea) chronic Paroxysmal atrial fibrillation chronic CASTRO (dyspnea on exertion) ac chi Paroxysmal atrial fibrillation [facility] Work Phone: Evaluation note* Diagnosis Onset Date Resolution Status Stage 2 moderate COPD by GOLD classification acute Chronic systolic (congestive) heart failure chronic CEM (obstructive sleep apnea) chronic Paroxysmal atrial fibrillation [facility] Work Phone: Evaluation note* Diagnosis Cardiomyopathy, unspecified type Atrial fibrillation, unspecified type Cardiomyopathy, unspecified type Atrial fibrillation, unspecified type Cardiomyopathy, unspecified type Atrial fibrillation, unspecified type [facility] Cardiomyopathy, unspecified type Atrial fibrillation, unspecified type Cardiomyopathy, unspecified type Atrial fibrillation, unspecified type documented [facility] this encounter [facility] (narrative)No reason for referral information availableFayette County [facility] Hospital Work Phone: Chief Complaint and Reason for Visit Chief Complaint 6 M FU A. FIB WITH RVR A. FIB WITH RVR A. FIB WITH RVR A. FIB WITH RVR A. FIB WITH RVR Reason for Visit Chronic systolic (co ngestive) heart failure CEM (obstructive sleep apnea) Stage 2 moderate COPD by GOLD classification Atrial fibrillation with rapid ventricular response Chest pain Non-ischemic cardiomyopathy Stage 2 moderate COPD by GOLD classification Chief Complaint 6 M FU A. FIB WITH RVR A. FIB WITH RVR A. FIB WITH RVR A. FIB WITH RVR A. FIB WITH RVR s/p hosp possible Cardiovert Reason for Visit Chronic systolic (co ngestive) heart failure CEM (obstructive sleep apnea) Chest pain Paroxysmal atrial fibrillation Chief Complaint 6 M FU A. FIB WITH RVR A. FIB WITH RVR A. FIB WITH RVR A. FIB WITH RVR A. FIB WITH RVR s/p hosp possible Cardiovert ATRIAL FIB ATRIAL FIB ATRIAL FIB Reason for Visit Chronic systolic (co ngestive) heart failure CEM (obstructive sleep apnea) Chest pain Paroxysmal atrial fibrillation Paroxysmal atrial fibrillation Chief Complaint 6 M FU A. FIB WITH RVR A. FIB WITH RVR A. FIB WITH RVR A. FIB WITH RVR A. FIB WITH RVR s/p hosp possible Cardiovert ATRIAL FIB ATRIAL FIB ATRIAL FIB 1 w s/p DCCV Reason for Visit Chronic systolic (co ngestive) heart failure CEM (obstructive sleep apnea) Chest pain Paroxysmal atrial fibrillation Paroxysmal atrial fibrillation Chief Complaint 1 w s/p DCCV BIPAP MACHINE 6 M FU CEM,REPAP Reason for Visit CEM (obstructive sle ep apnea) Stage 2 moderate COPD by GOLD classification Chronic systolic (congestive) heart failure CEM (obstructive sleep apnea) Chief Complaint 6 M FU FU PER DR JI PT IN AFIB EORDER Reason for Visit Stage 2 moderate ALINING INSPECTOR D by GOLD classification Chronic systolic (congestive) heart failure CEM (obstructive sleep apnea) Paroxysmal atrial fibrillation CASTRO (dyspnea on exertion) Paroxysmal atrial fibrillation Chief Complaint 6 M FU Atrial fibrillation AFIB Atrial fibrillation Atrial fibrillation Reason for Visit Stage 2 moderate ALINING INSPECTOR D by GOLD classification Chronic systolic (congestive) heart failure CEM (obstructive sleep apnea) Paroxysmal atrial fibrillation Chief Complaint Admit Date 6 M FU October 02, 2024 8:3 0am E ORDERS October 02, 2024 8:3 4am HX SMOKING October 26, 2024 7:39a m Reason for Visit Admit Date Fatigue October 02, 2024 8:3 0am Hyperlipidemia October 02, 2024 8:3 0am Non-ischemic cardiomyopathy October 02, 2024 8:30am Paroxysmal atrial fibrillation September 8:30am Smoking greater than 20 pack years October 02, 2024 8:30am Stented coronary artery October 02, 2024 8:30am Chief Complaint Admit Date 6 M FU October 02, 2024 8:3 0am E ORDERS October 02, 2024 8:3 4am HX SMOKING October 26, 2024 7:39a m 11 m fu November 24, 2024 7:33 am Chief Complaint Admit Date 6 M FU October 02, 2024 8:3 0am E ORDERS October 02, 2024 8:3 4am HX SMOKING October 26, 2024 7:39a m 11 m fu November 24, 2024 7:33 am 1 Y FU January 12, 2025 7:56 am Reason for Visit Admit Date Fatigue October 02, 2024 8:3 0am Hyperlipidemia October 02, 2024 8:3 0am Non-ischemic cardiomyopathy October 02, 2024 8:30am Paroxysmal atrial fibrillation September 8:30am Smoking greater than 20 pack years October 02, 2024 8:30am Stented coronary artery October 02, 2024 8:30am Asthma November 24, 2024 7:33 am CEM (obstructive sleep apnea) November 24, 2024 7:33am Smoking greater than 20 pack years November 24, 2024 7:33am Stage 2 moderate COPD by GOLD classifica tion November 24, 2024 7:33am Advance Directives No Advanced Directives Records Found Advance Directive Response Recorded Date/ Time Name of Medical Power of Oiler And Greaser Sonia Parkinson y March 18, 2022 12:22pm Advance Directives Yes October 03 10:28am Living Will Yes March 18 12:22pm Power of Oiler And Greaser Yes March 18 12:22pm Advance Directive Response Recorded Date/ Time Name of Medical Power of Oiler And Greaser Sonia Parkinson y March 18, 2022 11:22am Advance Directives Yes October 03 9:28am Living Will Yes March 18 11:22am Power of Oiler And Greaser Yes March 18 11:22am Advance Directive Response Recorded Date/ Time Name of Medical Power of Oiler And Greaser Sonia Parkinson y March 18, 2022 11:22am Advance Directives on File Yes Novem 2021 10:17am Name of Medical Power of Oiler And Greaser Sonia - April 27, 2022 10:17am Advance Directives Yes April 10:17am Living Will Yes April 27 10:17am Power of Oiler And Greaser Yes April 27, 2022 10:17am Advance Directive Response Recorded Date/ Time Advance Directives Yes April 11:17am Living Will Yes April 27 11:17am Power of Oiler And Greaser Yes April 27, 2022 11:17am Advance Directive Response Recorded Date/ Time Advance Directives No August 15 10:50am Living Will Yes August 16, 2023 10:50am Power of Oiler And Greaser No August 15 10:50am Date Activated Date Inactivated Comments 10/01/2014 3:04 PM 10/02/2014 12:03 PM Date Activated Date Inactivated Comments 11/12/2023 10:37 AM Date Activated Date Inactivated Comments 10/01/2014 3:04 PM 10/02/2014 12:03 PM Advance Directive Response Recorded Date/ Time Living Will Yes January 17, 2024 10:47am Do you have a Healthcare Power of Oiler And Greaser? Yes January 17, 2024 10:47am Living Will Yes August 16, 2023 11:50am Do you have a Healthcare Power of Oiler And Greaser? No August 16, 2023 11:50am Advance Directives Yes January 16 7:22am Advance Directive Response Recorded Date/ Time Living Will Yes August 16, 2023 11:50am Do you have a Healthcare Power of Oiler And Greaser? No August 16, 2023 11:50am Living Will Yes January 17, 2024 10:47am Do you have a Healthcare Power of Oiler And Greaser? Yes January 17, 2024 10:47am Advance Directives Yes January 16 7:22am Reason for Referral Specialty Diagnoses / Procedures Referred By Contsergio t Referred To Contact Diagnoses Cardiomyopathy, unspecified type Atrial fibrillation, unspecified type Procedures CT CARDIAC PULMONARY VENOGRAM PA CHG CT HEART CONTRAST EVAL CARDIAC STRUCT/MORPH Elizabeth Carroll MD [address] [place] [id number] Referral ID Status Reason Start Date Expiration Date V isits Requested Visits Authorized [id number] Pending Review 07/11/2023 08/04/2024 1 1 Specialty Diagnoses / Procedures Referred By Contac t Referred To Contact Diagnoses Atrial fibrillation, unspecified type Procedures MOBILE CARDIAC TELEMETRY Krystal Perez, PIGMENT MIXER-HYDRAULIC RIVETER [address] [address] Referral ID Status Reason Start Date Expiration Date V isits Requested Visits Authorized [id number] New Request 11/12/2023 12/06/2024 1 1 Summary Purpose Family History No Family History Records Found Additional Source Comments Care Teams (unrecognized sec tion and content) Team Status: Active Member Role Status Dates Dr. Thien Singh DO Family Provider Active Dr. Thien Singh DO Primary Care Provider Active Team Status: Inactive Member Role Status Dates Dr. Thien Singh DO Primary Care Provider, Referrin g Provider Active Dr. Mil Ji MD Attending Provider Active Team Status: Inactive Member Role Status Dates Dr. Thien Singh DO Primary Care Provider, Referrin g Provider Active Priscilla Hunt Attending Provider Active Team Status: Inactive Member Role Status Dates Dr. Thien Singh DO Primary Care Provider, Referrin g Provider Active Macy Kulkarni VENETIAN BLIND TAPE CUTTER, 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 Attending Provider Active Team Status: Inactive Member Role Status Dates Dr. Thien Singh DO Primary Care Provider, Attendin g Provider Active Team Status: Inactive Member Role Status Dates Dr. Thien iSngh DO Primary Care Provider Active Dr. Mil Ji MD Attending Provider Active Team Status: Inactive Member Role Status Dates Dr. Thien Singh DO Primary Care Provider, Referrin g Provider Active Tanya Hoffmann VENETIAN BLIND TAPE CUTTER, 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 Attending Provider Active Team Status: Inactive Member Role Status Dates Dr. Thien Singh DO Primary Care Provider Active Tanya Hoffmann VENETIAN BLIND TAPE CUTTER, 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 Attending Provider, Referring P beth Active Team Status: Active Member Role Status Dates Dr. Thien Singh DO Primary Care Provider Active Dr. Collin Lutz MD Referring Provider, Other Provide r Active Elizabeth Christian VENETIAN BLIND TAPE CUTTER, 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 Other Provider Active Nilda Silverman PA, PA Attending Provider Active Team Status: Active Member Role Status Dates Dr. Thien Singh DO Primary Care Provider Active Dr. Collin Lutz MD Attending Provider, Referring Provider, Other Provider Active Elizabeth Christian VENETIAN BLIND TAPE CUTTER, 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 Other Provider Active Team Status: Active Member Role Status Dates Dr. Thien Singh DO Primary Care Provider Active Dr. Collin Lutz MD Referring Provider, Other Provide r Active Elizabeth Christian VENETIAN BLIND TAPE CUTTER, 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 Other Provider Active Dr. Mil Ji MD Attending Provider Active Team Status: Inactive Member Role Status Dates Dr. Thien Singh DO Primary Care Provider Active Dr. 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 Thien Singh DO Primary Care Provider Active Team Status: Inactive Member Role Status Dates Dr. Thien Singh DO Primary Care Provider Active Start: October 02, 2024 End: October 02, 2024 Dr. Thien Singh DO Referring Provider Active Start: October 02, 2024 End: October 02, 2024 Tanya Hoffmann VENETIAN BLIND TAPE CUTTER, 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 Attending Provider Active Start: October 02, 2024 End: October 02, 2024 Team Status: Inactive Member Role Status Dates Dr. Thien Singh DO Primary Care Provider Active Start: October 02, 2024 End: October 02, 2024 Tanya Hoffmann VENETIAN BLIND TAPE CUTTER, 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 Attending Provider Active Start: October 02, 2024 End: October 02, 2024 Tanya Hoffmann VENETIAN BLIND TAPE CUTTER, 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 Referring Provider Active Start: October 02, 2024 End: October 02, 2024 Team Status: Inactive Member Role Status Dates Dr. Thien Singh DO Primary Care Provider Active Start: October 26, 2024 End: October 26, 2024 Macy Kulkarni VENETIAN BLIND TAPE CUTTER, 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 Attending Provider Active Start: October 26, 2024 End: October 26, 2024 Macy Kulkarni VENETIAN BLIND TAPE CUTTER, 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 Referring Provider Active Start: October 26, 2024 End: October 26, 2024 Team Status: Inactive Member Role Status Dates Dr. Thien Singh DO Primary Care Provider Active Start: November 24, 2024 End: November 24, 2024 Dr. Thien Singh DO Referring Provider Active Start: November 24, 2024 End: November 24, 2024 Macy Klukarni VENETIAN BLIND TAPE CUTTER, 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 Attending Provider Active Start: November 24, 2024 End: November 24, 2024 Team Status: Active Member Role/Relationship Status Dates Dr. Thien Singh DO Primary Care Provider Active Team Status: Inactive Member Role/Relationship Status Dates Dr. Thien Singh DO Primary Care Provider Active Start: October 02, 2024 End: October 02, 2024 Dr. Thien Singh DO Referring Provider Active Start: October 02, 2024 End: October 02, 2024 Tanya Hoffmann VENETIAN BLIND TAPE CUTTER, 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 Attending Provider Active Start: October 02, 2024 End: October 02, 2024 Team Status: Inactive Member Role/Relationship Status Dates Dr. Thien Singh DO Primary Care Provider Active Start: October 02, 2024 End: October 02, 2024 Tanya Hoffmann VENETIAN BLIND TAPE CUTTER, 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 Attending Provider Active Start: October 02, 2024 End: October 02, 2024 Tanya Hoffmann VENETIAN BLIND TAPE CUTTER, 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 Referring Provider Active Start: October 02, 2024 End: October 02, 2024 Team Status: Inactive Member Role/Relationship Status Dates Dr. Thien Singh DO Primary Care Provider Active Start: October 26, 2024 End: October 26, 2024 Macy Kulkarni VENETIAN BLIND TAPE CUTTER, 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 Attending Provider Active Start: October 26, 2024 End: October 26, 2024 Macy Kulkarni NP, 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 Referring Provider Active Start: October 26, 2024 End: October 26, 2024 Team Status: Inactive Member Role/Relationship Status Dates Dr. Thien Singh DO Primary Care Provider Active Start: November 24, 2024 End: November 24, 2024 Dr. Thien Singh DO Referring Provider Active Start: November 24, 2024 End: November 24, 2024 Macy Kulkarni NP, 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 Attending Provider Active Start: November 24, 2024 End: November 24, 2024 Team Status: Inactive Member Role/Relationship Status Dates Dr. Thien Singh DO Primary Care Provider Active Start: January 12, 2025 End: January 12, 2025 Dr. Thien Singh DO Referring Provider Active Start: January 12, 2025 End: January 12, 2025 Dr. Collin Lutz MD Attending Provider Active S tart: January 12, 2025 End: January 12, 2025 Goals (unrecognized section and content) Goals may be documented in a n alternate sectionGoals may be documented in an alternate sectionGoals may be documented in an alternate sectionGoals may be documented in an alternate sectionGoals may be documented in an alternate sectionGoals may be documented in an alternate section Reason for Visit (unrecogniz ed section and content) Specialty Diagnoses / [facility]erred To Contact Diagnoses Cardiomyopathy, unspecified type Atrial fibrillation, unspecified type Procedures CT CARDIAC PULMONARY VENOGRAM PA CHG CT HEART CONTRAST EVAL CARDIAC STRUCT/MORPH Elizabeth Carroll MD [address] [place] [address] Referral ID Status Reason Start Date Expiration Date V isits Requested Visits Authorized [id number] Pending Review 07/11/2023 08/04/2024 1 1 Specialty Diagnoses / Procedures [facility] To Contact Diagnoses Cardiomyopathy, unspecified type Atrial fibrillation, unspecified type Cardiomyopathy, unspecified type [I42.9] Atrial fibrillation, unspecified type [I48.91] Procedures PA COMPRE EP EVAL ABLTJ ATR FIB PULM VEIN ISOLATION ABLATION SCHED INTERCARDIAC A-FIB TRANSEPTAL BY PULM VEIN ISOLATION W/EP EVAL ([id number]) Elizabeth Carroll MD [address] [place] [address] [facility] [address] [place] [address] Referral ID Status Reason Start Date Expiration Date Visits Re quested Visits Authorized [id number] 1 1 Scheduled Active and Recently Administ ered Medications (unrecognized section and content) Medication Order 11/10/2023 11/11/2023 11/12/2023 apixaban (ELIQUIS) tablet 5 mg 5 mg, Oral, EVERY 12 HOURS, First dose on Sat11/12/23 at 1900, Until Discontinued, Due to the rapid onset of action of apixaban, no overlap is needed with other anticoagulants (e.g. enoxaparin, heparin)., Indications: Atrial Fibrillation, Post-op/Post-Proc Continuous Medication Order 11/10/2023 11/11/2023 11/12/2023 Sodium chloride 0.9% IV solution 500 mL Intravenous, at 20 mL/hr, CONTINUOUS, Starting on Sat11/12/23 at 0545, Until Sat11/12/23 at 1728, KVO fluids, start the morning of procedure., Pre-op/Pre-Proc 0618 ($$New Bag$$ - Provider: Alley Chavez RN)0741 (Paused - Provider: YRN Oshea - Comment: Switch to gravity)0742 ($$New Bag$$ - Provider: YRN Oshea)0830 (Stopped - Provider: YRN Oshea) PRN Medication Order 11/10/2023 11/11/2023 11/12/2023 Acetaminophen (TYLENOL) tablet 650 mg 650 mg, Oral, EVERY 6 HOURS NEEDED, Starting on Sat11/12/23 at 1035, Until Sat11/12/23 at 1728, Mild Pain, Maximum dose of acetaminophen is 4000 mg from all sources in 24 hours., Post-op/Post-Proc alum/mag hydrox.-simethicone oral suspension 30 mL 30 mL, Oral, EVERY 6 HOURS NEEDED, Starting on Sat11/12/23 at 1035, Until Sat11/12/23 at 1728, Indigestion, Per 5 mL is equivalent to: (Alum-Mag Hydroxide 200-225 mg and Simethicone 20 mg) and (Alum-Mag Hydroxide 200-200 mg and Simethicone 20 mg), Post-op/Post-Proc HYDROmorphone (DILAUDID) injection 0.2 mg 0.2 mg, Intravenous, EVERY 10 MINUTES NEEDED, 10 doses, Starting on Sat11/12/23 at 0735, Until Sat11/12/23 at 1728, Moderate Pain, Severe Pain, May give a total of 2mg in PACU., Recovery HYDROmorphone (DILAUDID) injection 0.2 mg 0.2 mg, Intravenous, EVERY 2 HOURS NEEDED, Starting on Sat11/12/23 at 1035, Until Sat11/12/23 at 1728, Severe Pain, If unable to tolerate PO, Post-op/Post-Proc Lidocaine (XYLOCAINE) 10 mg/mL injection (CANCELED) NEEDED, Starting on Sat11/12/23 at 0822, Until Sat11/12/23 at 1043, Intra-op/Intra-Proc 0822 (Given - Provid er: Sierra Orozco MD) magnesium oxide (MAG-OX) tablet 800 mg 800 mg, Oral, ADMINISTER DIRECTED, Starting on Sat11/12/23 at 1035, Until Sat11/12/23 at 1728, See admin instructions, For Magnesium 1.6 - 2.0, give 800 mg of Magnesium oxide, Post-op/Post-Proc Magnesium sulfate 4 g in sterile water 50 ml premix IVPB 4 g, Intravenous, Administer over 4 Hours, ADMINISTER DIRECTED, Starting on Sat11/12/23 at 1035, Until Sat11/12/23 at 1728, Other, Magnesium Replacement Therapy, If Magnesium less than 1.6, give 4 g Magnesium Sulfate IVPB over 4 hours (may give over 1 hour if arrhythmias present)., Post-op/Post-Proc Melatonin tablet 3 mg 3 mg, Oral, DAILY AT BEDTIME NEEDED, Starting on Sat11/12/23 at 1035, Until Sat11/12/23 at 1728, Insomnia, Post-op/Post-Proc Ondansetron 4mg/2ml (ZOFRAN) injection 4 mg 4 mg, Intravenous, ONCE NEEDED, 1 dose, Starting on Sat11/12/23 at 0735, Until Sat11/12/23 at 1728, Nausea / Vomiting, FIRST line antiemetic, Do not administer within 6 hours of intra-operative dose., Recovery Ondansetron 4mg/2ml (ZOFRAN) injection 4 mg 4 mg, Intravenous, EVERY 4 HOURS NEEDED, Starting on Sat11/12/23 at 1035, Until Sat11/12/23 at 1728, Nausea / Vomiting, Post-op/Post-Proc oxyCODONE (ROXICODONE) tablet 5 mg(Linked Group 1) 5 mg, Oral, EVERY 4 HOURS NEEDED, Starting on Sat11/12/23 at 1035, Until Sat11/12/23 at 1728, Moderate Pain, Severe Pain, PRN for Moderate Pain. Use for Severe Pain if IV not available for use as initial dose. Higher dose may be administred if lower dose was previously documented as ineffective and did not result in adverse effects (RR<10, decrease in level of consciousness)., Post-op/Post-Proc oxyCODONE HCl (ROXICODONE) tablet 10 mg(Linked Group 1) 10 mg, Oral, EVERY 4 HOURS NEEDED, Starting on Sat11/12/23 at 1035, Until Sat11/12/23 at 1728, Moderate Pain, Severe Pain, PRN for Moderate Pain. Use for Severe Pain if IV not available for use as initial dose. Higher dose may be administred if lower dose was previously documented as ineffective and did not result in adverse effects (RR<10, decrease in level of consciousness), Post-op/Post-Proc Polyethylene glycol (MIRALAX) packet 17 g 17 g, Oral, DAILY NEEDED, Starting on Sat11/12/23 at 1035, Until Sat11/12/23 at 1728, Constipation 1st Line, Post-op/Post-Proc Potassium chloride (K-DUR) tablet ER 20 mEq 20 mEq, Oral, ADMINISTER DIRECTED, Starting on Sat11/12/23 at 1035, Until Sat11/12/23 at 1728, See admin instructions, If Cr 2.0 - 2.5 mg/dL For Potassium less than 3.6, give 20 mEq Potassium Chloride orally, recheck in AM. If Cr greater than 2.5 mg/dL contact physician/LIP for Potassium less than 3.6 for replacement orders. If potassium is low please administer magnesium first if indicated, Post-op/Post-Proc Potassium chloride (K-DUR) tablet ER 40-60 mEq 40-60 mEq, Oral, ADMINISTER DIRECTED, Starting on Sat11/12/23 at 1035, Until Sat11/12/23 at 1728, See admin instructions, If Cr less than 2.0 mg/dL 1. For Potassium 3.6 - 4.0, give 40 mEq of Potassium Chloride orally, recheck in the AM. 2. For Potassium less than 3.6, give 60 mEq Potassium Chloride orally, recheck in 8 hours. 3. If potassium is low please administer magnesium first if indicated., Post-op/Post-Proc Sodium chloride 0.9% IV solution Intravenous, at 1 mL/hr, CONTINUOUS NEEDED, Starting on Sat11/12/23 at 1035, Until Sat11/12/23 at 1728, See administration instructions, Per pressure bag for all transduced lines., Post-op/Post-Proc Linked Groups Order Group 1: oxyCODONE (ROXICODONE) tablet 5 mgJump to med 5 mg, Oral, EVERY 4 HOURS NEEDED, Starting on Sat11/12/23 at 1035, Until Sat11/12/23 at 1728, Moderate Pain, Severe Pain, PRN for Moderate Pain. Use for Severe Pain if IV not available for use as initial dose. Higher dose may be administred if lower dose was previously documented as ineffective and did not result in adverse effects (RR<10, decrease in level of consciousness)., Post-op/Post-Proc Or oxyCODONE HCl (ROXICODONE) tablet 10 mgJump to med 10 mg, Oral, EVERY 4 HOURS NEEDED, Starting on Sat11/12/23 at 1035, Until Sat11/12/23 at 1728, Moderate Pain, Severe Pain, PRN for Moderate Pain. Use for Severe Pain if IV not available for use as initial dose. Higher dose may be administred if lower dose was previously documented as ineffective and did not result in adverse effects (RR<10, decrease in level of consciousness), Post-op/Post-Proc (unrecognized sect ion and content) No Status Records FoundNo Status Records Found INFORMATION SOURCE (unrecogn ized section and content) DATE CREATED AUTHOR 11/14/2023 [facility] DATE CREATED AUTHOR AUTHOR'S JALYN CURRAN 01/20/2025 [facility] FOR RECORDS PERTAINING TO PATIENTS WHO ARE OR HAVE BEEN ENROLLED IN A CHEMICAL DEPENDENCY/SUBSTANCEABUSE PROGRAM, SOME INFORMATION MAY BE OMITTED. This clinical summary was aggregated from multiple sources. Caution should be exercised in using it in the provision of clinical care. This summary normalizes information from multiple sources, and as a consequence, information in this document may materially change the coding, format and clinical context of patient data. In addition, data may be omitted in some cases. CLINICAL DECISIONS SHOULD BE BASED ON THE PRIMARY CLINICAL RECORDS. [email or web address] provides no warranty or guarantee of the accuracy or completeness of information in this document.
--- NOTE | 2025-02-16 16:25 | STRESSREP_ITS ---
Stress Test Report Date: 02/16/2025 Procedure: Pharmacologic stress nuclear imaging study Indications: Coronary artery disease Consent: Per the patient Procedure: The patient underwent pharmacologic (Regadenoson 0.4mg ) evaluation with a peak heart rate of 122 beats per minute (77%predicted maximal heart rate) and a peak blood pressure of 128/96 mmHg. The baseline ECG demonstrated atrial flutter. The peak pharmacologic ECG failed to show any ischemic changes. Baseline atrial flutter. There was no complaint of chest discomfort during pharmacologic infusion or recovery. The patient was injected with 15.0 millicuries of technetium 99m Cardiolite and subsequently rest SPECT Cardiolite nuclear imaging was obtained in the horizontal long, vertical long, and short axis views. The patient underwent pharmacologic (Regadenoson) evaluation. The patient was injected with 45.0 millicuries of technetium 99m Cardiolite and subsequently stress SPECT Cardiolite nuclear imaging was obtained in the horizontal long, vertical long, and short axis views. A gated Cardiolite study at peak stress was obtained. The examination was stopped secondary to completion of protocol. Rest and stress SPECT Cardiolite nuclear imaging status post realignment, normalization, and attenuation correction demonstrate mildly reduced perfusion of the inferior wall post pharmacological stress, suggestive of mild inferior ischemia. Inferior hypokinesis noted on gated images. The gated Cardiolite study demonstrates myocardial thickening and inward wall motion. The reported LVEF is 49%. Impression: 1. Pharmacologic (Regadenoson) evaluation 2. Peak pharmacologic ECG with no ischemic changes. Baseline atrial flutter. 3. Baseline atrial flutter. 5. Reduced perfusion of the inferior wall post pharmacological stress, suggestive of mild inferior ischemia. 6. The gated Cardiolite study reports an LVEF of 49%. This note was generated with [employer] software. It may contain incorrect words, spelling, and punctuation that were not noted in checking the note before signing.
== END | disposition home or self-care (01) ==
LOC: CVS 06:39
PROVIDERS: PCP Family Medicine; Referring Provider Internal Medicine Cardiovascular Disease; Visit Provider Internal Medicine Cardiovascular Disease
DX: I25.10 Atherosclerotic heart disease of native coronary artery without angina pectoris (principal); Z95.5 Presence of coronary angioplasty implant and graft
CPT/HCPCS: 78452; 93017; A9500; A4216; J2785

== ENCOUNTER 2025-03-11 10:24 | Day surgery (SDC) | payer OTHER, SELFPAY ==
--- NOTE | 2025-03-04 07:35 | RAD_ITS ---
PROCEDURE: CHEST PA AND LATERAL 03/04/2025 REASON FOR EXAM: PRE-OPERATIVE: [facility] TECHNIQUE: Procedure Code: RADCXR Modality: DX Procedure: CHEST PA AND LATERAL COMPARISON: July 31, 2023, October 26, 2024 FINDINGS: Hardware: None Heart: Mildly enlarged. Mediastinum: Some narrowing of the diameter of the trachea. Review of prior CT showed a saber sheath trachea. Lungs: Upper lobe predominant emphysema. No consolidation. Bones: The bones are unremarkable. RAD/Chest PA and Lateral IMPRESSION: 1. Emphysema. Saber sheath trachea. Correlate with history of COPD and prior pulmonary function tests if available. Reading Location: [id number]
[2025-03-04 08:10] LABS: Hematocrit 45.5 % (40-54); Hemoglobin 15.4 g/dL (13.0-16.5); Immature Granulocytes Count 0.070 X10^3/uL (0.0-0.0); Mean Corp Hgb Conc 33.8 g/dL (32-36); Mean Corpuscular Volume 102.2 fL (80-94); Mean Platelet Vol. 10.3 fl (6.2-12.0); NRBC Flagged by Analyzer 0 % (0-5); Platelet Count 275 K/mm3 (150-450); RBC Distribution Width CV 13.3 % (11.6-14.6); RBC Distribution Width SD 51.0 fl (35.1-43.9); Red Blood Count 4.45 M/mm3 (4.6-6.2); White Blood Count 9.6 K/mm3 (4.4-11.0)
[2025-03-04 08:56] LABS: Anion Gap 10 (5-15); BUN 16 mg/dL (4-19); BUN/Creat Ratio 16.0 RATIO (10-20); Calcium,Total 9.1 mg/dL (7.6-11.0); Carbon Dioxide 22.4 mmol/L (21.0-32.0); Chloride 102 mmol/L (98-108); Glucose 105 mg/dL (70-99); Potassium 5.0 mmol/L (3.3-5.1)
[2025-03-10 08:28] VITALS: BMI 37.7
--- NOTE | 2025-03-11 12:30 | CL.D_ITS ---
Patient Name: LIZZETTE TIDWELL Study Date: 03/11/2025 Performing: Collin Lutz MD Ht: 70 inches 177.8 cm : 1960 Wt: 262.99 lbs 119.29 kg Age: 64 Gender: male BSA: 2.34 PROCEDURE(S) PERFORMED DC01-([id number])LHC/COR/LV CLINICAL PROFILE AND INDICATIONS Indications: Suspected CAD Heart Failure: None Stress/Imaging Date: 02/17/25Stress Test with SPECT MPI: Positive Low Risk CAD Presentations: Other: sob CONCLUSIONS Previously placed stent in the circumflex artery is noted to be patent. Mild diffuse coronary disease is noted mild cardiomyopathy is present. RECOMMENDATIONS Medical therapy and control of cardiac arrhythmia DESCRIPTION OF PROCEDURE The patient arrived to the procedure lab. The risks and benefits of the procedure as well as a full description of our services here and current unavailability of surgical backup were fully explained to the patient and/or their significant other prior to the catheterization. The Timeout was completed, verifying the correct patient and procedure. The patient's procedural site was prepped and draped in the usual fashion. Local anesthetic was given subcutaneously to right radial region with Lidocaine 2%. Using a modified Seldinger technique, arterial access was obtained via the right radial artery, a 6Fr sheath was inserted. Left Coronary Artery selective angiography was performed in multiple views using a 5 Fr. 4.0 Kihei catheter. Right Coronary Artery selective angiography was then performed in multiple views using a 5 Fr. 4.0 Kihei catheter. Left Ventriculography was performed in GUAMAN projection using a 5 Fr. Pigtail catheter. LV to AO pullback pressures were then recorded.The arterial sheath was pulled and a TR Band was applied for hemostasis CORONARY ANGIOGRAPHY DOMINANCE: Right Dominant LEFT HEART ASSESSMENT Left Ventricular Ejection Fraction: by LV Gram 50 % Normal LV wall motion Normal Left Ventricular systolic function LEFT MAIN: Mild calcification, Angiographically normal LEFT ANTERIOR DESCENDING ARTERY: Mildly diffusely diseased vessel with 1st and 2nd diagonal branches with moderate disease but no high-grade stenosis noted throughout. CIRCUMFLEX ARTERY: Nondominant but medium size vessel. First obtuse marginal branch with no significant disease in the 2nd and 3rd obtuse marginal branches are small with no significant disease the AV groove branch which becomes the third obtuse marginal branch is previously stented with minimal in-stent stenosis. RIGHT CORONARY ARTERY: Large dominant right coronary artery with mild diffuse disease approximately 20 to 30% stenosis. COMPLICATIONS No Complications PROCEDURE MEDICATIONS Fentanyl 50 mcg IV Versed 1 mg IV Versed 1 mg IV Oxygen: 2 L/min via nasal cannula Heparin given IA 03/11/2025 11:53:19 Verapamil 2.5mg, Ntg 100mcgs, 3000 units of Heparin given IA 03/11/2025 11:53:19 SUMMARY OF HEMODYNAMIC DATA Time AIR REST ECG 10:40:52 AO 123/97 (107) SA 12:04:23 LV 105/12, 16 12:11:06 LV 110/12, 18 12:11:14 LV 95/11, 15 12:11:51 LVp 101/14, 19 12:11:54 AOp 110/29 (69) 12:12:01 Signed By Collin Lutz MD On 03/11/2025 12:29:32 Collin Lutz MD
== END 2025-03-11 14:00 | disposition home or self-care (01) ==
PROVIDERS: Nurse Practitioner Family; PCP Family Medicine; Referring Provider Internal Medicine Cardiovascular Disease; Visit Provider Internal Medicine Cardiovascular Disease
DX: I25.10 Atherosclerotic heart disease of native coronary artery without angina pectoris (principal); J44.9 Chronic obstructive pulmonary disease, unspecified; I48.0 Paroxysmal atrial fibrillation; I42.8 Other cardiomyopathies; Z95.5 Presence of coronary angioplasty implant and graft; E66.9 Obesity, unspecified; E78.5 Hyperlipidemia, unspecified; F17.210 Nicotine dependence, cigarettes, uncomplicated
CPT/HCPCS: 36415; 71046; 80048; 85025; 93458; 99152; 99153; Q9967; C1769; C1894

== ENCOUNTER 2025-05-03 12:49 | Inpatient (IN) | payer OTHER, SELFPAY ==
--- NOTE | 2025-04-29 14:43 | PCM.HP.BLA ---
History and Physical Date of Admission: 05/03/25 Jass Teresa is a 64-year-old gentleman who presents here today for a cardioversion followed by hospital admission for sotalol therapy. Patient was admitted on March 18, 2022 for atrial fibrillation. He had not been taking his metoprolol and had weaned himself off of this. EKG demonstrated atrial fibrillation with RVR with a heart rate of 158. He was started on IV Cardizem. He was transitioned to p.o. metoprolol. However his heart rate was not improved so he was started on p.o. Cardizem. Echocardiogram did demonstrate an ejection fraction of 65% with no regional wall motion abnormalities. He has a past medical history of ablation in September [address] De Jesus at [facility]. He has undergone cardioversion in June, July, and September 2014 as well as April 2022. He does have CEM. He has been cardioverted and is due to see the medical assistant float for an ablation in October 2023. He proceeded with atrial flutter ablation with cardioversion on 11/12/[address] [facility] [address] Carroll. Patient underwent a stress test on 01/07/2024 which was abnormal. He underwent a cardiac catheterization on 01/17/2024 which demonstrated moderately severe disease noted in the main left circumflex artery, left anterior descending artery with mild diffuse disease, right coronary artery with mild diffuse disease. He underwent PCI to his mid to distal circumflex artery. During his recent stress test he was noted to be in atrial fibrillation/flutter. The stress test was noted to be abnormal. He proceeded with [facility] on 03/11/2025 that showed Previously placed stent in the circumflex artery is noted to be patent. Mild diffuse coronary disease is noted mild cardiomyopathy is present. Rhythm control was recommended. He was restarted on anticoagulation. As he has been on consistent anticoagulation he will proceed with cardioversion followed by sotalol admission. He states since heart catheterization he has been doing well but notes recent concerns for fluid accumulation. He has restarted his PRN lasix to assist. Intake Vital Signs: See EMR Intake Visit Reasons: DCCV with sotalol admission Fire Alarm Dispatcher Required: No Is patient in pain?: No Allergies No Known Allergies Allergy (Verified 02/16/25 09:54) Medications: See EMR Have you fallen in the past year?: No PFS Medical History Atherosclerotic heart disease of [place] coronary artery without angina pectoris Non-ischemic cardiomyopathy Atrial fibrillation with rapid ventricular response Asthma CEM (obstructive sleep apnea) Stage 2 moderate COPD by GOLD classification Obesity Depression Vitamin D deficiency Alcoholism Nicotine dependence Paroxysmal atrial fibrillation Atrial flutter Surgical History Stented coronary artery (01/17/24) History of cardioversion (04/27/22) History of umbilical hernia repair History of tonsillectomy History of cardiac radiofrequency ablation (11/12/23) Family History Unknown No problems noted. Other Adopted Social History Smoking Status: Former smoker quit date: 06/17/18 pack-years: 30 alcohol intake: current alcohol intake frequency: 0-2 drinks per day substance use type: does not use caffeine: Yes Type: coffee Number of servings: 1 ROS Const Const: Positive for fatigue and weakness Eyes Eyes: Negative for change in vision ENT ENT: Negative for dizziness or balance problems Cardio Chest Pain: No Palpitations: Yes (Rarely feels it) Edema: None Muscle aches with walking: None Resp Respiratory: Positive for SOB with activity; Negative for SOB at rest or SOB orthopnea\SOB lying down GI GI: Negative nausea or heartburn : Negative for hematuria or frequent nighttime urination/ nocturia Musc Musc: Negative for balance problems Skin Skin: Negative non-healing lesions or rash Neuro Neuro: Positive for lightheadedness (Occasionally) and weakness; Negative for dizziness, near syncope or syncope Endo Endo: Positive for fatigue Allergy Allergy/Immunology: Negative for rash Cardiology Exam Const Appearance: cooperative, healthy appearing, comfortable and no acute distress Nutritional Appearance: well nourished and obese Orientation: alert, awake and oriented x3 Head Head: normal to inspection Ears: hearing grossly normal bilaterally Nose: external nose normal Face and Sinus: face symmetric Mouth: moist mucous membranes Eyes General: appearance normal, both eyes and all related structures Eyelids: eyelids normal EOM: EOM intact bilaterally Neck Neck: normal visual inspection and no JVD Carotids: normal carotid upstroke Chest Chest inspection: normal inspection of the chest, symmetric chest movement and normal respiratory effort; Negative cough Auscultation: Bilateral: Clear to Auscultation Cardio Rate: normal Rhythm: irregular rhythm Heart sounds: S1 normal and S2 normal; Negative rub, gallop or murmur GI GI: normal to inspection and obese Neuro General: patient alert, patient awake, patient oriented x3 and CN's II-XI intact bilaterally Skin Skin: no rashes or lesions noted Extremities Pulses: Normal: Right Posterior Tibial Pulse, Left Posterior Tibial Pulse, Right Radial Pulse and Left Radial Pulse Lower Extremity Edema: None: Bilateral Psych Psychological: normal affect Supplemental Info Supplemental Information Echocardiogram 08/16/2023: Interpretation Summary Normal LV size. Left ventricular systolic function is lower limits of normal. There is mild global hypokinesis of the left ventricle. Mild (1+) eccentric mitral valve insufficiency. Contrast injection was performed. Echocardiogram 03/18/2022 Normal LV size. Left ventricular systolic function is normal. The estimated ejection fraction is 65 %. Contrast injection was performed. Pharmacologic myocardial perfusion stress test 01/07/2024 Conclusion: Abnormal pharmacologic myocardial perfusion stress test. Preserved ejection fraction. Inferior apical ischemia present Cardiac catheterization 03/11/2025: CONCLUSIONS Previously placed stent in the circumflex artery is noted to be patent. Mild diffuse coronary disease is noted mild cardiomyopathy is present. RECOMMENDATIONS Medical therapy and control of cardiac arrhythmia CORONARY ANGIOGRAPHY DOMINANCE: Right Dominant LEFT HEART ASSESSMENT Left Ventricular Ejection Fraction: by LV Gram 50 % Normal LV wall motion Normal Left Ventricular systolic function LEFT MAIN: Mild calcification, Angiographically normal LEFT ANTERIOR DESCENDING ARTERY: Mildly diffusely diseased vessel with 1st and 2nd diagonal branches with moderate disease but no high-grade stenosis noted throughout. CIRCUMFLEX ARTERY: Nondominant but medium size vessel. First obtuse marginal branch with no significant disease in the 2nd and 3rd obtuse marginal branches are small with no significant disease the AV groove branch which becomes the third obtuse marginal branch is previously stented with minimal in-stent stenosis. RIGHT CORONARY ARTERY: Large dominant right coronary artery with mild diffuse disease approximately 20 to 30% stenosis. Assessment and Plan Assessment and Plan (1) Stented coronary artery: Status: Chronic Comment: 2.5X22 overlapping with 2.25 X15 mm [place] Tho MILE, Mid to Distal CX Plan: Patient has a history of coronary artery disease with recent stenting to his mid to distal circumflex on 01/17/2024. Heart catheterization on 03/11/2025 resulted in ongoing medical therapy. (2) Paroxysmal atrial fibrillation: Status: Chronic Comment: RFA PVI-10/01/2014; DCCV on 06/2014, 07/2014, 09/2014, 04/27/22; Plan: Patient has a history of paroxysmal atrial fibrillation. He is status post RFA in October of 2023 with previus RFA PVI in September 2014 and cardioversions 3 times in 2014 and once in 2021. He will proceed with cardioversion followed by hospital admission for sotalol (3) Non-ischemic cardiomyopathy: Status: Chronic Plan: Patient has a history of nonischemic cardiomyopathy. His most recent echocardiogram from 08/16/2023 demonstrated left ventricular systolic function on the lower limits of normal. This was reviewed with patient. He appears stable at this time. He will continue with his current medical therapy, along with monitoring for any concerning symptoms. (4) Hyperlipidemia: Status: Chronic Qualifiers: Hyperlipidemia type: unspecified Qualified Code(s): E78.5 - Hyperlipidemia, unspecified Plan: Patient has a history of hyperlipidemia. He will continue atorvastatin 80 mg daily, along with aggressive risk factor lifestyle modifications. (5) Fatigue: Status: Acute Plan: Patient acknowledges fatigue. This is thought to be multifactorial including obesity. GLP-1 medication can be of consideration (6) Smoking greater than 20 pack years: Status: Chronic Plan: Smoking cessation was strongly encouraged.
[2025-04-30 08:21] VITALS: BMI 37.7
[2025-04-30 09:03] LABS: Cholesterol 175 mg/dL (<=200); Low Density Lipoprotein Calc. 110 mg/dL; Triglycerides 162 mg/dL; Very Low Density Lipoprotein 32 mg/dL (5-40); cholesterol:hdl ratio screen 4.81
[2025-04-30 09:05] LABS: Anion Gap 11 (5-15); BUN 13 mg/dL (4-19); BUN/Creat Ratio 11.7 RATIO (10-20); Calcium,Total 9.6 mg/dL (7.6-11.0); Carbon Dioxide 25.5 mmol/L (21.0-32.0); Chloride 100 mmol/L (98-108); Estimated Creatinine Clearance 92.66 ml/min (50-250); Glucose 118 mg/dL (70-99); Potassium 4.9 mmol/L (3.3-5.1)
[2025-04-30 09:06] LABS: AST(SGOT) 52 U/L (<=37); Alanine Aminotransfer ALT/SGPT 48 U/L (<=46); Albumin, Serum 4.2 g/dL (3.4-4.8); Alkaline Phosphatase 115 U/L (40-129); Bilirubin, Direct < 0.08 mg/dL (0.00-0.30); Globulin 3.7 g/dL (2.2-4.2)
--- NOTE | 2025-05-03 11:28 | CON.PCM.CA_ITS ---
Assessment & Plan Assessment/Plan (1) Paroxysmal atrial fibrillation: PLAN: He does have a history of symptomatic paroxysmal atrial fibrillation. The plan at this time is to perform a DC cardioversion, continue anticoagulation and then switch him over to sotalol 120 mg twice a day. He will be monitored for 5 doses of the above and depending on the findings further recommendations made. (2) Atherosclerotic heart disease of [place] coronary artery without angina pectoris: PLAN: He does have a history of coronary artery disease status post PCI as noted above. The plan is to continue him on the current medical therapy. His recent cardiac catheterization in February 2025 demonstrated patency of the stent to the circumflex artery. (3) Non-ischemic cardiomyopathy: PLAN: He does have mild nonischemic cardiomyopathy with an estimated ejection fraction of 50%. The plan to be to continue him on the current medical therapy. (4) Hyperlipidemia: QUALIFIERS: Hyperlipidemia type: unspecified Qualified Code(s): E 78.5 - Hyperlipidemia, unspecified PLAN: He will continue with the current aggressive risk factor modification. He will continue on the high intensity statin HPI Consult Data Date of Consult: 05/03/25 HPI Narrative HPI Narrative: LIZZETTE TIDWELL, is a 64 M who presents for evaluation of his atrial fibrillation, cardioversion and admission for sotalol administration. He is a 64-year-old gentleman who presents here today for a cardioversion followed by hospital admission for sotalol therapy. Patient was admitted on March 18, 2022 for atrial fibrillation. He had not been taking his metoprolol and had weaned himself off of this. EKG demonstrated atrial fibrillation with RVR with a heart rate of 158. He was started on IV Cardizem. He was transitioned to p.o. metoprolol. However his heart rate was not improved so he was started on p.o. Cardizem. Echocardiogram did demonstrate an ejection fraction of 65% with no regional wall motion abnormalities. He has a past medical history of ablation in September [address] De Jesus at [facility]. He has undergone cardioversion in June, July, and September 2014 as well as April 2022. He does have CEM. He has been cardioverted and is due to see the communications and signals supervisor for an ablation in October 2023. He proceeded with atrial flutter ablation with cardioversion on 11/12/[address] [facility] [address] Carroll. Patient underwent a stress test on 01/07/2024 which was abnormal. He underwent a cardiac catheterization on 01/17/2024 which demonstrated moderately severe disease noted in the main left circumflex artery, left anterior descending artery with mild diffuse disease, right coronary artery with mild diffuse disease. He underwent PCI to his mid to distal circumflex artery. During his recent stress test he was noted to be in atrial fibrillation/flutter. The stress test was noted to be abnormal. He proceeded with [facility] on 03/11/2025 that showed Previously placed stent in the circumflex artery is noted to be patent. Mild diffuse coronary disease is noted mild cardiomyopathy is present. Rhythm control was recommended. He was restarted on anticoagulation. As he has been on consistent anticoagulation he will proceed with cardioversion followed by sotalol admission. He states since heart catheterization he has been doing well but notes recent concerns for fluid accumulation. He has restarted his PRN lasix to assist. [ ] [facility] Medical History Abnormal stress test Atherosclerotic heart disease of [place] coronary artery without angina pectoris Non-ischemic cardiomyopathy Atrial fibrillation with rapid ventricular response Asthma CEM (obstructive sleep apnea) Stage 2 moderate COPD by GOLD classification Obesity Depression Vitamin D deficiency Alcoholism Nicotine dependence Paroxysmal atrial fibrillation Atrial flutter Home Medications ?Medication ?Instructions ?Recorded ?Last Taken ?Type cholecalciferol (vitamin D3) 125 5,000 unit PO QDAY epstein pplement 07/25/17 08/16/23 History mcg (5,000 unit) capsule albuterol sulfate 90 mcg/actuation 2 puff inhalation Q 4H PRN 12/24/23 Unknown Rx aerosol inhaler (Ventolin HFA) shortness of breath or wheezing #18 grams apixaban 5 mg tablet (Eliquis) 5 mg PO BID #180 tabs 1 06/20/23 05/03/25 Rx fluticasone fur. 100 mcg-umeclid 1 inh inhalation QDAY #3 device 07/28/24 05/03/25 Rx 62.5 mcg-vilant 25 mcg inhalat.powder (Trelegy Ellipta) aspirin 81 mg chewable tablet 81 mg PO ONCE #90 tabs 0 02/16/25 03/11/25 Rx metoprolol tartrate 50 mg tablet 50 mg PO BID THIS IS A DOSE 04/14/25 05/03/25 Rx INCREASE, Please fill, he is OUT #180 tabs Allergy/AdvReac Type Severity Reaction Status Date / Time No Known Allergies Allergy Verified 02/16/25 09:54 Family History Unknown No problems noted. Other Adopted Surgical History Stented coronary artery (01/17/24) History of cardioversion (04/27/22) History of umbilical hernia repair History of tonsillectomy History of cardiac radiofrequency ablation (11/12/23) Social History Smoking Status: Former smoker quit date: 06/17/18 pack-years: 30 alcohol intake: current alcohol intake frequency: 0-2 drinks per day substance use type: does not use caffeine: Yes Type: coffee Number of servings: 1 ROS Constitutional Constitutional: Denies fever(s) or weight loss Eyes Eyes: Reports systems reviewed and no addt'l complaints, except as documented ENT HEENT: Reports systems reviewed and no addt'l complaints, except as documented Cardiovascular Cardiovascular: Reports palpitations; Denies chest pain at rest, chest pain with activity, dyspnea at rest, dyspnea on exertion, edema or paroxysmal nocturnal dyspnea Respiratory/Chest Respiratory/Chest: Denies dyspnea on exertion, productive cough, shortness of breath at rest or shortness of breath with exertion Gastrointestinal Gastrointestinal: Denies change in bowel habits, nausea, vomiting or weight changes Genitourinary Genitourinary: Denies difficulty urinating Musculoskeletal Musculoskeletal: Denies joint stiffness or muscle weakness Integumentary Integumentary: Denies lesions Neurologic Neurologic: Denies dizziness or syncope Psychiatric Psychiatric: Denies anxiety Endocrine Endocrinology: Denies excessive sweating or fatigue Hematologic/Lymphatic Hematologic/Lymphatic: Denies anemia Allergic/Immunologic Allergic/Immunologic: Denies seasonal rhinorrhea Physical Exam Const alert and oriented x3 Orientation / Consciousness: awake Eyes PERRL Neck Carotids: normal carotid upstroke Chest inspection of chest normal Cardio Rhythm: abnormal rhythm irregularly irregular GI normal to inspection, nondistended, normoactive bowel sounds Extremity no clubbing, cyanosis or edema Objective Data Vital Signs: Weight: 263 lb Body Mass Index (BMI) 37.7 Lab / Micro Data 04/30/25 07:28 Cardiology Labs/Tests Rhythm: EKG: ECHO: Stress Test: Cardiac Cath: PCI: CT Surgery: Holter monitor: EPS: PPM: CXR: Chest CT Scan: TIFFANIE Risk Score for UA/STEMI Assesmment (YES = 1) Risk Stratification Applicable: No
--- NOTE | 2025-05-03 12:51 | EKG12_ITS ---
Test Reason : AFIB Blood Pressure : */* mmHG Vent. Rate : 50 BPM Atrial Rate : 50 BPM P-R Int : 168 ms QRS Dur : 80 ms QT Int : 450 ms P-R-T Axes : 71 47 23 degrees QTcB Int : 410 ms Sinus bradycardia Low voltage QRS Borderline ECG When compared with ECG of 05-May-2025 10:13, MANUAL COMPARISON REQUIRED DATA IS UNCONFIRMED Confirmed by QUINTIN TALBERT, COLLIN ([id number]), editor sound EDSON MELVIN ([id number]) on 05/06/2025 8:57:54 AM Referred By: Collin Lutz Confirmed By: COLLIN LUTZ MD
--- NOTE | 2025-05-03 12:52 | PCM.OP.PRO2 ---
Bedside Procedural Bedside Procedure Information Date of Procedure: 05/03/25 Pre-Procedure Diagnosis: Atrial flutter Post-Procedure Diagnosis: Same Procedure Performed:: DC cardioversion personal coach: No Procedure Time Out: 12:35 Procedure Start Time: 12:40 Procedure Stop Time: 12:45 Special Medications: Intravenous propofol 100 mg Description of procedure: Patient was brought to cardiac catheterization lab in the postabsorptive nonsedated state. Informed consent was obtained. Anterior-posterior pads were applied. The patient was seen by Dr. Grover of the critical care division. 100 mg of intravenous propofol was administered and then 300 J of synchronized biphasic DC cardioversion energy were applied with prompt reversal to sinus rhythm. Patient tolerated the procedure well. Procedure findings: Successful DC cardioversion from atrial fibrillation to sinus rhythm. Admit patient for sotalol administration. DC metoprolol. Continue anticoagulation.
--- NOTE | 2025-05-03 13:09 | PRO.PCM_ITS ---
Procedures Pulmonary Pulmonary Procedures /Diagnostic Testin Con Sedation Bedside Procedural Bedside Procedure Information Date of Procedure: 05/03/25 Description of procedure: CONSCIOUS SEDATION REPORT DATE OF SERVICE: May 03, 2025 BRIEF HISTORY OF PRESENT ILLNESS: The patient is a 64-year-old male who presented to [facility] to undergo an elective outpatient cardioversion due to underlying atrial fibr illation. The patient did undergo a prior cardioversion in August 2023. The patient does have a history of obstructive sleep apnea and is compliant with nocturnal CPAP therapy. He also has a history of COPD. He is currently systemically anticoagulated on Eliquis. His last surface echocardiogram demonstrated an ejection fraction of 65%. The patient denied a history of any prior anesthetic complications. PHYSICAL EXAMINATION: VITAL SIGNS: Reviewed and were acceptable. GENERAL: The patient is an obese male, in no apparent distress, speaking in full sentences. HEENT: Normocephalic, atraumatic. Mucous membranes are moist and pink. Good mouth opening noted. Trachea is midline. Good neck mobility. MPII CHEST: S1, S2 irregularly irregular. No murmurs, rubs or gallops were noted. LUNGS: Clear to auscultation bilaterally without appreciable wheezes, rales or rhonchi. ABDOMEN: Soft, nontender, nondistended. Positive bowel sounds. EXTREMITIES: There is no clubbing, cyanosis or edema. ASA Class: II DESCRIPTION OF PROCEDURE: After confirmation of informed consent, the patient's anesthesia plan was reviewed in detail. Propofol was chosen. Risks and benefits were reviewed and the patient agreed to proceed. At 1239, the patient was given his first bolus of propofol. In total, the patient required 100 mg of propofol to achieve an appropriate level of sedation, after which time, he was given a 300 joule synchronized cardioversion by Dr. Lutz at the bedside. This was successful in achieving normal sinus rhythm. The patient was monitored until 1255, at which time he reached his baseline mental status and function. The patient tolerated the procedure well. COMPLICATIONS: None ESTIMATED BLOOD LOSS: None RECOMMENDATIONS: Okay to recover in usual fashion.
[2025-05-03 13:47] VITALS: BMI 37.8
[2025-05-03 14:00] VITALS: BP 103/72; PULSE 76; RESP 16; TEMP 36.3; O2SAT 97
[2025-05-03] MEDS: Cholecalciferol (Vit D3) 125 MCG CAPSULE (5,000 UNITS) PO (14:28)
--- OUTSIDE RECORDS SUMMARY | 2025-05-03 16:34 | XMS RPT_ITS | CCD ---
Author Organization [facility] Care Team Providers Care Sinker Winder Name Role Phone Dinesh Serene Zarate Unavailable Sandra Fernandez Unavailable Unavailable Sunita RN, [...] Attending Provider Dr. Desirae Salmon Other Provider [phone] Dr[address] Thien Singh Primary Care Provider [phone] Thien Singh Referring Provider [phone] Mil Ji Attending Provider Dr. Sammy [...] Provider Priscilla Hunt Attending Provider Unavailable Shad GARMENT PARTS CUTTER MACHINE, GARMENT PARTS CUTTER MACHINE-C Macy Attending Provider [phone] Dr. Mil Ji Attending Provider Dr. Thien Singh Primary Care Provider [phone] Dr. Thien Singh Referring Provider Dr. Mil Ji Attending Provider Tahira GARMENT PARTS CUTTER MACHINE, GARMENT PARTS CUTTER MACHINE-C Tanya Attending Provider Dr. Thien Singh Primary Care Provider Dr. Thien Singh Referring Provider [phone] Mil Ji Attending Provider Dr. Collin Lutz Referring Provider [phone] Collin Lutz Other Provider Anahi GARMENT PARTS CUTTER MACHINE, GARMENT PARTS CUTTER MACHINE-C Elizabeth Pisano Other Provider Andra SINGH, FRANCISCO [...] Care Unavailable GLEN, ELIZABETH D Attending Unavailable TAHIRA, TANYA Referring Unavailable SAMANTHA, THIEN A Primary Care Unavailable GLEN, ELIZABETH D Attending Unavailable HOFFMANN, TANYA Referring Unavailable SAMANTHA, THIEN A Primary Care Unavailable GLEN, ELIZABETH D Referring Unavailable SAMANTHA, THIEN A Primary Care Unavailable GLEN, ELIZABETH D Attending Unavailable Dr. Thien Singh DO Primary Care Provider Dr. Thien Singh DO Referring Provider Tahira GARMENT PARTS CUTTER MACHINE-C, Tanya Attending Provider Tahira GARMENT PARTS CUTTER MACHINE-C, Tanya Referring Provider Shad GARMENT PARTS CUTTER MACHINE-C, Macy Attending Provider Shad GARMENT PARTS CUTTER MACHINE-C, Macy Referring Provider Dr. Collin Lutz MD Attending Provider Dr. Thien Singh DO Primary Care Provider Dr. Thien Singh DO Referring Provider Dr. Collin Lutz MD Referring Provider Anahi GARMENT PARTS CUTTER MACHINE-C, Elizabeth Pisano Attending Provider Dr. Thien Singh DO Primary Care Provider Shad GARMENT PARTS CUTTER MACHINE-C, Macy Attending Provider Dr. Collin Lutz MD Other Provider Dr. Su Xiong MD Attending Provider Dr. Thien Singh DO Primary Care Physician Shad GARMENT PARTS CUTTER MACHINE-CMacy Attending Physician Dr. Collin Lutz MD Attending Physician Anahi GARMENT PARTS CUTTER MACHINE-C, Elizabeth Pisano Attending Physician Dr. Collin Lutz MD Nurse Practitioner Dr. Su Xiong MD Attending Physician Anahi GARMENT PARTS CUTTER MACHINE-C, Elizabeth Pisano Nurse Practitioner Thien Singh Primary Care Unavailable Roof GARMENT PARTS CUTTER MACHINE, Elizabeth Pisano Attending Unavailable Samantha, Thien Referring Unavailable Nelda, Chugwater Referring Unavailable Nelda, Collin Consulting Unavailable Su Xiong Attending Unavailable Samantha, Thien Primary Care Unavailable Hoffmann GARMENT PARTS CUTTER MACHINE, Tanya Attending Unavailable Samantha, Thien Primary Care Unavailable Samantha, Thien Referring Unavailable Samantha, Thien Primary Care Unavailable Kulkarni GARMENT PARTS CUTTER MACHINE, Macy Attending Unavailable Samantha, Thien Referring Unavailable Samantha, Thien Primary Care Unavailable Nelda, Chugwater Attending Unavailable Samantha, Thien Referring Unavailable Hoffmann GARMENT PARTS CUTTER MACHINE, Tanya Attending Unavailable Hoffmann GARMENT PARTS CUTTER MACHINE, Tanya Referring Unavailable Samantha, Thien Primary Care Unavailable Kulkarni GARMENT PARTS CUTTER MACHINE, Macy Attending Unavailable Kulkarni GARMENT PARTS CUTTER MACHINE, Amcy Referring Unavailable Samantha, Thien Primary Care Unavailable Samantha, Thine Primary Care Unavailable Nelda, Collin Referring Unavailable Nelda, Collin Attending Unavailable Nelda, Chugwater Attending Unavailable Nelda, Chugwater Referring Unavailable Samantha, Thien Primary Care Unavailable Nelda, Chugwater Referring Unavailable Anahi WILDE, Elizabeth Pisano Consulting Unavailable Nelda, Collin Attending Unavailable Samantha, Thien Primary Care Unavailable Allergies Allergy Classification Reported Allergen(s) Allergy Type Date of Onset Reaction(s) Facility (3 sources) NKDA drug allergy 07-14-2015 [place] [employer] Work Phone: (8 sources) NKD drug allergy 07-08-2014 [employer] Work Phone: Medications Current Medications Medication Drug Class(es) Dates Sig (Normalized) Sig (Original) apixaban 5 mg oral tablet (20 sources) Factor Xa Inhibitor Start: 11-12-2023 End: 11-12-2023 5 mg, Oral, EVERY 12 HOURS, First dose on Sat11/12/23 at 1900, Until Discontinued, Due to the rapid onset of action of apixaban, no overlap is needed with other anticoagulants (e.g. enoxaparin, heparin)., Indications: Atrial Fibrillation, Post-op/Post-Proc Start: 03-20-2022 End: 04-20-2024 take 1 tablet by mouth twice daily Apixaban (Eliquis) 5 mg tablet Discontinued 5 mg PO TWICE A DAY 180 3 March 05, 2023 10:42am April 20, 2024 11:49am take 1 tablet by karina th every twelve hours Eliquis 5 MG tablet Take 1 tablet by mouth every 12 hours. Active aspirin 81 mg chewable tablet (20 sources) Nonsteroidal Anti-inflammatory Drug Start: 02-16-2025 take 1 tablet by mouth once Aspirin 81 mg tablet,chewable Active 81 mg PO ONCE 90 3 February 16, 2025 12:00am Complies with drug therapy Start: 03-31-2024 End: 10-02-2024 take 1 tablet [...] TABS One tablet by mouth daily ASPIRIN [id number] Collin Lutz MD Start: 10-14-2014 End: 01-20-2015 take 1 tablet by mouth once daily ASPIRIN 81 MG TABS One tablet by mouth daily ASPIRIN [id number] Cristina Dorsey RN cholecalciferol 0.125 mg oral capsule (20 sources) Vitamin D Start: 07-25-2017 take 1 capsule by mouth once daily Cholecalciferol (Vitamin D3) 5,000 unit capsule Active 5000 U PO daily July 25, 2017 1:00am supplement Complies with drug therapy Start: 04-19-2015 take 1 tablet by karina th once daily VITAMIN D3 5000 UNIT CAPS One tablet by mouth daily for vitamin d deficiency CHOLECALCIFEROL [id number] Thien Singh DO Start: 05-24-2014 End: 01-13-2015 VITAMIN D3 63041 UNIT CAPS O ne tablet weekly for vitamin d deficiency CHOLECALCIFEROL [id number] Collin Lutz MD take 1 tablet by karina th once daily cholecalciferol 25 MCG (1000 UNIT) tablet Take 1 tablet by mouth daily. Active Bslhtrrtjmt-Fjtfluzng-Aoeaqs er (20 sources) Anticholinergic, Corticosteroid, beta2-Adrenergic Agonist Start: 07-28-2024 Tdmqozkvpwh-Jxcgpjwes-Zmlhqj er (Trelegy Ellipta) 100-62.5-25 mcg blister with device Active 1 NMA INHALATION daily 3 July 28, 2024 9:59am Chronic obstructive pulmonary disease, unspecified administer at approximately the same time(s) each day Complies with drug therapy Start: 07-28-2024 Fluticasone-Um eclidin-Vilanter (Trelegy Ellipta) 100-62.5-25 [...] time(s) each day Start: 07-28-2024 End: 07-28-2024 Dqgdjhpimdi-Omcgqxgyr-Onrxht er (Trelegy Ellipta) 100-62.5-25 mcg blister with device Discontinued 1 NMA INHALATION daily 3 July 28, 2024 9:51am July 28, 2024 9:59am Chronic obstructive pulmonary disease, unspecified administer at approximately the same time(s) each day Start: 07-28-2024 End: 07-28-2024 Ugnsvrxpiwp-Cswydawgy-Spwtue er (Trelegy Ellipta) 100-62.5-25 mcg blister with device Discontinued 1 NMA INHALATION daily July 28, 2024 9:51am July 28, 2024 9:59am administer at approximately the same time(s) each day Start: 07-25-2023 End: 07-28-2024 Vkknffujzrg-Odzcnfsuv-Uhbyjg er (Trelegy Ellipta) 100-62.5-25 mcg blister with device Discontinued 1 NMA INHALATION daily 3 July 25, 2023 7:59am July 28, 2024 9:51am Chronic obstructive pulmonary disease, unspecified administer at approximately the same time(s) each day Start: 07-25-2023 End: 07-28-2024 Ahejqdwtqoo-Bijhwfpth-Ujqkxq er (Trelegy Ellipta) 100-62.5-25 mcg blister with device Discontinued 1 NMA INHALATION daily July 25, 2023 7:59am July 28, 2024 9:51am administer at approximately the same time(s) each day Start: 07-25-2023 Fluticasone-Um eclidin-Vilanter (Trelegy Ellipta) 100-62.5-25 mcg blister with device Active 1 INH INHALATION daily July 25, 2023 6:59am administer at approximately the same time(s) each day Start: 02-19-2023 End: 07-25-2023 Guljeadketm-Semfywese-Rxpslk er (Trelegy Ellipta) 100-62.5-25 mcg blister with device Discontinued 1 NMA INHALATION daily 3 February 19, 2023 12:00am July 25, 2023 8:00am Chronic obstructive pulmonary disease, unspecified administer at approximately the same time(s) each day Start: 02-19-2023 End: 07-25-2023 Rohutzrydzb-Bfmamohel-Fagkos er (Trelegy Ellipta) 100-62.5-25 mcg blister with device Discontinued 1 NMA INHALATION daily February 19, 2023 12:00am July 25, 2023 8:00am administer at approximately the same time(s) each day Start: 02-19-2023 End: 07-25-2023 Lpguivzjfzz-Frgkduabs-Ynhxaj er (Trelegy Ellipta) 100-62.5-25 mcg blister with device Discontinued 1 INH INHALATION daily February 18, 2023 11:00pm July 25, 2023 7:00am administer at approximately the same time(s) each day Qtqktkntoup-Sfqxmbbob-Pwnhnx (TRELEGY ELLIPTA IN) (2 sources) Fluticasone-Umec lidin-Vilant (TRELEGY ELLIPTA IN) Inhale 1 Inhalation daily. Active metoprolol tartrate 25 mg or al tablet (20 sources) beta-Adren ergic Rachel Sta rt: take 2 tablets by mouth twice daily Metoprolol Tartrate 25 mg tablet Active 50 mg PO TWICE A DAY January 12, 2025 8:00am Complies with drug therapy Start: 01-12-2025 take 1 tablet by karina th twice daily Metoprolol Tartrate 25 mg tablet [...] scontinued 50 MG PO TWICE A DAY September 18, 2022 7:57am February 06, 2023 [...] 50 mg PO TWICE A DAY 60 0 March 19, 2022 9:24am March 20, 2022 2:40pm heart rate/bp Start: 05-26-2014 take 1 tablet by karina th three times daily METOPROLOL TARTRATE 100 MG TABS One tablet by mouth three times daily METOPROLOL TARTRATE [id number] Collin Lutz MD take 0.5 tablet by m out twice daily metoprolol 100 MG tab regular release Take 0.5 tablets by mouth 2 times daily. Active Completed/Discontinued Medications Medication Drug Class(es) Dates Sig [...] / HYDROcodone bitartrate 5 mg oral tablet (13 sources) Opioid Agonist Start: 03-05-2018 End: 09-24-2018 Hydrocodone-Acetami nophen 1 TABLET tablet Discontinued 1 {tbl} PO EVERY 6 HOURS NEEDED as needed for Pain 10 3 March 05, 2018 12:00am September 24, 2018 11:12am Dislocation of finger Unspecified dislocation of unspecified finger, initial encounter Start: 03-05-2018 End: 09-24-2018 take 1 tablet by mouth every six hours as needed Hydrocodone-Acetaminophen Discontinued 1 TABLET PO EVERY 6 HOURS NEEDED 10 March 04, 2018 11:00pm September 24, 2018 10:12am acetaminophen 325 mg / oxyCODONE hydrochloride 5 mg oral tablet (13 sources) Opioid Agonist Start: 04-14-2016 End: 07-26-2017 [...] 13, 2016 11:00pm July 26, 2017 1:43pm [id number] 200 actuat albuterol 0.09 mg/actuat metered dose inhaler (20 sources) beta2-Adrenergic Agonist Start: 07-20-2019 End: 12-24-2023 Albuterol Sulfate (Ventolin Hfa) 90 mcg/actuation HFA aerosol inhaler Discontinued 2 NMA INHALATION Q4H as needed for shortness of breath or wheezing 18 July 25, 2023 7:59am December 24, 2023 8:00am [...] for shortness of breath or wheezing 4 3 January 22, 2022 12:00am July 25, 2022 [...] One tablet by mouth daily AMIODARONE HCL [id number] Silvana Guillory LPN Start: 10-14-2014 AMIODARONE HCL 200 MG TABS One tablet by mouth twice daily X 1 week then once a day starting next Saturday10/22/14 AMIODARONE HCL [id number] Casey Lamas MD Start: 07-12-2014 End: 10-05-2014 take 1 tablet by mouth once daily Amiodarone 200 MG tablet Discontinued 200 mg PO DAILY 30 0 October 05, 2014 10:31am October 05, 2014 11:21am atorvastatin 80 mg oral tablet (6 sources) HMG-CoA Reductase Inhibitor Start: 01-18-2024 End: 11-24-2024 take 1 tablet by mouth at bedtime Atorvastatin (Lipitor) 80 mg tablet Discontinued 80 mg PO AT BEDTIME 60 0 January 18, 2024 12:00am November 24, 2024 7:46am azithromycin 250 mg oral tablet (6 sources) Macrolide Antimicrobial Start: 12-24-2023 End: 01-18-2024 take 2-5 tablets by mouth once daily Azithromycin 250 mg tablet Discontinued 0 PO .COMPLEX 6 0 December 24, 2023 12:00am January 18, 2024 1:19pm Smoking greater than 20 pack years Nicotine dependence, cigarettes, uncomplicated take 500 mg today (day 1), then 250 mg for 4 days (days 2-5) PO cetirizine hydrochloride 10 mg oral capsule (13 sources) Histamine-1 Receptor Antagonist Start: 08-06-2019 End: 01-22-2022 take 1 capsule by mouth at bedtime Cetirizine 10 mg capsule Discontinued 10 mg PO BEDTIME 30 3 August 06, 2019 1:00am January 22, 2022 9:18am cimetidine (6 sources) Histamine-2 Receptor Antagonist Start: 07-19-2015 End: 01-17-2016 EQ NICOTINE 7 MG/24HR PT24 Apply one patch daily NICOTINE [id number] Araceli Little LPN Start: 07-19-2015 EQ NICOTINE 7 MG/24HR PT24 Apply one patch daily NICOTINE [id number] Mil Ji ciprofloxacin 500 mg oral tablet (13 sources) Quinolone Antimicrobial Start: 04-14-2016 End: 07-26-2017 [...] 120 mg PO EVERY 12 HOURS 60 6 April 18, 2022 2:50pm May 07, 2022 11:54am Start: 05-24-2014 End: 05-26-2014 CARDIZEM 60 MG TABS One tabl et every 6 hours for atrial fibrillation DILTIAZEM HCL [id number] Collin Lutz MD Start: 05-21-2014 End: 05-24-2014 CARDIZEM 30 MG TABS 1 tablet every 6 hours for atrial fibrillation DILTIAZEM HCL [id number] Thien Lockutzman docusate sodium 100 mg oral capsule (13 sources) Start: 04-14-2016 End: 07-26-2017 take 1 capsule by mouth once daily Docusate Sodium 100 MG capsule Discontinued 100 mg PO DAILY April 14, 2016 12:00am July 26, 2017 2:44pm ergocalciferol 75440 unt oral tablet (8 sources) Provitamin D2 Compound Start: 10-14-2014 End: 04-19-2015 take 1 tablet by mouth once daily VITAMIN D (ERGOCALCIFEROL) 11432 UNIT CAPS One tablet by mouth daily ERGOCALCIFEROL [id number] Collin Lutz MD Start: 10-14-2014 End: 04-19-2015 take 1 tablet by mouth once daily VITAMIN D (ERGOCALCIFEROL) 05243 UNIT CAPS One tablet by mouth daily ERGOCALCIFEROL 79380261476 Collin Lutz MD 120 actuat fluticasone propionate 0.22 mg/actuat metered dose inhaler (13 sources) Corticosteroid Start: 08-06-2019 End: 11-04-2019 Fluticasone [...] 2019 5:42am furosemide 40 mg oral tablet (20 sources) Loop Diuretic Start: 02-07-2023 End: 10-02-2024 [...] 1-171 mL (1 source) Start: 11-08-2023 End: 05-24-2024 1-171 mL, Intravenous, ONCE, 1 dose, On Sat11/08/23 at 1115, Extravasation Risk, CT Procedure levoFLOXacin 500 mg oral tablet (16 sources) Quinolone Antimicrobial Start: 01-14-2015 End: 07-14-2015 take 1 tablet by mouth once daily LEVAQUIN 500 MG TABS One tablet by mouth daily x 7 days LEVOFLOXACIN [id number] Sushma Maharaj magnesium oxide 400 mg oral [...] Insomnia, Post-op/Post-Proc metroNIDAZOLE 500 mg oral tablet (13 sources) Nitroimidazole Antimicrobial Start: 04-14-2016 End: 07-26-2017 take 1 tablet by mouth every six hours Metronidazole 500 MG tablet Discontinued 500 mg PO EVERY 6 HOURS 40 April 14, 2016 12:00am July 26, 2017 2:43pm montelukast 10 mg oral tablet (13 sources) Leukotriene Receptor Antagonist Start: 08-06-2019 End: 05-05-2020 take 1 tablet by mouth once daily in the evening Montelukast 10 mg tablet Discontinued 10 mg PO EVERY EVENING 30 August 06, 2019 1:00am May 05, 2020 8:04am Nicotine (2 sources) Cholinergic Nicotinic Agonist Start: 07-19-2015 apply 1 dose transdermal route once daily EQ NICOTINE 7 MG/24HR PT24 Apply one patch daily NICOTINE [id number] Mil Ji Start: 07-19-2015 End: 01-17-2016 apply 1 dose transdermal route once daily EQ NICOTINE 7 MG/24HR PT24 Apply one patch daily NICOTINE [id number] Araceli Little LPN Tiotropium-Olodaterol (20 sources) Anticholinergic, [...] AERS 2 puffs INH daily TIOTROPIUM BROMIDE-OLODATEROL [id number] Macy Kulkarni POLARITY TESTER Start: 07-19-2015 take 2 puff(s) by in halation once daily STIOLTO RESPIMAT 2.5-2.5 MCG/ACT AERS 2 puffs INH daily TIOTROPIUM BROMIDE-OLODATEROL [id number] Macy Kulkarni POLARITY TESTER 2 ml ondansetron 2 mg/ml injection (2 [...] One tablet by mouth daily PANTOPRAZOLE SODIUM [id number] Collin Lutz MD polyethylene glycol 3350 97390 mg powder for oral solution (1 source) [...] tab by mouth for 3 days. PREDNISONE [id number] Mil Ji rivaroxaban 20 mg oral tablet [...] Until Sat11/08/23 at 1103, Flush, CT Procedure ticagrelor 90 mg oral tablet (12 sources) Start: 01-18-2024 End: 02-16-2025 take 1 tablet by mouth twice daily Ticagrelor (Brilinta) 90 mg tablet Discontinued 90 mg PO TWICE A DAY 60 11 March 17, 2024 3:59pm February 16, 2025 10:35am TIOTROPIUM BROMIDE MONOHYDRATE (8 sources) Anticholinergic Start: 01-14-2015 End: 01-17-2016 take 1 capsule by inhalation once daily SPIRIVA HANDIHALER 18 MCG CAPS One cap INH daily TIOTROPIUM BROMIDE MONOHYDRATE [id number] Mil Ji Start: 01-14-2015 End: 01-17-2016 take 1 capsule by inhalation once daily SPIRIVA HANDIHALER 18 MCG CAPS One cap INH daily TIOTROPIUM BROMIDE MONOHYDRATE 65777918985 Araceli Little LPN Start: 01-14-2015 take 1 capsule by in halation once daily SPIRIVA HANDIHALER 18 MCG CAPS One cap INH daily TIOTROPIUM BROMIDE MONOHYDRATE 18687765933 Mil Ji Problems Active Problems Problem Classification Problem Date Documented Da te Episodic/Chronic Alcohol-related disorders (4 sources) Alcoholism; Translations: [Alcohol dependence, uncomplicated] Onset: 05-21-2014 05-21-2014 Chronic Asthma (17 sources) Asthma; Translations: [Unspecified asthma, uncomplicated] 09-23-2019 Chronic Cardiac dysrhythmias (20 sources) Atrial fibrillation; Translations: [Atrial flutter] Onset: 05-21-2014 05-21-2014 Chronic Comment on above: RFA PVI-10/01/2014; D CCV on 06/2014, 07/2014, 09/2014, 04/27/22; Chronic obstructive pulmonary disease and bronchiectasis (20 sources) Moderate chronic obstructive pulmonary disease; Translations: [Chronic obstructive lung disease] Onset: 05-21-2014 Resolved: 04-12-2016 04-12-2016 Chronic Congestive heart failure; nonhypertensive (20 sources) Chronic systolic heart failure; Translations: [Chronic systolic (congestive) heart failure] Chronic Coronary atherosclerosis and other heart disease (7 sources) Coronary atherosclerosis; Translations: [Atherosclerotic heart disease of grayling coronary artery without angina pectoris] Onset: 02-26-2025 01-17-2024 Chronic Coronary atherosclerosis and other heart disease (16 sources) Stented coronary artery; Translations: [Presence of coronary angioplasty implant and graft] Onset: 01-17-2024 01-17-2024 Episodic Comment on above: 2.5X22 overlapping w ith 2.25 X15 mm [place] MILE, Mid to Distal CX Diabetes mellitus without complication (6 sources) Impaired glucose tolerance; Translations: [Prediabetes] Onset: 05-24-2014 05-24-2014 Episodic Disorders of lipid metabolism (20 sources) Dyslipidemia; Translations: [Hyperlipidemia] Onset: 05-24-2014 05-24-2014 Chronic Joint disorders and dislocations; trauma-related (13 sources) Dislocation of digit of hand; Translations: [Unspecified dislocation of unspecified finger, initial encounter] 03-05-2018 Episodic Mood disorders (4 sources) Depressive disorder; Translations: [Major depressive disorder, single episode, unspecified] 05-21-2014 Chronic Nonspecific chest pain (17 sources) Chest pain; Translations: [Chest pain, unspecified] Episodic Nutritional deficiencies (4 sources) Vitamin D deficiency; Translations: [Vitamin D deficiency, unspecified] Onset: 05-24-2014 05-24-2014 Chronic Other hematologic conditions (13 sources) Raised cardiac enzyme or marker; Translations: [Other specified abnormalities of plasma proteins] 09-22-2018 Episodic Other lower respiratory disease (20 sources) Cough; Translations: [Dyspnea on exertion] Onset: 07-21-2014 Resolved: 10-20-2014 03-15-2016 Episodic Other lower respiratory disease (10 sources) Dyspnea on exertion; Translations: [Other forms of dyspnea] Onset: 07-21-2014 Resolved: 10-20-2014 07-21-2014 Episodic Other lower respiratory disease (13 sources) Dyspnea; Translations: [Dyspnea, unspecified] 09-22-2018 Episodic Other lower respiratory disease (1 source) Other forms of dyspnea; Translations: [Other respiratory abnormalities] 02-06-2023 Episodic Other lower respiratory disease (1 source) Shortness of breath; Translations: [Shortness of breath] Onset: 04-12-2025 Episodic Other nutritional; endocrine; and metabolic disorders [...] (BMI) 34.0-34.9, adult] Onset: 05-26-2014 05-26-2014 Chronic [place]-; endo-; and myocarditis; cardiomyopathy (20 sources) Cardiomyopathy; Translations: [Cardiomyopathy in diseases classified elsewhere] Onset: 06-03-2014 Resolved: 02-07-2015 06-03-2014 Chronic Pneumonia (except that caused by tuberculosis or sexually transmitted disease) (13 sources) Pneumonia; Translations: [Pneumonia, unspecified organism] 09-22-2018 Episodic Residual codes; unclassified (17 sources) Obstructive sleep apnea syndrome; Translations: [Obstructive sleep apnea (adult) (pediatric)] 07-25-2022 Chronic Comment on above: Bipap 14/8 with resi dual AHI 0 Residual codes; unclassified (8 sources) Obstructive sleep apnea (adult) (pediatric); Translations: [Obstructive sleep apnea (adult)(pediatric)] Chronic Screening or history of mental health and substance abuse (4 sources) Tobacco user; Translations: [Tobacco use] Onset: 05-21-2014 05-21-2014 Chronic Substance-related disorders (20 sources) Substance abuse; Translations: [Cigarette smoker ] Onset: 05-21-2014 05-21-2014 Chronic Unclassified (6 sources) Sleep apnea; Translations: [Sleep apnea, unspecified] Onset: 05-26-2014 05-26-2014 Chronic Unclassified (2 sources) Longstanding persistent atrial fibrillation; Translations: [Longstanding persistent atrial fibrillation] Onset: 10-02-2014 Past or Other Problems Problem Classification Problem Date Documented Date Episodic/Chronic Abdominal pain (4 sources) Abdominal pain; Translations: [Abdominal pain] Onset: 05-21-2014 05-21-2014 Episodic Malaise and fatigue (20 sources) Fatigue; Translations: [Other fatigue] Onset: 05-21-2014 Resolved: 10-19-2014 05-21-2014 Episodic Other hematologic conditions (4 sources) Macrocytosis; Translations: [Other specified diseases of blood and blood-forming organs] Onset: 05-24-2014 05-24-2014 Episodic Other nutritional; endocrine; and metabolic disorders (8 sources) Abnormal weight gain; Translations: [Abnormal weight gain] Onset: 05-21-2014 Resolved: 10-19-2014 10-19-2014 Episodic Other screening for suspected conditions (not mental disorders or infectious disease) (7 sources) Cardiovascular stress test abnormal; Translations: [Abnormal result of other cardiovascular function study] Onset: 10-30-2024 01-26-2024 Episodic Results Test Name Value Interpretation Reference Range Facility Cardiac Cath Diagnosticon Cardiac Cath Diagnostic [facility] Services [address] [place] [id number] Cardiac Cath Diagnostic MR#: [id number] Acct: [id number] Name: LIZZETTE TIDWELL Rep #: [id number] : 1960 64 From: Collin Lutz MD PCP: Dr. Thien Singh, DO Status:[facility] Patient Name: LIZZETTE TIDWELL Study Date: 03/11/2025 Performing: Collin Lutz MD Ht: 70 inches 177.8 cm : 1960 Wt: 262.99 lbs 119.29 kg Age: 64 Gender: male BSA: 2.34 PROCEDURE(S) PERFORMED DC01-([id number])LHC/COR/LV CLINICAL PROFILE AND INDICATIONS Indications: Suspected CAD Heart Failure: None Stress/Imaging Date: 02/17/25Stress Test with SPECT MPI: Positive Low Risk CAD Presentations: Other: sob CONCLUSIONS Previously placed stent in the circumflex artery is noted to be patent. Mild diffuse coronary disease is noted mild cardiomyopathy is present. RECOMMENDATIONS Medical therapy and control of cardiac arrhythmia DESCRIPTION OF PROCEDURE The patient arrived to the procedure lab. The risks and benefits of the procedure as well as a full description of our services here and current unavailability of surgical backup were fully explained to the patient and/or their significant other prior to the catheterization. The Timeout was completed, verifying the correct patient and procedure. The patient's procedural site was prepped and draped in the usual fashion. Local anesthetic was given subcutaneously to right radial region with Lidocaine 2%. Using a modified Seldinger technique, arterial access was obtained via the right radial artery, a 6Fr sheath was inserted. Left Coronary Artery selective angiography was performed in multiple views using a 5 Fr. 4.0 [place] catheter. Right Coronary Artery selective angiography was then performed in multiple views using a 5 Fr. 4.0 [place] catheter. Left Ventriculography was performed in GUAMAN projection using a 5 Fr. Pigtail catheter. LV to AO pullback pressures were then recorded.The arterial sheath was pulled and a TR Band was applied for hemostasis CORONARY ANGIOGRAPHY DOMINANCE: Right Dominant LEFT HEART ASSESSMENT Left Ventricular Ejection Fraction: by LV Gram 50 % Normal LV wall motion Normal Left Ventricular systolic function LEFT MAIN: Mild calcification, Angiographically normal LEFT ANTERIOR DESCENDING ARTERY: Mildly diffusely diseased vessel with 1st and 2nd diagonal branches with moderate disease but no high-grade stenosis noted throughout. CIRCUMFLEX ARTERY: Nondominant but medium size vessel. First obtuse marginal branch with no significant disease in the 2nd and 3rd obtuse marginal branches are small with no significant disease the AV groove branch which becomes the third obtuse marginal branch is previously stented with minimal in-stent stenosis. RIGHT CORONARY ARTERY: Large dominant right coronary artery with mild diffuse disease approximately 20 to 30% stenosis. COMPLICATIONS No Complications PROCEDURE MEDICATIONS Fentanyl 50 mcg IV Versed 1 mg IV Versed 1 mg IV Oxygen: 2 L/min via nasal cannula Heparin given IA 03/11/2025 11:53:19 Verapamil 2.5mg, Ntg 100mcgs, 3000 units of Heparin given IA 03/11/2025 11:53:19 SUMMARY OF HEMODYNAMIC DATA Time AIR REST ECG 10:40:52 AO 123/97 (107) SA 12:04:23 LV 105/12, 16 12:11:06 LV 110/12, 18 12:11:14 LV 95/11, 15 12:11:51 LVp 101/14, 19 12:11:54 AOp 110/29 (69) 12:12:01 Signed By Collin Lutz MD On 03/11/2025 12:29:32 Collin Lutz MD 03/11/25 1230 Date Collin Lutz MD Cosigner Signature: Date (if indicated) CC: Dr. Collin Lutz MD; Dr. Thien Singh DO Date Dictated: 03/11/25 1153 Date Transcribed: 03/11/25 1229 Dry Pan Operator: CO Signed Normal [facility] Cardiac catheterization repo rtOrdered By: Collin Lutz on 03-11-2025 Cardiac catheterization study [facility] Imaging Services [address] [place] [address] Cardiac Cath Diagnostic MR#: [id number] Acct: [id number] Name: LIZZETTE TIDWELL Rep #:[id number] : 1960 64 From: Collin Lutz MD PCP: Dr. Thien Singh, Status:REG [facility] [place] Patient Name: LIZZETTE TIDWELL Study Date: 03/11/2025 Performing: Collin Lutz MD Ht: 70 inches 177.8 cm : 1960 Wt: 262.99 lbs 119.29 kg Age: 64 Gender: male BSA: 2.34 PROCEDURE(S) PERFORMED DC01-(07782)LHC/COR/LV CLINICAL PROFILE AND INDICATIONS Indications: Suspected CAD Heart Failure: None Stress/Imaging Date: 02/17/25Stress Test with SPECT MPI: Positive Low Risk CAD Presentations: Other: sob CONCLUSIONS Previously placed stent in the circumflex artery is noted to be patent. Mild diffuse coronary disease is noted mild cardiomyopathy is present. RECOMMENDATIONS Medical therapy and control of cardiac arrhythmia DESCRIPTION OF PROCEDURE The patient arrived to the procedure lab. The risks and benefits of the procedure as well as a full description of our services here and current unavailability of surgical backup were fully explained to the patient and/or their significant other prior to the catheterization. The Timeout was completed, verifying the correct patient and procedure. The patient's procedural site was prepped and draped in the usual fashion. Local anesthetic was given subcutaneously to right radial region with Lidocaine 2%. Using a modified Seldinger technique, arterial access was obtained via the right radial artery, a 6Fr sheath was inserted. Left Coronary Artery selective angiography was performed in multiple views using a 5 Fr. 4.0 [place] catheter. Right Coronary Artery selective angiography was then performed in multiple views using a 5 Fr. 4.0 [place] catheter. Left Ventriculography was performed in GUAMAN projection using a 5 Fr. Pigtail catheter. LV to AO pullback pressures were then recorded.The arterial sheath was pulled and a TR Band was applied for hemostasis CORONARY ANGIOGRAPHY DOMINANCE: Right Dominant LEFT HEART ASSESSMENT Left Ventricular Ejection Fraction: by LV Gram 50 % Normal LV wall motion Normal Left Ventricular systolic function LEFT MAIN: Mild calcification, Angiographically normal LEFT ANTERIOR DESCENDING ARTERY: Mildly diffusely diseased vessel with 1st and 2nd diagonal branches with moderate disease but no high-grade stenosis noted throughout. CIRCUMFLEX ARTERY: Nondominant but medium size vessel. First obtuse marginal branch with no significant disease in the 2nd and 3rd obtuse marginal branches are small with no significant disease the AV groove branch which becomes the third obtuse marginal branch is previously stented with minimal in-stent stenosis. RIGHT CORONARY ARTERY: Large dominant right coronary artery with mild diffuse disease approximately 20 to 30% stenosis. COMPLICATIONS No Complications PROCEDURE MEDICATIONS Fentanyl 50 mcg IV Versed 1 mg IV Versed 1 mg IV Oxygen: 2 L/min via nasal cannula Heparin given IA 03/11/2025 11:53:19 Verapamil 2.5mg, Ntg 100mcgs, 3000 units of Heparin given IA 03/11/2025 11:53:19 SUMMARY OF HEMODYNAMIC DATA Time AIR REST ECG 10:40:52 AO 123/97 (107) SA 12:04:23 LV 105/12, 16 12:11:06 LV 110/12, 18 12:11:14 LV 95/11, 15 12:11:51 LVp 101/14, 19 12:11:54 AOp 110/29 (69) 12:12:01 Signed By Collin Lutz MD On 03/11/2025 12:29:32 Collin Lutz MD 03/11/25 1230 Date _ Collin Lutz MD Cosigner Signature: Date (if indicated) CC: Dr. Collin Lutz MD; Dr. Thien Singh DO ~ Date Dictated: 03/11/25 1153 Date Transcribed: 03/11/25 1229 Dry Pan Operator: CO Signed [facility] Work Phone: Absolute lymphocyte countOrd ered By: Elizabeth Christian on 03-04-2025 Lymphocytes Auto (Unsp spec) [#/Vol] 1.97 10*3/uL 0.83-4.51 [facility] Absolute neutrophil countOrd ered By: Elizabeth Christian on 03-04-2025 Neutrophils (Bld) [#/Vol] 6.4 10*3/uL 2.0-7.7 [facility] Anion gap in Serum or Plasma Ordered By: Elizabeth Christian on 03-04-2025 Anion gap [Moles/Vol] 10 mmol/L 5-15 [facility] Automated lymphocyte count a s percentage of total leukocytesOrdered By: Elizabeth Christian on 03-04-2025 Lymphocytes/100 WBC Auto (Unsp spec) 20.5 % - [facility] BUN/creatinine ratioOrdered By: Elizabeth Christian on 03-04-2025 Urea nitrogen/Creatinine [Mass ratio] 16.0 mg/mg - [facility] Basic Metabolic Profile (BMP )on 03-04-2025 BUN/CRE 16.0 RATIO Normal - [facility] Comment on above: Performed By: #### L 100.0100, L500.2500 #### [facility] [address] [place], [address] Calcium [Mass/Vol] 9.1 mg/dL Normal 7.6-11.0 [facility] Comment on above: Performed By: #### L 100.0100, L500.2500 #### [facility] [address] [place], [address] Chloride [Moles/Vol] 102 mmol/L Normal 98-108 [facility] Comment on above: Performed By: #### L 100.0100, L500.2500 #### [facility] [address] [place], [address] CO2 [Moles/Vol] 22.4 mmol/L Normal 21.0-32.0 [facility] Comment on above: Performed By: #### L 100.0100, L500.2500 #### [facility] [address] [place], [address] Creatinine [Mass/Vol] 0.99 mg/dL Normal 0.70-1.20 [facility] Comment on above: Performed By: #### L 100.0100, L500.2500 #### [facility] [address] [place], [address] GAP 10 Normal 5-15 [facility] Comment on above: Performed By: #### L 100.0100, L500.2500 #### [facility] [address] [place], [address] GFR/1.73 sq M.predicted among non-blacks MDRD (S/P/Bld) [Vol rate/Area] 87 mL/min/{1.73_m2} Normal >60 [facility] Comment on above: Result Comment: mL/m in/1.73m2 CKD-EPI Creatinine Equation (2020) Performed By: #### L 100.0100, L500.2500 #### [facility] [address] [place], [address] Glucose [Mass/Vol] 105 mg/dL High 70-99 [facility] Comment on above: Performed By: #### L 100.0100, L500.2500 #### [facility] [address] [place], [address] Potassium [Moles/Vol] 5.0 mmol/L Normal 3.3-5.1 [facility] Comment on above: Performed By: #### L 100.0100, L500.2500 #### [facility] [address] [place], [address] Sodium [Moles/Vol] 135 mmol/L Normal 133-145 [facility] Comment on above: Performed By: #### L 100.0100, L500.2500 #### [facility] [address] [place], [address] Urea nitrogen [Mass/Vol] 16 mg/dL Normal 4-19 [facility] Comment on above: Performed By: #### L 100.0100, L500.2500 #### [facility] [address] [place], [address] Basophil percentageOrdered B y: Elizabeth Christian on 03-04-2025 Basophils/100 WBC (Bld) 0.6 % 0-1 [facility] CBC W/Diff, Automatedon 02-15-2024 Absolute Lymph 1.97 X10 3/uL Normal 0.83-4.51 [facility] Comment on above: Performed By: #### L 100.0100, L500.2500 #### [facility] [address] [place], [address] Absolute Neut 6.4 X10 3/uL Normal 2.0-7.7 [facility] Comment on above: Performed By: #### L 100.0100, L500.2500 #### [facility] [address] [place], [address] Basophils/100 WBC (Bld) 0.6 % Normal 0-1 [facility] Comment on above: Performed By: #### L 100.0100, L500.2500 #### [facility] [address] [place], [address] Eosinophils/100 WBC (Bld) 2.2 % Normal 0-5 [facility] Comment on above: Performed By: #### L 100.0100, L500.2500 #### [facility] [address] [place], [address] Erythrocyte distribution width (RBC) [Ratio] 13.3 % Normal 11.6-14.6 [facility] Comment on above: Performed By: #### L 100.0100, L500.2500 #### [facility] [address] [place], [address] Hematocrit (Bld) [Volume fraction] 45.5 % Normal 40-54 [facility] Comment on above: Performed By: #### L 100.0100, L500.2500 #### [facility] [address] [place], [address] Hemoglobin (Bld) [Mass/Vol] 15.4 g/dL Normal 13.0-16.5 [facility] Comment on above: Performed By: #### L 100.0100, L500.2500 #### [facility] [address] [place], [address] IG% 0.700 Normal 0.0-0.9 [facility] Comment on above: Result Comment: IG% - Immature Granulocytes (promyelocytes, myelocytes and metamyelocytes) > 1% indicates that a LEFT SHIFT is Present. Performed By: #### L 100.0100, L500.2500 #### [facility] [address] [place], [address] Lymphocytes/100 WBC (Bld) 20.5 % Normal 19-41 [facility] Comment on above: Performed By: #### L 100.0100, L500.2500 #### [facility] [address] [place], [address] MCH (RBC) [Entitic mass] 34.6 pg High 27.0-32.0 [facility] Comment on above: Performed By: #### L 100.0100, L500.2500 #### [facility] [address] [place], [address] MCHC (RBC) [Mass/Vol] 33.8 g/dL Normal 32-36 [facility] Comment on above: Performed By: #### L 100.0100, L500.2500 #### [facility] [address] [place], [address] MCV (RBC) [Entitic vol] 102.2 fL High 80-94 [facility] Comment on above: Performed By: #### L 100.0100, L500.2500 #### [facility] [address] [place], [address] Monocytes/100 WBC (Bld) 9.3 % Normal 0-10 [facility] Comment on above: Performed By: #### L 100.0100, L500.2500 #### [facility] [address] [place], [address] Neutrophils/100 WBC (Bld) 66.7 % Normal 47-70 [facility] Comment on above: Performed By: #### L 100.0100, L500.2500 #### [facility] [address] [place], [address] Nucleated RBC (Bld) [#/Vol] 0 10*3/uL Normal 0-5 [facility] Comment on above: Performed By: #### L 100.0100, L500.2500 #### [facility] [address] [place], [address] Platelet mean volume (Bld) [Entitic vol] 10.3 fL Normal 6.2-12.0 [facility] Comment on above: Performed By: #### L 100.0100, L500.2500 #### [facility] [address] [place], [address] Platelets (Bld) [#/Vol] 275 10*3/uL Normal 150-450 [facility] Comment on above: Performed By: #### L 100.0100, L500.2500 #### [facility] [address] [place], [address] RBC (Bld) [#/Vol] 4.45 10*6/uL Low 4.6-6.2 [facility] Comment on above: Performed By: #### L 100.0100, L500.2500 #### [facility] [address] [place], [address] RDW SD 51.0 fl High 35.1-43.9 [facility] Comment on above: Performed By: #### L 100.0100, L500.2500 #### [facility] [address] [place], [address] WBC (Bld) [#/Vol] 9.6 10*3/uL Normal 4.4-11.0 [facility] Comment on above: Performed By: #### L 100.0100, L500.2500 #### [facility] [address] [place], [place], [address] Carbon dioxide, total [Moles /volume] in Central venous bloodOrdered By: Elizabeth Christian on 03-04-2025 CO2 [Moles/Vol] 22.4 mmol/L 21.0-32.0 [facility] Chest PA and Lateralon 03-04 Chest PA and Lateral [facility] Imaging Services [address] [place] [address] Chest PA and Lateral MR#: [id number] Acct: [id number] Name: LIZZETTE TIDWELL Rep #: [id number] : 1960 M 64 From: Everardo Noriega MD PCP: Dr. Thien Singh DO Status: PRE SD Study: Chest PA and Lateral Date of Exam: 03/04/25 Exam# [id number] Ordering Dr: Elizabeth Christian GARMENT PART[employer] CUTTER MACHINE G[employer]MENT [employer] CUTTER MACHINE-C PROCEDURE: CHEST PA AND LATERAL 03/04/2025 REASON FOR EXAM: PRE-OPERATIVE: C TECHNIQUE: Procedure Code: RADCXR Modality: DX Procedure: CHEST PA AND LATERAL COMPARISON: July 31, 2023, October 26, 2024 FINDINGS: Hardware: None Heart: Mildly enlarged. Mediastinum: Some narrowing of the diameter of the trachea. Review of prior CT showed a saber sheath trachea. Lungs: Upper lobe predominant emphysema. No consolidation. Bones: The bones are unremarkable. RAD/Chest PA and Lateral IMPRESSION: 1. Emphysema. Saber sheath trachea. Correlate with history of COPD and prior pulmonary function tests if available. Reading Location: [id number] CC: G[employer]MENT [employer] CUTTER MACHINE-C Elizabeth Christian; Dr. Thien Singh DO Dry Pan Operator: Signed Normal [facility] Chloride assayOrdered By: Vane Christian on 03-04-2025 Chloride [Moles/Vol] 102 mmol/L 98-108 [facility] Eosinophil percentageOrdered By: Elizabeth Christian on 03-04-2025 Eosinophils/100 WBC (Bld) 2.2 % 0-5 [facility] Erythrocyte distribution wid th ratioOrdered By: Elizabeth Christian on 03-04-2025 Erythrocyte distribution width (RBC) [Ratio] 13.3 % 11.6-14.6 [facility] Erythrocyte distribution wid th standard deviationOrdered By: Elizabeth Christian on 03-04-2025 Erythrocyte distribution width (RBC) [Ratio] 51.0 fl High 35.1-43.9 [facility] Glomerular filtration rate ( GFR) estimation/1.73 sq m using serum, plasma, or whole bOrdered By: Elizabeth Christian on 03-04-2025 GFR/1.73 sq M.predicted among non-blacks MDRD (S/P/Bld) [Vol rate/Area] 87 mL/min/{1.73_m2} >60 [facility] Comment on above: mL/min/1.73m2 CKD-EP I Creatinine Equation (2020) Hematocrit Auto (Bld) [Volum e fraction]Ordered By: Elizabeth Christian on 03-04-2025 Hematocrit (Bld) [Volume fraction] 45.5 % 40-54 [facility] Hemoglobin measurementOrdere d By: Elizabeth Christian on 03-04-2025 Hemoglobin (Bld) [Mass/Vol] 15.4 g/dL 13.0-16.5 [facility] Immature granulocytes/100 WB C Auto (Bld)Ordered By: Elizabeth Christian on 03-04-2025 Immature granulocytes/100 WBC (Bld) 0.700 % 0.0-0.9 [facility] Comment on above: IG% - Immature Granu locytes (promyelocytes, myelocytes and metamyelocytes) > 1% indicates that a LEFT SHIFT is Present. MCV (mean corpuscular volume ) determinationOrdered By: Elizabeth Christian on 03-04-2025 MCV (RBC) [Entitic vol] 102.2 fL High 80-94 [facility] Mean corpuscular hemoglobin (MCH) determinationOrdered By: Elizabeth Christian 03-04-2025 MCH (RBC) [Entitic mass] 34.6 pg High 27.0-32.0 [facility] Mean corpuscular hemoglobin concentration (MCHC) determinationOrdered By: Elizabeth Christian 03-04-2025 MCHC (RBC) [Mass/Vol] 33.8 g/dL 32-36 [facility] Mean platelet volume determi nationOrdered By: Elizabeth Christian on 03-04-2025 Platelet mean volume (Bld) [Entitic vol] 10.3 fL 6.2-12.0 [facility] Monocyte percentageOrdered B y: Elizabeth Christian on 03-04-2025 Monocytes/100 WBC (Bld) 9.3 % 0-10 [facility] Neutrophil percentageOrdered By: Elizabeth Christian on 03-04-2025 Neutrophils/100 WBC (Bld) 66.7 % 47-70 [facility] Nucleated red blood cell per centageOrdered By: Elizabeth Christian on 03-04-2025 Nucleated RBC/100 WBC (Bld) [Ratio] 0 % 0-5 [facility] Platelet countOrdered By: Vane Christian on 03-04-2025 Platelets (Bld) [#/Vol] 275 10*3/uL 150-450 [facility] Potassium measurement (mass/ volume)Ordered By: Elizabeth Christian on 03-04-2025 Potassium (Unsp spec) [Mass/Vol] 5.0 mmol/L 3.3-5.1 [facility] RBC Auto (Bld) [#/Vol]Ordere d By: Elizabeth Christian on 03-04-2025 RBC (Bld) [#/Vol] 4.45 10*6/uL Low 4.6-6.2 [facility] Serum creatinine measurement (mass/volume)Ordered By: Elizabeth Christian on 03-04-2025 Creatinine [Mass/Vol] 0.99 mg/dL 0.70-1.20 [facility] Serum glucose measurement (m ass/volume)Ordered By: Elizabeth Christian on 03-04-2025 Glucose [Mass/Vol] 105 mg/dL High 70-99 [facility] Serum or plasma calcium haylie urement (mass/volume)Ordered By: Elizabeth Christian on 03-04-2025 Calcium [Mass/Vol] 9.1 mg/dL 7.6-11.0 [facility] Serum or plasma urea nitroge n measurement (mass/volume)Ordered By: Elizabeth Christian on 03-04-2025 Urea nitrogen [Mass/Vol] 16 mg/dL 4-19 [facility] Sodium levelOrdered By: Elizabeth Christian on 03-04-2025 Sodium [Moles/Vol] 135 mmol/L 133-145 [facility] White blood cell (WBC) count Ordered By: Elizabeth Christian on 03-04-2025 WBC (Bld) [#/Vol] 9.6 10*3/uL 4.4-11.0 [facility] Cardiology Visit Reporton Cardiology Visit Report [facility] [address] [place] [address] OFFICE VISIT Date of Service: 02/16/25 MR#: [id number] Acct: [id number] Name: LIZZETTE TIDWELL Rep #: [id number] : 1960 Provider: REYNALDO morales Age/Sex: 64/M Location[place] [facility] [place] Status: Signed HPI HPI History of Present [...] cardioverted and is due to see the supervisor dials for an ablation in October 2023. He [...] his mid to distal circumflex artery. He underwent a stress test this morning and was noted to be fibrillation/flutter. He was asked to present to the office to review further. He denies chest, arm, jaw, or neck discomfort. Knowledges rare episodes of palpitations. He denies bilateral lower extremity edema or claudication. He acknowledges shortness breath with activity. He denies shortness of breath at rest, orthopnea, cough, or PND. He acknowledges occasional lightheadedness. He acknowledges weakness and fatigue. He denies dizziness, near-syncope, or syncope. Intake Vital Signs 01/12/25 07:58 02/16/25 09:57 Height 5 ft 10 in 5 ft 10 in Weight: 262 lb 263 lb BMI 37.5 37.7 BP 133/89 H 121/80 H Blood Pressure Location Lt brachial Lt brachial Position Sitting Sitting Respiration 16 18 Pulse 54 L 118 H Pulse Source Monitor NIBP Intake Visit Reasons: afib in stress lab today, s/p ablation X2 Cloth Inspector Required: No Is patient in pain?: No Allergies No Known Allergies Allergy (Verified 02/16/25 09:54) Medications ???Medication ???Instructions ???Recorded ???Confirmed ???Type cholecalciferol (vitamin D3) 125 5,000 unit PO QDAY supplement 02/0102/16/25 History mcg (5,000 unit) capsule albuterol sulfate 90 mcg/actuation 2 puff inhalation Q4H PRN 02/16/25 Rx aerosol inhaler (Ventolin HFA) shortness of breath or wheezing #18 grams apixaban 5 mg tablet (Eliquis) 5 mg PO BID #180 tabs 04/20/2408/11 Rx fluticasone fur. 100 mcg-umeclid 1 inh inhalation QDAY #3 device 02/16/25 Rx 62.5 mcg-vilant 25 mcg inhalat.powder (Trelegy Ellipta) metoprolol tartrate 25 mg tablet 25 mg PO BID 01/12/25 02/16/25 His tory aspirin 81 mg chewable tablet 81 mg PO ONCE #90 tabs 02/16/25 Rx Have you fallen in the past year?: No PFSH Medical History Atherosclerotic heart disease of grayling coronary artery without angina pectoris Non-ischemic cardiomyopathy [...] servings: 1 ROS Const Const: Positive for fatigue and weakness Eyes Eyes: Negative for change in vision ENT ENT: Negative for dizziness or balance problems Cardio Chest Pain: No Palpitations: Yes (Rarely feels it) Edema: None Muscle a (more content not included)... Normal [facility] Cardiovascular stress test r eportOrdered By: Su Xiong on 02-16-2025 Study report [facility] Cardiovascular Services [address] [place] [address] MR#: [id number] Acct: [id number] Name: LIZZETTE TIDWELL Rep #: [id number] : 1960 64 From: Su Xiong MD Primary Care: Dr. Thien Singh DO Statu s: REG CLI Referring Dr: Collin Lutz MD Sex: M C Stress Test Report Date: 02/16/2025 Procedure: Pharmacologic stress nuclear imaging study Indications: Coronary artery disease Consent: Per the patient Procedure: The patient underwent pharmacologic (Regadenoson 0.4mg ) evaluation with a peak heart rate of 122 beats per minute (77%predicted maximal heart rate) and a peak blood pressure of 128/96 mmHg. The baseline ECG demonstrated atrial flutter. The peak pharmacologic ECG failedto show any ischemic changes. Baseline atrial flutter. There was no complaint of chest discomfort during pharmacologic infusion or recovery. The patient was injected with 15.0 millicuries of technetium 99m Cardiolite and subsequently rest SPECT Cardiolite nuclear imaging was obtained in the horizontal long, vertical long, and short axis views. The patient underwent pharmacologic (Regadenoson) evaluation. The patient was injected with 45.0 millicuries of technetium 99m Cardiolite and subsequently stress SPECT Cardiolite nuclear imaging was obtained in the horizontal long, vertical long, and short axis views. A gated Cardiolite study at peak stress was obtained. The examination was stopped secondary to completion of protocol. Rest and stress SPECT Cardiolite nuclear imaging status post realignment, normalization, and attenuation correction demonstrate mildly reduced perfusion of the inferior wall post pharmacological stress, suggestive of mild inferior ischemia. Inferior hypokinesis noted on gated images. The gated Cardiolite study demonstrates myocardial thickening and inward wall motion. The reported LVEF is 49%. Impression: 1. Pharmacologic (Regadenoson) evaluation 2. Peak pharmacologic ECG with no ischemic changes. Baseline atrial flutter. 3. Baseline atrial flutter. 5. Reduced perfusion of the inferior wall post pharmacological stress, suggestive of mild inferior ischemia. 6. The gated Cardiolite study reports an LVEF of 49%. This note was generated with [employer] software. It may contain incorrectwords, spelling, and punctuation that were not noted in checking the note beforesigning. 02/16/251626 Date _ Su Xiong MD CC: Dr. Collin Lutz MD; Dr. Thien Singh, DO ~ Date Dictated: 02/16/251624 Date Transcribed: 02/16/251624 Dry Pan Operator: JUVENCIO Ott [facility] Work Phone: Stress Reporton 02-16-2025 Stress Report [facility] [address] [place] [address] MR#: [id number] Acct: [id number] Name: LIZZETTE TIWDELL Rep #: [id number] : 1960 64 From: Su Xiong MD Primary Care: Dr. Thien Singh, DO Status: REG CLI Referring Dr: Collin Lutz MD Sex: M C Stress Test Report Date: 02/16/2025 Procedure: Pharmacologic stress nuclear imaging study Indications: Coronary artery disease Consent: Per the patient Procedure: The patient underwent pharmacologic (Regadenoson 0.4mg ) evaluation with a peak heart rate of 122 beats per minute (77%predicted maximal heart rate) and a peak blood pressure of 128/96 mmHg. The baseline ECG demonstrated atrial flutter. The peak pharmacologic ECG failed to show any ischemic changes. Baseline atrial flutter. There was no complaint of chest discomfort during pharmacologic infusion or recovery. The patient was injected with 15.0 millicuries of technetium 99m Cardiolite and subsequently rest SPECT Cardiolite nuclear imaging was obtained in the horizontal long, vertical long, and short axis views. The patient underwent pharmacologic (Regadenoson) evaluation. The patient was injected with 45.0 millicuries of technetium 99m Cardiolite and subsequently stress SPECT Cardiolite nuclear imaging was obtained in the horizontal long, vertical long, and short axis views. A gated Cardiolite study at peak stress was obtained. The examination was stopped secondary to completion of protocol. Rest and stress SPECT Cardiolite nuclear imaging status post realignment, normalization, and attenuation correction demonstrate mildly reduced perfusion of the inferior wall post pharmacological stress, suggestive of mild inferior ischemia. Inferior hypokinesis noted on gated images. The gated Cardiolite study demonstrates myocardial thickening and inward wall motion. The reported LVEF is 49%. Impression: 1. Pharmacologic (Regadenoson) evaluation 2. Peak pharmacologic ECG with no ischemic changes. Baseline atrial flutter. 3. Baseline atrial flutter. 5. Reduced perfusion of the inferior wall post pharmacological stress, suggestive of mild inferior ischemia. 6. The gated Cardiolite study reports an LVEF of 49%. This note was generated with [employer]oCentryxation software. It may contain incorrect words, spelling, and punctuation that were not noted in checking the note before signing. 02/16/25 1627 Date Su Xiong MD CC: Dr. Collin Lutz MD; Dr. Thien Singh, DO Date Dictated: 02/16/251624 Date Transcribed: 02/16/251624 Dry Pan Operator: JUVENCIO Signed Normal [facility] Cardiology Visit Reporton Cardiology Visit Report [facility] [address] [place] [address] OFFICE VISIT Date of Service: 01/12/25 MR#: [id number] Acct: [id number] Name: LIZZETTE TIDWELL Rep #: [id number] : 1960 Provider: Dr. Collin Lutz MD Age/Sex: 64/M Location[place] [facility] [place] Status: Signed HPI HPI History of Present [...] cardioverted and is due to see the supervisor dials for an ablation in October 2023. 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 Normal [facility] Pulmonary Visit Reporton Pulmonary Visit Report [facility] Pulmonary Medicine of [address] [place] [address] OFFICE VISIT Date of Service: 11/24/24 MR#: [id number] Acct: [id number] Name: LIZZETTE TIDWELL Rep #: [id number] : 1960 Provider: REYNALDO Kulkarni Age/Sex: 64/M Location[place] [facility] [place] Status: Signed Assessment and Plan Assessment and [...] (obstructive sleep apnea): Status: Chronic Comment: Bipap 14 with residual AHI 0 Plan: He is [...] Additional Comments: This note was generated with [employer] dictation software. It may contain incorrect words, [...] fu Chief Complaint: F/U CEM, Asthma, COPD Cloth Inspector Required: Edna DME Vendor: Terry Accompanied by: Self Is patient [...] mg (1/ (more content not included)... Normal [facility] Low Dose CT Lung Screeningon 10-26-[address] Lung Screening [facility] Imaging Services [address] [place] [address] Lung Screening MR#: [id number] Acct: [id number] Name: LIZZETTE TIDWELL Rep #: [id number] : 1960 M 63 From: Bill bowens MD PCP: Dr. Thien Singh DO Status: REG CLI Study: Low Dose CT Lung Screening Date of Exam: 10/26 Exam# [id number] Ordering Dr: Macy Kulkarni NP [employer] MACHINE-C PROCEDURE: LOW DOSE CT LUNG SCREENING 10/26/2024 REASON FOR EXAM: SMOKING HISTORY Current smoker. COPD. TECHNIQUE: Low Dose CT Lung screening without contrast. Coronal and Sagittal reconstruction series were provided. One or more dose reduction techniques were used (e.g., Automated exposure control, adjustment of the mA and/or kV according to patient size, use of iterative reconstruction technique). REFERENCE LINK: [employer] book Lung-RADS RADIATION DOSE SUMMARY: CTDlvol: 4.02 mGy [...] LDCT. Other Significant Findings: None. Reading Location: [id number] CC: G[employer]MENT [employer] CUTTER MACHINE-Mukund Kulkarni; Dr. Thien Singh DO Dry Pan Operator: Signed Normal [facility] Absolute lymphocyte countOrd ered By: Tanya Hoffmann on 10-02-2024 Lymphocytes Auto (Unsp spec) [#/Vol] 2.29 10*3/uL 0.83-4.51 [facility] Absolute neutrophil countOrd ered By: Tanya Hoffmann on 10-02-2024 Neutrophils (Bld) [#/Vol] 6.7 10*3/uL 2.0-7.7 [facility] Anion gap in Serum or Plasma Ordered By: Tanya Hoffmann on 10-02-2024 Anion gap [Moles/Vol] 11 mmol/L 5-15 [facility] Automated lymphocyte count a s percentage of total leukocytesOrdered By: Tanya Hoffmann on 10-02-2024 Lymphocytes/100 WBC Auto (Unsp spec) 22.7 % - [facility] BUN/creatinine ratioOrdered By: Tanya Hoffmann on 10-02-2024 Urea nitrogen/Creatinine [Mass ratio] 9.4 mg/mg Low 10- [facility] Basophil percentageOrdered B y: Tanya Hoffmann on 10-02-2024 Basophils/100 WBC (Bld) 0.9 % 0-1 [facility] Bilirubin directOrdered By: Tanya Hoffmann on 10-02-2024 Bilirubin.direct [Mass/Vol] 0.15 mg/dL 0.00-0.30 [facility] Bilirubin, Directon 10-03-19 25 Bilirubin.direct [Mass/Vol] 0.15 mg/dL Normal 0.00-0.30 [facility] Comment on above: Performed By: #### L 500.4050, L501.4700, L501.9520, L100.0100, L500.4100 ####[facility] [address] [place], [address] Bilirubin, totalOrdered By: Tanya Hoffmann on 10-02-2024 Bilirubin [Mass/Vol] 0.35 mg/dL 0.00-1.30 [facility] CBC W/Diff, Automatedon 09-15 Absolute Lymph 2.29 X10 3/uL Normal 0.83-4.51 [facility] Comment on above: Performed By: #### L 500.4050, L501.4700, L501.9520, L100.0100, L500.4100 #### [facility] [address] [place], [address] Absolute Neut 6.7 X10 3/uL Normal 2.0-7.7 [facility] Comment on above: Performed By: #### L 500.4050, L501.4700, L501.9520, L100.0100, L500.4100 #### [facility] [address] [place], [address] Basophils/100 WBC (Bld) 0.9 % Normal 0-1 [facility] Comment on above: Performed By: #### L 500.4050, L501.4700, L501.9520, L100.0100, L500.4100 #### [facility] [address] [place], [address] Eosinophils/100 WBC (Bld) 1.5 % Normal 0-5 [facility] Comment on above: Performed By: #### L 500.4050, L501.4700, L501.9520, L100.0100, L500.4100 #### [facility] [address] [place], [address] Erythrocyte distribution width (RBC) [Ratio] 13.9 % Normal 11.6-14.6 [facility] Comment on above: Performed By: #### L 500.4050, L501.4700, L501.9520, L100.0100, L500.4100 #### [facility] [address] [place], [address] Hematocrit (Bld) [Volume fraction] 46.5 % Normal 40-54 [facility] Comment on above: Performed By: #### L 500.4050, L501.4700, L501.9520, L100.0100, L500.4100 #### [facility] [address] [place], [address] Hemoglobin (Bld) [Mass/Vol] 15.7 g/dL Normal 13.0-16.5 [facility] Comment on above: Performed By: #### L 500.4050, L501.4700, L501.9520, L100.0100, L500.4100 #### [facility] [address] [place], [address] IG% 0.900 Normal 0.0-0.9 [facility] Comment on above: Result Comment: IG% - Immature Granulocytes (promyelocytes, myelocytes and metamyelocytes) > 1% indicates that a LEFT SHIFT is Present. Performed By: #### L 500.4050, L501.4700, L501.9520, L100.0100, L500.4100 #### [facility] [address] [place], [address] Lymphocytes/100 WBC (Bld) 22.7 % Normal 19-41 [facility] Comment on above: Performed By: #### L 500.4050, L501.4700, L501.9520, L100.0100, L500.4100 #### [facility] [address] [place], [address] MCH (RBC) [Entitic mass] 34.0 pg High 27.0-32.0 [facility] Comment on above: Performed By: #### L 500.4050, L501.4700, L501.9520, L100.0100, L500.4100 #### [facility] [address] [place], [address] MCHC (RBC) [Mass/Vol] 33.8 g/dL Normal 32-36 [facility] Comment on above: Performed By: #### L 500.4050, L501.4700, L501.9520, L100.0100, L500.4100 #### [facility] [address] [place], [address] MCV (RBC) [Entitic vol] 100.6 fL High 80-94 [facility] Comment on above: Performed By: #### L 500.4050, L501.4700, L501.9520, L100.0100, L500.4100 #### [facility] [address] [place], [address] Monocytes/100 WBC (Bld) 7.3 % Normal 0-10 [facility] Comment on above: Performed By: #### L 500.4050, L501.4700, L501.9520, L100.0100, L500.4100 #### [facility] [address] [place], [address] Neutrophils/100 WBC (Bld) 66.7 % Normal 47-70 [facility] Comment on above: Performed By: #### L 500.4050, L501.4700, L501.9520, L100.0100, L500.4100 #### [facility] [address] [place], [address] Nucleated RBC (Bld) [#/Vol] 0 10*3/uL Normal 0-5 [facility] Comment on above: Performed By: #### L 500.4050, L501.4700, L501.9520, L100.0100, L500.4100 #### [facility] [address] [place], [address] Platelet mean volume (Bld) [Entitic vol] 10.4 fL Normal 6.2-12.0 [facility] Comment on above: Performed By: #### L 500.4050, L501.4700, L501.9520, L100.0100, L500.4100 #### [facility] [address] [place], [address] Platelets (Bld) [#/Vol] 308 10*3/uL Normal 150-450 [facility] Comment on above: Performed By: #### L 500.4050, L501.4700, L501.9520, L100.0100, L500.4100 #### [facility] [address] [place], [address] RBC (Bld) [#/Vol] 4.62 10*6/uL Normal 4.6-6.2 [facility] Comment on above: Performed By: #### L 500.4050, L501.4700, L501.9520, L100.0100, L500.4100 #### [facility] [address] [place], [address] RDW SD 51.7 fl High 35.1-43.9 [facility] Comment on above: Performed By: #### L 500.4050, L501.4700, L501.9520, L100.0100, L500.4100 #### [facility] [address] [place], [address] WBC (Bld) [#/Vol] 10.1 10*3/uL Normal 4.4-11.0 [facility] Comment on above: Performed By: #### L 500.4050, L501.4700, L501.9520, L100.0100, L500.4100 #### [facility] [address] [place], [address] Calculated very low density lipoprotein (VLDL) cholesterol measurementOrdered By: Tanya Hoffmann on 10-02-2024 Calculated very low density lipoprotein (VLDL) cholesterol measurement 22 mg/dL 5-40 [facility] Carbon dioxide, total [Moles /volume] in Central venous bloodOrdered By: Tanya Hoffmann on 10-02-2024 CO2 [Moles/Vol] 22.4 mmol/L 21.0-32.0 [facility] Cardiology Visit Reporton Cardiology Visit Report [facility] [address] [place], [place] [address] OFFICE VISIT Date of Service: 10/02/24 MR#: [id number] Acct: [id number] Name: LIZZETTE TIDWELL Rep #: [id number] : 1960 Provider: REYNALDO fong Age/Sex: 63/M Location[place] [facility] [place] Status: Signed HPI HPI History of Present [...] cardioverted and is due to see the supervisor dials for an ablation in October 2023. 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 Other Adopted Social History Smoking Status: Former smoker quit date: 06/17/18 pack-years: 30 alcohol intake: current alcohol intake frequency: 0-2 drinks per day substance use type: does not use caffeine: Yes Type: coffee Number of servings: 1 ROS Const Const: Positive for fatigue; Negative for weakness, headache(s) or freq (more content not included)... Normal [facility] Chloride assayOrdered By: Chiki Hoffmann on 10-02-2024 Chloride [Moles/Vol] 104 mmol/L 98-108 [facility] Comprehensive Metabolic Prof ilon 10-02-2024 Albumin [Mass/Vol] 4.2 g/dL Normal 3.4-4.8 [facility] Comment on above: Performed By: #### L 500.4050, L501.4700, L501.9520, L100.0100, L500.4100 #### [facility] [address] [place], [address] Albumin/Globulin [Mass ratio] 1.3 {ratio} Normal 0.9-2.4 [facility] Comment on above: Performed By: #### L 500.4050, L501.4700, L501.9520, L100.0100, L500.4100 #### [facility] [address] [place], [address] ALK PHOS 114 U/L Normal 40-129 [facility] Comment on above: Performed By: #### L 500.4050, L501.4700, L501.9520, L100.0100, L500.4100 #### [facility] [address] [place], [address] ALT [Catalytic activity/Vol] 54 U/L High <=46 [facility] Comment on above: Performed By: #### L 500.4050, L501.4700, L501.9520, L100.0100, L500.4100 #### [facility] [address] [place], [address] AST [Catalytic activity/Vol] 50 U/L High <=37 [facility] Comment on above: Performed By: #### L 500.4050, L501.4700, L501.9520, L100.0100, L500.4100 #### [facility] [address] [place], [address] Bilirubin [Mass/Vol] 0.35 mg/dL Normal 0.00-1.30 [facility] Comment on above: Performed By: #### L 500.4050, L501.4700, L501.9520, L100.0100, L500.4100 #### [facility] [address] [place], [address] BUN/CRE 9.4 RATIO Low 10-20 [facility] Comment on above: Performed By: #### L 500.4050, L501.4700, L501.9520, L100.0100, L500.4100 #### [facility] [address] [place], [address] Calcium [Mass/Vol] 9.4 mg/dL Normal 7.6-11.0 [facility] Comment on above: Performed By: #### L 500.4050, L501.4700, L501.9520, L100.0100, L500.4100 #### [facility] [address] [place], [address] Chloride [Moles/Vol] 104 mmol/L Normal 98-108 [facility] Comment on above: Performed By: #### L 500.4050, L501.4700, L501.9520, L100.0100, L500.4100 #### [facility] [address] [place], [address] CO2 [Moles/Vol] 22.4 mmol/L Normal 21.0-32.0 [facility] Comment on above: Performed By: #### L 500.4050, L501.4700, L501.9520, L100.0100, L500.4100 #### [facility] [address] [place], [address] Creatinine [Mass/Vol] 1.00 mg/dL Normal 0.70-1.20 [facility] Comment on above: Performed By: #### L 500.4050, L501.4700, L501.9520, L100.0100, L500.4100 #### [facility] [address] [place], [address] GAP 11 Normal 5-15 [facility] Comment on above: Performed By: #### L 500.4050, L501.4700, L501.9520, L100.0100, L500.4100 #### [facility] [address] [place], [address] GFR/1.73 sq M.predicted among non-blacks MDRD (S/P/Bld) [Vol rate/Area] 86 mL/min/{1.73_m2} Normal >60 [facility] Comment on above: Result Comment: mL/m in/1.73m2 CKD-EPI Creatinine Equation (2020) Performed By: #### L 500.4050, L501.4700, L501.9520, L100.0100, L500.4100 #### [facility] [address] [place], [address] Globulin (S) [Mass/Vol] 3.3 g/dL Normal 2.2-4.2 [facility] Comment on above: Performed By: #### L 500.4050, L501.4700, L501.9520, L100.0100, L500.4100 #### [facility] [address] [place], [address] Glucose [Mass/Vol] 98 mg/dL Normal 70-99 [facility] Comment on above: Performed By: #### L 500.4050, L501.4700, L501.9520, L100.0100, L500.4100 #### [facility] [address] [place], [address] Potassium [Moles/Vol] 4.3 mmol/L Normal 3.3-5.1 [facility] Comment on above: Performed By: #### L 500.4050, L501.4700, L501.9520, L100.0100, L500.4100 #### [facility] [address] [place], [address] Sodium [Moles/Vol] 137 mmol/L Normal 133-145 [facility] Comment on above: Performed By: #### L 500.4050, L501.4700, L501.9520, L100.0100, L500.4100 #### [facility] [address] [place], [address] T PROT 7.5 g/dL Normal 5.9-8.4 [facility] Comment on above: Performed By: #### L 500.4050, L501.4700, L501.9520, L100.0100, L500.4100 #### [facility] [address] [place], [address] Urea nitrogen [Mass/Vol] 9 mg/dL Normal 4-19 [facility] Comment on above: Performed By: #### L 500.4050, L501.4700, L501.9520, L100.0100, L500.4100 #### [facility] [address] [place], [address] Eosinophil percentageOrdered By: Tanya Hoffmann on 10-02-2024 Eosinophils/100 WBC (Bld) 1.5 % 0-5 [facility] Erythrocyte distribution wid th ratioOrdered By: Tanya Hoffmann on 10-02-2024 Erythrocyte distribution width (RBC) [Ratio] 13.9 % 11.6-14.6 [facility] Erythrocyte distribution wid th standard deviationOrdered By: Tanya Hoffmann on 10-02-2024 Erythrocyte distribution width (RBC) [Ratio] 51.7 fl High 35.1-43.9 [facility] Glomerular filtration rate ( GFR) estimation/1.73 sq m using serum, plasma, or whole bOrdered By: Tanya Hoffmann on 10-02-2024 GFR/1.73 sq M.predicted among non-blacks MDRD (S/P/Bld) [Vol rate/Area] 86 mL/min/{1.73_m2} >60 [facility] Comment on above: mL/min/1.73m2 CKD-EP I Creatinine Equation (2020) Hematocrit Auto (Bld) [Volum e fraction]Ordered By: Tanya Hoffmann on 10-02-2024 Hematocrit (Bld) [Volume fraction] 46.5 % 40-54 [facility] Hemoglobin measurementOrdere d By: Tanya Hoffmann on 10-02-2024 Hemoglobin (Bld) [Mass/Vol] 15.7 g/dL 13.0-16.5 [facility] Immature granulocytes/100 WB C Auto (Bld)Ordered By: Tanya Hoffmann on 10-02-2024 Immature granulocytes/100 WBC (Bld) 0.900 % 0.0-0.9 [facility] Comment on above: IG% - Immature Granu locytes (promyelocytes, myelocytes and metamyelocytes) > 1% indicates that a LEFT SHIFT is Present. LDL calc ser/plasOrdered By: Tanya Hoffmann on 10-02-2024 Cholesterol in LDL [Mass/Vol] 139 mg/dL [facility] Comment on above: Hpzgrafamt=784-579 m g/dL & Higher Drye=409 mg/dL or greater Laboratory - Chemistry and C hemistry - challengeOrdered By: Tanya Hoffmann on 10-02-2024 AST [Catalytic activity/Vol] 50 U/L High <38 [facility] Lipid Profileon 10-02-2024 CHOL:HDL 5.18 Normal [facility] Comment on above: Performed By: #### L 500.4050, L501.4700, L501.9520, L100.0100, L500.4100 ####[facility] [address] [place], [address] Cholesterol [Mass/Vol] 199 mg/dL Normal <=200 [facility] Comment on above: Result Comment: Chol esterol level, Desirable <200 mg/dL Borderline high cholesterol 200-239 mg/dL High cholesterol >=240 mg/dL Recommendations of the NCEP Adult Treatment Panel for the following risk-cutoff thresholds for the [place] population. Performed By: #### L 500.4050, L501.4700, L501.9520, L100.0100, L500.4100 ####[facility] [address] [place], [address] Cholesterol in HDL [Mass/Vol] 38 mg/dL Low [facility] Comment on above: Result Comment: Devorah onal Cholesterol Education Program (NCEP) guidelines: <40 mg/dL: Low HDL-cholesterol (major risk factor for CHD) >= 60 mg/dL: High HDL-cholesterol (negative risk factor for CHD) HDL-cholesterol is affected by a number of factors, e.g. smoking, exercise, hormones, sex and age. Performed By: #### L 500.4050, L501.4700, L501.9520, L100.0100, L500.4100 ####[facility] [address] [place], [address] Cholesterol in LDL [Mass/Vol] 139 mg/dL Normal [facility] Comment on above: Result Comment: Bord efygtb=174-076 mg/dL Higher Hhba=512 mg/dL or greater Performed By: #### L 500.4050, L501.4700, L501.9520, L100.0100, L500.4100 ####[facility] [address] [place], [address] Cholesterol in VLDL [Mass/Vol] 22 mg/dL Normal 5-40 [facility] Comment on above: Performed By: #### L 500.4050, L501.4700, L501.9520, L100.0100, L500.4100 ####[facility] [address] [facility] [place], [address] Triglyceride [Mass/Vol] 110 mg/dL Normal [facility] Comment on above: Result Comment: The drugs N-Acetylcysteine and Metamizole may falsely depress this assay. Normal range: <150 mg/dL Borderline High: 150-199 mg/dL High: 200-499 mg/dL Very High: >500 mg/dL Performed By: #### L 500.4050, L501.4700, L501.9520, L100.0100, L500.4100 ####[facility] [address] [facility] [place], [place], [id number] MCV (mean corpuscular volume ) determinationOrdered By: Tanya Hoffmann on 10-02-2024 MCV (RBC) [Entitic vol] 100.6 fL High 80-94 [facility] Mean corpuscular hemoglobin (MCH) determinationOrdered By: Tanya Hoffmann on 10-02-2024 MCH (RBC) [Entitic mass] 34.0 pg High 27.0-32.0 [facility] Mean corpuscular hemoglobin concentration (MCHC) determinationOrdered By: Tanya Hoffmann on 10-02-2024 MCHC (RBC) [Mass/Vol] 33.8 g/dL 32-36 [facility] Mean platelet volume determi nationOrdered By: Tanya Hoffmann on 10-02-2024 Platelet mean volume (Bld) [Entitic vol] 10.4 fL 6.2-12.0 [facility] Monocyte percentageOrdered B y: Tanya Hoffmann on 10-02-2024 Monocytes/100 WBC (Bld) 7.3 % 0-10 [facility] Neutrophil percentageOrdered By: Tanya Hoffmann on 10-02-2024 Neutrophils/100 WBC (Bld) 66.7 % 47-70 [facility] Nucleated red blood cell per centageOrdered By: Tanya Hoffmann on 10-02-2024 Nucleated RBC/100 WBC (Bld) [Ratio] 0 % 0-5 [facility] Platelet countOrdered By: Chiki Hoffmann on 10-02-2024 Platelets (Bld) [#/Vol] 308 10*3/uL 150-450 [facility] Potassium measurement (mass/ volume)Ordered By: Tanya Hoffmann on 10-02-2024 Potassium (Unsp spec) [Mass/Vol] 4.3 mmol/L 3.3-5.1 [facility] RBC Auto (Bld) [#/Vol]Ordere d By: Tanya Hoffmann on 10-02-2024 RBC (Bld) [#/Vol] 4.62 10*6/uL 4.6-6.2 [facility] Screening total cholesterol/ high density lipoprotein (HDL) cholesterol ratioOrdered By: Tanya Hoffmann on 10-02-2024 Cholesterol.total/Maya sterol in HDL [Mass ratio] 5.18 {ratio} [facility] Serum creatinine measurement (mass/volume)Ordered By: Tanya Hoffmann on 10-02-2024 Creatinine [Mass/Vol] 1.00 mg/dL 0.70-1.20 [facility] Serum globulin measurementOr dered By: Tanya Hoffmann on 10-02-2024 Globulin (S) [Mass/Vol] 3.3 g/dL 2.2-4.2 [facility] Serum glucose measurement (m ass/volume)Ordered By: Tanya Hoffmann on 10-02-2024 Glucose [Mass/Vol] 98 mg/dL 70-99 [facility] Serum or plasma alanine villanueva otransferase (ALT) measurementOrdered By: Tanya Hoffmann on 10-02-2024 ALT [Catalytic activity/Vol] 54 U/L High <47 [facility] Serum or plasma albumin haylie urement (mass/volume)Ordered By: Tanya Hoffmann on 10-02-2024 Albumin [Mass/Vol] 4.2 g/dL 3.4-4.8 [facility] Serum or plasma albumin/glob ulin mass ratioOrdered By: Tanya Hoffmann on 10-02-2024 Albumin/Globulin [Mass ratio] 1.3 {ratio} 0.9-2.4 [facility] Serum or plasma alkaline ruby sphatase measurementOrdered By: Tanya Hoffmann on 10-02-2024 ALP [Catalytic activity/Vol] 114 U/L 40-129 [facility] Serum or plasma calcium haylie urement (mass/volume)Ordered By: Tanya Hoffmann on 10-02-2024 Calcium [Mass/Vol] 9.4 mg/dL 7.6-11.0 [facility] Serum or plasma cholesterol in HDL measurement (mass/volume)Ordered By: Tanya Hoffmann on 10-02-2024 Cholesterol in HDL [Mass/Vol] 38 mg/dL Low >40 [facility] Comment on above: National Cholesterol Education Program (NCEP) guidelines:<40 mg/dL: Low HDL-cholesterol (major risk factor for CHD)>= 60 mg/dL: High HDL-cholesterol (negative risk factor for CHD)HDL-cholesterol is affected by a number of factors, e.g. smoking, exercise, hormones, sex and age. Serum or plasma cholesterol measurement (mass/volume)Ordered By: Tanya Hoffmann on 10-02-2024 Cholesterol [Mass/Vol] 199 mg/dL <201 [facility] Comment on above: Cholesterol level, D esirable <200 mg/dLBorderline high cholesterol 200-239 mg/dLHigh cholesterol >=240 mg/dLRecommendations of the NCEP Adult Treatment Panel for the following risk-cutoff thresholds for the [place] population. Serum or plasma urea nitroge n measurement (mass/volume)Ordered By: Tanya Hoffmann on 10-02-2024 Urea nitrogen [Mass/Vol] 9 mg/dL 4-19 [facility] Sodium levelOrdered By: Lotus Hoffmann on 10-02-2024 Sodium [Moles/Vol] 137 mmol/L 133-145 [facility] TSH DL <= 0.005 mIU/L QnOrde red By: Tanya Hoffmann on 10-02-2024 TSH Qn 1.500 uIU/mL 0.300-4.200 [facility] Thyroid Stim Hormone (TSH)on 10-02-2024 TSH 1.500 uIU/mL Normal 0.300-4.200 [facility] Comment on above: Performed By: #### L 500.4050, L501.4700, L501.9520, L100.0100, L500.4100 ####[facility] [id number] [place], [address] Total proteinOrdered By: Montez Hoffmann on 10-02-2024 Protein [Mass/Vol] 7.5 g/dL 5.9-8.4 [facility] Triglycerides measurementOrd ered By: Tanya Hoffmann on 10-02-2024 Triglyceride [Mass/Vol] 110 mg/dL <199 [facility] Comment on above: The drugs N-Acetylcy steine and Metamizole may falsely depress this assay. Normal range: <150 mg/dLBorderline High: 150-199 mg/dLHigh: 200-499 mg/dLVery High: >500 mg/dL White blood cell (WBC) count Ordered By: Tanya Hoffmann on 10-02-2024 WBC (Bld) [#/Vol] 10.1 10*3/uL 4.4-11.0 [facility] ACT* LOW RANGE, POCon 2023 ACT LOW RANGE, POC 361.0 High [facility] Interpretation and review of laboratory results Abnormal [facility] Test performed at address of the patient encounter. [facility] ACT LOW RANGE, POC 339.0 High [facility] Interpretation and review of laboratory results Abnormal [facility] Test performed at address of the patient encounter. [facility] ACT LOW RANGE, POC [facility] Comment on above: Out of Range High. The test result is outside clinical range and should not be used for patient-management decisions. Test performed at address of the patient encounter. [facility] EP PROCEDURE - EPS/ABLATION/ DEVICEon 11-12-2023 [...] EPS/Ablation/Device Ordering Physician: ELIZABETH CARROLL Order #: [id number] Study Date: 11/12/2023 Patient Information Name MRN Description Lizzette Tidwell [id number] 62 y.o. male Physicians Panel Physicians Referring [...] (more content not included)... Normal [facility] EXTRA LAVENDER TOPon 024 [facility] MINT GRE[facility] studyon Body surface area Derived from formula 2.35 m2 [facility] Lizzette Tidwell is a 8 0 y.o. [...] use Discharge home today if meets criteria. [facility] Radiology Study observation (narrative) [facility] PT,INR,PTTon 11-12-2023 aPTT Coag (Bld) [Time] 27.5 s Normal 24.0-34.3 [facility] Comment on above: Performed By: #### P TPTT #### [facility] (DEFAULT) [address] [place] [address] INR Coag (PPP) [Relative time] 1.2 {INR} High 0.9-1.1 [facility] Comment on above: Performed By: #### P TPTT #### [facility] (DEFAULT) [address] [place] [address] PT Coag (PPP) [Time] 15.3 s High 11.9-14.2 [facility] Comment on above: Performed By: #### P TPTT #### [facility] (DEFAULT) [address] [place] [address]012 aPTT Coag (PPP) [Time] 27.5 s [facility] INR Coag (Bld) [Relative time] 1.2 {INR} High 0.9 - 1.1 [facility] Interpretation and review of laboratory results Abnormal [facility] PT Coag (PPP) [Time] 15.3 s High [facility] T4 FREEon 11-12-2023 Free T4 [Mass/Vol] 1.40 ng/dL 0.89 - 1. 76 ng/dL [facility] Interpretation and review of laboratory results Normal [facility] Free T4 [Mass/Vol] 1.40 ng/dL Normal 0.89-1.76 [facility] Comment on above: Performed By: #### T SH, FT4 #### [facility] (DEFAULT) [address] [place] [address] TSHon 11-12-2023 Interpretation and review of laboratory results Normal [facility] TSH Qn 3.753 m[IU]/L [facility] TSH 3.753 uIU/mL Normal 0.550-4.780 [facility] Comment on above: Performed By: #### T SH, FT4 #### [facility] (DEFAULT) [address] [place] [address] CBC,PLATELETSon 11-08-2023 Hematocrit (Bld) [Volume fraction] 44.8 % Normal 39.6-48.8 [facility] Comment on above: Performed By: #### H EMOGC #### [facility] (DEFAULT) [address] [place] [address]79 Hemoglobin (Bld) [Mass/Vol] 15.0 g/dL Normal 13.4-16.8 [facility] Comment on above: Performed By: #### H EMOGC #### [facility] (DEFAULT) [address] [place] [address]361 MCV (RBC) [Entitic vol] 101.8 fL High 79.0-94.5 [facility] Comment on above: Performed By: #### H EMOGC #### [facility] (DEFAULT) [address] [address] Mean Cell Hgb 34.1 pg High 26.1-33.3 [facility] Comment on above: Performed By: #### H EMOGC #### [facility] (DEFAULT) [address] [place] [address] 99359 Mean Cell Hgb Conc 33.5 g/dL Normal 31.9-36.5 [facility] Comment on above: Performed By: #### H EMOGC #### [facility] (DEFAULT) [address] [place] [address]62 Platelet mean volume (Bld) [Entitic vol] 10.6 fL Normal 8.7-12.3 [facility] Comment on above: Performed By: #### H EMOGC #### [facility] (DEFAULT) [address] [address] Platelets (Bld) [#/Vol] 293 10*3/uL Normal 146-337 [facility] Comment on above: Performed By: #### H EMOGC #### [facility] (DEFAULT) [address] [place] [address] 6[address]88 RBC (Bld) [#/Vol] 4.40 10*6/uL Normal 4.38-5.83 [facility] Comment on above: Performed By: #### H EMOGC #### [facility] (DEFAULT) [address] [place] [address]73 RBC Distribution 13.5 % Normal 10.9-14.3 [facility] Comment on above: Performed By: #### H EMOGC #### [facility] (DEFAULT) [address] [place] [address]777 WBC (Bld) [#/Vol] 10.72 10*3/uL High 3.73-10.10 [facility] Comment on above: Performed By: #### H EMOGC #### [facility] (DEFAULT) [address] [place] [address] CHEM 7 (LYTES,BUN,CREA,GLUC) on 11-08-2023 Anion gap [Moles/Vol] 12 mmol/L Normal 7-17 [facility] Comment on above: Performed By: #### C HM7 #### [facility] (DEFAULT) [address] [place] [address]147 Chloride [Moles/Vol] 103 mmol/L Normal 98-108 [facility] Comment on above: Performed By: #### C HM7 #### [facility] (DEFAULT) [address] [place] [address]26 CO2 [Moles/Vol] 26 mmol/L Normal 21-31 [facility] Comment on above: Performed By: #### C HM7 #### [facility] (DEFAULT) [address] [place] [address]457 Creatinine [Mass/Vol] 1.02 mg/dL Normal 0.70-1.30 [facility] Comment on above: Performed By: #### C HM7 #### [facility] (DEFAULT) [address] [place] [address] 84556 GFR/1.73 sq M.predicted among non-blacks MDRD (S/P/Bld) [Vol rate/Area] 84 mL/min/{1.73_m2} Normal >=60 [facility] Comment on above: Result Comment: Repo rted eGFR is based on the CKD-EPI 2020 equation using creatinine, age, and sex. Performed By: #### C HM7 #### [facility] (DEFAULT) [address] [place] [address]265 Glucose [Mass/Vol] 99 mg/dL Normal 70-99 [facility] Comment on above: Performed By: #### C HM7 #### [facility] (DEFAULT) [address] [place] [address]73 Osmolality [Osmolality] 288 mosm/kg Normal 278-305 [facility] Comment on above: Performed By: #### C HM7 #### [facility] (DEFAULT) [address] [place] [address]335 Potassium [Moles/Vol] 4.4 mmol/L Normal 3.5-5.0 [facility] Comment on above: Performed By: #### C HM7 #### [facility] (DEFAULT) [address] [place] [address]62 Sodium [Moles/Vol] 137 mmol/L Normal 135-145 [facility] Comment on above: Performed By: #### C HM7 #### [facility] (DEFAULT) [address] [place] [address] 76509 Urea nitrogen [Mass/Vol] 13 mg/dL Normal 7-25 [facility] Comment on above: Performed By: #### C HM7 #### [facility] (DEFAULT) [address] [place] [address] 31418 Urea nitrogen/Creatinine [Mass ratio] 13 mg/mg Normal [facility] Comment on above: Performed By: #### C HM7 #### [facility] (DEFAULT) [address] [place] [address]55 CREAT/GFRon 11-08-2023 Creatinine [Mass/Vol] 1.04 mg/dL 0.70 - 1.30 mg/dL [facility] GFR/1.73 sq M.predicted CKD-EPI (S/P/Bld) [Vol rate/Area] 82 - PINF [facility] Comment on above: Reported eGFR is bas ed on the CKD-EPI 2020 equation using creatinine, age, and sex. Interpretation and review of laboratory results Normal [facility] Test performed at address of the patient encounter. [facility] CT CARDIAC PULMONARY VENOGRA Sat11-08-2023 CT CARDIAC PULMONARY VENOGRAM [facility] CT Report Name: LIZZETTE TIDWELL : 1960 Scan Date: 2023-11-08 11:22:51 Electronically signed by Kremit Saini 19:26:55 VITALS HEIGHT: 70 in (177.80 [...] good. 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 SCAN INFO TEST TYPE: Venogram SCANNER PATIENT FINANCIAL COUNSELOR: [employer] SCANNER MODEL: NAEOTOM Snippets DOSE REDUCTION ALGORITHM: Prospective/Step-and-s hoot SCAN COVERAGE [...] SAINI MD TECHNOLOGIST: Lamont Correa Patient Account [id number] CPT Codes 00902 ICD10 Codes I42.9, I48.91 Report generated by [employer], a product of [employer] CARDIOLOGY Stan Saini MD - 11/08/[address] [facility] [address] Report Name: LIZZETTE TIDWELL : 1960 Scan Date: 2023-11-08 11:22:51 Electronically signed by Kemrit Saini 19:26:55 VITALS ========= ========= HEIGHT: 72 [...] INFO ========= ========= TEST TYPE: Venogram SCANNER PATIENT FINANCIAL COUNSELOR: [employer] SCANNER MODEL: NAEStarline Alpha DOSE REDUCTION ALGORITHM: Prospective/Step-and-s hoot SCAN [...] PHYSICIAN: STAN SAINI MD TECHNOLOGIST: Lamont Correa ========= ========= Patient Account [id number] CPT Codes 63430 ICD10 Codes I42.9, I48.91 Report generated by [employer], a product of [employer] [facility] Radiology Study observation (narrative) [facility] Chest>Heart.atrium.left+Pulm onary veins CT angiogram and 3D reconstruction W contrast IVOrdered By: Stan Saini on 11-08-2023 [facility] Work Phone: Basophil percentageOrdered B y: Elizabeht Christian on 07-31-2023 Chloride [Moles/Vol] 105 mmol/L 98-107 [facility] Glucose [Mass/Vol] 115 mg/dL 74-106 [facility] Comment on above: Fasting Glucose resu lt from 100 to 125 mg/dL suggests IMPAIRED HOMEOSTASIS per A.D.A. criteria. Potassium [Moles/Vol] 4.2 mmol/L 3.5-5.1 [facility] Sodium [Moles/Vol] 139 mmol/L 136-145 [facility] Laboratory - Chemistry and C hemistry - challengeOrdered By: Elizabeth Christian on 07-31-2023 CO2 [Moles/Vol] 27.0 mmol/L 21.0-32.0 [facility] Urea nitrogen/Creatinine [Mass ratio] 11.2 mg/mg 10-20 [facility] No Panel InformationOrdered By: Elizabeth Christian on 07-31-2023 Estimated GFR (MDRD) Amer 70 mL/min >60 [facility] Comment on above: GFR Calc Estimated GFR (MDRD) Non-Af Amer 58 mL/min >60 [facility] Comment on above: Non- GFR Calc Serum or plasma calcium haylie urement (mass/volume)Ordered By: Elizabeth Christian on 07-31-2023 Calcium [Mass/Vol] 10.0 mg/dL 8.5-10.1 [facility] Serum or plasma creatinine m easurement (mass/volume)Ordered By: Elizabeth Christian on 07-31-2023 Creatinine [Mass/Vol] 1.34 mg/dL 0.70-1.30 [facility] Comment on above: The validity of the calculated GFR & GFRAA in patients over 70 years has not been determined. Clinical correlation is essential. Serum or plasma urea nitroge n measurement (mass/volume)Ordered By: Elizabeth Christian on 07-31-2023 Urea nitrogen [Mass/Vol] 15 mg/dL 7-18 [facility] Thin prep Papanicolaou smear with manual screeningOrdered By: Elizabeth Christian on 07-31-2023 Thin prep Papanicolaou smear with manual screening 7 5-15 [facility] CHEM 6 (LYTES, BUN CREA)on 0 07-11-2023 Anion gap [Moles/Vol] 16 mmol/L Normal 7-17 [facility] Comment on above: Performed By: #### C HM6 #### [facility] (DEFAULT) [address] [address] Chloride [Moles/Vol] 103 mmol/L Normal 98-108 [facility] Comment on above: Performed By: #### C HM6 #### [facility] (DEFAULT) [address] [place] [address]58 CO2 [Moles/Vol] 23 mmol/L Normal 21-31 [facility] Comment on above: Performed By: #### C HM6 #### [facility] (DEFAULT) [address] [address] Creatinine [Mass/Vol] 0.85 mg/dL Normal 0.70-1.30 [facility] Comment on above: Performed By: #### C HM6 #### [facility] (DEFAULT) [address] [place] [address] eGFR, CKD-EPI, Male > Normal >=60 [facility] Comment on above: Result Comment: Repo rted eGFR is based on the CKD-EPI 2020 equation using creatinine, age, and sex. Performed By: #### C HM6 #### [facility] (DEFAULT) [address] [place] [address] Potassium [Moles/Vol] 4.5 mmol/L Normal 3.5-5.0 [facility] Comment on above: Performed By: #### C HM6 #### [facility] (DEFAULT) [address] [place] [address] Sodium [Moles/Vol] 137 mmol/L Normal 135-145 [facility] Comment on above: Performed By: #### C HM6 #### [facility] (DEFAULT) [address] [place] [address]81 Urea nitrogen [Mass/Vol] 13 mg/dL Normal 7-25 [facility] Comment on above: Performed By: #### C HM6 #### [facility] (DEFAULT) [address] [place] [address] Urea nitrogen/Creatinine [Mass ratio] 15 mg/mg Normal [facility] Comment on above: Performed By: #### C HM6 #### [facility] (DEFAULT) [address] [address] TSHon 07-11-2023 TSH 1.670 uIU/mL Normal 0.550-4.780 [facility] Comment on above: Performed By: #### T SH #### [facility] (DEFAULT) [address] [address] Absolute lymphocyte countOrd ered By: Tanya Hoffmann on 02-06-2023 Lymphocytes Auto (Unsp spec) [#/Vol] 2.38 10*3/uL 0.83-4.51 [facility] Basophil percentageOrdered B y: Tanya Hoffmann on 02-06-2023 Basophils/100 WBC (Bld) 0.6 % 0-1 [facility] Chloride [Moles/Vol] 106 mmol/L 98-107 [facility] Eosinophils/100 WBC (Bld) 1.4 % 0-5 [facility] Glucose [Mass/Vol] 102 mg/dL 74-106 [facility] Comment on above: Fasting Glucose resu lt from 100 to 125 mg/dL suggests IMPAIRED HOMEOSTASIS per A.D.A. criteria. Neutrophils (Bld) [#/Vol] 9.7 10*3/uL 2.0-7.7 [facility] Neutrophils/100 WBC (Bld) 72.1 % 47-70 [facility] Potassium [Moles/Vol] 4.8 mmol/L 3.5-5.1 [facility] Sodium [Moles/Vol] 138 mmol/L 136-145 [facility] WBC (Bld) [#/Vol] 13.4 10*3/uL 4.4-11.0 [facility] Blood erythrocytes count (nu mber/volume)Ordered By: Tanya Hoffmann on 02-06-2023 RBC (Bld) [#/Vol] 4.48 10*6/uL 4.6-6.2 [facility] Blood hemoglobin measurement (mass/volume)Ordered By: Tanya Hoffmann on 02-06-2023 Hemoglobin (Bld) [Mass/Vol] 15.1 g/dL 13.0-16.5 [facility] Blood lymphocytes/100 leukoc ytesOrdered By: Tanya Hoffmann on 02-06-2023 Lymphocytes/100 WBC (Bld) 17.7 % 19-41 [facility] Blood monocytes/100 leukocyt esOrdered By: Tanya Hoffmann on 02-06-2023 Monocytes/100 WBC (Bld) 7.7 % 0-10 [facility] Blood platelet mean volumeOr dered By: Tanya Hoffmann on 02-06-2023 Platelet mean volume (Bld) [Entitic vol] 10.6 fL 6.2-12.0 [facility] Determination of erythrocyte mean corpuscular volume (MCV)Ordered By: Tanya Hoffmann on 02-06-2023 MCV (RBC) [Entitic vol] 104.5 fL 80-94 [facility] Hematocrit Auto (Bld) [Volum e fraction]Ordered By: Tanya Hoffmann on 02-06-2023 Hematocrit (Bld) [Volume fraction] 46.8 % 40-54 [facility] Laboratory - Chemistry and C hemistry - challengeOrdered By: Tanya Hoffmann on 02-06-2023 CO2 [Moles/Vol] 27.0 mmol/L 21.0-32.0 [facility] Natriuretic peptide B (Bld) [Mass/Vol] 500.2 pg/mL 0-100 [facility] Urea nitrogen/Creatinine [Mass ratio] 12.7 mg/mg 10-20 [facility] Laboratory - Hematology and Cell countsOrdered By: Tanya Hoffmann on 02-06-2023 Erythrocyte distribution width (RBC) [Entitic vol] 54.2 fL 35.1-43.9 [facility] Erythrocyte distribution width (RBC) [Ratio] 14.0 % 11.6-14.6 [facility] Immature granulocytes/100 WBC (Bld) 0.500 % 0.0-0.9 [facility] Comment on above: IG% - Immature Granu locytes (promyelocytes, myelocytes and metamyelocytes) > 1% indicates that a LEFT SHIFT is Present. MCH (RBC) [Entitic mass] 33.7 pg 27.0-32.0 [facility] Nucleated RBC/100 WBC (Bld) [Ratio] 0 % 0-5 [facility] MCHC Auto (RBC) [Mass/Vol]Or dered By: Tanya Hoffmann on 02-06-2023 MCHC (RBC) [Mass/Vol] 32.3 g/dL 32-36 [facility] No Panel InformationOrdered By: Tanya Hoffmann on 02-06-2023 Estimated GFR (MDRD) Amer 88 mL/min >60 [facility] Comment on above: GFR Calc Estimated GFR (MDRD) Non-Af Amer 73 mL/min >60 [facility] Comment on above: Non- GFR Calc Platelets bldOrdered By: Montez Hoffmann on 02-06-2023 Platelets (Bld) [#/Vol] 306 10*3/uL 150-450 [facility] Serum or plasma calcium haylie urement (mass/volume)Ordered By: Tanya Hoffmann on 02-06-2023 Calcium [Mass/Vol] 9.3 mg/dL 8.5-10.1 [facility] Serum or plasma creatinine m easurement (mass/volume)Ordered By: Tanya Hoffmann on 02-06-2023 Creatinine [Mass/Vol] 1.10 mg/dL 0.70-1.30 [facility] Comment on above: The validity of the calculated GFR & GFRAA in patients over 70 years has not been determined. Clinical correlation is essential. Serum or plasma urea nitroge n measurement (mass/volume)Ordered By: Tanya Hoffmann on 02-06-2023 Urea nitrogen [Mass/Vol] 14 mg/dL 7-18 [facility] Thin prep Papanicolaou smear with manual screeningOrdered By: Tanya Hoffmann on 02-06-2023 Thin prep Papanicolaou smear with manual screening 5 5-15 [facility] Basophil percentageOrdered B y: Dr. Singh on 05-02-2022 Bilirubin [Mass/Vol] 0.30 mg/dL 0.20-1.00 [facility] Comment on above: For patients on eltr ombopag therapy, use of Dimension [place] TBIL is not recommended. Cholesterol [Mass/Vol] 189 mg/dL <200 [facility] Comment on above: <200 mg/dL Desirable 200-240 mg/dL Borderline >240 mg/dL High Risk Protein [Mass/Vol] 8.0 g/dL 6.4-8.2 [facility] Triglyceride [Mass/Vol] 139 mg/dL <199 [facility] Comment on above: The drugs N-Acetylcy steine and Metamizole may falsely depress this assay.Serum Triglycerides Reference Interval Normal <150 mg/dL Borderline high 150 - 199 mg/dL High 200 - 499 mg/dL Very High > or = 500 mg/dL Direct bilirubinOrdered By: Dr. Singh on 05-02-2022 Bilirubin.direct [Mass/Vol] 0.09 mg/dL 0.00-0.30 [facility] Laboratory - Chemistry and C hemistry - challengeOrdered By: Dr. Singh on 05-02-2022 ALP [Catalytic activity/Vol] 104 U/L 45-117 [facility] ALT [Catalytic activity/Vol] 46 U/L 16-61 [facility] Globulin (S) [Mass/Vol] 4.2 g/dL 2.2-4.2 [facility] No Panel InformationOrdered By: Dr. Singh on 05-02-2022 Prostate Specific Antigen Screen 3.20 ng/mL 0.00-4.00 [facility] Comment on above: This test was perfor med using the TPSA assay method for the[facility] chemistry system. Values obtained with differentassay methods cannot be used interchangably.When changing PSA assays in the course of monitoring apatient, additional sequential testing should be carriedout to confirm baseline values. Serum or plasma albumin haylie urement (mass/volume)Ordered By: Dr. Singh on 05-02-2022 Albumin [Mass/Vol] 3.8 g/dL 3.2-5.0 [facility] Serum or plasma cholesterol in HDL measurement (mass/volume)Ordered By: Dr. Singh on 05-02-2022 Cholesterol in HDL [Mass/Vol] 38 mg/dL >40 [facility] Comment on above: The drugs N-Acetylcy steine and Metamizole may falsely depress this assay. Reference Range HDL <40 mg/dL Low HDL Cholesterol HDL >or= 60 mg/dL High HDL Cholesterol Serum or plasma cholesterol in VLDL measurement (mass/volume)Ordered By: Dr. Singh on 05-02-2022 Cholesterol in VLDL [Mass/Vol] 28 mg/dL 5-40 [facility] [facility] Serum or plasma low density lipoprotein (LDL) cholesterol measurement (mass/volume)Ordered By: Dr. Singh on 05-02-2022 Cholesterol in LDL [Mass/Vol] 123 mg/dL 0-130 [facility] Thin prep Papanicolaou smear with manual screeningOrdered By: Dr. Singh on 05-02-2022 Thin prep Papanicolaou smear with manual screening 30 U/L 15-37 [facility] Basophil percentageon 2021 Chloride [Moles/Vol] 105 mmol/L 98-107 [facility] Work Phone: Glucose [Mass/Vol] 108 mg/dL 74-106 [facility] Work Phone: Comment on above: Fasting Glucose resu lt from 100 to 125 mg/dL suggests IMPAIRED HOMEOSTASIS per A.D.A. criteria. Potassium [Moles/Vol] 4.1 mmol/L 3.5-5.1 [facility] Work Phone: Sodium [Moles/Vol] 135 mmol/L 136-145 [facility] Work Phone: [phone] Laboratory - Chemistry and C hemistry - challengeon 04-18-2022 CO2 [Moles/Vol] 25.0 mmol/L 21.0-32.0 [facility] Work Phone: [phone] Urea nitrogen/Creatinine [Mass ratio] 11.0 mg/mg 10-20 [facility] Work Phone: No Panel Informationon 04-18 Estimated GFR (MDRD) Amer 89 mL/min >60 [facility] Work Phone: Comment on above: GFR Calc Estimated GFR (MDRD) Non-Af Amer 74 mL/min >60 [facility] Work Phone: Comment on above: Non- GFR Calc Serum or plasma calcium haylie urement (mass/volume)on 04-18-2022 Calcium [Mass/Vol] 9.6 mg/dL 8.5-10.1 [facility] Work Phone: [phone] Serum or plasma creatinine m easurement (mass/volume)on 04-18-2022 Creatinine [Mass/Vol] 1.09 mg/dL 0.70-1.30 [facility] Work Phone: Comment on above: The validity of the calculated GFR & GFRAA in patients over 70 years has not been determined. Clinical correlation is essential. Serum or plasma urea nitroge n measurement (mass/volume)on 04-18-2022 Urea nitrogen [Mass/Vol] 12 mg/dL 7-18 [facility] Work Phone: [phone] Thin prep Papanicolaou smear with manual screeningon 04-18-2022 Thin prep Papanicolaou smear with manual screening 5 5-15 [facility] Work Phone: [phone] Absolute lymphocyte counton 03-20-2022 Lymphocytes Auto (Unsp spec) [#/Vol] 2.49 10*3/uL 0.83-4.51 [facility] Work Phone: Basophil percentageon 2021 Basophils/100 WBC (Bld) 0.6 % 0-1 [facility] Work Phone: Chloride [Moles/Vol] 110 mmol/L 98-107 [facility] Work Phone: Eosinophils/100 WBC (Bld) 1.5 % 0-5 [facility] Work Phone: Glucose [Mass/Vol] 113 mg/dL 74-106 [facility] Work Phone: [phone] Comment on above: Fasting Glucose resu lt from 100 to 125 mg/dL suggests IMPAIRED HOMEOSTASIS per A.D.A. criteria. Neutrophils (Bld) [#/Vol] 7.8 10*3/uL 2.0-7.7 [facility] Work Phone: [phone] Neutrophils/100 WBC (Bld) 67.2 % 47-70 [facility] Work Phone: Potassium [Moles/Vol] 4.3 mmol/L 3.5-5.1 [facility] Work [facility]: Sodium [Moles/Vol] 137 mmol/L 136-145 [facility] Work Phone: WBC (Bld) [#/Vol] 11.6 10*3/uL 4.4-11.0 [facility] Work [phone] Blood erythrocytes count (nu mber/volume)on 03-20-2022 RBC (Bld) [#/Vol] 4.76 10*6/uL 4.6-6.2 [facility] Work Phone: Blood hemoglobin measurement (mass/volume)on 03-20-2022 Hemoglobin (Bld) [Mass/Vol] 15.7 g/dL 13.0-16.5 [facility] Work Phone: [phone] Blood lymphocytes/100 leukoc yteson 03-20-2022 Lymphocytes/100 WBC (Bld) 21.4 % 19-41 [facility] Work Phone: Blood monocytes/100 leukocyt eson 03-20-2022 Monocytes/100 WBC (Bld) 8.8 % 0-10 [facility] Work Phone: [phone] Blood platelet mean volumeon 03-20-2022 Platelet mean volume (Bld) [Entitic vol] 10.9 fL 6.2-12.0 [facility] Work Phone: [phone] Determination of erythrocyte mean corpuscular volume (MCV)on 03-20-2022 MCV (RBC) [Entitic vol] 98.7 fL 80-94 [facility] Work Phone: [phone] Hematocrit Auto (Bld) [Volum e fraction]on 03-20-2022 Hematocrit (Bld) [Volume fraction] 47.0 % 40-54 [facility] Work Phone: [phone] Laboratory - Chemistry and C hemistry - challengeon 03-20-2022 CO2 [Moles/Vol] 20.0 mmol/L 21.0-32.0 [facility] Work Phone: [phone] Urea nitrogen/Creatinine [Mass ratio] 15.8 mg/mg 10-20 [facility] Work Phone: [phone] Laboratory - Hematology and Cell countson 03-20-2022 Erythrocyte distribution width (RBC) [Entitic vol] 47.5 fL 35.1-43.9 [facility] Work Phone: [phone] Erythrocyte distribution width (RBC) [Ratio] 13.0 % 11.6-14.6 [facility] Work Phone: [phone] Immature granulocytes/100 WBC (Bld) 0.500 % 0.0-0.9 [facility] Work Phone: Comment on above: IG% - Immature Granu locytes (promyelocytes, myelocytes and metamyelocytes) > 1% indicates that a LEFT SHIFT is Present. MCH (RBC) [Entitic mass] 33.0 pg 27.0-32.0 [facility] Work Phone: Nucleated RBC/100 WBC (Bld) [Ratio] 0 % 0-5 [facility] Work Phone: MCHC Auto (RBC) [Mass/Vol]on 03-20-2022 MCHC (RBC) [Mass/Vol] 33.4 g/dL 32-36 [facility] Work Phone: No Panel Informationon 03-20 Estimated Creatinine Clearance Calc 77.33 ml/min [facility] Work Phone: [phone] Estimated GFR (MDRD) Amer 104 mL/min >60 [facility] Work Phone: [phone] Comment on above: GFR Calc Estimated GFR (MDRD) Non-Af Amer 86 mL/min >60 [facility] Work Phone: Comment on above: Non- GFR Calc Platelets bldon 03-20-2022 Platelets (Bld) [#/Vol] 273 10*3/uL 150-450 [facility] Work Phone: [phone] Serum or plasma calcium haylie urement (mass/volume)on 03-20-2022 Calcium [Mass/Vol] 8.9 mg/dL 8.5-10.1 [facility] Work Phone: [phone] Serum or plasma creatinine m easurement (mass/volume)on 03-20-2022 Creatinine [Mass/Vol] 0.95 mg/dL 0.70-1.30 [facility] Work Phone: Comment on above: The validity of the calculated GFR & GFRAA in patients over 70 years has not been determined. Clinical correlation is essential. Serum or plasma urea nitroge n measurement (mass/volume)on 03-20-2022 Urea nitrogen [Mass/Vol] 15 mg/dL 7-18 [facility] Work Phone: [phone] Thin prep Papanicolaou smear with manual screeningon 03-20-2022 Thin prep Papanicolaou smear with manual screening 7 5-15 [facility] Work Phone: [phone] Basophil percentageon 2021 Bilirubin [Mass/Vol] 0.50 mg/dL 0.20-1.00 [facility] Work Phone: [phone] Comment on above: For patients on eltr ombopag therapy, use of Dimension [place] TBIL is not recommended. Protein [Mass/Vol] 7.0 g/dL 6.4-8.2 [facility] Work Phone: Laboratory - Chemistry and C hemistry - challengeon 03-19-2022 ALP [Catalytic activity/Vol] 98 U/L 45-117 [facility] Work Phone: [phone] ALT [Catalytic activity/Vol] 47 U/L 16-61 [facility] Work Phone: [phone] Globulin (S) [Mass/Vol] 3.8 g/dL 2.2-4.2 [facility] Work Phone: [phone] Serum or plasma albumin haylie urement (mass/volume)on 03-19-2022 Albumin [Mass/Vol] 3.2 g/dL 3.2-5.0 [facility] Work Phone: [phone] Serum or plasma albumin/glob ulin mass ratioon 03-19-2022 Albumin/Globulin [Mass ratio] 0.8 {ratio} 0.9-2.4 [facility] Work Phone: Thin prep Papanicolaou smear with manual screeningon 03-19-2022 Thin prep Papanicolaou smear with manual screening 23 U/L 15-37 [facility] Work Phone: Laboratory - Chemistry and C hemistry - challengeon 03-18-2022 Magnesium [Mass/Vol] 2.3 mg/dL 1.6-2.6 [facility] Work Phone: No Panel Informationon 03-18 Thyroid Stimulating Hormone (TSH) 1.21 uIU/mL 0.358-3.74 [facility] Work Phone: [phone] Troponin I High Sensitivity 9 pg/mL 3.0-78.0 [facility] Work Phone: Comment on above: Please Note: New Cait t Units and Gender Specific Reference Ranges. For more information see Policy Stat Procedure [place] High Sensitivity Troponin (TNIH) and attachments. Office Visiton 01-25-2017 Dietary management education, guidance, and counseling (procedure) yes Invalid Interpretation Code [facility] [facility] Work Phone: [phone] Documentation of current medications (procedure) Done Invalid Interpretation Code [facility] [employer] Work Phone: [phone] Protein mass conc yes [facility] [employer] Work Phone: [phone] Protein mass conc Done [facility] Work Phone: [phone] Smoking cessation education (procedure) yes Invalid Interpretation Code [facility] Work Phone: [phone] Tobacco smoking status AZIS Current every day smoker [employer] Work Phone: [phone] Tobacco use [facility] Current every day smoker Invalid Interpretation Code [employer] Work Phone: [phone] 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 Left ventricular Ejection fraction 40 % Invalid Interpretation Code [employer] Work Phone: [phone] Office Visiton 07-19-2016 Documentation of current medications (procedure) Done Invalid Interpretation Code [facility] Work Phone: [phone] Smoking cessation education (procedure) yes Invalid Interpretation Code [employer] Work Phone: [phone] Tobacco use [facility] Current every day smoker Invalid Interpretation Code [employer] Work Phone: [phone] Chart Maintenanceon 05-04-20 16 Cholesterol 190 mg/dL Invalid Interpretation Code [employer] Work Phone: [phone] HDL Cholesterol 63 mg/dL Invalid Interpretation Code [facility] Work Phone: [phone] LDL Cholesterol 107 mg/dL Invalid Interpretation Code [employer] Work Phone: [phone] Triglyceride 101 mg/dL Invalid Interpretation Code [employer] Work Phone: [phone] Office Visit: Acute- Cough[place] 03-15-2016 Dietary management education, guidance, and counseling (procedure) yes Invalid Interpretation Code [employer] Work Phone: [phone] Tobacco smoking status AZIS Never Invalid Interpretation Code [facility] Work Phone: [phone] Office Visiton 07-14-2015 General cardiovascular disease 10Y risk [#] Benson'Brady 18 % Invalid Interpretation Code [employer] Work Phone: Replaced Document: [facility]mark E CG Observationson 10-14-2014 EKG QRS axis 35 deg [employer] Work Phone: [phone] electrocardiogram interpretation Sinus Bradycardia Low voltage in limb leads. ABNORMAL Invalid Interpretation Code [employer] Work Phone: [phone] GE use only - for [employer] import when terms are not otherwise specified 406 ms Invalid Interpretation Code [facility] Work Phone: [phone] Interpretation Sinus Bradycardia Lo w voltage in limb leads. ABNORMAL [facility] [facility] Work Phone: [phone] P [place] 43 deg [employer] Work Phone: [phone] P wave axis, electrocardiogram 43 deg Invalid Interpretation Code [facility] [facility] Work Phone: [phone] ID Interval 150 ms [employer] Work Phone: [phone] ID interval, electrocardiogram 150 ms Invalid Interpretation Code [facility] [facility] Work Phone: [phone] Pulse (Heart Rate) 54 /min Invalid Interpretation Code [facility] [facility] Work Phone: [phone] QRS axis, electrocardiogram 35 deg Invalid Interpretation Code [facility] [facility] Work Phone: [phone] QRS Duration 82 ms [facility] [facility] Work Phone: [phone] QRS duration, electrocardiogram 82 ms Invalid Interpretation Code [facility] Work Phone: [phone] QT Interval new path ms [facility] [facility] Work Phone: [phone] QT interval, electrocardiogram new path ms Invalid Interpretation Code [facility] [facility] Work Phone: [phone] QTc [place] 406 ms [facility] [facility] Work Phone: [phone] T [place] 22 deg [employer] Work Phone: [phone] T wave axis, electrocardiogram 22 deg Invalid Interpretation Code [facility] [facility] Work Phone: [phone] Microbiology: Culture, Blood (WB)on 10-08-2014 Bacteria culture BCNo growth in 5 days. Invalid Interpretation Code [facility] [facility] Work Phone: [phone] Microbiology: Culture, Sputu mon 10-07-2014 Bacteria sputum culture or Staphylococcu s aureus isolated. Invalid Interpretation Code [facility] Work Phone: [phone] Lab Report: Basic Metabolic Profile (BMP)on 10-05-2014 Anion gap 7 mmol/L Invalid Interpretation Code 5-15 [facility] Work Phone: [phone] Anion gap molar conc 7 mmol/L 5-[address] [facility] Work Phone: [phone] BUN/Creatinine Ratio 15.0 RATIO Invalid Interpretation Code 10-20 [facility] [facility] Work Phone: [phone] Calcium 8.3 mg/dL Low 8.5-10.1 [facility] Work Phone: [phone] Chloride 103 mmol/L Invalid Interpretation Code 98-107 [facility] Work Phone: [phone] CO2 26.0 mmol/L Invalid Interpretation Code 21.0-32.0 [facility] Work Phone: [phone] CO2 ppres (BldV) 26.0 mmol/L 21.0-32.0 [facility] Work Phone: [phone] Creatinine 1.0 mg/dL Invalid Interpretation Code 0.8-1.3 [facility] Work Phone: [phone] eGFR (non-black) 84 mL/min/{1.73_m2} Invalid Interpretation Code >60 [facility] [employer] [facility] Work Phone: [phone] eGFR (non-black) 102 mL/min/{1.73_m2} Invalid Interpretation Code >60 [facility] [employer] [facility] Work Phone: [phone] EST GFR - AA 102 mL/min >60 [facility] Work Phone: [phone] Glucose 111 mg/dL High 70-110 [facility] Work Phone: [phone] Glucose mass conc 111 mg/dL High 70-110 [facility] Work Phone: [phone] Potassium 3.9 mmol/L Invalid Interpretation Code 3.5-5.1 [facility] Work Phone: [phone] Sodium 136 mmol/L Invalid Interpretation Code 136-145 [facility] Work Phone: [phone] Urea nitrogen 15 mg/dL Invalid Interpretation Code 7-18 [facility] Work Phone: [phone] Lab Report: CBC W/Diff, Auto matedon 10-05-2014 Absolute Neut 8.8 X10 3/UL High 2.0-7.7 [facility] Work Phone: [phone] Absolute Neutrophil count 8.8 X10 3/UL High 2.0-7.7 [facility] Work [phone] Basophils/100 leukocytes 0.2 % Invalid Interpretation Code 0-1 [facility] Work Phone: [phone] Basophils/100 WBC (Bld) 0.2 % 0-1 [facility] Work Phone: [phone] Eosinophils/100 leukocytes 1.8 % Invalid Interpretation Code 0-5 [facility] Work Phone: [phone] Eosinophils/100 WBC (Bld) 1.8 % 0-5 [facility] Work Phone: [phone] Erythrocytes (RBC) 3.70 10*6/uL Low 4.6-6.[address] [facility] Work [phone] Hematocrit (HCT) 35.9 % Low 40-54 [facility] Work Phone: [phone] Hematocrit Volume Fraction (Bld) 35.9 % Low 40-54 [facility] Work Phone: [phone] Hemoglobin (HGB) 12.2 g/dL Low 13.0-16.5 [facility] Work Phone: [phone] Lymphocytes 2.18 X10 3/UL Invalid Interpretation Code 0.83-4.51 [facility] Work Phone: [phone] Lymphocytes #/vol (Bld) 2.18 X10 3/UL 0.83-4.51 [facility] Work Phone: [phone] Lymphocytes/100 leukocytes 17.6 % Low 19-41 [facility] Work Phone: [phone] Lymphocytes/100 WBC (Bld) 17.6 % Low 19-41 [facility] Work Phone: [phone] MCH 33.0 pg High 27.0-32.0 [facility] Work Phone: [phone] MCH Entitic mass (RBC) 33.0 pg High 27.0-32.0 [facility] Work Phone: [phone] MCHC 34.0 G/GL Invalid Interpretation Code 32-36 [facility] Work Phone: [phone] MCHC mass conc (RBC) 34.0 G/GL 32-[address] [facility] Work Phone: [phone] MCV 97.0 fL High 80-94 [facility] Work [phone] MCV Entitic volume (RBC) 97.0 fL High 80-94 [facility] Work Phone: [phone] Monocytes/100 leukocytes 9.2 % Invalid Interpretation Code 0-10 [facility] Work [phone] Monocytes/100 WBC (Bld) 9.2 % 0-10 [facility] Work Phone: [phone] Neutrophils/100 leukocytes 70.8 % High 47-70 [facility] Work Phone: [phone] Neutrophils/100 WBC (Bld) 70.8 % High 47-70 [facility] Work Phone: [phone] Platelet mean volume Entitic volume (Bld) 11.0 fL 6.2-12.0 [facility] Work Phone: [phone] Platelets 230 10*3/mm3 Invalid Interpretation Code 150-450 [facility] Work Phone: [phone] Platelets #/vol (Bld) 230 10*3/mm3 150-450 [facility] Work Phone: [phone] PMV by Jolene 11.0 fL Invalid Interpretation Code 6.2-12.0 [facility] Work Phone: [phone] RBC #/vol (Bld) 3.70 10*6/uL Low 4.6-6.2 [facility] Work Phone: [phone] WBC #/vol (Bld) 12.4 10*3/uL High 4.4-11.0 [facility] Work Phone: [phone] WBC (Leukocytes) 12.4 10*3/uL High 4.4-11.0 [facility] Work Phone: [phone]) Lab Report: Magnesiumon 04-2 Magnesium 1.9 mg/dL Invalid Interpretation Code 1.8-2.4 [facility] Work Phone: [phone] Lab Report: Urinalysis, Comp leteon 10-04-2014 specific gravity, urine 1.015 Invalid Interpretation Code 1.002-1.030 [facility] Work Phone: [phone] Lab Report: BNP,B-Type NATRI URETIC PEPTIDEon 10-03-2014 BNP 132.8 pg/mL High 0-100 [facility] Work Phone: [phone] Lab Report: Troponin-Ion Troponin I 1.11 ng/mL Critically high <0.06 [facility] Work Phone: [phone] Lab Report: Vitamin D,25 Hyd roxyon 07-30-2014 vitamin D 25-hydroxy, serum 20.7 ng/mL Invalid Interpretation Code [facility] Work Phone: [phone] Vitamin D 25-OH 20.7 ng/mL [facility] Work Phone: [phone] Office Visiton 05-26-2014 cardiac risk group B Invalid Interpretation Code [facility] Work Phone: [phone] Lab Report: Folates, (Folic Acid)on 05-21-2014 Folate 15.70 ng/mL Invalid Interpretation Code 3.1-17.5 [facility] Work Phone: [phone] Lab Report: Hemoglobin A1con 05-21-2014 HbA1c 5.8 % Invalid Interpretation Code 4.2-6.3 [facility] Work Phone: [phone] Lab Report: Lipid Profileon 05-21-2014 very low density lipoproteins 33 mg/dL Invalid Interpretation Code 5-40 [facility] Work Phone: [phone] Lab Report: Prothrombin Time w/INRon 05-21-2014 Coagulation tissue factor induced in platelet poor plasma 12.5 s Invalid Interpretation Code 11.7-14.9 [facility] Work Phone: [phone] Coag RelTime (PPP) 0.9 {INR} [facility] Work Phone: [phone] INR in blood by coagulation 0.9 {INR} Invalid Interpretation Code [facility] [facility] Work Phone: [phone] Lab Report: Thyroid Stim Hor axel (TSH)on 05-21-2014 Thyroid stimulating hormone (TSH) 1.27 u[iU]/mL Invalid Interpretation Code 0.358-3.74 [facility] Work Phone: [phone] Lab Report: Vitamin B12on Cobalamin (Vitamin B12) mass conc 926 pg/mL Critically high 211-911 [facility] Work Phone: [phone] vitamin b12, serum 926 pg/mL Critically high 211-911 [facility] Work Phone: [phone] Vital Signs Date Time Vital Sign Value Performing Clinician Facility 03-11-2025 10:38-0400 Body height 177.[address] Thien Singh DO Work Phone: [facility] 03-11-2025 10:38-0400 Body weight 119.[address] Thien Singh DO Work Phone: [facility] 03-10-2025 08:28-0400 Body mass index (BMI) [Ratio] 37.7 kg/m2 Dr. Thien Singh DO Work Phone: [facility] 02-16-2025 09:57-0400 Body height 177.[address] Thien Singh DO Work Phone: [facility] 02-16-2025 09:57-0400 Body mass index (BMI) [Ratio] 37.7 kg/m2 Dr. Thien Singh DO Work Phone: [facility] 02-16-2025 09:57-0400 Body weight 119.[address] Thien Singh DO Work Phone: [facility] 02-16-2025 09:57-0400 Diastolic blood pressure 80 mm[Hg] Dr. Thien Singh DO Work Phone: [facility] 02-16-2025 09:57-0400 Heart rate 118 /min Dr. Thien Singh DO Work Phone: [facility] 02-16-2025 09:57-0400 Respiratory rate 18 /min Dr. Thien Singh DO Work Phone: [facility] 02-16-2025 09:57-0400 Systolic blood pressure 121 mm[Hg] Dr. Thien Singh DO Work Phone: [facility] 01-12-2025 07:58-0400 Body height 177.[address] Thien Singh DO Work Phone: [facility] 01-12-2025 07:58-0400 Body mass index (BMI) [Ratio] 37.5 kg/m2 Dr. Thien Singh DO Work Phone: [facility] 01-12-2025 07:58-0400 Body weight 118.[address] Thien Singh DO Work Phone: [facility] 01-12-2025 07:58-0400 Diastolic blood pressure 89 mm[Hg] Dr. Thien Singh DO Work Phone: [facility] 01-12-2025 07:58-0400 Heart rate 54 /min Dr. Thien Singh DO Work Phone: [facility] 01-12-2025 07:58-0400 Respiratory rate 16 /min Dr. Thien Singh DO Work Phone: [facility] 01-12-2025 07:58-0400 Systolic blood pressure 133 mm[Hg] Dr. Thien Singh DO Work Phone: [facility] 11-24-2024 07:43-0400 Body height 177.[address] Thien Singh DO Work Phone: [facility] 11-24-2024 07:43-0400 Body mass index (BMI) [Ratio] 38 kg/m2 Dr. Thien Singh DO Work Phone: [facility] 11-24-2024 07:43-0400 Body temperature 97.4 [degF] Dr. Thien Singh DO Work Phone: [facility] 11-24-2024 07:43-0400 Body weight 120.[address] Thien Singh DO Work Phone: [facility] 11-24-2024 07:43-0400 Diastolic blood pressure 82 mm[Hg] Dr. Thien Singh DO Work Phone: [facility] 11-24-2024 07:43-0400 Heart rate 59 /min Dr. Thien Singh DO Work Phone: [facility] 11-24-2024 07:43-0400 Respiratory rate 18 /min Dr. Thien Singh DO Work Phone: [facility] 11-24-2024 07:43-0400 SaO2% (BldA) [Mass fraction] 98 % Dr. Thien Singh DO Work Phone: [facility] 11-24-2024 07:43-0400 Systolic blood pressure 134 mm[Hg] Dr. Thien Singh DO Work Phone: [facility] 10-02-2024 07:29-0400 Body mass index (BMI) [Ratio] 36.6 kg/m2 Dr. Thien Singh DO Work Phone: [facility] 10-02-2024 07:29-0400 Body weight 115.[address] Thien Singh DO Work Phone: [facility] 10-02-2024 07:29-0400 Diastolic blood pressure 85 mm[Hg] Dr. Thien Singh DO Work Phone: [facility] 10-02-2024 07:29-0400 Heart rate 52 /min Dr. Thien Singh DO Work Phone: [facility] 10-02-2024 07:29-0400 Respiratory rate 18 /min Dr. Thien Singh DO Work Phone: [facility] 10-02-2024 07:29-0400 SaO2% (BldA) [Mass fraction] 98 % Dr. Thien Singh DO Work Phone: [facility] 10-02-2024 07:29-0400 Systolic blood pressure 122 mm[Hg] Dr. Thien Singh DO Work Phone: [facility] 11-12-2023 14:26-0400 Diastolic blood pressure 76 mm[Hg] Elizabeth Carroll MD Work Phone: [facility] 11-12-2023 14:26-0400 Heart rate 68 /min Elizabeth Carroll MD Work Phone: [facility] 11-12-2023 14:26-0400 Respiratory rate 22 /min Elizabeth Carroll MD Work Phone: [facility] 11-12-2023 14:26-0400 SaO2% (BldA) [Mass fraction] 96 % Elizabeth Carroll MD Work Phone: [facility] 11-12-2023 14:26-0400 Systolic blood pressure 125 mm[Hg] Elizabeth Carroll MD Work Phone: [facility] 11-12-2023 10:45-0400 Body temperature 98.01 [degF] Elizabeth Carroll MD Work Phone: [facility] 11-12-2023 06:07-0400 Body height 177.8 cm Elizabeth Carroll MD Work Phone: [facility] 11-12-2023 06:07-0400 Body mass index (BMI) [Ratio] 38.02 kg/m2 Elizabeth Carroll MD Work Phone: [facility] 11-12-2023 06:07-0400 Body weight 120.2 kg Elizabeth Carroll MD Work Phone: [facility] 11-08-2023 10:59-0400 Body height 177.8 cm Elizabeth Carroll MD Work Phone: [facility] 11-08-2023 10:59-0400 Body mass index (BMI) [Ratio] 38.02 kg/m2 Elizabeth Carroll MD Work Phone: [facility] 11-08-2023 10:59-0400 Body weight 120.2 kg Elizabeth Carroll MD Work Phone: [facility] 11-08-2023 10:59-0400 Diastolic blood pressure 67 mm[Hg] Elizabeth Carroll MD Work Phone: [facility] 11-08-2023 10:59-0400 Heart rate 47 /min Elizabeth Carroll MD Work Phone: [facility] [facility] 11-08-2023 10:59-0400 Systolic blood pressure 126 mm[Hg] Elizabeth Carroll MD Work Phone: [facility] 08-16-2023 10:50-0500 Body height 177.[address] Thien Singh Work Phone: [facility] 08-16-2023 10:50-0500 Body weight 120.[address] Thien Singh Work Phone: [facility] 08-15-2023 08:20-0500 Body mass index (BMI) [Ratio] 38 kg/m2 Dr. Thien Singh Work Phone: [facility] 07-25-2023 06:41-0500 Body mass index (BMI) [Ratio] 38.1 kg/m2 Dr. Thien Singh Work Phone: [facility] 07-25-2023 06:41-0500 Body temperature 96.5 [degF] Dr. Thien Singh Work Phone: [facility] 07-25-2023 06:41-0500 Body weight 120.[address] Thien Singh Work Phone: [facility] 07-25-2023 06:41-0500 Diastolic blood pressure 68 mm[Hg] Dr. Thien Singh Work Phone: [facility] 07-25-2023 06:41-0500 Heart rate 100 /min Dr. Thien Singh Work Phone: [facility] 07-25-2023 06:41-0500 Respiratory rate 20 /min Dr. Thien Singh Work Phone: [facility] 07-25-2023 06:41-0500 SaO2% (BldA) [Mass fraction] 97 % Dr. Thien Singh Work Phone: [facility] 07-25-2023 06:41-0500 Systolic blood pressure 114 mm[Hg] Dr. Thien Singh Work Phone: [facility] 02-06-2023 14:35-0400 Body height 177.[address] Thien Singh Work Phone: [facility] 02-06-2023 14:27-0400 Body mass index (BMI) [Ratio] 37.8 kg/m2 Dr. Thien Singh Work Phone: [facility] 02-06-2023 14:27-0400 Body weight 119.[address] Thien Singh Work Phone: [facility] 02-06-2023 14:27-0400 Diastolic blood pressure 91 mm[Hg] Dr. Thien Singh Work Phone: [facility] 02-06-2023 14:27-0400 Heart rate 92 /min Dr. Thien Singh Work Phone: [facility] 02-06-2023 14:27-0400 Respiratory rate 18 /min Dr. Thien Singh Work Phone: [facility] 02-06-2023 14:27-0400 SaO2% (BldA) [Mass fraction] 97 % Dr. Thien Singh Work Phone: [facility] 02-06-2023 14:27-0400 Systolic blood pressure 121 mm[Hg] Dr. Thien Singh Work Phone: [facility] 01-23-2023 05:33-0400 Body mass index (BMI) [Ratio] 37.3 kg/m2 Dr. Thien Singh Work Phone: [facility] 01-23-2023 05:33-0400 Body temperature 97.6 [degF] Dr. Thien Singh Work Phone: [facility] 01-23-2023 05:33-0400 Body weight 117.[address] Thien Singh Work Phone: [facility] 01-23-2023 05:33-0400 Diastolic blood pressure 93 mm[Hg] Dr. Thien Singh Work Phone: [facility] 01-23-2023 05:33-0400 Heart rate 130 /min Dr. Thien Singh Work Phone: [facility] 01-23-2023 05:33-0400 Respiratory rate 18 /min Dr. Thien Singh Work Phone: [facility] 01-23-2023 05:33-0400 SaO2% (BldA) [Mass fraction] 97 % Dr. Thien Singh Work Phone: [facility] 01-23-2023 05:33-0400 Systolic blood pressure 130 mm[Hg] Dr. Thien Singh Work Phone: [facility] 07-25-2022 06:44-0500 Body height 179.[address] Thien Singh Work Phone: [facility] 07-25-2022 06:44-0500 Body mass index (BMI) [Ratio] 36.8 kg/m2 Dr. Thien Singh Work Phone: [facility] 07-25-2022 06:44-0500 Body temperature 97.2 [degF] Dr. Thien Singh Work Phone: [facility] 07-25-2022 06:44-0500 Body weight 117.[address] Thien Singh Work Phone: [facility] 07-25-2022 06:44-0500 Diastolic blood pressure 74 mm[Hg] Dr. Thien Singh Work Phone: [facility] 07-25-2022 06:44-0500 Heart rate 58 /min Dr. Thien Singh Work Phone: [facility] 07-25-2022 06:44-0500 Respiratory rate 18 /min Dr. Thien Singh Work Phone: [facility] 07-25-2022 06:44-0500 SaO2% (BldA) [Mass fraction] 97 % Dr. Thien Singh Work Phone: [facility] 07-25-2022 06:44-0500 Systolic blood pressure 117 mm[Hg] Dr. Thien Singh Work Phone: [facility] 06-01-2022 13:59-0500 Body mass index (BMI) [Ratio] 37.1 kg/m2 Dr. Thien Singh Work Phone: [facility] 06-01-2022 13:59-0500 Body temperature 98 [degF] Dr. Thien Singh Work Phone: [facility] 06-01-2022 13:59-0500 Body weight 117.[address] Thien Singh Work Phone: [facility] 06-01-2022 13:59-0500 Diastolic blood pressure 74 mm[Hg] Dr. Thien Singh Work Phone: [facility] 06-01-2022 13:59-0500 Heart rate 58 /min Dr. Thien Singh Work Phone: [facility] 06-01-2022 13:59-0500 Respiratory rate 18 /min Dr. Thien Singh Work Phone: [facility] 06-01-2022 13:59-0500 SaO2% (BldA) [Mass fraction] 96 % Dr. Thien Singh Work Phone: [facility] 06-01-2022 13:59-0500 Systolic blood pressure 116 mm[Hg] Dr. Thien Singh Work Phone: [facility] 04-27-2022 10:17-0500 Body height 177.[address] Thien Singh Work Phone: [facility] Work Phone: 04-27-2022 10:17-0500 Body weight 115.[address] Thien Singh Work Phone: [facility] Work Phone: 04-26-2022 14:18-0500 Body mass index (BMI) [Ratio] 36.6 kg/m2 Dr. Thien Singh Work Phone: [facility] Work Phone: 04-18-2022 08:08-0400 Body height 177.[address] Thien Singh Work Phone: [facility] Work Phone: 04-18-2022 08:08-0400 Body mass index (BMI) [Ratio] 36.6 kg/m2 Dr. Thien Singh Work Phone: [facility] Work Phone: 04-18-2022 08:08-0400 Body weight 115.[address] Thien Singh Work Phone: [facility] Work Phone: 04-18-2022 08:08-0400 Diastolic blood pressure 74 mm[Hg] Dr. Thien Singh Work Phone: [facility] Work Phone: 04-18-2022 08:08-0400 Heart rate 80 /min Dr. Thien Singh Work Phone: [facility] Work Phone: 04-18-2022 08:08-0400 Respiratory rate 18 /min Dr. Thien Singh Work Phone: [facility] Work Phone: 04-18-2022 08:08-0400 SaO2% (BldA) [Mass fraction] 96 % Dr. Thien Singh Work Phone: [facility] Work Phone: 04-18-2022 08:08-0400 Systolic blood pressure 126 mm[Hg] Dr. Thien Singh Work Phone: [facility] Work Phone: 03-20-2022 15:30-0400 Body temperature 98.2 [degF] Dr. Thien Singh Work Phone: [facility] Work Phone: 03-20-2022 15:30-0400 Diastolic blood pressure 98 mm[Hg] Dr. Thien Singh Work Phone: [facility] Work Phone: 03-20-2022 15:30-0400 Heart rate 105 /min Dr. Thien Singh Work Phone: [facility] Work Phone: 03-20-2022 15:30-0400 Respiratory rate 16 /min Dr. Thien Singh Work Phone: [facility] Work Phone: 03-20-2022 15:30-0400 SaO2% (BldA) [Mass fraction] 98 % Dr. Thien Singh Work Phone: [facility] Work Phone: 03-20-2022 15:30-0400 Systolic blood pressure 127 mm[Hg] Dr. Thien Singh Work Phone: [facility] Work Phone: 10-04-2022 10:30-0400 Body temperature 98 [degF] Dr. Thien Singh Work Phone: [facility] Work Phone: 03-20-2022 10:30-0400 Diastolic blood pressure 67 mm[Hg] Dr. Thien Singh Work Phone: [facility] Work Phone: 03-20-2022 10:30-0400 Heart rate 112 /min Dr. Thien Singh Work Phone: [facility] Work Phone: 03-20-2022 10:30-0400 Respiratory rate 16 /min Dr. Thien Singh Work Phone: [facility] Work Phone: 03-20-2022 10:30-0400 SaO2% (BldA) [Mass fraction] 99 % Dr. Thien Singh Work Phone: [facility] Work Phone: 03-20-2022 10:30-0400 Systolic blood pressure 113 mm[Hg] Dr. Thien Singh Work Phone: [facility] Work Phone: 03-20-2022 06:00-0400 Body weight 65.[address] Thien Singh Work Phone: [facility] Work Phone: 03-19-2022 13:03-0400 Body height 177.[address] Thien Singh Work Phone: [facility] Work Phone: 03-18-2022 12:22-0400 Body mass index (BMI) [Ratio] 36 kg/m2 Dr. Thien Singh Work Phone: [facility] Work Phone: 01-22-2022 09:01-0400 Body mass index (BMI) [Ratio] 36.1 kg/m2 Dr. Thien Singh Work Phone: [facility] Work Phone: 01-22-2022 09:01-0400 Body temperature 97.3 [degF] Dr. Thien Singh Work Phone: [facility] Work Phone: 01-22-2022 09:01-0400 Body weight 115.[address] Thien Singh Work Phone: [facility] Work Phone: 01-22-2022 09:01-0400 Diastolic blood pressure 92 mm[Hg] Dr. Thien Singh Work Phone: [facility] Work Phone: 01-22-2022 09:01-0400 Heart rate 54 /min Dr. Thien Singh Work Phone: [facility] Work Phone: 01-22-2022 09:01-0400 Respiratory rate 16 /min Dr. Thien Singh Work Phone: [facility] Work Phone: 01-22-2022 09:01-0400 SaO2% (BldA) [Mass fraction] 97 % Dr. Thien Singh Work Phone: [facility] Work Phone: 01-22-2022 09:01-0400 Systolic blood pressure 132 mm[Hg] Dr. Thien Singh Work Phone: [facility] Work Phone: 01-25-2017 07:57-0400 BMI (Body Mass Index) 35.87 kg/m2 [facility] Work Phone: 01-25-2017 07:57-0400 BP Diastolic 62 mm[Hg] [facility] Work Phone: 01-25-2017 07:57-0400 BP Systolic 122 mm[Hg] Serene Montiel [facility] Work Phone: 01-25-2017 07:57-0400 Height 177.8 cm Serene Montiel [facility] Work Phone: 01-25-2017 07:57-0400 Pulse (Heart Rate) 64 /min Serene Montiel [facility] Work Phone: 01-25-2017 07:57-0400 Respiratory Rate 18 /min Serene Montiel [facility] Work Phone: 01-25-2017 07:57-0400 Weight 113.4 kg Serene Montiel [facility] Work Phone: 07-19-2016 15:04-0500 BMI (Body Mass Index) 36.01 kg/m2 Cristina Dorsey RN [facility] Work Phone: 07-19-2016 15:04-0500 BP Diastolic 70 mm[Hg] Cristina Dorsey RN [facility] Work Phone: 07-19-2016 15:04-0500 BP Systolic 110 mm[Hg] Cristina Dorsey RN [facility] Work Phone: 07-19-2016 15:04-0500 BSA (Body Surface Area) 2.3 m2 Cristina Dorsey RN [facility] Work Phone: 07-19-2016 15:04-0500 Pulse (Heart Rate) 60 /min Cristina Dorsey RN [facility] Work Phone: 07-19-2016 15:04-0500 Respiratory Rate 20 /min Cristina Dorsey RN [facility] Work Phone: 07-19-2016 15:04-0500 Weight 113.85 kg Cristina Dorsey RN [facility] Work Phone: 03-15-2016 13:14-0400 Body Temperature 97.52 [degF] Cristina Dorsey RN [facility] Work Phone: 03-15-2016 13:14-0400 Body Temperature 97.5 [degF] Cristina Dorsey RN [facility] Work Phone: 03-15-2016 13:14040 Height 177.8 cm Cristina Dorsey RN [facility] Work Phone: 03-15-2016 13:14040 Weight 117.73 kg Sandra Fernandez [facility] Work Phone: 10-14-2014 15:42-0400 Heart rate 54 /min Serene Montiel [facility] Work Phone: Encounters Encounter Date Encounter Type Care Provider Facility Start: 05-03-2025 ambulatory Collin Lutz Facility:[facility] Start: 03-11-2025 End: 03-11-2025 Admission to same day surgery center Dr. Collin Lutz MD -Dermatology Procedural Physician/Special Procedures Work Phone: Start: 03-11-2025 End: 03-11-[address] Thien Singh DO Work Phone: -Dermatology Procedural Physician/Special Procedures Start: 02-16-2025 ambulatory Collin Lutz Facility:[facility] Start: 02-16-2025 Non-patient / Non-visit Dr. Su Xiong MD -[facility] Start: 02-16-2025 End: 02-16-2025 Patient encounter procedure Elizabeth JACOBS -[facility] Work Phone: Start: 02-16-2025 End: 02-16-[address] Thien Singh DO Work Phone: -[facility] Start: 02-16-2025 End: 02-16-[address] Thien Singh DO Work Phone: -Cardiovascular Services Start: 02-16-2025 End: 02-16-[address] Collin Lutz MD -Cardiovascular Services Work Phone: Start: 02-16-2025 End: 02-16-2025 ambulatory Thien Singh Facility:[facility] Start: 01-12-2025 End: 01-12-[address] Collin Lutz MD -[facility] Work Phone: Start: 01-12-2025 End: 01-12-[address] Thien Singh DO Work Phone: -[facility] Start: 11-24-2024 End: 11-24-2024 Patient encounter procedure Macy Kulkarni NP-C -[facility] Work Phone: Start: 11-24-2024 End: 11-24-[address] Thien Singh DO Work Phone: [facility] Work Phone: Start: 10-26-2024 End: 10-26-[address] Thien Singh DO Work Phone: [facility] Work Phone: Start: 10-26-2024 End: 10-26-2024 Patient encounter procedure Macy Kulkarni NP-C -Cat Scan [facility] Work Phone: Start: 10-26-2024 End: 10-26-2024 ambulatory Macy Kulkarni NP Facility:[facility] Start: 10-02-2024 End: 10-02-2024 Patient encounter procedure Tanya Hoffmann [employer]TER MACHINE-C -[facility] Work Phone: Start: 10-02-2024 End: 10-02-2024 ambulatory Tanya Hoffmann NP Facility:[facility] Start: 10-02-2024 End: 10-02-2024 ambulatory Tanya Hoffmann NP Facility:[facility] Start: 11-12-2023 End: 11-12-2023 ambulatory ELIZABETH CARROLL Facility:[facility] Start: 11-12-2023 End: 11-12-2023 Subsequent hospital visit by physician Elizabeth Carroll MD Work Phone: Cardiology Invasive Prep and Recovery Comment on above: Cardiomyopathy, unsp ecified type Start: 11-08-2023 ambulatory ELIZABETH CARROLL Facility: [facility] Start: 11-08-2023 End: 11-08-2023 Subsequent hospital visit by physician Elizabeth Carroll MD Work Phone: Cardiovascular Imaging Lab [facility] Comment on above: Arrived Start: 08-16-2023 Non-patient / Non-visit Dr. Thien Singh Work Phone: [facility] Start: 08-16-2023 End: 08-16-2023 Admission to same day surgery center Dr. Thien Singh Work Phone: [facility]-Dermatology Procedural Physician/Special Procedures Work Phone: Start: 08-16-2023 End: 08-16-[address] Thien Singh Work Phone: [facility] Work Phone: Start: 08-09-2023 Non-patient / Non-visit Dr. Thien Singh Work Phone: [facility] Start: 07-25-2023 End: 07-25-[address] Thien Singh Work Phone: [facility]-Pulmonary Medicine [facility] Work Phone: Start: 07-11-2023 ambulatory [facility] Facility: [facility] Start: 07-11-2023 ambulatory [facility] Facility: [facility] Start: 02-22-2023 ambulatory THIEN Lindsay y:[facility] Start: 02-06-2023 End: 02-06-[address] Thien Singh Work Phone: [facility] Work Phone: Start: 02-06-2023 End: 02-06-[address] Thien Singh Work Phone: [facility] Work Phone: Start: 01-23-2023 End: 01-23-[address] Thien Singh Work Phone: [facility]-Pulmonary Medicine [facility] Work Phone: Start: 08-21-2022 End: 03-07-[address] Thien Singh Work Phone: [facility] Work Phone: Start: 08-21-2022 End: 08-21-[address] Thien Singh Work Phone: [facility]-Sleep Lab Start: 07-25-2022 End: 07-25-[address] [facility] Start: 06-01-2022 End: 06-01-[address] Thien Singh Work Phone: [facility] Start: 05-07-2022 End: 05-07-[address] Thien Singh Work Phone: [facility] Start: 05-02-2022 End: 05-02-[address] Thien Singh Work Phone: [facility] Work Phone: Start: 05-02-2022 End: 05-02-[address] Thien Singh Work Phone: [facility]-Laboratory, [place] Start: 04-27-2022 Non-patient / Non-visit Dr. Thien Singh Work Phone: [facility] Start: 04-27-2022 End: 04-27-2022 Admission to same day surgery center Dr. Thien Singh Work Phone: [facility]-Dermatology Procedural Physician/Special Procedures Start: 04-27-2022 End: 04-27-[address] Thien Singh Work Phone: [facility] Work Phone: Start: 04-18-2022 End: 04-18-[address] Thien Singh Work Phone: [facility] Work Phone: Start: 04-18-2022 End: 04-18-[address] Thien Singh Work Phone: [facility] Start: 03-20-2022 Non-patient / Non-visit Dr. Thien Singh Work Phone: [facility] Start: 03-20-2022 Non-patient / Non-visit Dr. Thien Singh Work Phone: [facility] Start: 03-19-2022 Non-patient / Non-visit Dr. Thien Singh Work Phone: [facility] Start: 03-19-2022 Non-patient / Non-visit Dr. Thien Singh Work Phone: [facility] Start: 03-18-2022 Non-patient / Non-visit Dr. Thien Singh Work Phone: [facility] Start: 03-18-2022 End: 03-20-2022 Evaluation and management of inpatient Dr. Thien Singh Work Phone: [facility]-Progressive Care Unit Start: 01-22-2022 End: 01-22-[address] Thien Singh Work Phone: [facility]-Pulmonary Medicine [facility] Procedures Date Procedure Procedure Detail Performing Clinician Start: 03-04-2025 Radiologic exam chest [address] Thien Singh DO Work Phone: Start: 02-16-2025 Radionuclide imaging of perfusion of myocardium under exercise stress Dr. Thien Singh DO Work Phone: Start: 10-26-[address] Thien lyons DO Work Phone: Start: 11-12-2023 Ephys evl trnsptl tx atrial fib isolat pulm vein Elizabeth Carroll MD Work Phone: Start: 11-12-2023 End: 11-12-2023 ACT* LOW RANGE, POC Elizabeth Carroll MD Work Phone: Start: 11-12-2023 Assay of free thyroxine Krystal Perez RETAIL TEAM MEMBER-POLARITY TESTER Work Phone: Start: 11-12-2023 EXTRA LAVENDER TOP [...] Follow Up Appt 3 months Macy julio POLARITY TESTER Work Phone: Start: 01-17-2016 End: 01-17-2016 Follow Up Appt 6 months [facility] Start: 01-17-2016 End: 03-15-2016 Retitration with follow up (patient on CPAP currently) Macy Kulkarni POLARITY TESTER Work Phone: Start: 07-19-2015 End: 07-22-2015 Evaluate [...] Smith i, MD Start: 10-14-2014 End: 01-13-2015 JAYLAN Lutz MD Start: 10-14-2014 End: 10-15-2014 Documentation [...] 05-21-2014 End: 05-24-2014 *CBC with Differential Thien Cervantes Work Phone: Start: 05-21-2014 End: 05-24-2014 *CMP Complete Metabolic Panel Thien willingham DO Work Phone: Start: 05-21-2014 End: 05-24-2014 25-Hydroxyvitamin D2+25-Hydroxyvitamin D3 [Mass/volume] in Serum or Plasma Thien Singh DO Work Phone: Start: 05-21-2014 End: 05-24-2014 Coagulation factor induced.INR assay in platelet poor plasma Thien Singh DO Work Phone: Start: 05-21-2014 End: 05-24-2014 Electrocardiogram, complete Thien Davey man DO Work Phone: Start: 05-21-2014 End: 05-24-2014 [...] Treatment Date Care Activity Detail Author Start: 03-11-2025 Catheterization of left heart [facility] Start: 03-11-2025 Patient discharge [facility] Start: 02-16-2025 End: 02-16-2025 Evaluation of diagnostic study results [facility] Start: 11-07-2024 Potassium [Moles/volume] in Serum or Plasma POTASSIUM [facility] Start: 02-16-2024 Influenza vaccination INFLUENZA VACCINE (Season Ended) [facility] Start: 12-24-2023 End: 11-11-2024 Cardiac telemetry MOBILE CARDIAC TELEMETRY ECG Routine Atrial fibrillation, unspecified type Expected: 12/24/2023, Expires: 11/11/2024 [facility] Work Phone: Comment on above: Expected: 12/24/2023, Expires: Start: 11-12-2023 End: 11-12-2023 Admission to same day surgery center 11/12/2023 7:15 AM EDT - 11/12/2023 10:20 AM EDT Surgery Cardiovascular Imaging Lab [facility] [address] [place] [address] [phone] Elizabeth Carroll MD [address] [place] [address] [phone] ABLATION SCHED INTERCARDIAC A-FIB TRANSEPTAL BY PULM VE) Cardiovascular Imaging Lab [facility] Comment on above: ABLATION SCHED INTERCARDIAC A-FIB TRANSE PTAL BY PULM VE) Start: 11-12-2023 Subsequent hospital visit by physician 11/12/2023 7:15 AM EDT Hospital Encounter Cardiology Invasive Prep and Recovery [address] [place] [address] [address] [place] [id number] Elizabeth Carroll MD [address] [place] [phone] Cardiomyopathy, unspecified type [facility] Comment on above: Cardiomyopathy, unspecified type Start: 08-16-2023 Patient discharge [facility] Start: 05-02-2023 PNEUMOCOCCAL VACCINE SERIES (2 of 2 - PCV) PNEUMOCOCCAL VACCINE SERIES (2 of 2 - PCV) [facility] Start: 02-15-2023 COVID-19 VACCINE () COVID-19 VACCINE () [facility] Start: 02-06-2023 Patient referral [facility] Work Phone: Start: 03-27-2022 Blood chemistry [facility] Work Phone: Start: 03-26-2022 Blood chemistry [facility] Work Phone: Start: 03-25-2022 Blood chemistry [facility] Work Phone: Start: 03-24-2022 Blood chemistry [facility] Work Phone: Start: 03-23-2022 Blood chemistry [facility] Work Phone: Start: 03-22-2022 Blood chemistry [facility] Work Phone: Start: 03-21-2022 Blood chemistry [facility] Work Phone: Start: 03-20-2022 Patient discharge [facility] Work Phone: Start: 03-19-2022 Care planning and problem solving actions [facility] Work Phone: Start: 03-18-2022 End: 03-19-2022 [facility] Work Phone: Start: 03-18-2022 Referral to deputy harbormaster [facility] Work Phone: Start: 03-18-2022 Application of intermittent pneumatic compression device [facility] Work Phone: Start: 03-18-2022 Care planning and problem solving actions [facility] Work Phone: Start: 03-18-2022 End: 03-18-2022 Following clinical pathway protocol [facility] Work Phone: Start: 03-18-2022 Assessment of risk of venous thromboembolism [facility] Work Phone: Start: 03-18-2022 Catheterization of vein [facility] Work Phone: Start: 03-18-2022 Inhalation therapy procedure [facility] Work Phone: Start: 03-18-2022 Insertion of catheter into peripheral vein [facility] Work Phone: Start: 03-18-2022 Measuring intake and output [facility] Work Phone: Start: 03-18-2022 Providing care according to standard [facility] Work Phone: Start: 03-18-2022 Provision of activity privileges [facility] Work Phone: Start: 03-18-2022 Admission procedure [facility] Work Phone: Start: 03-18-2022 Patient referral to dietitian [facility] Work Phone: Start: 03-18-2022 [facility] Work Phone: Start: 07-30-2017 End: 07-30-2017 Appointment [facility] Work Phone: Start: 01-25-2017 End: 01-25-2017 Appointment Appointment [facility] Work Phone: Start: 01-25-2017 End: 01-25-2017 [facility] Work Phone: Start: 01-25-2017 End: 01-25-2017 Follow Up Appt 6 months Follow Up Appt 6 months [facility] Work Phone: Start: 01-17-2017 End: 01-17-2017 Appointment Appointment [facility] Work Phone: Start: 07-19-2016 End: 07-19-2016 [facility] Work Phone: Start: 07-19-2016 End: 07-19-2016 Follow Up Appt 6 months Follow Up Appt 6 months [facility] Work Phone: Start: 01-17-2016 End: 03-15-2016 BWA BWA [facility] Work Phone: Start: 01-17-2016 End: 01-17-2016 VENEER GLUE JOINTER FEEDBACK VENEER [employer] JOINTER FEEDBACK [facility] Work Phone: Start: 01-17-2016 [...] with follow up (patient on CPAP currently) [facility] Work Phone: Start: 12-16-2015 End: 07-19-2015 Pulmonary Function Test - complete Pulmonary Function Test - complete [facility] Work Phone: Start: 12-16-2015 End: 07-19-2015 Pulmonary stress test/simple Pulmonary stress testing; simple (eg, 6-minute walk) [facility] Work Phone: Start: 07-19-2015 End: 07-19-2015 Follow Up Appt 6 months Follow Up Appt 6 months [facility] Work Phone: Start: 07-14-2015 End: 07-14-2015 VENEER GLUE JOINTER FEEDBACK VENEER GLUE JOINTER FEEDBACK [facility] Work Phone: Start: 07-14-2015 End: 07-14-2015 Follow Up Appt 6 months Follow Up Appt 6 months [facility] Work Phone: Start: 04-18-2015 End: 10-19-2014 *CMP Complete Metabolic Panel *CMP Complete Metabolic Panel [facility] Work Phone: Start: 04-18-2015 End: 10-19-2014 HbA1c *HgA1C [facility] Work Phone: Start: 04-18-2015 End: 10-19-2014 Lipid panel [AGGREGATE] *Lipid Profile [facility] Work Phone: Start: 01-19-2015 End: 01-19-2015 Follow Up Appt 6 months Follow Up Appt 6 months [facility] Work Phone: Start: 01-15-2015 End: 10-20-2014 Pulmonary Function Test - complete Pulmonary Function Test - complete [facility] Work Phone: Start: 01-15-2015 End: 10-20-2014 Pulmonary stress test/simple Pulmonary stress testing; simple (eg, 6-minute walk) [facility] Work Phone: Start: 01-13-2015 End: 01-13-2015 VENEER GLUE JOINTER FEEDBACK VENEER GLUE JOINTER FEEDBACK [facility] Work Phone: Start: 01-13-2015 End: 01-13-2015 Follow Up Appt 6 months Follow Up Appt 6 months [facility] Work Phone: Start: 10-25-2014 End: 08-01-2014 25-Hydroxyvitamin D2+25-Hydroxyvitamin D3 [Mass/volume] in Serum or Plasma *Vitamin D (Calciferol) [facility] Work Phone: Start: 10-20-2014 End: 10-20-2014 Follow Up Appt 3 months Follow Up Appt 3 months [facility] Work Phone: Start: 10-19-2014 End: 10-19-2014 25-Hydroxyvitamin D2+25-Hydroxyvitamin D3 [Mass/volume] in Serum or Plasma *Vitamin D (Calciferol) [facility] Work Phone: Start: 10-14-2014 End: 01-13-2015 VENEER GLUE JOINTER FEEDBACK VENEER GLUE JOINTER FEEDBACK [facility] Work Phone: Start: 10-14-2014 End: 01-13-2015 Follow Up Appt 3 months Follow Up Appt 3 months [facility] Work Phone: Start: 08-11-2014 End: 08-16-2014 Cardiac Referral Cardiac Referral Fareed De Jesus, [facility] [place], [address] [place] [address], [place], [address] [facility] Work Phone: Start: 07-29-2014 End: 08-12-2014 *BMP *BMP [facility] Work Phone: Start: 07-26-2014 End: 08-01-2014 25-Hydroxyvitamin D2+25-Hydroxyvitamin D3 [Mass/volume] in Serum or Plasma *Vitamin D (Calciferol) [facility] Work Phone: Start: 07-21-2014 End: 07-21-2014 Follow Up Appt 3 months Follow Up Appt 3 months [facility] Work Phone: Start: 07-21-2014 End: 07-21-2014 Pulmonary Fuction Test - complete Pulmonary Fuction Test - complete [facility] Work Phone: Start: 07-21-2014 End: 08-03-2014 Pulmonary stress test/simple Pulmonary stress testing; simple (eg, 6-minute walk) [facility] Work Phone: Start: 07-08-2014 End: 07-08-2014 *BMP *BMP [facility] Work Phone: Start: 07-08-2014 End: 07-08-2014 Cardioversion Cardioversion [facility] Work Phone: Start: 07-08-2014 End: 07-08-2014 VENEER GLUE JOINTER FEEDBACK VENEER GLUE JOINTER FEEDBACK [facility] Work Phone: Start: 07-08-2014 End: 07-08-2014 Electrocardiogram, complete EKG (In office) [facility] Work Phone: Start: 07-08-2014 End: 07-08-2014 Follow Up Appt 6 weeks Follow Up Appt 6 weeks [facility] Work Phone: Start: 07-08-2014 End: 07-08-2014 Pulmonary Referral Pulmonary Referral Mil Ji, [facility], [address], [place], [address] [employer] [facility] Work Phone: Start: 07-08-2014 End: 07-08-2014 Transesophageal echocardiogram (SHIMON) Transesophageal echocardiogram (SHIMON) [facility] Work Phone: Start: 05-26-2014 End: 05-26-2014 Complete sleep workup (PSG,CPAP as indicated) & Follow up Complete sleep workup (PSG,CPAP as indicated) & Follow up [employer] [facility] Work Phone: Start: 05-26-2014 End: 05-26-2014 VENEER GLUE JOINTER FEEDBACK VENEER GLUE JOINTER FEEDBACK [facility] Work Phone: Start: 05-26-2014 End: 05-26-2014 Echocardiography Echocardiogram (complete) [facility] Work Phone: Start: 05-26-2014 End: 05-26-2014 Electrocardiogram, complete EKG (In office) [facility] Work Phone: Start: 05-26-2014 End: 05-26-2014 Follow Up Appt 6 weeks Follow Up Appt 6 weeks [facility] Work Phone: Start: 05-26-2014 End: 05-26-2014 Nuclear stress test -Lexiscan Nuclear stress test -Lexiscan [employer] Work Phone: Start: 05-24-2014 End: 10-15-2014 Cardiac Referral Cardiac Referral Collin Lutz MD, [facility], [address], [place], [address] [employer] Work Phone: Start: 05-21-2014 End: 05-24-2014 *B12FO Vitamin B12 and Folates *B12FO Vitamin B12 and Folates [employer] Work Phone: Start: 05-21-2014 End: 05-24-2014 *CBC with Differential *CBC with Differential [employer] Work Phone: Start: 05-21-2014 End: 05-24-2014 *CMP Complete Metabolic Panel *CMP Complete Metabolic Panel [employer] Work Phone: Start: 05-21-2014 End: 05-24-2014 25-Hydroxyvitamin D2+25-Hydroxyvitamin D3 [Mass/volume] in Serum or Plasma *Vitamin D (Calciferol) [facility] Work Phone: Start: 05-21-2014 End: 05-24-2014 Coagulation factor induced.INR assay in platelet poor plasma *PT/INR [facility] Work Phone: Start: 05-21-2014 End: 05-24-2014 Electrocardiogram, complete EKG (In office) [facility] Work Phone: Start: 05-21-2014 End: 05-24-2014 HbA1c *HgA1C [facility] Work Phone: Start: 05-21-2014 End: 05-24-2014 Lipid panel [AGGREGATE] *Lipid Profile [facility] Work Phone: Start: 05-21-2014 End: 05-24-2014 Magnesium *Magnesium [facility] Work Phone: Start: 05-21-2014 End: 05-24-2014 Thyroid stimulating hormone (TSH) *TSH [facility] Work Phone: Start: 05-21-2014 End: 05-24-2014 Thyroxine (T4) free *T4 free [facility] Work Phone: Start: 2012 Prostate specific antigen measurement PROSTATE CANCER SCREENING DISCUSSION [facility] Start: 2012 Zoster vaccine hzv live for subcutaneous use ZOSTER (SHINGLES) VACCINE (1 of 2) [facility] Start: 11-19-2007 Screening for malignant neoplasm of colon COLORECTAL CANCER SCREENING DISCUSSION [facility] Start: 2002 Lipid panel LIPID SCREENING [facility] Start: 1981 Third diphtheria, tetanus and acellular pertussis (DTaP) vaccination TDAP (ADULT) [facility] Start: 1977 HIV screening HIV SCREENING DISCUSSION [facility] Start: 1962 Hepatitis C screening HEPATITIS C VIRUS SCREENING [facility] Start: 1962 Tetanus vaccination TETANUS [facility] Anion gap measurement [facility] Work Phone: Basic metabolic 2008 panel with ionized calcium - Serum or Plasma [facility] BUN/Creatinine ratio [facility] Work Phone: Calcium [Mass/volume ] in Serum or Plasma [facility] Work Phone: Carbon dioxide, tota l [Moles/volume] in Serum or Plasma [facility] Work Phone: Cardioversion [facility] Work Phone: Catheterization of l eft heart [facility] CBC W Auto Different ial panel - Blood [facility] Chloride [Moles/volu me] in Serum or Plasma [facility] Work Phone: Creatinine [Moles/volume] in Serum or Plasma [facility] Work Phone: CT Chest [facility] Glucose [Mass/volume ] in Serum or Plasma [facility] Work Phone: Hematocrit [Volume Fraction] of Blood [facility] Work Phone: Hemoglobin [Mass/vol ume] in Blood [facility] Work Phone: Leukocytes [#/volume ] in Blood [facility] Work Phone: Mean corpuscular hemoglobin concentration determination [facility] Work Phone: Mean corpuscular hemoglobin determination [facility] Work Phone: Measurement of renal function [facility] Work Phone: Neutrophil count [facility] Work Phone: Neutrophil percent differential count [facility] Work Phone: Patient Education AFib [facility] Work Phone: Patient referral [facility] Work Phone: Platelets [#/volume] in Blood [facility] Work Phone: Potassium [Moles/vol ume] in Serum or Plasma [facility] Work Phone: Red blood cell count [facility] Work Phone: Red cell distributio n width determination [facility] Work Phone: Sodium [Moles/volume ] in Serum or Plasma [facility] Work Phone: Urea nitrogen [Mass/volume] in Serum or Plasma [facility] Work Phone: XR Chest PA and Lateral [facility] Immunizations Immunization Date Immunization Notes Care Provider Fa cility 03-20-2022 influenza, injectabl e, quadrivalent, preservative free Dr. Thien Singh Work Phone: [facility] 03-20-2022 influenza, seasonal, injectable Dr. Thien Singh Work Phone: [facility] 03-20-2022 influenza virus vaccine, unspecified formulation Elizabeth Carroll MD Work Phone: [facility] 03-25-2021 Covid (Moderna) Dr. Thien willingham Work Phone: [facility] 02-25-2021 Covid (Moderna) Dr. Thien willingham Work Phone: [facility] Payers Date Payer Category Payer Self-pay [id number] 2023 Private Health Insurance SOLO STEVENSON [id number] 2023-Present [address] [place] [address] [id number] 2023 Unknown [id number] 2003 Unknown [id number] 1962 Unknown [id number] 94 1962 Unknown [id number] [id number] 94 1962 Unknown [id number] [id number] 94 1962 Unknown [id number] 2.16.840.1.846427.3.579.2.5 94 1962 Unknown [id number] 2.16.840.1.650454.3.579.2.5 94 1962 Unknown [id number] 2.16.840.1.344308.3.579.2.5 94 Unknown [id number] 2.16.840.1.609249.3.579.2.4 62 Unknown [id number] 2.16.840.1.542716.3.579.2.4 62 Unknown [id number] 2.16.840.1.076738.3.579.2.4 62 Unknown [id number] 2.16.840.1.914354.3.579.2.4 62 Unknown [id number] 2.16.840.1.447632.3.579.2.4 62 Unknown [id number] 2.16.840.1.042860.3.579.2.4 62 Unknown [id number] 2.16.840.1.665787.3.579.2.4 62 Unknown [id number] 2.16.840.1.260157.3.579.2.4 62 Unknown [id number] 2.16.840.1.003249.3.579.2.4 62 Unknown [id number] [id number] 62 Social History Date Type Detail Facility Start: 03-18-2022 End: 08-16-2023 Tobacco smoking status AZIS Unknown if ever smoked [facility] Start: 1960 Sex Assigned At Male [facility] Start: 10-03-2014 Occasional [facility] Start: 10-03-2014 None [facility] Start: 10-03-2014 Spouse/ Signif icant Other [facility] Start: 01-18-2015 End: 11-12-2023 Tobacco smoking status NHIS Occasional tobacco smoker [facility] History of tobacco use Cigarette Smoker [facility] Start: 11-08-2023 End: 11-12-2023 Alcoholic beverage intake Current drinker of alcohol (finding) [facility] Start: 11-08-2023 End: 11-12-2023 Alcoholic beverage intake [facility] Start: 11-08-2023 End: 11-12-2023 Tobacco use panel [facility] Start: 08-05-2014 Alcohol Comment Occasional beer [facility] Start: 1960 Sex assigned at Not on file [facility] Start: 11-12-2023 Tobacco use and exposure Smokeless tobacco non-user [facility] Start: 01-17-2024 End: 03-11-2025 Tobacco smoking status NHIS Ex-smoker (finding) [facility] Medical Equipment Procedure Code Equipment Code Equipment Original Text Equipment Identifier Dates Device Vascade M vp [employer] 6-12fr - [id number] Start: 11-12-2023 Device Closure P erclose Proglide 6fr - [id number] Start: 11-12-2023 Device Vascade M vp [employer] partnerships 6-12fr - [id number] Start: 11-12-2023 [id number] FDA Start: 01-17-2024 Drug-eluting cor onary artery stent, [id number] r-coated ()[id number] FDA Start: 01-17-2024 [id number] FDA Start: 01-17-2024 [id number] FDA Start: 01-17-2024 [id number] FDA Start: 01-17-2024 [id number] FDA Start: 01-17-2024 [id number] FDA Start: 01-17-2024 Goals Date Patient Goal Desired Activity /State Functional Status Date Assessment Result Facility 03-20-2022 Functional status Ambulates [facility] Work Phone: Mental Status Date Assessment Result Facility 03-20-2022 Cognitive function Voice/Name [facility] Work Phone: Clinical Notes 08-09-2023 to 03-04-2025 Note Date & Type Note Facility 03-04-2025 Radiology Diagnostic study note [facility] Imaging Services [address] [place] [address] Chest PA and Lateral MR#: [id number] Acct: [id number] Name: LIZZETTE TIDWELL Rep #: [id number] : 1960 M 64 From: Rajeev Noriega MD PCP: Dr. Thien Singh DO Status: PRE SDC Study:Chest PA and Lateral Date of Exam: 03/04/25 Exam# [id number] Ordering Dr: Manoj Christian GARMENT PARTS CUTTER MACHINE [employer] CUTTER MACHINE-C PROCEDURE: CHEST PA AND LATERAL 03/04/2025 REASON FOR EXAM: PRE-OPERATIVE: LHC TECHNIQUE: Procedure Code: RADCXR Modality: DX Procedure: CHEST PA AND LATERAL COMPARISON: July 31, 2023, October 26, 2024 FINDINGS: Hardware: None Heart: Mildly enlarged. Mediastinum: Some narrowing of the diameter of the trachea. Review of prior CT showed a saber sheath trachea. Lungs: Upper lobe predominant emphysema. No consolidation. Bones: The bones are unremarkable. RAD/Chest PA and Lateral IMPRESSION: 1. Emphysema. Saber sheath trachea. Correlate with history of COPD and prior pulmonary function tests if available. Reading Location: [id number] CC: GARMENT PARTS CUTTER MACHINE-C Elizabeth Christian; Dr. Thien Singh DO ~ Dry Pan Operator: Signed [facility] 11-24-2024 Evaluation note Diagnosis Onset Date Resolution Asthma chronic November 24 7:33am CEM (obstructive sleep apnea) chronic November 24, 2024 7:33am Smoking greater than 20 pack years chronic November 24, 2024 7:33am Stage 2 moderate COPD by GOLD classification chronic November 24, 2024 7:33am Fatigue acute January 12 7:56am Hyperlipidemia chronic January 12, 2025 7:56am Non-ischemic cardiomyopathy chronic January 12, 2025 7:56am Paroxysmal atrial fibrillation chronic January 12, 2025 7:56am Smoking greater than 20 pack years chronic January 12, 2025 7:56am Stented coronary artery January 17, 2024 chronic January 12, 2025 7:56am Fatigue acute February 16, 2025 9:48am Hyperlipidemia February 16, 2025 9:48am Non-ischemic cardiomyopathy chronic February 16, 2025 9:48am Paroxysmal atrial fibrillation February 16, 2025 9:48am Smoking greater than 20 pack years chronic February 16, 2025 9:48am Stented coronary artery January 17, 2024 chronic February 16, 2025 9:48am [employer] Work Phone: 1(507) 712-901705-12-2025 Radiology Diagnostic study note [facility] Imaging Services [address] [place] [id number] Lung Screening MR#: [id number] Acct: [id number] Name: LIZZETTE TIDWELL Rep #: [id number] : 1960 M 63 From: Arnulfo Tavera MD PCP: Dr. Thien Singh, DO Status: [facility] Study:Low Dose CT Lung Screening Date of Exam : 10/26/24 Exam# [id number] Ordering Dr: Mukund Kulkarni [employer]MENT [employer] CUTTER MACHINE G[employer]MENT [employer] CUTTER MACHINE-C PROCEDURE: LOW DOSE CT LUNG SCREENING 10/26/2024 REASON FOR EXAM: SMOKING HISTORY Current smoker. COPD. TECHNIQUE: Low Dose CT Lung screening without contrast. Coronal and Sagittal reconstructionseries were provided. One or more dose reduction techniques were used (e.g., Automated exposure control, adjustment of the mA and/or kV according to patient size, use of iterative reconstruction technique). REFERENCE LINK: [employer] book Lung-RADS RADIATION DOSE SUMMARY: CTDlvol: 4.02 mGy [...] LDCT. Other Significant Findings: None. Reading Location: [facility] CC: REYNALDO Kulkarni; Dr. Thien Singh, DO ~ Dry Pan Operator: Signed [facility]04-18-2025 Evaluation note* Diagnosis Onset Date Resolution Status Admit Date Fatigue acute October 02 8:30am Hyperlipidemia chronic September 8:30am Non-ischemic cardiomyopathy chronic October 02, 2024 8:30am Paroxysmal atrial fibrillation chronic October 02, 2024 8:30am Smoking greater than 20 pack years chronic October 02, 2024 8:30am Stented coronary artery January 17, 2024 chroni c October 02, 2024 8:30am [facility] Work Phone: 1(826) 257-225204-18-2025 Evaluation note* Diagnosis Onset Date Resolution Status [...] D classification chronic November 24, 2024 7:33am [facility] Work Phone: 1(308) 901-634805-28-2024 Nurse Note* Nursing Notes - Raulito Rios [...] pulses. Ambulates prior to DC without difficulty. [facility]05-28-2024 Miscellaneous Notes* Nursing Notes - Raulito [...] EDT November 12, 2023 Collin Lutz MD [address] [place] [address] RE: DIANN LIZZETTE Mauro DATE OF SERVICE: [...] Elizabeth Carroll MD cc: THIEN SINGH DO [address] [place] [address] Collin Lutz MD [address] [facility] [place] [address] * Nursing Notes - Alley Chavez RN - 11/12/2023 6:22 AM EDT Pt arrives to room 42 in [facility] for Afib ablation. ECG completed. IV [...] monitor shows SB. [facility] Discharge instructions* Discharge Instructions* Krystal Perez APRN-DONALD - 11/12/2023 2:35 PM EDT Treadmill test [...] Where can you learn more? Go to [email or web address]. * Discharge Instr - Wound Care* MALIA [...] seek immediate medical care. [facility] Note* Referral Letter - Elizabeth Carroll MD - 11/12/2023 12:00 PM EDT November 12, 2023 Clolin Lutz MD [address] [facility] [facility] [place] [address] RE: LIZZETTE TIDWELL DATE OF SERVICE: 11/12/2023 Dear Collin, It [...] Elizabeth Carroll MD cc: THIEN SINGH DO [address] [place] [address] Collin Lutz MD [address] [place] [address] [facility]05-28-2024 Nurse Note* Nursing Notes - Alley Chavez RN - 11/12/2023 6:22 AM EDT Pt arrives to room 42 in [facility] for Afib ablation. ECG completed. IV started in left arm. Labs drawn and sent. 0.9 NS IVF initiated @ 20mL/ hr per pump. Pt prep completed. Valuables given to no one. Clothes secured in room. Questions about procedure answered. Family brought to bedside. Bed in low position, side rail up x2 and call light given to pt. Tele monitor shows SB. [facility]03-01-2024 Procedure [facility] 08-16-2023 Procedure [facility]02-23-2024 History and physical note Author Nilda Silverman [facility] August 09, 2023 7:56am Note Date/Time August 09, 2023 7:41am [facility] Medical Records Department [address] [place] [address] History & Physical Exam 08/09/23 0739 MR#: [id number] Acct: [id number] Name: LIZZETTE TIDWELL Rep #:[id number] : 1960 62 From: Nilda SINGH PCP: Dr. Thien Singh, DO Status:PRE [facility] Location: [facility] History and Physical Date of Admission: 08/16/23 [...] as well as April2022. He does have CME. Echocardiogram from 03/18/2022 demonstrated ejection fraction of [...] EMR Ejection fraction %: 65 to 70 [facility] Medical History Alcoholism Asthma Atrial fibrillation with rapid ventricular response Atrial flutter Depression Nicotine dependence Non-ischemic cardiomyopathy Obesity CEM (obstructive sleep apnea) Paroxysmal atrial fibrillation Stage 2 moderate COPD by GOLD classification Vitamin D deficiency Surgical History History of cardiac radiofrequency ablation (10/01/14) History of cardioversion (04/27/22) History of tonsillectomy History of umbilical hernia repair Family History Unknown No problems noted. Other [...] Dr. Thien Singh, DO; FRANCISCO Whitley~ Signed [facility] Work Phone: evaluation note* Diagnosis Onset Date Resolution Status Chronic systolic (congestive) heart failure chronic CEM (obstructive sleep apnea) chronic Stage 2 moderate COPD by GOLD classification chronic Atrial fibrillation with rapid ventricular response acute Chest pain acute Non-ischemic cardiomyopathy chronic Stage 2 moderate COPD by GOLD classification [facility] Work Phone: Evaluation note* Diagnosis Onset Date Resolution Status Chronic systolic (congestive) heart failure chronic CEM (obstructive sleep apnea) chronic Chest pain resolved Paroxysmal atrial fibrillation [facility] Work Phone: evaluation note* Diagnosis Onset Date Resolution Status Chronic systolic (congestive) heart failure chronic CEM (obstructive sleep apnea) chronic Chest pain resolved Paroxysmal atrial fibrillation chronic Paroxysmal atrial fibrillation [facility] Work Phone: Evaluation note* Diagnosis Onset Date Resolution Status CEM (obstructive sleep apnea) chronic Stage 2 moderate COPD by GOLD classification acute Chronic systolic (congestive) heart failure chronic CEM (obstructive sleep apnea) [facility] Work Phone: evaluation note* Diagnosis Onset Date Resolution Status Stage 2 moderate COPD by GOLD classification acute Chronic systolic (congestive) heart failure chronic CEM (obstructive sleep apnea) chronic Paroxysmal atrial fibrillation chronic CASTRO (dyspnea on exertion) ac chi Paroxysmal atrial fibrillation [facility] Work Phone: Evaluation note* Diagnosis Onset Date Resolution Status Stage 2 moderate COPD by GOLD classification acute Chronic systolic (congestive) heart failure chronic CEM (obstructive sleep apnea) chronic Paroxysmal atrial fibrillation [facility] Work Phone: evaluation note* Diagnosis Cardiomyopathy, unspecified type Atrial fibrillation, unspecified type Cardiomyopathy, unspecified type Atrial fibrillation, unspecified type Cardiomyopathy, unspecified type Atrial fibrillation, unspecified type [facility] Diagnosis Cardiomyopathy, unspecified type Atrial fibrillation, unspecified type Cardiomyopathy, unspecified type Atrial fibrillation, unspecified type [facility] this encounter [facility] (narrative)No reason for referral information availableWBarberton [facility] Work Phone: Chief Complaint and Reason [...] Visit Chronic systolic (co ngestive) heart failure CME (obstructive sleep apnea) Chest pain Paroxysmal atrial [...] EORDER Reason for Visit 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 Chronic systolic (congestive) heart failure CEM (obstructive sleep apnea) Paroxysmal atrial fibrillation CASTRO (dyspnea on exertion) Paroxysmal atrial fibrillation Chief Complaint 6 M FU Atrial fibrillation AFIB Atrial fibrillation Atrial fibrillation Reason for Visit 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 Chronic systolic (congestive) [...] GOLD classifica tion November 24, 2024 7:33am Chief Complaint Admit Date HX SMOKING October 26, 2024 7:39a m 11 m fu November 24, 2024 7:33 am 1 Y FU January 12, 2025 7:56 am CAD February 16, 2025 6:38am afib in stress lab today, s/p ablation X 2 February 16, 2025 9:48am Reason for Visit Admit Date Asthma November 24, 2024 7:33 am ECM (obstructive sleep apnea) November 24, 2024 7:33am Smoking greater than 20 pack years November 24, 2024 7:33am Stage 2 moderate COPD by GOLD classifica tion November 24, 2024 7:33am Fatigue January 12, 2025 7:56 am Hyperlipidemia January 12, 2025 7:56 am Non-ischemic cardiomyopathy January 12 7:56am Paroxysmal atrial fibrillation December 7:56am Smoking greater than 20 pack years January 12, 2025 7:56am Stented coronary artery January 12, 2025 7:56am Fatigue February 16, 2025 9:48am Hyperlipidemia February 16, 2025 9:48am Non-ischemic cardiomyopathy February 9:48am Paroxysmal atrial fibrillation February 16, 2025 9:48am Smoking greater than 20 pack years Septe 2024 9:48am Stented coronary artery February 16 9:48am Chief Complaint Admit Date 11 m fu November 24, 2024 7:33 am 1 Y FU January 12, 2025 7:56 am CAD February 16, 2025 6:38am afib in stress lab today, s/p ablation X February 16, 2025 9:48am Coronary artery disease February 16 4:25pm Chief Complaint Admit Date 11 m fu November 24, 2024 7:33 am 1 Y FU January 12, 2025 7:56 am CAD February 16, 2025 6:38am afib in stress lab today, s/p ablation X 2 February 16, 2025 9:48am Coronary artery disease February 16 4:25pm Abnormal result of other cardiovascular function s March 11, 2025 10:24am Advance Directives No Advanced Directives Records Found Advance Directive Response Recorded Date/ Time Name of Medical Power of Litigation Legal Assistant Sonia Parkinson y March 18, 2022 12:22pm Advance Directives Yes October 03 10:28am Living Will Yes March 18 12:22pm Power of Litigation Legal Assistant Yes March 18 12:22pm Advance Directive Response Recorded Date/ Time Name of Medical Power of Litigation Legal Assistant Sonia Parkinson y March 18, 2022 11:22am Advance Directives Yes October 03 9:28am Living Will Yes March 18 11:22am Power of Litigation Legal Assistant Yes March 18 11:22am Advance Directive Response Recorded Date/ Time Name of Medical Power of Litigation Legal Assistant Sonia zarate March 18, 2022 11:22am Advance Directives on File Yes Novem 2021 10:17am Name of Medical Power of Litigation Legal Assistant Sonia - April 27, 2022 10:17am Advance Directives Yes April 10:17am Living Will Yes April 27 10:17am Power of Litigation Legal Assistant Yes April 27, 2022 10:17am Advance Directive Response Recorded Date/ Time Advance Directives Yes April 11:17am Living Will Yes April 27 11:17am Power of Litigation Legal Assistant Yes April 27, 2022 11:17am Advance Directive Response Recorded Date/ Time Advance Directives No August 15 10:50am Living Will Yes August 16, 2023 10:50am Power of Litigation Legal Assistant No August 15 10:50am Date Activated Date Inactivated Comments 10/01/2014 3:04 PM 10/02/2014 12:03 PM Date Activated Date Inactivated Comments 11/12/2023 10:37 AM Date Activated Date Inactivated Comments 10/01/2014 3:04 PM 10/02/2014 12:03 PM Advance Directive Response Recorded Date/ Time Living Will Yes January 17, 2024 10:47am Do you have a Healthcare Power of Litigation Legal Assistant? Yes January 17, 2024 10:47am Living Will Yes August 16, 2023 11:50am Do you have a Healthcare Power of Litigation Legal Assistant? No August 16, 2023 11:50am Advance Directives Yes January 16 7:22am Advance Directive Response Recorded Date/ Time Living Will Yes August 16, 2023 11:50am Do you have a Healthcare Power of Litigation Legal Assistant? No August 16, 2023 11:50am Living Will Yes January 17, 2024 10:47am Do you have a Healthcare Power of Litigation Legal Assistant? Yes January 17, 2024 10:47am Advance Directives Yes January 16 7:22am Advance Directive Response Recorded Date/ Time Living Will Yes August 16, 2023 11:50am Do you have a Healthcare Power of Litigation Legal Assistant? No August 16, 2023 11:50am Advance Directives Yes January 16 7:22am Advance Directive Response Recorded Date/ Time Living Will Yes August 16, 2023 11:50am Do you have a Healthcare Power of Litigation Legal Assistant? No August 16, 2023 11:50am Advance Directives on File Yes Deepika 2024 10:38am Living Will Yes March 11, 2025 10:38am Do you have a Healthcare Power of Litigation Legal Assistant? Yes March 11, 2025 10:38am Name of Medical Power of Litigation Legal Assistant siva tidwell March 11, 2025 10:38am Advance Directives Yes February 10:38am Reason for Referral Specialty Diagnoses / Procedures Referred By Contac t Referred To Contact Diagnoses Cardiomyopathy, unspecified type Atrial fibrillation, unspecified type Procedures CT CARDIAC PULMONARY VENOGRAM ID CHG CT HEART CONTRAST EVAL CARDIAC STRUCT/MORPH Elizabeth Carroll MD [address] [place] [id number] Referral ID Status Reason Start Date Expiration Date V isits Requested Visits Authorized [id number] Pending Review 07/11/2023 08/04/2024 1 1 Specialty Diagnoses / Procedures Referred By Contac t Referred To Contact Diagnoses Atrial fibrillation, unspecified type Procedures MOBILE CARDIAC TELEMETRY Krystal Perez, RETAIL TEAM MEMBER-POLARITY TESTER [address] [place] [address] Referral ID Status Reason Start Date Expiration Date V isits Requested Visits Authorized [id number] New Request 11/12/2023 12/06/2024 1 1 Summary Purpose Family History No Family History Records Found Additional Source Comments Care Teams (unrecognized sec tion and content) Team Status: Active Member Role Status Dates Dr. Thien Singh , Family Provider Active Dr. Thien Singh , Primary Care Provider Active Team Status: Inactive Member Role Status Dates Dr. Thien Singh , Primary Care ProviderNat Provider Active Dr. Mil Ji MD Attending Provider Active Team Status: Inactive Member Role Status Dates Dr. Thien Singh , DO Primary Care ProviderNat Provider Active Priscilla Hunt Attending Provider Active Team Status: Inactive Member Role Status Dates Dr. Thien Singh , DO Primary Care Provider, Referrin g Provider Active Macy Kulkarni GARMENT PARTS CUTTER MACHINE, GARMENT PARTS CUTTER MACHINE-C Attending Provider Active Team Status: Inactive Member Role Status Dates Dr. Thien Singh DO Primary Care Provider, Attendin g Provider Active Team Status: Inactive Member Role Status Dates Dr. Thien Singh DO Primary Care Provider Active Dr. Mil Ji MD Attending Provider Active Team Status: Inactive Member Role Status Dates Dr. Thien Singh DO Primary Care Provider, Referrin g Provider Active Tanya Hoffmann GARMENT PARTS CUTTER MACHINE, GARMENT PARTS CUTTER MACHINE-C Attending Provider Active Team Status: Inactive Member Role Status Dates Dr. Thien Singh DO Primary Care Provider Active Tanya Hoffmann GARMENT PARTS CUTTER MACHINE, GARMENT PARTS CUTTER MACHINE-C Attending Provider, Referring P rovider Active Team Status: Active Member Role Status Dates Dr. Thien Singh DO Primary Care Provider Active Dr. Collin Lutz MD Referring Provider, Other Provide r Active Elizabeth Christian GARMENT PARTS CUTTER MACHINE, GARMENT PARTS CUTTER MACHINE-C Other Provider Active Nilda Silverman PA, PA Attending Provider Active Team Status: Active Member Role Status Dates Dr. Thien Singh DO Primary Care Provider Active Dr. Collin Lutz MD Attending Provider, Referring Provider, Other Provider Active Elizabeth Christian GARMENT PARTS CUTTER MACHINE, GARMENT PARTS CUTTER MACHINE-C Other Provider Active Team Status: Active Member Role Status Dates Dr. Thien Singh DO Primary Care Provider Active Dr. Collin Lutz MD Referring Provider, Other Provide r Active Elizabeth Christian GARMENT PARTS CUTTER MACHINE, GARMENT PARTS CUTTER MACHINE-C Other Provider Active Dr. Mil Ji MD Attending Provider Active Team Status: Inactive Member Role Status Dates Dr. Thien Singh DO Primary Care Provider Active Dr. Collin Lutz MD Attending Provider, Referring Pro vider Active Elizabeth Christian GARMENT PARTS CUTTER MACHINE, GARMENT PARTS CUTTER MACHINE-C Other Provider Active Sinker Winder Relationship Specialty Start Date End Date Thien Singh DO PCP - General Family Medicine 08/03/14 Collin Lutz MD [address] [place] [id number] Cardiovascular Disease 08/05/14 Mil Ji MD [address] [place] [phone] 08/05/14 Sinker Winder Relationship Specialty Start Date End Date Thien Singh DO PCP - General Family Medicine 08/03/14 Collin Lutz MD [address] [place] [address] Cardiovascular Disease 08/05/14 Mil Ji MD [address] [place] [address] 08/05/14 Team Status: Active Member Role Status Dates Dr. Thien Singh DO Primary Care Provider Active Team Status: Inactive Member Role Status Dates Dr. Thien Singh DO Primary Care Provider Active Start: October 02, 2024 End: October 02, 2024 Dr. Thien Singh DO Referring Provider Active Start: October 02, 2024 End: October 02, 2024 Tanya Hoffmann GARMENT PARTS CUTTER MACHINE, GARMENT PARTS CUTTER MACHINE-C Attending Provider Active Start: October 02, 2024 End: October 02, 2024 Team Status: Inactive Member Role Status Dates Dr. Thien Singh DO Primary Care Provider Active Start: October 02, 2024 End: October 02, 2024 Tanya Hoffmann GARMENT PARTS CUTTER MACHINE, GARMENT PARTS CUTTER MACHINE-C Attending Provider Active Start: October 02, 2024 End: October 02, 2024 Tanya Hoffmann GARMENT PARTS CUTTER MACHINE, GARMENT PARTS CUTTER MACHINE-C Referring Provider Active Start: October 02, 2024 End: October 02, 2024 Team Status: Inactive Member Role Status Dates Dr. Thien Singh DO Primary Care Provider Active Start: October 26, 2024 End: October 26, 2024 Macy Kulkarni GARMENT PARTS CUTTER MACHINE, GARMENT PARTS CUTTER MACHINE-C Attending Provider Active Start: October 26, 2024 End: October 26, 2024 Macy Kulkarni NP, GARMENT PARTS CUTTER MACHINE-C Referring Provider Active Start: October 26, 2024 End: October 26, 2024 Team Status: Inactive Member Role Status Dates Dr. Thien Singh DO Primary Care Provider Active Start: November 24, 2024 End: November 24, 2024 Dr. Thien Singh DO Referring Provider Active Start: November 24, 2024 End: November 24, 2024 Macy Kulkarni GARMENT PARTS CUTTER MACHINE, GARMENT PARTS CUTTER MACHINE-C Attending Provider Active Start: November 24, 2024 [...] 2024 End: October 02, 2024 Tanya Hoffmann GARMENT PARTS CUTTER MACHINE, GARMENT PARTS CUTTER MACHINE-C Attending Provider Active Start: October 02, 2024 End: October 02, 2024 Team Status: Inactive Member Role/Relationship Status Dates Dr. Thien Singh DO Primary Care Provider Active Start: October 02, 2024 End: October 02, 2024 Tanya Hoffmann GARMENT PARTS CUTTER MACHINE, GARMENT PARTS CUTTER MACHINE-C Attending Provider Active Start: October 02, 2024 End: October 02, 2024 Tanya Hoffmann GARMENT PARTS CUTTER MACHINE, GARMENT PARTS CUTTER MACHINE-C Referring Provider Active Start: October 02, 2024 End: October 02, 2024 Team Status: Inactive Member Role/Relationship Status Dates Dr. Thien Singh DO Primary Care Provider Active Start: October 26, 2024 End: October 26, 2024 Macy Kulkarni GARMENT PARTS CUTTER MACHINE, GARMENT PARTS CUTTER MACHINE-C Attending Provider Active Start: October 26, 2024 End: October 26, 2024 Macy Kulkarni GARMENT PARTS CUTTER MACHINE, GARMENT PARTS CUTTER MACHINE-C Referring Provider Active Start: October 26, 2024 End: October 26, 2024 Team Status: Inactive Member Role/Relationship Status Dates Dr. Thien Singh DO Primary Care Provider Active Start: November 24, 2024 End: November 24, 2024 Dr. Thien Singh DO Referring Provider Active Start: November 24, 2024 End: November 24, 2024 Macy Kulkarni GARMENT PARTS CUTTER MACHINE, GARMENT PARTS CUTTER MACHINE-C Attending Provider Active Start: November 24, 2024 [...] January 12, 2025 End: January 12, 2025 Team Status: Inactive Member Role/Relationship Status Dates Dr. Thien Singh DO Primary Care Provider Active Start: October 26, 2024 End: October 26, 2024 Macy Kulkarni GARMENT PARTS CUTTER MACHINE, GARMENT PARTS CUTTER MACHINE-C Attending Provider Active Start: October 26, 2024 End: October 26, 2024 Macy Kulkarni GARMENT PARTS CUTTER MACHINE, GARMENT PARTS CUTTER MACHINE-C Referring Provider Active Start: October 26, 2024 End: October 26, 2024 Team Status: Inactive Member Role/Relationship Status Dates Dr. Thien Singh DO Primary Care Provider Active Start: November 24, 2024 End: November 24, 2024 Dr. Thien Singh DO Referring Provider Active Start: November 24, 2024 End: November 24, 2024 Macy Kulkarni GARMENT PARTS CUTTER MACHINE, GARMENT PARTS CUTTER MACHINE-C Attending Provider Active Start: November 24, 2024 [...] January 12, 2025 End: January 12, 2025 Team Status: Active Member Role/Relationship Status Dates Dr. Thien Singh DO Primary Care Provider Active Start: February 16, 2025 Dr. Collin Lutz MD Attending Provider Active S tart: February 16, 2025 Dr. Collin Lutz MD Referring Provider Active S tart: February 16, 2025 Team Status: Inactive Member Role/Relationship Status Dates Dr. Thien Singh DO Primary Care Provider Active Start: February 16, 2025 End: February 16, 2025 Dr. Thien Singh DO Referring Provider Active Start: February 16, 2025 End: February 16, 2025 Elizabeth Christian GARMENT PARTS CUTTER MACHINE, GARMENT PARTS CUTTER MACHINE-C Attending Provider Active S tart: February 16, 2025 End: February 16, 2025 Team Status: Inactive Member Role/Relationship Status Dates Dr. Thien Singh DO Primary Care Provider Active Start: November 24, 2024 End: November 24, 2024 Dr. Thien Singh DO Referring Provider Active Start: November 24, 2024 End: November 24, 2024 Macy Kulkarni GARMENT PARTS CUTTER MACHINE, GARMENT PARTS CUTTER MACHINE-C Attending Provider Active Start: November 24, 2024 [...] January 12, 2025 End: January 12, 2025 Team Status: Inactive Member Role/Relationship Status Dates Dr. Thien Singh DO Primary Care Provider Active Start: February 16, 2025 End: February 16, 2025 Dr. Collin Lutz MD Attending Provider Active S tart: February 16, 2025 End: February 16, 2025 Dr. Collin Lutz MD Referring Provider Active S tart: February 16, 2025 End: February 16, 2025 Team Status: Inactive Member Role/Relationship Status Dates Dr. Thien Singh DO Primary Care Provider Active Start: February 16, 2025 End: February 16, 2025 Dr. Thien Singh DO Referring Provider Active Start: February 16, 2025 End: February 16, 2025 Elizabeth Christian GARMENT PARTS CUTTER MACHINE, GARMENT PARTS CUTTER MACHINE-C Attending Provider Active S tart: February 16, 2025 End: February 16, 2025 Team Status: Active Member Role/Relationship Status Dates Dr. Thien Singh DO Primary Care Provider Active Start: February 16, 2025 Dr. Collin Lutz MD Referring Provider Active S tart: February 16, 2025 Dr. Collin Lutz MD Other Provider Active Start : February 16, 2025 Dr. Su Xiong MD Attending Provider Active Start: February 16, 2025 Team Status: Active Member Role/Relationship Status Dates Dr. Thien Singh DO Primary care physician Active Team Status: Inactive Member Role/Relationship Status Dates Dr. Thien Singh DO Primary care physician Active Start: November 24, 2024 End: November 24, 2024 Dr. Thien Singh DO Referring Provider Active Start: November 24, 2024 End: November 24, 2024 Macy Kulkarni GARMENT PARTS CUTTER MACHINE, GARMENT PARTS CUTTER MACHINE-C Attending physician Active Start: November 24, 2024 End: November 24, 2024 Team Status: Inactive Member Role/Relationship Status Dates Dr. Thien Singh DO Primary care physician Active Start: January 12, 2025 End: January 12, 2025 Dr. Thien Singh DO Referring Provider Active Start: January 12, 2025 End: January 12, 2025 Dr. Collin Lutz MD Attending physician Active Start: January 12, 2025 End: January 12, 2025 Team Status: Inactive Member Role/Relationship Status Dates Dr. Thien Singh DO Primary care physician Active Start: February 16, 2025 End: February 16, 2025 Dr. Collin Lutz MD Attending physician Active Start: February 16, 2025 End: February 16, 2025 Dr. Collin Lutz MD Referring Provider Active S tart: February 16, 2025 End: February 16, 2025 Team Status: Inactive Member Role/Relationship Status Dates Dr. Thien Singh DO Primary care physician Active Start: February 16, 2025 End: February 16, 2025 Dr. Thien Singh DO Referring Provider Active Start: February 16, 2025 End: February 16, 2025 Elizabeth Christian GARMENT PARTS CUTTER MACHINE, GARMENT PARTS CUTTER MACHINE-C Attending physician Active Start: February 16, 2025 End: February 16, 2025 Team Status: Active Member Role/Relationship Status Dates Dr. Thien Singh DO Primary care physician Active Start: February 16, 2025 Dr. Collin Lutz MD Referring Provider Active S tart: February 16, 2025 Dr. Collin Lutz MD Nurse Practitioner Active S tart: February 16, 2025 Dr. Su Xiong MD Attending physician Active Start: February 16, 2025 Team Status: Inactive Member Role/Relationship Status Dates Dr. Thien Singh DO Primary care physician Active Start: March 11, 2025 End: March 11, 2025 Dr. Collin Lutz MD Attending physician Active Start: March 11, 2025 End: March 11, 2025 Dr. Collin Lutz MD Referring Provider Active S tart: March 11, 2025 End: March 11, 2025 Elizabeth Christian GARMENT PARTS CUTTER MACHINE, GARMENT PARTS CUTTER MACHINE-C Nurse Practitioner Active S tart: March 11, 2025 End: March 11, 2025 Goals (unrecognized section and content) Goals [...] content) Specialty Diagnoses / Procedures Referred By Parish t Referred To Contact Diagnoses Cardiomyopathy, unspecified type Atrial fibrillation, unspecified type Procedures CT CARDIAC PULMONARY VENOGRAM ID CHG CT HEART CONTRAST EVAL CARDIAC STRUCT/MORPH Elizabeth Carroll MD [address] [place] [phone] Referral ID Status Reason Start Date Expiration Date V isits Requested Visits Authorized [id number] Pending Review 07/11/2023 08/04/2024 1 1 Specialty Diagnoses / Procedures Referred By Parish t Referred To Contact Diagnoses Cardiomyopathy, unspecified type Atrial fibrillation, unspecified type Cardiomyopathy, unspecified type [I42.9] Atrial fibrillation, unspecified type [I48.91] Procedures ID COMPRE EP EVAL ABLTJ ATR FIB PULM VEIN ISOLATION ABLATION SCHED INTERCARDIAC A-FIB TRANSEPTAL BY PULM VEIN ISOLATION W/EP EVAL ([id number]) Elizabeth Carroll MD [address] [place] [id number] [facility] [address] [place] [id number] Referral ID Status Reason Start Date Expiration Date Visits Re quested Visits Authorized [id number] 1 1 Scheduled Active and Recently Administ [...] section and content) DATE CREATED AUTHOR 11/14/2023 [facility] DATE CREATED AUTHOR AUTHOR'S ALEEIZ ATION 04/29/2025 [facility] FOR RECORDS PERTAINING TO PATIENTS WHO [...] BE BASED ON THE PRIMARY CLINICAL RECORDS. [employer]. provides no warranty or guarantee of the accuracy or completeness of information in this document.
[2025-05-03 17:25] VITALS: BP 103/66; PULSE 79; RESP 16; TEMP 36.3; O2SAT 97
[2025-05-03] MEDS: 0.9% Saline Lock 10 ML Syringe IV ×2 (17:33→21:20)
[2025-05-03] MEDS: Sotalol Hydrochloride 80 MG Tablet 120 MG PO (17:33)
--- NOTE | 2025-05-03 19:33 | EKG12_ITS ---
Test Reason : TIMED Blood Pressure : */* mmHG Vent. Rate : 73 BPM Atrial Rate : 73 BPM P-R Int : 164 ms QRS Dur : 78 ms QT Int : 382 ms P-R-T Axes : 81 52 55 degrees QTcB Int : 420 ms Normal sinus rhythm Low voltage QRS Borderline ECG When compared with ECG of 16-Feb-2025 10:02, Vent. rate has decreased by [address] no longer elevated in Inferior leads Confirmed by QUINTIN TALBERT, COLLIN ([id number]), food expeditor LACHELLE JAQUEZ ([id number]) on 05/05/2025 6:39:48 AM Referred By: Collin Lutz Confirmed By: COLLIN LUTZ MD
[2025-05-03 21:20] VITALS: BP 106/58; PULSE 63; RESP 16; TEMP 36.6; O2SAT 96
[2025-05-03] MEDS: APIXABAN 5 MG TABLET PO (21:20)
[2025-05-04 04:15] VITALS: BP 94/62; PULSE 62; RESP 14; TEMP 36.7; O2SAT 96
--- NOTE | 2025-05-04 06:32 | PN.CARD_ITS ---
Subjective Subjective Patient seen and evaluated. Doing well no complaints Objective Data Vital Signs: Vital Signs Temp Pulse Resp BP Pulse Ox O2 Del Method 98.0 F 62 14 94/62 96 CPAP 05/04/25 04:15 05/04/25 04:15 05/04/25 04:15 05/04/25 04:15 05/04/25 04:15 05/04/25 04:17 Oxygen Delivery Method CPAP Weight: 263 lb 14.293 oz Body Mass Index (BMI) 37.8 Intake & Output: Intake and Output for Last 24 Hours 05/02/25 05/03/25 05/04/25 23:59 23:59 23:59 Intake Total 200 / 200 0 / 0 Balance 200 / 200 0 / 0 Lab / Micro Data 04/30/25 07:28 Cardiology Labs/Tests Rhythm: EKG: ECHO: Stress Test: Cardiac Cath: PCI: CT Surgery: Holter monitor: EPS: PPM: CXR: Chest CT Scan: Physical Exam Const alert and oriented x3 Orientation / Consciousness: awake Eyes PERRL Neck Carotids: normal carotid upstroke Chest inspection of chest normal Cardio Rhythm: abnormal rhythm irregularly irregular GI normal to inspection, nondistended, normoactive bowel sounds Extremity no clubbing, cyanosis or edema Assessment & Plan Assessment/Plan (1) Paroxysmal atrial fibrillation: PLAN: He does have a history of symptomatic paroxysmal atrial fibrillation. He underwent DC cardioversion and thus far is maintaining sinus rhythm. He will remain on the sotalol 120 mg twice a day as well as anticoagulation. (2) Atherosclerotic heart disease of [place] coronary artery without angina pectoris: PLAN: He does have a history of coronary artery disease status post PCI as noted above. The plan is to continue him on the current medical therapy. His recent cardiac catheterization in February 2025 demonstrated patency of the stent to the circumflex artery. (3) Non-ischemic cardiomyopathy: PLAN: He does have mild nonischemic cardiomyopathy with an estimated ejection fraction of 50%. The plan to be to continue him on the current medical therapy. (4) Hyperlipidemia: QUALIFIERS: Hyperlipidemia type: unspecified Qualified Code(s): E 78.5 - Hyperlipidemia, unspecified PLAN: He will continue with the current aggressive risk factor modification. He will continue on the high intensity statin
[2025-05-04 08:15] VITALS: BP 93/60; PULSE 46; RESP 16; TEMP 36.7; O2SAT 100
[2025-05-04] MEDS: Cholecalciferol (Vit D3) 125 MCG CAPSULE (5,000 UNITS) PO (08:43)
[2025-05-04] MEDS: Sotalol Hydrochloride 80 MG Tablet 120 MG PO ×2 (08:43→17:20)
[2025-05-04] MEDS: APIXABAN 5 MG TABLET PO ×2 (08:43→21:28)
[2025-05-04] MEDS: FLU VACCINE 2025-26(6MOS UP) 45 MCG/0.5 ML SYRINGE IM (08:44)
--- NOTE | 2025-05-04 10:15 | CASEMGMT ---
RN CM Face to Face with patient for initial transition planning/care coordination assessment. RN CM introduced self and role at [facility]. Patient sittign in chair, alert and oriented, at bedside. Patient willing to participate in assessment and is able to answer all questions appropriately. Care providers, pharmacy, and demographics verified. Strata: 2 PCP: Sylvia Specialists: Judy Grover, envelope adjuster; Nelda, tufter hand; Preferred Pharmacy: [facility] Retail Insurance: [employer] [facility] Prescription Benefit: yes Living Will/HPOA: yes, Sonia Harrison LNOK: Living Arrangements: Patient lives with in a 2 story home with bed and bath on first floor, 3 steps and railing to enter the home. Patient is independent at home. Transportation: self, DME/HHC: Patient has cpap and pulse ox at home. No previous HHC or SNF. Patient wishes to discharge home, denies need for home health at this time. Patient states he has no further needs or concerns at this time. CM to follow for discharge planning needs that may arise. Disposition Plan: Patient to discharge home with family support and follow up plans in place. Alisha HIGGINBOTHAM, RN, CM
--- NOTE | 2025-05-04 11:25 | EKG12_ITS ---
Test Reason : Blood Pressure : */* mmHG Vent. Rate : 50 BPM Atrial Rate : 50 BPM P-R Int : 130 ms QRS Dur : 82 ms QT Int : 440 ms P-R-T Axes : 104 48 38 degrees QTcB Int : 401 ms Sinus bradycardia with marked sinus arrhythmia Otherwise normal ECG When compared with ECG of 03-May-2025 19:41, MANUAL COMPARISON REQUIRED DATA IS UNCONFIRMED Confirmed by QUINTIN TALBERT, COLLIN ([id number]), newspaper editor LACHELLE JAQUEZ ([id number]) on 05/05/2025 6:39:08 AM Referred By: Collin Lutz Confirmed By: COLLIN LUTZ MD
[2025-05-04 15:55] VITALS: BP 109/70; PULSE 65; RESP 16; TEMP 36.6; O2SAT 97
--- NOTE | 2025-05-04 16:32 | CHAPLAIN ---
Type of Pastoral Visit _x__ Initial Visit ___ Follow-up Visit ___ On-call Visit ___ General Patient Visit ___ Spiritual Assessment ___ Family Conference ___ Bereavement ___ Rapid Response ___ Code Blue ___ Other (describe below) Pastoral Care Referral From _x__ Patient ___ Family ___ Nurse ___ Physician ___ Director College ___ Faculty Research Physician ___ Other (describe below) Sacrament/Intervention _x__ Active listening ___ Anointing ___ Confucianism ___ Bereavement ___ Communion _x__ Franci exploration ___ _x__ Life review _x__ Prayer ___ Reconciliation ___ Sacrament of Sick ___ Supportive presence ___ Wedding ___ Other (describe below) Pastoral Comments patient is very welcoming and invites this human service coordinator to sit and talk with him; pt is open to talk of his physical health and reasons for admission; pt is also open to talk about his franci background but acknowledging that he is not connected to any hol[employer] organization; pt is talkative and expressive of gratitude to have someone sit with him while he waits on health decisions and discharge tomorrow; pt is optimistic about his health future; pt has questions of spiritual insights and welcomes a prayer
[2025-05-04 17:18] VITALS: BP 104/70; PULSE 65
--- NOTE | 2025-05-04 19:20 | EKG12_ITS ---
Test Reason : TIMED Blood Pressure : */* mmHG Vent. Rate : 52 BPM Atrial Rate : 52 BPM P-R Int : 184 ms QRS Dur : 78 ms QT Int : 446 ms P-R-T Axes : 86 51 45 degrees QTcB Int : 414 ms Sinus bradycardia with Premature supraventricular complexes Low voltage QRS Borderline ECG When compared with ECG of 04-May-2025 11:26, MANUAL COMPARISON REQUIRED DATA IS UNCONFIRMED Confirmed by QUINTIN TALBERT, COLLIN ([id number]), research editor LACHELLE JAQUEZ ([id number]) on 05/06/2025 6:30:19 AM Referred By: Collin Lutz Confirmed By: COLLIN LUTZ MD
[2025-05-04 21:24] VITALS: BP 103/64; PULSE 50; RESP 16; TEMP 36.4; O2SAT 97
[2025-05-05 03:23] VITALS: BP 135/90; PULSE 50; RESP 16; TEMP 36.6; O2SAT 96
--- NOTE | 2025-05-05 06:55 | PCM.PN.CARD ---
Subjective Subjective Patient seen and evaluated. Appears to be doing well. No complaints. Tolerating sotalol quite well. Objective Data Vital Signs: Vital Signs Temp Pulse Resp BP Pulse Ox O2 Del Method 98 F 50 L 16 135/90 H 96 CPAP 05/05/25 03:23 05/05/25 03:23 05/05/25 03:23 05/05/25 03:23 05/05/25 03:23 05/05/25 03:23 Oxygen Delivery Method CPAP Weight: 263 lb 14.293 oz Body Mass Index (BMI) 37.8 Intake & Output: Intake and Output for Last 24 Hours 05/03/25 05/04/25 05/05/25 23:59 23:59 23:59 Intake Total 200 / 200 0 / 0 Balance 200 / 200 0 / 0 Lab / Micro Data 04/30/25 07:28 Cardiology Labs/Tests Rhythm: EKG: ECHO: Stress Test: Cardiac Cath: PCI: CT Surgery: Holter monitor: EPS: PPM: CXR: Chest CT Scan: Physical Exam Const alert and oriented x3 Orientation / Consciousness: awake Eyes PERRL Neck Carotids: normal carotid upstroke Chest inspection of chest normal Cardio Rhythm: abnormal rhythm irregularly irregular GI normal to inspection, nondistended, normoactive bowel sounds Extremity no clubbing, cyanosis or edema Assessment & Plan Assessment/Plan (1) Paroxysmal atrial fibrillation: PLAN: He does have a history of symptomatic paroxysmal atrial fibrillation. He underwent DC cardioversion and thus far is maintaining sinus rhythm. He will remain on the sotalol 120 mg twice a day as well as anticoagulation. EKG does not demonstrate any evidence of QT prolongation. After the fifth dose today the patient can be discharged. (2) Atherosclerotic heart disease of [place] coronary artery without angina pectoris: PLAN: He does have a history of coronary artery disease status post PCI as noted above. The plan is to continue him on the current medical therapy. His recent cardiac catheterization in February 2025 demonstrated patency of the stent to the circumflex artery. (3) Non-ischemic cardiomyopathy: PLAN: He does have mild nonischemic cardiomyopathy with an estimated ejection fraction of 50%. The plan to be to continue him on the current medical therapy. (4) Hyperlipidemia: QUALIFIERS: Hyperlipidemia type: unspecified Qualified Code(s): E78.5 - Hyperlipidemia, unspecified PLAN: He will continue with the current aggressive risk factor modification. He will continue on the high intensity statin
[2025-05-05 08:12] VITALS: BP 118/71; PULSE 55; RESP 18; TEMP 36.6; O2SAT 95
[2025-05-05] MEDS: Sotalol Hydrochloride 80 MG Tablet 120 MG PO ×2 (08:13→17:11)
[2025-05-05] MEDS: Cholecalciferol (Vit D3) 125 MCG CAPSULE (5,000 UNITS) PO (08:13)
[2025-05-05] MEDS: APIXABAN 5 MG TABLET PO (08:14)
[2025-05-05 16:39] VITALS: BP 124/75; PULSE 47; RESP 18; TEMP 36.8; O2SAT 99
--- NOTE | 2025-05-05 17:43 | DCINST_ITS ---
Discharge Instructions DC O2, CPAP, BIPAP needs Home O2 Discharge instructions: No Follow Up Care Test Results: Test results from this visit will be discussed in further detail at your follow- up appointment, if applicable. Discharge Plan Admission Admit Date/Time: 05/03/25 12:49 Attending Provider: Collin Lutz Primary Care Provider: Carlos Enrique Ward Consulting Providers: Piyush Christian DUBBING MACHINE OPERATOR; Gisselle Daniels DUBBING MACHINE OPERATOR Discharge Orders/Prescriptions Prescriptions: New sotalol 80 mg Tablet 120 mg PO 0800,1700 Qty: 60 3RF Continued cholecalciferol (vitamin D3) 5,000 unit capsule 5,000 unit PO QDAY albuterol sulfate [Ventolin HFA] 90 mcg/actuation HFA aerosol inhaler 2 puff INHALATION Q4H PRN (Reason: shortness of breath or wheezing) Qty: 18 6RF aspirin 81 mg tablet,chewable 81 mg PO ONCE Qty: 90 3RF Eliquis 5 mg tablet 5 mg PO BID Qty: 180 3RF Trelegy Ellipta 100-62.5-25 mcg blister with device 1 inh inhalation QDAY Qty: 3 3RF Rx Instructions: administer at approximately the same time(s) each day Discontinued metoprolol tartrate 50 mg tablet 50 mg PO BID Qty: 180 3RF Referrals / Follow Up: Carlos Enrique Ward DO [Primary Care Provider, Family Practice] Disposition Disposition (needs filled in before D/C Order can be placed): Home, Self Care
--- NOTE | 2025-05-07 08:17 | DS.PCM_ITS ---
Providers Date of Admission: 05/03/25 Date of Discharge: 05/05/25 Primary Care Physician: Dr. Carlos Enrique Ward DO Reason For Visit: AFIB Diagnosis Discharge Diagnosis (1) Paroxysmal atrial fibrillation: Status: Chronic Code(s): I48.0 - Paroxysmal atrial fibrillation Plan: He does have a history of symptomatic paroxysmal atrial fibrillation. He underwent DC cardioversion and thus far is maintaining sinus rhythm. He will remain on the sotalol 120 mg twice a day as well as anticoagulation. EKG does not demonstrate any evidence of QT prolongation. After the fifth dose today the patient can be discharged. (2) Atherosclerotic heart disease of [place] coronary artery without angina pectoris: Status: Acute Code(s): I25.10 - Atherosclerotic heart disease of [place] coronary artery without angina pectoris Plan: He does have a history of coronary artery disease status post PCI as noted above. The plan is to continue him on the current medical therapy. His recent cardiac catheterization in February 2025 demonstrated patency of the stent to the circumflex artery. (3) Non-ischemic cardiomyopathy: Status: Chronic Code(s): I42.8 - Other cardiomyopathies Plan: He does have mild nonischemic cardiomyopathy with an estimated ejection fraction of 50%. The plan to be to continue him on the current medical therapy. (4) Hyperlipidemia: Status: Chronic Code(s): E78.5 - Hyperlipidemia, unspecified Qualifiers: Hyperlipidemia type: unspecified Qualified Code(s): E78.5 - Hyperlipidemia, unspecified Plan: He will continue with the current aggressive risk factor modification. He will continue on the high intensity statin Medications at Discharge Home Medications cholecalciferol (vitamin D3) 125 mcg (5,000 unit) capsule 5,000 unit PO QDAY supplement 07/25/17 albuterol sulfate 90 mcg/actuation aerosol inhaler (Ventolin HFA) 2 puff inhalation Q4H PRN shortness of breath or wheezing #18 grams 12/24/23 apixaban 5 mg tablet (Eliquis) 5 mg PO BID #180 tabs 04/20/24 fluticasone fur. 100 mcg-umeclid 62.5 mcg-vilant 25 mcg inhalat.powder (Trelegy Ellipta) 1 inh inhalation QDAY #3 device 07/28/24 aspirin 81 mg chewable tablet 81 mg PO ONCE #90 tabs 02/16/25 sotalol 80 mg tablet 120 mg (1.5 x 80 mg) PO 0800,1700 #60 tabs 05/05/25 Hospital Course Summary of Care Provided Hospital Course: Patient was admitted to the hospital and was administered sotalol after DC cardioversion. Patient was put on sotalol 120 mg twice a day received 5 doses and appropriate EKGs were done with no prolongation of QT interval. Patient physical exam was noted to be unremarkable. Physical Exam Const alert and oriented x3 HEENT normocephalic Eyes PERRL Lymph Lymphatic: no lymphadenopathy noted Resp normal respiratory effort Cardio regular rate GI normal to inspection, nondistended, normoactive bowel sounds Extremity General Extremity: no tenderness to palpation of joints or extremities Weight / BMI Weight Weight: 263 lb 14.293 oz Body Mass Index (BMI) 37.8 ABG / Lab / Microbiology Data 04/30/25 07:28 D/C Instructions Discharge Activity: Return to Normal Activity DC O2, CPAP, BIPAP Needs Home O2 Discharge instructions: No When: [facility] office will call for appt Meaningful Use Info Meaningful Use Meaningful Use Diagnoses (Choose all that apply): None applicable Discharge Plan Admission Admit Date/Time: 05/03/25 12:49 Attending Provider: Collin Lutz Primary Care Provider: Carlos Enrique Ward Consulting Providers: Piyush Christian LOCATION AND MEASUREMENT TECHNICIAN; Gisselle Daniels NP Discharge Orders/Prescriptions Prescriptions: New sotalol 80 mg Tablet 120 mg PO 0800,1700 Qty: 60 3RF Continued cholecalciferol (vitamin D3) 5,000 unit capsule 5,000 unit PO QDAY albuterol sulfate [Ventolin HFA] 90 mcg/actuation HFA aerosol inhaler 2 puff INHALATION Q4H PRN (Reason: shortness of breath or wheezing) Qty: 18 6RF aspirin 81 mg tablet,chewable 81 mg PO ONCE Qty: 90 3RF Eliquis 5 mg tablet 5 mg PO BID Qty: 180 3RF Trelegy Ellipta 100-62.5-25 mcg blister with device 1 inh inhalation QDAY Qty: 3 3RF Rx Instructions: administer at approximately the same time(s) each day Discontinued metoprolol tartrate 50 mg tablet 50 mg PO BID Qty: 180 3RF Referrals / Follow Up: Carlos Enrique Ward DO [Primary Care Provider, Family Practice] Disposition Disposition (needs filled in before D/C Order can be placed): Home, Self Care
== END 2025-05-05 18:45 | disposition home or self-care (01) | DRG 310 ==
LOC: PCU 13:48
PROVIDERS: Nurse Practitioner Family; Nurse Practitioner Gerontology; Admitting Provider Internal Medicine Cardiovascular Disease; PCP Family Medicine; Referring Provider Internal Medicine Cardiovascular Disease; Visit Provider Internal Medicine Cardiovascular Disease
DX: I48.0 Paroxysmal atrial fibrillation (principal); I42.8 Other cardiomyopathies; J44.9 Chronic obstructive pulmonary disease, unspecified; I34.0 Nonrheumatic mitral (valve) insufficiency; E66.9 Obesity, unspecified; I25.10 Atherosclerotic heart disease of native coronary artery without angina pectoris; I48.92 Unspecified atrial flutter; G47.33 Obstructive sleep apnea (adult) (pediatric); E78.5 Hyperlipidemia, unspecified; Z95.5 Presence of coronary angioplasty implant and graft; Z91.148 Patient's other noncompliance with medication regimen for other reason; Z79.01 Long term (current) use of anticoagulants; Z68.37 Body mass index [BMI] 37.0-37.9, adult; Z23 Encounter for immunization; Z79.899 Other long term (current) drug therapy; Z87.891 Personal history of nicotine dependence
CPT/HCPCS: 36415; 80048; 80061; 80076; 83036; 92960; 93005; A4216